=== PATIENT | female | born 1950 | race Caucasian/White ===

== ENCOUNTER 2020-09-19 22:57 | Inpatient (IN) | payer MEDICARE, SELFPAY ==
[2020-09-19 22:59] VITALS: BP 156/74; PULSE 82; RESP 30; TEMP 36.6; O2SAT 78; O2SAT 92; BMI 38.4
--- NOTE | 2020-09-19 23:11 | RAD_ITS ---
STUDY: X-RAY CHEST REASON FOR EXAM: Female, 69 years old. sob TECHNIQUE: Single AP portable view of the chest. COMPARISON: None. FINDINGS: Lungs are mildly hypoinflated. Diffuse patchy airspace disease compatible with interstitial edema. Bibasilar consolidation with small effusions. Moderate cardiomegaly. Normal mediastinum and vishal. Normal visualized pulmonary arteries. Normal visualized aortic arch and descending thoracic aorta. Normal visualized thoracic spine. Normal visualized ribs, clavicles, and shoulders. There is no demonstrated abnormality of the visualized soft tissue structures of the upper abdomen. RAD/Chest 1 View (Portable) IMPRESSION: CHF with bibasilar consolidation and effusion Electronically Signed: Ced Hancock DO at 0:16 EDT Tel , Service support ,
--- NOTE | 2020-09-19 23:13 | RAD_ITS ---
STUDY: X-RAY - PELVIS REASON FOR EXAM: Female, 69 years old. fall TECHNIQUE: One view of the pelvis was obtained. COMPARISON: None. FINDINGS: There is a non-specific bowel gas pattern. Normal visualized soft tissue structures. Normal bilateral iliac wings, sacroiliac joints and visualized sacrum. Normal visualized bilateral superior and inferior pubic rami. Normal pubic symphysis. Normal ischial tuberosities. Normal visualized right femoral head. Normal right acetabulum. Normal right hip joint. Normal visualized left femoral head. Normal left acetabulum. Normal left hip joint. RAD/Pelvis 1 or 2 Views IMPRESSION: Normal x-ray examination of the pelvis. Electronically Signed: Ced Hancock DO at 0:16 EDT Tel , Service support ,
--- NOTE | 2020-09-19 23:22 | ED.DCSUM_ITS ---
History of Present Illness Chief Complaint: Edema Informant: Patient Narrative: Patient is a 69-year-old female with complex medical history presenting after weakness, shortness of breath mechanical falls. Patient states she was getting on the shower tonight when she slipped and fell. She landed next the toilet. She hit her left back. EMS was called out to help her up. When they left patient was try to walk with her walker and fell again. She did not hit her head. No loss of conscious. Her is at the bedside who confirms this. Patient is on any anticoagulation, does take 81 mg aspirin. Patient notes she was recently switched to torsemide on September 08 because she had weight gain. Patient has chronic diastolic heart failure as well as CKD. She is on dialysis. She notes her urine has been darker lately. She is currently under evaluation for renal transplant. She feels that her swelling is slightly improved however she has had increased dyspnea on exertion. Patient sleeps in a recliner because she cannot get up into her bed. Patient denies any fever. She does have a chronic nonproductive cough which is unchanged. Patient denies any chest pain. No other complaints at this time. 78% on arrival. She states she does not wear oxygen normally. Past Medical History - Allergies and Home Meds Allergies/Adverse Reactions: Allergies lisinopril Allergy (Verified 09/19/20 22:59) Anaphylaxis olmesartan [From Benicar] Allergy (Verified 09/19/20 23:25) Anaphylaxis Sulfa (Sulfonamide Antibiotics) Allergy (Verified 09/19/20 22:59) Rash adhesive tape Adverse Reaction (Verified 09/19/20 22:59) Rash furosemide [From Lasix] Adverse Reaction (Verified 09/19/20 22:59) Nausea latex Adverse Reaction (Verified 09/19/20 23:25) Rash metoprolol [From Toprol XL] Adverse Reaction (Verified 09/19/20 23:25) Rash Primary Care Physician: Weston Zhu MD [Primary Care Provider] - Past Medical History: - - Hypertension, CKD 4, chronic anemia, diabetes mellitus, hypothyroid, secondary renal hyperparathyroidism, diastolic heart failure with preserved EF Surgical History: hysterectomy, - - D&C, EGD Smoking Status: Never smoker Review of Systems General: Reports: Malaise. Denies: Chills, Fever, Sweats Eyes: Denies: Visual changes - bilaterally, Diplopia ENT: Denies: Rhinorrhea, Sore throat Cardiovascular: Denies: Chest pain, Palpitations Respiratory: Reports: Dyspnea, Cough, Dyspnea on exertion. Denies: Sputum Gastrointestinal: Denies: Abdominal pain, Nausea, Vomiting, Diarrhea, Melena, Hematochezia Genitourinary: Denies: Dysuria, Hematuria, Frequency Musculoskeletal: Reports: Back pain - after fall, Swelling. Denies: Extremity Pain Skin: Denies: Rash, Wounds Neurological: Denies: Headache, Weakness, Numbness Physical Exam Vital Signs/Narrative: Vital Signs Temp Pulse Resp BP Pulse Ox 09/19/20 22:59 97.9 F 82 30 H 156/74 H 92 Inital Vital Signs reviewed: Yes General: Well nourished, Well developed, No Acute Distress Head: Normocephalic, Atraumatic Eyes: Perrl, EOMI, Pale conjunctiva ENT: Moist mucous membranes, No rhinorrhea, TM's clear Neck: Supple, Nontender. Negative for: No JVD Cardiovascular: Regular rate, Regular rhythm, No murmurs Respiratory: No distress, Chest nontender, Diminished, Decreased Air Movement, - - Bibasilar crackles Abdomen: Soft, Nontender, Normal bowel sounds, - - Pitting edema up to the umbilicus Back: - - Tenderness to palpation of the left flank with some associated ecchymosis Extremities: Nontender, Edema Skin: Normal color, No rash Neurological: Alert, Oriented x3, Cranial nerves II-XII grossly intact, Normal Strength, Normal Sensation Psychological: Normal affect, Normal Mood Diagnostic/Tx/Re-eval Chest X-Ray - ED: 1 View, Read by ED Physician, Read by Radiologist, CHF, Right Effusion, Left Effusion Laboratory Results - last 24 hr 09/19/20 09/19/20 09/19/20 23:00 23:00 23:00 WBC 12.2 H RBC 3.61 L Hgb 8.7 L Hct 31.0 L MCV 85.9 MCH 24.1 L MCHC 28.1 L RDW Std Deviation 51.1 H RDW Coeff of Samy 16.6 H Plt Count 423 MPV 9.5 Immature Gran % (Auto) 1.600 H Neut % (Auto) 84.1 H Lymph % (Auto) 5.5 L Carson % (Auto) 6.4 Eos % (Auto) 1.7 Baso % (Auto) 0.7 Absolute Neuts (auto) 10.2 H Absolute Lymphs (auto) 0.67 L Nucleated RBC % 0 PT 14.4 INR 1.2 Sodium 137 Potassium 4.9 Chloride 103 Carbon Dioxide 28.0 Anion Gap 6 BUN 50 H Creatinine 3.62 H Estim Creat Clear Calc 13.20 Est GFR (MDRD) Af Amer 16 L Est GFR (MDRD) Non-Af 13 L BUN/Creatinine Ratio 13.8 Glucose 161 H Calcium 8.1 L Total Bilirubin 0.40 AST 9 L ALT 14 Alkaline Phosphatase 129 H Troponin I < 0.015 B-Natriuretic Peptide Total Protein 7.3 Albumin 3.0 L Globulin 4.3 H Albumin/Globulin Ratio 0.7 L Urine Color Urine Clarity Urine pH Ur Specific [place] Urine Protein Urine Glucose (UA) Urine Ketones Urine Occult Blood Urine Nitrite Urine Bilirubin Urine Urobilinogen Ur Leukocyte Esterase Urine RBC Urine WBC Ur Squamous Epith Cells Urine Bacteria Urine Mucus 09/19/20 09/19/20 23:00 23:58 WBC RBC Hgb Hct MCV MCH MCHC RDW Std Deviation RDW Coeff of Samy Plt Count MPV Immature Gran % (Auto) Neut % (Auto) Lymph % (Auto) Carson % (Auto) Eos % (Auto) Baso % (Auto) Absolute Neuts (auto) Absolute Lymphs (auto) Nucleated RBC % PT INR Sodium Potassium Chloride Carbon Dioxide Anion Gap BUN Creatinine Estim Creat Clear Calc Est GFR (MDRD) Af Amer Est GFR (MDRD) Non-Af BUN/Creatinine Ratio Glucose Calcium Total Bilirubin AST ALT Alkaline Phosphatase Troponin I B-Natriuretic Peptide 846.3 H Total Protein Albumin Globulin Albumin/Globulin Ratio Urine Color Yellow Urine Clarity Clear Urine pH 6.0 Ur Specific [place] 1.015 Urine Protein 500 H Urine Glucose (UA) Normal Urine Ketones Negative Urine Occult Blood 10 H Urine Nitrite Negative Urine Bilirubin Negative Urine Urobilinogen Normal Ur Leukocyte Esterase 100 H Urine RBC 0-5 SEEN Urine WBC 10-25 SEEN Ur Squamous Epith Cells 0-5 SEEN Urine Bacteria RARE Urine Mucus 0 SEEN Diagnostic Data Chest X-Ray 09/19/20 23:11 IMPRESSION: CHF with bibasilar consolidation and effusion Electronically Signed: Ced Hancock DO at 0:16 EDT Tel , Service support , Pelvis X-Ray 09/19/20 23:13 IMPRESSION: Normal x-ray examination of the pelvis. Electronically Signed: Ced Hancock DO at 0:16 EDT Tel , Service support , - Rhythm Strip Rhythm Strip: Sinus Rhythm Rate: 85 Ectopy: None - EKG Initial EKG Interpretation: Sinus Rhythm, - - Sinus rhythm at a rate of 85 Normal axis Normal intervals Normal ST segments Prior: No Prior - Medical Decision Making Patient is evaluated for weakness and increased falls. She is also had worsening lower extremity edema for the past few weeks and increased dyspnea on exertion. On exam patient appears fluid overloaded. She is hypoxic requiring supplementary oxygen. Patient was recently started on torsemide but states her urine has still been dark. Patient does have left lower back/flank pain from the fall. She has slight erythema/ecchymosis. No bony tenderness. I suspect this is all muscle skeletal. I did obtain a pelvic x-ray which does not show any acute fracture. Chest x-ray shows bilateral pleural effusions consistent with CHF. There is questionable consolidation. Patient does have a slight left shift and leukocytosis. Urinalysis is questionable for UTI as well. Patient be covered with antibiotics, Rocephin and azithromycin. She is given 40 of IV Lasix in the ER as a suspect her primary issue is fluid overload. Patient has Lasix listed as an allergy but it is of intolerance. When she took it orally it caused headache and nausea. Patient will require admission given her acute hypoxia and decompensated CHF. Patient does have an elevation of her creatinine as well. I suspect this is likely cardiorenal. Hopefully creatinine will improve with diuresing. She is agreeable with this plan of care. She is hemodynamically stable in the ER. ED Disposition - Plan for ED Patient: Disposition: Acute [facility] Diagnosis: Acute respiratory failure with hypoxia, Acute exacerbation of CHF (congestive heart failure), [id number] kidney injury, Fall, Contusion, back Referrals: Weston Zhu MD [Primary Care Provider] -
[2020-09-19 23:41] LABS: International Normalized Ratio 1.2; Prothrombin Time (Protime)PT. 14.4 SECONDS (11.7-14.9)
[2020-09-19 23:43] LABS: ALB/GLOB Ratio 0.7 RATIO (0.9-2.4); AST(SGOT) 9 U/L (15-37); Alanine Aminotransfer ALT/SGPT 14 U/L (13-56); Alkaline Phosphatase 129 U/L (45-117); Anion Gap 6 (5-15); BUN 50 mg/dL (7-18); BUN/Creat Ratio 13.8 RATIO (10-20); Calcium,Total 8.1 mg/dL (8.5-10.1); Chloride 103 mmol/L (98-107); Creatinine, Serum 3.62 mg/dL (0.55-1.02); EST Glomerular Filtration Rate 13 mL/min (>60); Est Glom Filt Rate - Afr Amer 16 mL/min (>60); Globulin 4.3 g/dL (2.2-4.2); Glucose 161 mg/dL (74-106); Potassium 4.9 mmol/L (3.5-5.1); Protein, Total 7.3 g/dL (6.4-8.2); Sodium Level 137 mmol/L (136-145)
[2020-09-19 23:47] LABS: Absolute Lymphocyte Count 0.67 X10^3/uL (0.83-4.51); Absolute Neutrophil Count 10.2 X10^3/uL (2.0-7.7); Basophil# 0.08 X10^3/uL; Basophil% 0.7 % (0-1); Eosinophil# 0.21 X10^3/uL; Eosinophils% 1.7 % (0-5); Hemoglobin 8.7 g/dL (12.0-15.0); Lymphocyte # 0.67 X10^3/ul (0.83-4.51); Lymphocyte % 5.5 % (19-41); Mean Corp Hgb Conc 28.1 g/dL (32-36); Mean Corpuscular Hgb 24.1 pg (27.0-32.0); Mean Corpuscular Volume 85.9 fL (81-99); Mean Platelet Vol. 9.5 fl (6.2-12.0); Monocyte# 0.78 X10^3/uL; Monocyte% 6.4 % (0-10); NRBC Flagged by Analyzer 0 % (0-5); Neutrophil # 10.22 X10^3/uL (2.7-7.7); Neutrophil % 84.1 % (47-70); Platelet Count 423 K/mm3 (150-450); RBC Distribution Width CV 16.6 % (11.6-14.6); RBC Distribution Width SD 51.1 fl (35.1-43.9); Red Blood Count 3.61 M/mm3 (4.2-5.4); White Blood Count 12.2 K/mm3 (4.4-11.0)
[2020-09-19 23:57] VITALS: BP 162/60; PULSE 92; RESP 25; O2SAT 93
--- NOTE | 2020-09-19 23:59 | EKG12_ITS ---
Test Reason : WEAKNESS Blood Pressure : / mmHG Vent. Rate : 085 BPM Atrial Rate : 085 BPM P-R Int : 156 ms QRS Dur : 086 ms QT Int : 380 ms P-R-T Axes : 034 050 051 degrees QTc Int : 452 ms Normal sinus rhythm Normal ECG Confirmed by CINDY OCONNELL, CHIOMA ([id number]), supervising editor news reel SHELLY FULLER ([id number]) on 09/21/2020 1:06:13 PM Referred By: RITIKA Confirmed By:CHIOMA WHITE MD
[2020-09-20] VITALS (14 sets, daily range): BP systolic 115–162; BP diastolic 53–74; PULSE 63–90; RESP 16–26; TEMP 36–36.8; O2SAT 92–95; BMI 37.1; BMI 37.2
--- NOTE | 2020-09-20 00:01 | ED.RN ---
NO OLD EKGS IN MUES
[2020-09-20 00:03] LABS: Glucose, Dipstick Normal (Normal); Ketone-Dipstick Negative (Negative); Leukocyte Esterase-Dipstick 100 /ul (Negative); Mucous, Urine 0 SEEN /hpf (<or=2+); Nitrite-Dipstick Negative (Negative); Occult Blood-Urine 10 /ul (Negative); Protein-Dipstick 500 mg/dl (Negative); Specific Gravity, Urine 1.015 (1.002-1.030); Urine Bilirubin Dipstick Negative (Negative); Urine Urobilinogen Normal (Normal)
[2020-09-20 00:04] LABS: Color, Urine Yellow (Yellow); Urine Clarity Clear (Clear)
[2020-09-20 00:10] LABS: Bacteria RARE /hpf (None Seen); Red Blood Cells-Urine 0-5 SEEN /hpf (0-5); Squamous Epithelial Cells - UA 0-5 SEEN /hpf (5-10); White Blood Cells 10-25 SEEN /hpf (0-5)
[2020-09-20] MEDS: Morphine 4 MG/ML Syringe IV (00:59)
[2020-09-20] MEDS: Furosemide 40 MG/4 ML Vial IV (00:59)
[2020-09-20] MEDS: Ceftriaxone 1 GM/50 ML BAG IV ×2 (01:18→16:58)
[2020-09-20 01:22] LABS: BNP,B-Type NATRIURETIC PEPTIDE 846.3 pg/mL (0-100)
--- NOTE | 2020-09-20 01:26 | HP.PCM_ITS ---
<Vilma Oden - Last Filed: 09/20/20 01:26> Problem List (1) Urinary tract infection Status: Acute Qualifiers: Encounter type: initial encounter (2) Acute on chronic congestive heart failure Status: Acute (3) Hypertension Status: Chronic (4) Insomnia Status: Chronic (5) Diabetes mellitus type 2 in obese Status: Chronic (6) Hypothyroidism Status: Chronic (7) Hyperlipidemia Status: Chronic History of Present Illness Date of Admission: 09/20/20 Chief Complaint: multiple falls, SOB The patient is a 69 year old F today following multiple falls at home. Patient states that she has been increasingly short of breath today and off balance. Patient fell getting on the shower tonight and landed next to the toilet hitting her back as she fell. Patient is not on any anticoagulation however she does take an 81 mg aspirin daily. Patient has a medical history of CHF, chronic kidney disease, diabetes mellitus type 2, hyperlipidemia, hypertension. Patient states that she has had increased swelling along with increased shortness of breath upon exertion. Vital signs stable, patient currently on nasal cannula 4 L due to hypoxia upon presentation to ER. Patient does not wear any home oxygen. Patient has a chronic nonproductive cough but denies other symptoms. Chest x-ray shows CHF with consolidation my pelvic x-ray negative for acute f indings. Past Medical History Past Medical History (Chronic Problems): Chronic Problems Hypertension (Chronic) Insomnia (Chronic) Diabetes mellitus type 2 in obese (Chronic) Hypothyroidism (Chronic) Hyperlipidemia (Chronic) Acute exacerbation of CHF (congestive heart failure) (Chronic) [id number]-[id number] kidney injury (Chronic) Allergies lisinopril Allergy (Verified 09/19/20 22:59) Anaphylaxis olmesartan [From Benicar] Allergy (Verified 09/19/20 23:25) Anaphylaxis Sulfa (Sulfonamide Antibiotics) Allergy (Verified 09/19/20 22:59) Rash adhesive tape Adverse Reaction (Verified 09/19/20 22:59) Rash furosemide [From Lasix] Adverse Reaction (Verified 09/19/20 22:59) Nausea latex Adverse Reaction (Verified 09/19/20 23:25) Rash metoprolol [From Toprol XL] Adverse Reaction (Verified 09/19/20 23:25) Rash Home Medications: Ambulatory Orders Medication Instructions Recorded Alpha Lipoic Acid 100 mg PO DAILY 09/19/20 Amlodipine [Norvasc] 5 mg PO DAILY 09/19/20 Ascorbic Acid 500 mg PO DAILY 09/19/20 Aspirin [Aspirin, Baby] 81 mg PO DAILY@0800 09/19/20 Calcitriol 0.25 mcg PO QODAY 09/19/20 Calcitriol 0.5 mcg PO QODAY 09/19/20 Cyanocobalamin (Vitamin B-12) 1,000 mcg PO DAILY 09/19/20 [Vitamin B-12] Diltiazem [Cardizem] 120 mg PO BID 09/19/20 Ferrous Sulfate 324 mg PO BID 09/19/20 Levothyroxine [Synthroid] 300 mcg PO DAILY 09/19/20 Multivit with Iron,Minerals 1 each PO DAILY 09/19/20 [Complete Senior] [place]-3 Fatty Acids/Fish Oil 1 each PO DAILY 09/19/20 [[place] 3 Fish Oil Softgel] Sitagliptin Phosphate [Januvia] 25 mg PO DAILY 09/19/20 Torsemide 10 mg PO DAILY 09/19/20 Zolpidem Tartrate [Ambien] 10 mg PO QHS PRN PRN 09/19/20 Surgical History: hysterectomy, - - D&C, EGD Psychiatric History: No pertinent psych hx [employer]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 Denies: Chills, Fever, Weight Change HEENT: Denies: Head Aches, Sinus Congestion, Sinus Drainage Cardiovascular: Denies: Chest Pain, Palpitations Respiratory: Reports: Shortness of breath upon exertion. Denies: Cough, Sputum production Gastrointestinal: Denies: Abdominal Pain, Nausea, Vomiting Genitourinary: Reports: Frequency. Denies: Dysuria Musculoskeletal: Denies: Joint Pain, Joint Tenderness Skin: Denies: Rash, Wounds Neurological: Denies: Numbness, Tingling, Focal weakness Psychiatric: Denies: Anxiety, Depression, Homicidal Ideations, Suicidal Ideations Hematologic/ Lymphatic: Denies: Easy Bruising, Easy Bleeding VTE Information - Inpt Only VTE Present on Admission: No VTE Mechan Device Prophylaxis: None VTE Pharm Prophylaxis ordered?: Yes Patient Problems: Active and Suspected Problems Urinary tract infection (Acute) Acute on chronic congestive heart failure (Acute) Acute respiratory failure with hypoxia (Acute) Fall (Acute) Contusion, back (Acute) - Physical Exam Vitals/I&O's: Vital Signs Temp Pulse Resp BP Pulse Ox 97.9 F 90 26 H 162/60 H 92 09/19/20 22:59 09/20/20 00:00 09/20/20 00:00 09/20/20 00:00 09/20/20 00:00 Oxygen Flow Rate (L/min) 4 Oxygen Delivery Method Nasal Cannula Weight: 231 lb 0.711 oz Body Mass Index (BMI) 38.4 General: Alert, Oriented x3, Cooperative HEENT: Atraumatic, PERRLA, EOMI, Normocephalic Neck: Supple, No JVD, Negative Carotid Bruits Lungs: Diminished, Rhonchi, Short of Breath Cardiovascular: Regular rate, Regular Rhythm, Normal S1, Normal S2, No murmurs Abdomen: Bowel Sounds Present, Soft, Non Tender Extremities: Capillary Refill Less than 3 Seconds, Edema, Peripheral Pulses Normal Skin: No rashes, No breakdown Musculoskeletal: No Tenderness to Palpation of Joints or Extremities Neurological: Cranial nerves II-XII grossly intact Psych/Mental Status: Normal Affect, Appropriate Microbiology Past 72 Hours 09/19/20 Unknown Nasal Secretion SARS-CoV-2 Antigen (Rapid) - Final Laboratory Results 09/19/20 23:00: WBC 12.2 H, RBC 3.61 L, Hgb 8.7 L, Hct 31.0 L, MCV 85.9, MCH 24.1 L, MCHC 28.1 L, RDW Std Deviation 51.1 H, RDW Coeff of Samy 16.6 H, Plt Count 423, MPV 9.5, Immature Gran % (Auto) 1.600 H, Neut % (Auto) 84.1 H, Lymph % (Auto) 5.5 L, [place] % (Auto) 6.4, Eos % (Auto) 1.7, Baso % (Auto) 0.7, Absolute Neuts (auto) 10.2 H, Absolute Lymphs (auto) 0.67 L, Nucleated RBC % 0 09/19/20 23:00: PT 14.4, INR 1.2 09/19/20 23:00: Sodium 137, Potassium 4.9, Chloride 103, Carbon Dioxide 28.0, Anion Gap 6, BUN 50 H, Creatinine 3.62 H, Estim Creat Clear Calc 13.20, Est GFR (MDRD) Af Amer 16 L, Est GFR (MDRD) Non-Af 13 L, BUN/Creatinine Ratio 13.8, Glucose 161 H, Calcium 8.1 L, Total Bilirubin 0.40, AST 9 L, ALT 14, Alkaline Phosphatase 129 H, Troponin I < 0.015, Total Protein 7.3, Albumin 3.0 L, Globulin 4.3 H, Albumin/Globulin Ratio 0.7 L 09/19/20 23:00: B-Natriuretic Peptide 846.3 H 09/19/20 23:58: Urine Color Yellow, Urine Clarity Clear, Urine pH 6.0, Ur Specific [place] 1.015, Urine Protein 500 H, Urine Glucose (UA) Normal, Urine Ketones Negative, Urine Occult Blood 10 H, Urine Nitrite Negative, Urine Bilirubin Negative, Urine Urobilinogen Normal, Ur Leukocyte Esterase 100 H, Urine RBC 0-5 SEEN, Urine WBC 10-25 SEEN, Ur Squamous Epith Cells 0-5 SEEN, Urine Bacteria RARE, Urine Mucus 0 SEEN Current Medications Azithromycin 500 mg/ Dextrose 255 mls @ 250 mls/hr IV X1 ONE Stop: 09/20/20 02:04 Ceftriaxone Sodium (Rocephin) 1 gm in 50 mls @ 100 mls/hr IV X1 ONE Stop: 09/20/20 01:32 Last Admin: 09/20/20 01:18 Dose: 100 mls/hr Documented by: Assessment/Plan All Active Problems Urinary tract infection (Acute) Acute on chronic congestive heart failure (Acute) Acute respiratory failure with hypoxia (Acute) Fall (Acute) Contusion, back (Acute) 1. Urinary tract infection -Admit to PCU for cardiac monitoring -I&O per protocol -Keflex twice daily p.o. -CBC and BMP daily -PT OT to eval and treat -Urine culture 2. Acute on chronic congestive heart failure -Cardiac low-sodium diet with fluid restriction ordered -Daily weights -Vital signs per protocol -O2 per protocol -IV Lasix -Daily EKG 3. Hypertension -Continue home medication regimen 4. Insomnia -Continue home medication regimen 5. Diabetes mellitus type 2 in obese -Continue home medication regimen -AC at bedtime blood sugars ordered with sliding scale insulin 6. Hypothyroidism -Continue home medication regimen 7. Hyperlipidemia -Continue home medication regimen DVT prophylaxis-subcu Lovenox This patient was seen by CALLI Helton under the supervision of Dr. Gallegos. <Christian Gallegos - Last Filed: 09/20/20 06:13> History of Present Illness The patient is a 69 year old F [] Past Medical History Allergies lisinopril Allergy (Verified 09/19/20 22:59) Anaphylaxis olmesartan [From Benicar] Allergy (Verified 09/19/20 23:25) Anaphylaxis Sulfa (Sulfonamide Antibiotics) Allergy (Verified 09/19/20 22:59) Rash adhesive tape Adverse Reaction (Verified 09/19/20 22:59) Rash furosemide [From Lasix] Adverse Reaction (Verified 09/19/20 22:59) Nausea latex Adverse Reaction (Verified 09/19/20 23:25) Rash metoprolol [From Toprol XL] Adverse Reaction (Verified 09/19/20 23:25) Rash - Physical Exam Vitals/I&O's: Vital Signs Temp Pulse Resp BP Pulse Ox 97.7 F L 78 16 135/74 H 92 09/20/20 02:09 09/20/20 02:35 09/20/20 02:09 09/20/20 02:09 09/20/20 02:09 Oxygen Flow Rate (L/min) 6 Oxygen Delivery Method Nasal Cannula Weight: 223 lb 5.252 oz Body Mass Index (BMI) 37.1 Intake and Output for Last 24 Hours 09/18/20 09/19/20 09/20/20 23:59 23:59 23:59 Intake Total 305 / 305 Balance 305 / 305 Microbiology Past 72 Hours 09/19/20 Unknown Nasal Secretion SARS-CoV-2 Antigen (Rapid) - Final Laboratory Results 09/19/20 23:00: WBC 12.2 H, RBC 3.61 L, Hgb 8.7 L, Hct 31.0 L, MCV 85.9, MCH 24.1 L, MCHC 28.1 L, RDW Std Deviation 51.1 H, RDW Coeff of Samy 16.6 H, Plt Count 423, MPV 9.5, Immature Gran % (Auto) 1.600 H, Neut % (Auto) 84.1 H, Lymph % (Auto) 5.5 L, [place] % (Auto) 6.4, Eos % (Auto) 1.7, Baso % (Auto) 0.7, Absolute Neuts (auto) 10.2 H, Absolute Lymphs (auto) 0.67 L, Nucleated RBC % 0 09/19/20 23:00: PT 14.4, INR 1.2 09/19/20 23:00: Sodium 137, Potassium 4.9, Chloride 103, Carbon Dioxide 28.0, Anion Gap 6, BUN 50 H, Creatinine 3.62 H, Estim Creat Clear Calc 13.20, Est GFR (MDRD) Af Amer 16 L, Est GFR (MDRD) Non-Af 13 L, BUN/Creatinine Ratio 13.8, Glucose 161 H, Calcium 8.1 L, Total Bilirubin 0.40, AST 9 L, ALT 14, Alkaline Phosphatase 129 H, Troponin I < 0.015, Total Protein 7.3, Albumin 3.0 L, Globulin 4.3 H, Albumin/Globulin Ratio 0.7 L 09/19/20 23:00: B-Natriuretic Peptide 846.3 H 09/19/20 23:58: Urine Color Yellow, Urine Clarity Clear, Urine pH 6.0, Ur Specific [place] 1.015, Urine Protein 500 H, Urine Glucose (UA) Normal, Urine Ketones Negative, Urine Occult Blood 10 H, Urine Nitrite Negative, Urine Bilirubin Negative, Urine Urobilinogen Normal, Ur Leukocyte Esterase 100 H, Urine RBC 0-5 SEEN, Urine WBC 10-25 SEEN, Ur Squamous Epith Cells 0-5 SEEN, Urine Bacteria RARE, Urine Mucus 0 SEEN 09/20/20 02:50: Troponin I < 0.015 Current Medications Acetaminophen (Acetaminophen 325 Mg Tablet) 650 mg PO Q6H PRN PRN PRN Reason: Pain Score 1-10/Temp > 100.7 F Amlodipine Besylate (Amlodipine 5 Mg Tablet) 5 mg PO DAILY [facility] Ascorbic Acid (Ascorbic Acid 500 Mg Tablet) 500 mg PO DAILY [facility] Aspirin (Aspirin 81 Mg Tab.Chew) 81 mg PO DAILY@0800 [facility] Calcitriol (Calcitriol 0.25 Mcg Capsule) 0.25 mcg PO SuTuThSa@1000 [facility] Calcitriol (Calcitriol 0.25 Mcg Capsule) 0.5 mcg PO MoWeFr@1000 [facility] Cephalexin (Cephalexin 500 Mg Capsule) 500 mg PO BID [facility] Stop: 09/25/20 10:01 Cyanocobalamin (Cyanocobalamin 500 Mcg Tablet) 1,000 mcg PO DAILY [facility] Diltiazem HCl (Diltiazem Cd 120 Mg Capsule) 120 mg PO BID [facility] Enoxaparin Sodium (Enoxaparin 30 Mg/0.3 Ml Syringe) 30 mg SC DAILY [facility] Ferrous Sulfate (Ferrous Sulfate 325 Mg Tablet) 324 mg PO BID@1200,1700 [facility] Furosemide (Furosemide 20 Mg/2 Ml Vial) 20 mg IV Q8 JESICA Sodium Chloride () 250 mls @ 15 mls/hr IV .[id number] PRN PRN Reason: Saline Flush Sodium Chloride () 250 mls @ 15 mls/hr IV .[id number] PRN PRN Reason: Additional IVPB Infusion Insulin Human Lispro (Insulin Lispro 100 Unit/Ml Insuln.Pen) 0 unit SC ACHS JESICA; Protocol Levothyroxine Sodium (Levothyroxine 150 Mcg Tablet) 300 mcg PO DAILY@0600 [facility] Linagliptin (Linagliptin 5 Mg Tablet) 5 mg PO DAILY [facility] Melatonin (Melatonin 3 Mg Tablet) 3 mg PO QHS PRN PRN PRN Reason: INSOMNIA Morphine Sulfate (Morphine 2 Mg/Ml Syringe) 2 mg IV Q3H PRN PRN PRN Reason: Pain Score 6-10 Last Admin: 09/20/20 03:04 Dose: 2 mg Documented by: Multivitamins/Minerals (Multivitamins,Ther W-Minerals Tablet) [facility] Nitroglycerin (Nitroglycerin (Inpatient Use) 0.4 Mg Tab.Subl) 0.4 mg SL Q5M PRN PRN Reason: CARDIAC/CHEST PAIN [id number] Ethyl Esters ([place]-3 Acid Ethyl Esters 1 Gm Capsule) 1 gm PO DAILY [facility] Ondansetron HCl (Ondansetron 4 Mg/2 Ml Vial) 4 mg IV Q8H PRN PRN PRN Reason: NAUSEA/VOMITING Oxycodone HCl (Oxycodone 5 Mg Tablet) 5 mg PO Q6H PRN PRN PRN Reason: Pain Score 4-5 Sodium Chloride (0.9% Saline Lock 10 Ml Syringe) 10 - 40 ml IV UD PRN PRN Reason: SALINE FLUSH Last Admin: 09/20/20 03:04 Dose: 10 ml Documented by: Zolpidem Tartrate (Zolpidem Tartrate 5 Mg Tablet) 5 mg PO QHS PRN PRN PRN Reason: SLEEP Assessment/Plan Patient seen and examined independently by myself and agree with above assessment and plan.
[2020-09-20] MEDS: 0.9% Saline Lock 10 ML Syringe IV ×5 (03:04→21:16)
[2020-09-20] MEDS: Morphine 2 MG/ML Syringe IV (03:04)
--- NOTE | 2020-09-20 05:55 | EKG12_ITS ---
Test Reason : AM EKG Blood Pressure : / mmHG Vent. Rate : 072 BPM Atrial Rate : 072 BPM P-R Int : 160 ms QRS Dur : 082 ms QT Int : 410 ms P-R-T Axes : 037 053 070 degrees QTc Int : 448 ms Normal sinus rhythm Normal ECG Confirmed by CINDY OCONNELL, CHIOMA ([id number]), editorial manager SHELLY FULLER ([id number]) on 09/21/2020 1:11:10 PM Referred By: NICKI Confirmed By:CHIOMA WHITE MD
[2020-09-20] MEDS: Levothyroxine 150 MCG Tablet 300 MCG PO (06:40)
[2020-09-20] MEDS: Furosemide 20 MG/2 ML VIAL IV ×3 (06:40→21:16)
[2020-09-20 06:55] LABS: Bedside Glucose 147 mg/dL (70-110)
[2020-09-20 07:02] LABS: Absolute Neutrophil Count 8.9 X10^3/uL (2.0-7.7); Basophil# 0.06 X10^3/uL; Basophil% 0.6 % (0-1); Eosinophil# 0.11 X10^3/uL; Eosinophils% 1.1 % (0-5); Hematocrit 28.2 % (37-47); Hemoglobin 7.6 g/dL (12.0-15.0); Lymphocyte % 4.8 % (19-41); Mean Corpuscular Hgb 23.7 pg (27.0-32.0); Mean Corpuscular Volume 87.9 fL (81-99); Mean Platelet Vol. 9.1 fl (6.2-12.0); Monocyte# 0.66 X10^3/uL; Monocyte% 6.4 % (0-10); NRBC Flagged by Analyzer 0 % (0-5); Neutrophil # 8.91 X10^3/uL (2.7-7.7); Neutrophil % 86.3 % (47-70); POSITIVE DIFFERENTIAL YES; Platelet Count 356 K/mm3 (150-450); RBC Distribution Width CV 16.4 % (11.6-14.6); Red Blood Count 3.21 M/mm3 (4.2-5.4); White Blood Count 10.3 K/mm3 (4.4-11.0)
[2020-09-20 07:03] LABS: Differential Indicated SCAN CRITERIA MET
[2020-09-20 07:50] LABS: Anion Gap 5 (5-15); BUN 48 mg/dL (7-18); Calcium,Total 7.8 mg/dL (8.5-10.1); Chloride 104 mmol/L (98-107); Creatinine, Serum 3.44 mg/dL (0.55-1.02); EST Glomerular Filtration Rate 14 mL/min (>60); Est Glom Filt Rate - Afr Amer 17 mL/min (>60); Estimated Creatinine Clearance 13.89 ml/min; Glucose 168 mg/dL (74-106); Potassium 5.2 mmol/L (3.5-5.1); Sodium Level 137 mmol/L (136-145)
--- NOTE | 2020-09-20 10:17 | PN_ITS ---
Progress Note Patient is a 69-year-old lady admitted with progressive generalized with recurrent falls and apparently detected pound weight gain over the past months. Imaging studies obtained was consistent with acute congestive heart failure admitted to monitored bed for further management GENERAL: Appears ill looking HEENT: Atraumatic; EYES; Anicteric, Normal Conjunctiva NECK; supple, normal thyroid, RESPIRATORY: Diminished to auscultation CARDIOVASCULAR: Regular S1 S2, GI: soft, normoactive bowel sounds, : No Renal angle tenderness; EXTREMITIES: edema, no clubbing, MUSCULOSKELETAL: no muscle waisting NEURO: Awake; no lateralizing signs. SKIN: No Rash PSYCH; Flat affect 1. Acute on chronic congestive heart failure with preserved ejection fraction ?Patient admitted to monitored bed managed with fluid restriction, diuretics and 2D echo ordered for EF assessment. Patient was also placed on supplemental oxygen titrated to keep oxygen saturation greater than 90 2. Acute cystitis ?Culture sent on admission patient started on Rocephin with plans to either continue with antibiotics or adjust antibiotics based on culture results 3. Chronic kidney disease stage IV ?Patient baseline creatinine not available as part of her evaluation ordered renal ultrasound and consultation placed to nephrology 4. Hypertension - Blood pressure controlled, home medications continued with dose adjustment as needed 5. Anemia - Secondary to chronic disorder, as part of evaluation ordered stool guaiac as well as stool studies monitoring H&H and transfuse if patient becomes symptomatic or hemoglobin falls below 7 6. Diabetes mellitus type II -patient's oral hypoglycemics held. Placed on long acting insulin, Accu-Cheks a.c. and at bedtime and covered with sliding scale insulin 7. Hypothyroidism - Patient is on levothyroxine home dose continued 8. Dyslipidemia ?Patient on fish oil 9. Physical deconditioning with recurrent falls - Requested for PT OT eval and social services designee to assist with discharge planning 10. DVT prophylaxis - On enoxaparin Advance planning; did discuss with the patient regarding advanced directives as well as CODE STATUS. Did explain the various scenarios involved ( FULL CODE, DNR CCA, DNR CCA with no intubation, and DNR CC and what each meant) patient elected to be full code with CPR and intubation if warranted. Order was placed. Time spent on discussion 18 minutes. STROKE Vital Signs/Narrative: Vital Signs Temp Pulse Resp BP Pulse Ox 09/20/20 09:43 94 09/20/20 09:41 97.6 F L 78 18 127/64 H 92 09/20/20 07:00 70 09/20/20 06:58 96.8 F L 70 20 H 134/58 H 95 Procedures: 44278 Advncd Care Plan 30 Min
[2020-09-20] MEDS: Multivitamins,Ther W-Minerals Tablet 1 TABLET PO (10:50)
[2020-09-20] MEDS: Omega-3 Acid Ethyl Esters 1 GM Capsule PO (10:50)
[2020-09-20] MEDS: Cephalexin 500 MG Capsule PO (10:50)
[2020-09-20] MEDS: LINAGLIPTIN 5 MG TABLET PO (10:50)
[2020-09-20] MEDS: Cyanocobalamin 500 MCG Tablet 1000 MCG PO (10:50)
[2020-09-20] MEDS: dilTIAZem CD 120 MG Capsule PO ×2 (10:50→21:16)
[2020-09-20] MEDS: Calcitriol 0.25 MCG Capsule PO (10:51)
[2020-09-20] MEDS: Aspirin 81 MG TAB.CHEW PO (10:51)
[2020-09-20] MEDS: Enoxaparin 30 MG/0.3 ML Syringe SC (10:51)
[2020-09-20] MEDS: amLODIPine 5 MG Tablet PO (10:51)
[2020-09-20] MEDS: Ascorbic Acid 500 MG Tablet PO (10:51)
--- NOTE | 2020-09-20 11:26 | CASEMGMT ---
LESLEY PINK assessment: Face to Face with patient for initial transition planning/care coordination assessment. LESLEY PINK introduced self and role at [facility], pt voices understanding and consents to assessment. Pt is sitting up in chair on 6L nc with SOB. Pt is A/Ox4 and answers all questions appropriately. Care providers, pharmacy, and demographics verified. Presentation: EMS has been called twice for falls, pt having increased weakness and pt c/o increased weight gain 30lbs over the past month Admitting dx: UTI, CHF exac PCP: Audra Specialists: tami Jones at [facility] main [facility]erred [facility]: [facility] Insurance: [employer] Prescription Benefit: [employer] Living Will/HPOA: Pt states has LW/HPOA and is aware that they are not on file at [facility]. Pt states her , Jace Gillis, is HPOA. LNOK: Jace Gillis, Living Arrangements: Pt states lives with in ranch-style home with 1 step in and states no concerns at home. Pt states is normally independent with ADL's. Transportation: Pt states drives self and states no transportation concerns. DME/HHC: Pt states has the following DME: walker, shower bench, and grab bars. Pt states no need for any further DME but is currently on 6L nc. Pt states no hx of HHC or SNF in the past. Pt states no concerns with going home at time of discharge. Pt states is retired. Pt states does not smoke cigarettes or drink ETOH. Pt states no further concerns/needs. CM to follow for PT/OT evals. home oxygen testing, and any further discharge planning/needs. Advised pt to ask for CM if any further questions/concerns/needs arise, voices understanding. Pt Goal: Home Plan: Home, pending PT/OT evals, home oxygen testing. [place]en LESLEY PINK
[2020-09-20 12:15] LABS: Bedside Glucose 138 mg/dL (70-110)
[2020-09-20] MEDS: oxyCODONE 5 MG Tablet PO (13:48)
[2020-09-20] MEDS: Ferrous Sulfate 325 MG Tablet PO ×2 (13:49→16:58)
--- NOTE | 2020-09-20 16:03 | ECHOCS_ITS ---
Reason For Study: CHF Procedure This was a 2D Doppler, Color Flow transthoracic echocardiogram. The study was technically difficult. Contrast injection was performed. Patient scanned supine and upright due to discomfort from swelling and was unable to move her legs. Exam performed portable in patient room. Left Ventricle Normal LV size. Moderate concentric left ventricular hypertrophy. Left ventricular systolic function is normal. The estimated ejection fraction is 60 %. There is evidence of diastolic dysfunction. No regional wall motion abnormalities noted. Right Ventricle Normal RV size. Normal systolic function. Atria The left atrium is mildly enlarged. The right atrium is mildly enlarged. No doppler evidence for ASD. Mitral Valve There is moderate mitral annular calcification. Extension of the mitral annular calcification on the base of the posterior mitral valve leaflet. Mild (1+) mitral valve insufficiency. Tricuspid Valve Normal tricuspid valve. Moderate (2+) eccentric tricuspid valve insufficiency. Right ventricular systolic pressure estimated to be 40 mmHg. Aortic Valve Trisinus/trileaflet aortic valve. Mild focal aortic valve calcification. Pulmonic Valve The pulmonic valve is not well visualized. Trivial pulmonic valve insufficiency. Great Vessels Normal sized aortic root. Calcified aortic root. Pericardium/Pleural Trivial pericardial effusion. There are no echocardiographic indications of cardiac tamponade. Medication Diluted definity 3ml given slow IV push to enhance endocardial definition. MMode/2D Measurements & Calculations LVIDd: 5.2 cm IVSd: 1.5 cm LA dimension: 4.1 cm LVIDs: 3.4 cm LVPWd: 1.3 cm RVDd: 4.2 cm FS: 34.0 % LAV(MOD-bp): 74.5 ml LA A4 area: 25.5 cm2 RA A4 area: 22.2 cm2 LAV(MOD-bp) Indexed: 36.0 ml/m2 LAV(MOD-sp2): 60.5 ml LAV(MOD-sp4): 79.7 ml Time Measurements MV dec time: 0.25 sec Doppler Measurements & Calculations MV E max jonathan: 145.0 cm/sec Lat Peak E' Jonathan: 7.8 cm/sec Med Peak E' Jonathan: 5.5 cm/sec MV A max jonathan: 117.9 cm/sec E/E' lat: 18.6 E/E' med: 26.4 MV E/A: 1.2 MV V2 max: 157.9 cm/sec MV P1/2t max jonathan: 160.8 cm/sec Ao V2 max: 174.3 cm/sec MV max P.0 mmHg MV P1/2t: 66.1 msec Ao max P.2 mmHg MV V2 mean: 84.1 cm/sec MV dec slope: 712.6 cm/sec2 MV mean P.4 mmHg MV V2 VTI: 50.5 cm MVA(P1/2t): 3.3 cm2 LV V1 max: 134.1 cm/sec PA V2 max: 135.8 cm/sec TR max jonathan: 303.9 cm/sec LV V1 max P.2 mmHg TR max P.9 mmHg ECHO/Echo Complete W/ Contrast Interpretation Summary The study was technically difficult. Contrast injection was performed. Left ventricular systolic function is normal. The estimated ejection fraction is 60 %. Moderate concentric left ventricular hypertrophy. The left atrium is mildly enlarged. The right atrium is mildly enlarged. There is moderate mitral annular calcification. Extension of the mitral annular calcification on the base of the posterior mitr al valve leaflet. Mild (1+) mitral valve insufficiency. Moderate (2+) eccentric tricuspid valve insufficiency. Mild focal aortic valve calcification. Trivial pulmonic valve insufficiency. Calcified aortic root. Trivial pericardial effusion. There are no echocardiographic indications of cardiac tamponade. Right ventricular systolic pressure estimated to be 40 mmHg. There is evidence of diastolic dysfunction. Ordering Physician: Leander Washington Referring Physician: Weston Zhu Performed By: Alfonso Lanier RCS
[2020-09-20 16:51] LABS: Bedside Glucose 129 mg/dL (70-110)
[2020-09-20] MEDS: Acetaminophen 325 MG Tablet 650 MG PO (16:59)
--- NOTE | 2020-09-20 17:49 | US_ITS ---
STUDY: RENAL ULTRASOUND - COMPLETE REASON FOR EXAM: Female, 69 years old. CKD TECHNIQUE: Ultrasound evaluation of the kidneys was performed with real-time and static morin-scale imaging. COMPARISON: None. FINDINGS: RIGHT KIDNEY: Normal location of the right kidney, which is normal in size. The right kidney measures 9.4 cm. There is a normal cortex of the right kidney. The renal cortex measures 1.3 cm. There is no right renal mass or cyst. There are no right renal calculi. There is no right hydronephrosis. DISTAL RIGHT URETER: There is non-visualization of the distal right ureter. There is no demonstrated right ureterovesical junction calculus. There is no demonstrated right ureteral jet. LEFT KIDNEY: Normal location of the left kidney, which is normal in size. The left kidney measures 9.6 cm. There is a normal cortex of the left kidney. The renal cortex measures 1.2 cm. Small mid pole cyst measuring 1.7 x 1.8 x 1.2 cm. There are no left renal calculi. There is no left hydronephrosis. DISTAL LEFT URETER: There is non-visualization of the distal left ureter. There is no demonstrated left ureterovesical junction calculus. There is no demonstrated left ureteral jet. BLADDER: The distended urinary bladder has a volume of 263 ml. There is a normal wall thickness of the distended urinary bladder. There is no demonstrated mass within the urinary bladder. There are no demonstrated bladder calculi. US/Kidney and Bladder IMPRESSION: Small left renal cyst. Otherwise, unremarkable kidneys and bladder Electronically Signed: Ced Hancock DO at 0:21 EDT Tel , Service support ,
[2020-09-20 18:29] LABS: Ferritin 34 ng/mL (8-252); Iron 18 ug/dL (50-170); Iron Binding Capacity,Total 312 ug/dL (250-450); PERCENT IRON SATURATION 5.8 % (15.0-55.0)
[2020-09-20 22:15] LABS: Bedside Glucose 140 mg/dL (70-110)
[2020-09-21] VITALS (15 sets, daily range): BP systolic 113–154; BP diastolic 59–68; PULSE 67–82; RESP 16–20; TEMP 36.3–37.2; O2SAT 86–94
[2020-09-21] MEDS: Levothyroxine 150 MCG Tablet 300 MCG PO (05:09)
[2020-09-21] MEDS: Furosemide 20 MG/2 ML VIAL IV ×3 (05:09→21:47)
[2020-09-21] MEDS: 0.9% Saline Lock 10 ML Syringe IV ×4 (05:09→21:47)
[2020-09-21 07:44] LABS: Hematocrit 28.9 % (37-47); Hemoglobin 7.7 g/dL (12.0-15.0); Mean Corp Hgb Conc 26.6 g/dL (32-36); Mean Platelet Vol. 9.5 fl (6.2-12.0); Platelet Count 350 K/mm3 (150-450); RBC Distribution Width CV 16.3 % (11.6-14.6); RBC Distribution Width SD 53.8 fl (35.1-43.9); Red Blood Count 3.21 M/mm3 (4.2-5.4); White Blood Count 7.3 K/mm3 (4.4-11.0)
[2020-09-21 07:56] LABS: Bedside Glucose 113 mg/dL (70-110)
[2020-09-21 08:16] LABS: Anion Gap 5 (5-15); BUN 52 mg/dL (7-18); BUN/Creat Ratio 14.8 RATIO (10-20); Calcium,Total 8.1 mg/dL (8.5-10.1); Chloride 103 mmol/L (98-107); Creatinine, Serum 3.52 mg/dL (0.55-1.02); EST Glomerular Filtration Rate 14 mL/min (>60); Est Glom Filt Rate - Afr Amer 17 mL/min (>60); Estimated Creatinine Clearance 13.57 ml/min; Glucose 112 mg/dL (74-106); Magnesium 3.2 mg/dL (1.6-2.6); Potassium 5.2 mmol/L (3.5-5.1); Sodium Level 137 mmol/L (136-145)
[2020-09-21] MEDS: amLODIPine 5 MG Tablet PO (08:27)
[2020-09-21] MEDS: Calcitriol 0.25 MCG Capsule 0.5 MCG PO (08:27)
[2020-09-21] MEDS: Cyanocobalamin 500 MCG Tablet 1000 MCG PO (08:27)
[2020-09-21] MEDS: Multivitamins,Ther W-Minerals Tablet 1 TABLET PO (08:27)
[2020-09-21] MEDS: Ascorbic Acid 500 MG Tablet PO (08:27)
[2020-09-21] MEDS: Aspirin 81 MG TAB.CHEW PO (08:28)
[2020-09-21] MEDS: Omega-3 Acid Ethyl Esters 1 GM Capsule PO (08:28)
[2020-09-21] MEDS: Enoxaparin 30 MG/0.3 ML Syringe SC (08:28)
[2020-09-21] MEDS: dilTIAZem CD 120 MG Capsule PO ×2 (08:28→21:47)
[2020-09-21] MEDS: Ceftriaxone 1 GM/50 ML BAG IV (10:23)
[2020-09-21] MEDS: Sodium Chloride 0.65% 1 SPRAY SPRAY.BTL 2 SPRAY NASAL (11:01)
--- NOTE | 2020-09-21 11:03 | PN_ITS ---
Patient Problems: Active and Suspected Problems Urinary tract infection (Acute) Acute on chronic congestive heart failure (Acute) Acute respiratory failure with hypoxia (Acute) Fall (Acute) Contusion, back (Acute) Reason for Visit: Acute on chronic congestive heart failure with preserved ejection fraction Acute cystitis Subjective: Patient is a 69-year-old lady admitted with progressive generalized with recurrent falls and apparently detected pound weight gain over the past months. Imaging studies obtained was consistent with acute congestive heart failure admitted to monitored bed for further management ; Urine Cx still pending; had 2D echo performed this morning awaiting results Objective: GENERAL: Appears ill looking HEENT: Atraumatic; EYES; Anicteric, Normal Conjunctiva NECK; supple, normal thyroid, RESPIRATORY: Diminished to auscultation CARDIOVASCULAR: Regular S1 S2, GI: soft, normoactive bowel sounds, : No Renal angle tenderness; EXTREMITIES: edema, no clubbing, MUSCULOSKELETAL: no muscle waisting NEURO: Awake; no lateralizing signs. SKIN: No Rash PSYCH; Flat affect Vitals/I&O's: Vital Signs Temp Pulse Resp BP Pulse Ox 98.1 F 73 16 137/64 H 93 09/21/20 10:25 09/21/20 10:25 09/21/20 10:25 09/21/20 10:25 09/21/20 10:25 Oxygen Flow Rate (L/min) 5 Oxygen Delivery Method Nasal Cannula Weight: 100.9 kg Body Mass Index (BMI) 37.1 Intake and Output for Last 24 Hours 09/19/20 09/20/20 09/21/20 23:59 23:59 23:59 Intake Total 855 / 900 90 / 90 Output Total 400 / 400 Balance 855 / 900 -310 / -310 Microbiology Past 72 Hours 09/19/20 Unknown Nasal Secretion SARS-CoV-2 Antigen (Rapid) - Final Laboratory Results 09/20/20 05:45: Iron 18 L, TIBC 312, Iron Saturation 5.8 L, Ferritin 34 09/20/20 12:13: POC Glucose 138 H 09/20/20 16:11: POC Glucose 129 H 09/20/20 21:15: POC Glucose 140 H 09/21/20 06:00: WBC 7.3, RBC 3.21 L, Hgb 7.7 L, Hct 28.9 L, MCV 90.0, MCH 24.0 L , MCHC 26.6 L, RDW Std Deviation 53.8 H, RDW Coeff of Samy 16.3 H, Plt Count 350, MPV 9.5 09/21/20 06:00: Sodium 137, Potassium 5.2 H, Chloride 103, Carbon Dioxide 29.0, Anion Gap 5, BUN 52 H, Creatinine 3.52 H, Estim Creat Clear Calc 13.57, Est GFR (MDRD) Af Amer 17 L, Est GFR (MDRD) Non-Af 14 L, BUN/Creatinine Ratio 14.8, Glucose 112 H, Calcium 8.1 L, Magnesium 3.2 H 09/21/20 07:00: POC Glucose 113 H Current Medications Acetaminophen (Acetaminophen 325 Mg Tablet) 650 mg PO Q6H PRN PRN PRN Reason: Pain Score 1-10/Temp > 100.7 F Last Admin: 09/20/20 16:59 Dose: 650 mg Documented by: Amlodipine Besylate (Amlodipine 5 Mg Tablet) 5 mg PO DAILY [facility] Last Admin: 09/21/20 08:27 Dose: 5 mg Documented by: Ascorbic Acid (Ascorbic Acid 500 Mg Tablet) 500 mg PO DAILY [facility] Last Admin: 09/21/20 08:27 Dose: 500 mg Documented by: Aspirin (Aspirin 81 Mg Tab.Chew) 81 mg PO DAILY@0800 [facility] Last Admin: 09/21/20 08:28 Dose: 81 mg Documented by: Calcitriol (Calcitriol 0.25 Mcg Capsule) 0.25 mcg PO SuTuThSa@1000 [facility] Last Admin: 09/20/20 10:51 Dose: 0.25 mcg Documented by: Calcitriol (Calcitriol 0.25 Mcg Capsule) 0.5 mcg PO MoWeFr@1000 [facility] Last Admin: 09/21/20 08:27 Dose: 0.5 mcg Documented by: Cyanocobalamin (Cyanocobalamin 500 Mcg Tablet) 1,000 mcg PO DAILY [facility] Last Admin: 09/21/20 08:27 Dose: 1,000 mcg Documented by: Diltiazem HCl (Diltiazem Cd 120 Mg Capsule) 120 mg PO BID [facility] Last Admin: 09/21/20 08:28 Dose: 120 mg Documented by: Enoxaparin Sodium (Enoxaparin 30 Mg/0.3 Ml Syringe) 30 mg SC DAILY [facility] Last Admin: 09/21/20 08:28 Dose: 30 mg Documented by: Ferrous Sulfate (Ferrous Sulfate 325 Mg Tablet) 325 mg PO BID@1200,1700 [facility] Last Admin: 09/20/20 16:58 Dose: 325 mg Documented by: Furosemide (Furosemide 20 Mg/2 Ml Vial) 20 mg IV Q8 [facility] Last Admin: 09/21/20 05:09 Dose: 20 mg Documented by: Sodium Chloride () 250 mls @ 15 mls/hr IV .[id number] PRN PRN Reason: Saline Flush Sodium Chloride () 250 mls @ 15 mls/hr IV .[id number] PRN PRN Reason: Additional IVPB Infusion Ceftriaxone Sodium (Rocephin) 1 gm in 50 mls @ 100 mls/hr IV Q24 [facility] Last Admin: 09/21/20 10:23 Dose: 100 mls/hr Documented by: Insulin Human Lispro (Insulin Lispro 100 Unit/Ml Insuln.Pen) 0 unit SC ACHS [facility]; Protocol Last Admin: 09/21/20 07:40 Dose: Not Given Documented by: Levothyroxine Sodium (Levothyroxine 150 Mcg Tablet) 300 mcg PO DAILY@0600 [facility] Last Admin: 09/21/20 05:09 Dose: 300 mcg Documented by: Melatonin (Melatonin 3 Mg Tablet) 3 mg PO QHS PRN PRN PRN Reason: INSOMNIA Morphine Sulfate (Morphine 2 Mg/Ml Syringe) 2 mg IV Q3H PRN PRN PRN Reason: Pain Score 6-10 Last Admin: 09/20/20 03:04 Dose: 2 mg Documented by: Multivitamins/Minerals (Multivitamins,Ther W-Minerals Tablet) 1 tablet [facility] Last Admin: 09/21/20 08:27 Dose: 1 tablet Documented by: Nitroglycerin (Nitroglycerin (Inpatient Use) 0.4 Mg Tab.Subl) 0.4 mg SL Q5M PRN PRN Reason: CARDIAC/CHEST PAIN [id number] Ethyl Esters (Viola-3 Acid Ethyl Esters 1 Gm Capsule) 1 gm PO DAILY [facility] Last Admin: 09/21/20 08:28 Dose: 1 gm Documented by: Ondansetron HCl (Ondansetron 4 Mg/2 Ml Vial) 4 mg IV Q8H PRN PRN PRN Reason: NAUSEA/VOMITING Oxycodone HCl (Oxycodone 5 Mg Tablet) 5 mg PO Q6H PRN PRN PRN Reason: Pain Score 4-5 Last Admin: 09/20/20 13:48 Dose: 5 mg Documented by: Sodium Chloride (0.9% Saline Lock 10 Ml Syringe) 10 - 40 ml IV UD PRN PRN Reason: SALINE FLUSH Last Admin: 09/21/20 10:23 Dose: 10 ml Documented by: Sodium Chloride (Sodium Chloride 0.65% 1 Norvell Norvell.Btl) 2 spray NASAL TID PRN PRN PRN Reason: NASAL DRYNESS Last Admin: 09/21/20 11:01 Dose: 2 spray Documented by: STROKE Vital Signs/Narrative: Vital Signs Temp Pulse Resp BP Pulse Ox 09/21/20 10:25 98.1 F 73 16 137/64 H 93 09/21/20 08:25 97.5 F L 73 18 140/61 H 90 09/21/20 07:37 90 09/21/20 07:30 68 Medical Necessity - Tobacco Use Smoking Status: Never smoker Assessment/Plan All Active Problems Urinary tract infection (Acute) Acute on chronic congestive heart failure (Acute) Acute respiratory failure with hypoxia (Acute) Fall (Acute) Contusion, back (Acute) Patient is a 69-year-old lady admitted with progressive generalized with recurrent falls and apparently detected pound weight gain over the past months. Imaging studies obtained was consistent with acute congestive heart failure admitted to monitored bed for further management 1. Acute on chronic congestive heart failure with preserved ejection fraction ?Patient admitted to monitored bed managed with fluid restriction, diuretics and 2D echo ordered for EF assessment. Patient was also placed on supplemental oxygen titrated to keep oxygen saturation greater than 90 -09/21/2020. Patient remains on diuretics has lost 4 pounds since admission. 2D echo performed today results pending 2. Acute cystitis ?Culture sent on admission patient started on Rocephin with plans to either continue with antibiotics or adjust antibiotics based on culture results -09/21/2020; urine cultures pending 3. Chronic kidney disease stage IV ?Patient baseline creatinine not available as part of her evaluation ordered renal ultrasound and consultation placed to nephrology 4. Hypertension - Blood pressure controlled, home medications continued with dose adjustment as needed 5. Anemia - Secondary to chronic disorder, as part of evaluation ordered stool guaiac as well as stool studies monitoring H&H and transfuse if patient becomes symptomatic or hemoglobin falls below 7 6. Diabetes mellitus type II -patient's oral hypoglycemics held. Placed on long acting insulin, Accu-Cheks a.c. and at bedtime and covered with sliding scale insulin 7. Hypothyroidism - Patient is on levothyroxine home dose continued 8. Dyslipidemia ?Patient on fish oil 9. Physical deconditioning with recurrent falls - Requested for PT OT eval and social security assessor to assist with discharge planning -09/21/2020; patient agreeable to being discharged to the [facility] facility; message relayed to case management 10. DVT prophylaxis - On enoxaparin Inpatient E&M: 49840 Subs Hosp L2
[2020-09-21] MEDS: Ferrous Sulfate 325 MG Tablet PO ×2 (11:44→16:10)
[2020-09-21] MEDS: Acetaminophen 325 MG Tablet 650 MG PO (11:48)
[2020-09-21 11:51] LABS: Bedside Glucose 131 mg/dL (70-110)
--- NOTE | 2020-09-21 11:56 | CASEMGMT ---
Physician indicated patient is agreeing to go somewhere for rehab. SW provided a list of SNF providers including quality and resource use data and consistent with the patient?s preferred geographic region, medical needs, and insurance network. SW highlighted the facilities that are in network with her insurance. SW explained she just needs to pick a few places she would be willing to go to and SW will check on bed availability. SW told her SW will check back after bit. Genia Ward [employer] ASSOCIATE JING
--- NOTE | 2020-09-21 15:56 | CON.PCM_ITS ---
Consultation - Renal 09/21/20 PCP/ Referring MD: Requesting physician: [] Primary care physician: Dr. Weston Zhu MD Reason for Consultation:: you - History of Present Illness History of Present Illness: The patient is a 69 year old with a past medical history of CKD stage IV dyslipidemia hypertension diabetes mellitus CHF who presented with a chief complaint of unsteadiness and shortness of breath. She fell in the shower prior to admission and hit her lower back. She states that she has lower extremity edema for a few months and got gradually worse. She had a chronic nonproductive cough but no other symptoms. She was found to be in CHF. The patient denies chest pain dysuria hematuria. She has been seeing Dr. Fernandez at the [facility] for CKD for more than 3 years. She states that she is on renal transplant list. She has no other complaints. - Allergies Allergies: Allergies lisinopril Allergy (Verified 09/19/20 22:59) Anaphylaxis olmesartan [From Benicar] Allergy (Verified 09/19/20 23:25) Anaphylaxis Sulfa (Sulfonamide Antibiotics) Allergy (Verified 09/19/20 22:59) Rash adhesive tape Adverse Reaction (Verified 09/19/20 22:59) Rash furosemide [From Lasix] Adverse Reaction (Verified 09/19/20 22:59) Nausea latex Adverse Reaction (Verified 09/19/20 23:25) Rash metoprolol [From Toprol XL] Adverse Reaction (Verified 09/19/20 23:25) Rash - Current Medications Current Medications: Current Medications Acetaminophen (Acetaminophen 325 Mg Tablet) 650 mg PO Q6H PRN PRN PRN Reason: Pain Score 1-10/Temp > 100.7 F Last Admin: 09/21/20 11:48 Dose: 650 mg Documented by: Amlodipine Besylate (Amlodipine 5 Mg Tablet) 5 mg PO DAILY [facility] Last Admin: 09/21/20 08:27 Dose: 5 mg Documented by: Ascorbic Acid (Ascorbic Acid 500 Mg Tablet) 500 mg PO DAILY [facility] Last Admin: 09/21/20 08:27 Dose: 500 mg Documented by: Aspirin (Aspirin 81 Mg Tab.Chew) 81 mg PO DAILY@0800 [facility] Last Admin: 09/21/20 08:28 Dose: 81 mg Documented by: Calcitriol (Calcitriol 0.25 Mcg Capsule) 0.25 mcg PO SuTuThSa@1000 [facility] Last Admin: 09/20/20 10:51 Dose: 0.25 mcg Documented by: Calcitriol (Calcitriol 0.25 Mcg Capsule) 0.5 mcg PO MoWeFr@1000 [facility] Last Admin: 09/21/20 08:27 Dose: 0.5 mcg Documented by: Cyanocobalamin (Cyanocobalamin 500 Mcg Tablet) 1,000 mcg PO DAILY [facility] Last Admin: 09/21/20 08:27 Dose: 1,000 mcg Documented by: Diltiazem HCl (Diltiazem Cd 120 Mg Capsule) 120 mg PO BID [facility] Last Admin: 09/21/20 08:28 Dose: 120 mg Documented by: Enoxaparin Sodium (Enoxaparin 30 Mg/0.3 Ml Syringe) 30 mg SC DAILY [facility] Last Admin: 09/21/20 08:28 Dose: 30 mg Documented by: Ferrous Sulfate (Ferrous Sulfate 325 Mg Tablet) 325 mg PO BID@1200,1700 [facility] Last Admin: 09/21/20 11:44 Dose: 325 mg Documented by: Furosemide (Furosemide 20 Mg/2 Ml Vial) 20 mg IV Q8 [facility] Last Admin: 09/21/20 14:13 Dose: 20 mg Documented by: Sodium Chloride () 250 mls @ 15 mls/hr IV .[id number] PRN PRN Reason: Saline Flush Sodium Chloride () 250 mls @ 15 mls/hr IV .[id number] PRN PRN Reason: Additional IVPB Infusion Ceftriaxone Sodium (Rocephin) 1 gm in 50 mls @ 100 mls/hr IV Q24 [facility] Last Infusion: 09/21/20 10:53 Dose: Infused Documented by: Insulin Human Lispro (Insulin Lispro 100 Unit/Ml Insuln.Pen) 0 unit SC [facility]; Protocol Last Admin: 09/21/20 11:43 Dose: Not Given Documented by: Levothyroxine Sodium (Levothyroxine 150 Mcg Tablet) 300 mcg PO DAILY@0600 [facility] Last Admin: 09/21/20 05:09 Dose: 300 mcg Documented by: Melatonin (Melatonin 3 Mg Tablet) 3 mg PO QHS PRN PRN PRN Reason: INSOMNIA Morphine Sulfate (Morphine 2 Mg/Ml Syringe) 2 mg IV Q3H PRN PRN PRN Reason: Pain Score 6-10 Last Admin: 09/20/20 03:04 Dose: 2 mg Documented by: Multivitamins/Minerals (Multivitamins,Ther W[facility]t) [facility] Last Admin: 09/21/20 08:27 Dose: 1 tablet Documented by: Nitroglycerin (Nitroglycerin (Inpatient Use) 0.4 Mg Tab.Subl) 0.4 mg SL Q5M PRN PRN Reason: CARDIAC/CHEST PAIN Takkb-8-Lgom Ethyl Esters (V[place]hall-3 Acid Ethyl Esters 1 Gm Capsule) 1 gm PO DAILY [facility] Last Admin: 09/21/20 08:28 Dose: 1 gm Documented by: Ondansetron HCl (Ondansetron 4 Mg/2 Ml Vial) 4 mg IV Q8H PRN PRN PRN Reason: NAUSEA/VOMITING Oxycodone HCl (Oxycodone 5 Mg Tablet) 5 mg PO Q6H PRN PRN PRN Reason: Pain Score 4-5 Last Admin: 09/20/20 13:48 Dose: 5 mg Documented by: Sodium Chloride (0.9% Saline Lock 10 Ml Syringe) 10 - 40 ml IV UD PRN PRN Reason: SALINE FLUSH Last Admin: 09/21/20 14:13 Dose: 10 ml Documented by: Sodium Chloride (Sodium Chloride 0.65% 1 Bayside Bayside.Btl) 2 spray NASAL TID PRN PRN PRN Reason: NASAL DRYNESS Last Admin: 09/21/20 11:01 Dose: 2 spray Documented by: - Past Medical History Past Medical History (Chronic Problems): Chronic Problems Hypertension (Chronic) Insomnia (Chronic) Diabetes mellitus type 2 in obese (Chronic) Hypothyroidism (Chronic) Hyperlipidemia (Chronic) Acute exacerbation of CHF (congestive heart failure) (Chronic) Bsjel-ar-fashyqu kidney injury (Chronic) - Past Surgical History Surgical History: hysterectomy, - - D&C, EGD - Social History Smoking Status: Never smoker Alcohol: None Drugs: None - Family History Maternal History Items: Hypertension Paternal History Items: Diabetes Patient Problems: Active and Suspected Problems Urinary tract infection (Acute) Acute on chronic congestive heart failure (Acute) Acute respiratory failure with hypoxia (Acute) Fall (Acute) Contusion, back (Acute) - Physical Exam Vitals/I&O's: Vital Signs Temp Pulse Resp BP Pulse Ox 98.1 F 80 16 137/64 H 86 09/21/20 10:25 09/21/20 12:00 09/21/20 10:25 09/21/20 10:25 09/21/20 15:22 Oxygen Flow Rate (L/min) 5 Oxygen Delivery Method Nasal Cannula Weight: 100.9 kg Body Mass Index (BMI) 37.1 Intake and Output for Last 24 Hours 09/19/20 09/20/20 09/21/20 23:59 23:59 23:59 Intake Total 855 / 900 540 / 540 Output Total 650 / 650 Balance 855 / 900 -110 / -110 General: Alert, Cooperative HEENT: Atraumatic, Normocephalic Neck: Supple, Trachea Midline Lungs: Clear to auscultation, Normal air movement Cardiovascular: Regular rate, Regular Rhythm Abdomen: Bowel Sounds Present, Soft, Obese Extremities: Edema Microbiology Past 72 Hours 09/19/20 23:58 Urine, Clean Catch Urine Culture - Final Mixed Gram Pos & Gram Neg Org 09/19/20 Unknown Nasal Secretion SARS-CoV-2 Antigen (Rapid) - Final Laboratory Results 09/20/20 05:45: Iron 18 L, TIBC 312, Iron Saturation 5.8 L, Ferritin 34 09/20/20 16:11: POC Glucose 129 H 09/20/20 21:15: POC Glucose 140 H 09/21/20 06:00: WBC 7.3, RBC 3.21 L, Hgb 7.7 L, Hct 28.9 L, MCV 90.0, MCH 24.0 L , MCHC 26.6 L, RDW Std Deviation 53.8 H, RDW Coeff of Samy 16.3 H, Plt Count 350, MPV 9.5 09/21/20 06:00: Sodium 137, Potassium 5.2 H, Chloride 103, Carbon Dioxide 29.0, Anion Gap 5, BUN 52 H, Creatinine 3.52 H, Estim Creat Clear Calc 13.57, Est GFR (MDRD) Af Amer 17 L, Est GFR (MDRD) Non-Af 14 L, BUN/Creatinine Ratio 14.8, Glucose 112 H, Calcium 8.1 L, Magnesium 3.2 H 09/21/20 07:00: POC Glucose 113 H 09/21/20 11:39: POC Glucose 131 H Current Medications Acetaminophen (Acetaminophen 325 Mg Tablet) 650 mg PO Q6H PRN PRN PRN Reason: Pain Score 1-10/Temp > 100.7 F Last Admin: 09/21/20 11:48 Dose: 650 mg Documented by: Amlodipine Besylate (Amlodipine 5 Mg Tablet) 5 mg PO DAILY [facility] Last Admin: 09/21/20 08:27 Dose: 5 mg Documented by: Ascorbic Acid (Ascorbic Acid 500 Mg Tablet) 500 mg PO DAILY [facility] Last Admin: 09/21/20 08:27 Dose: 500 mg Documented by: Aspirin (Aspirin 81 Mg Tab.Chew) 81 mg PO DAILY@0800 [facility] Last Admin: 09/21/20 08:28 Dose: 81 mg Documented by: Calcitriol (Calcitriol 0.25 Mcg Capsule) 0.25 mcg PO SuTuThSa@1000 [facility] Last Admin: 09/20/20 10:51 Dose: 0.25 mcg Documented by: Calcitriol (Calcitriol 0.25 Mcg Capsule) 0.5 mcg PO MoWeFr@1000 [facility] Last Admin: 09/21/20 08:27 Dose: 0.5 mcg Documented by: Cyanocobalamin (Cyanocobalamin 500 Mcg Tablet) 1,000 mcg PO DAILY [facility] Last Admin: 09/21/20 08:27 Dose: 1,000 mcg Documented by: Diltiazem HCl (Diltiazem Cd 120 Mg Capsule) 120 mg PO BID [facility] Last Admin: 09/21/20 08:28 Dose: 120 mg Documented by: Enoxaparin Sodium (Enoxaparin 30 Mg/0.3 Ml Syringe) 30 mg SC DAILY [facility] Last Admin: 09/21/20 08:28 Dose: 30 mg Documented by: Ferrous Sulfate (Ferrous Sulfate 325 Mg Tablet) 325 mg PO BID@1200,1700 [facility] Last Admin: 09/21/20 11:44 Dose: 325 mg Documented by: Furosemide (Furosemide 20 Mg/2 Ml Vial) 20 mg IV Q8 [facility] Last Admin: 09/21/20 14:13 Dose: 20 mg Documented by: Sodium Chloride () 250 mls @ 15 mls/hr IV .[id number] PRN PRN Reason: Saline Flush Sodium Chloride () 250 mls @ 15 mls/hr IV .[id number] PRN PRN Reason: Additional IVPB Infusion Ceftriaxone Sodium (Rocephin) 1 gm in 50 mls @ 100 mls/hr IV Q24 [facility] Last Infusion: 09/21/20 10:53 Dose: Infused Documented by: Insulin Human Lispro (Insulin Lispro 100 Unit/Ml Insuln.Pen) [address] [facility]; Protocol Last Admin: 09/21/20 11:43 Dose: Not Given Documented by: Levothyroxine Sodium (Levothyroxine 150 Mcg Tablet) 300 mcg PO DAILY@0600 [facility] Last Admin: 09/21/20 05:09 Dose: 300 mcg Documented by: Melatonin (Melatonin 3 Mg Tablet) 3 mg PO QHS PRN PRN PRN Reason: INSOMNIA Morphine Sulfate (Morphine 2 Mg/Ml Syringe) 2 mg IV Q3H PRN PRN PRN Reason: Pain Score 6-10 Last Admin: 09/20/20 03:04 Dose: 2 mg Documented by: Multivitamins/Minerals (Multivitamins,Ther W-Minerals Tablet) [facility] Last Admin: 09/21/20 08:27 Dose: 1 tablet Documented by: Nitroglycerin (Nitroglycerin (Inpatient Use) 0.4 Mg Tab.Subl) 0.4 mg SL Q5M PRN PRN Reason: CARDIAC/CHEST PAIN Nwiyk-1-Epas Ethyl Esters ([place]hall-3 Acid Ethyl Esters 1 Gm Capsule) 1 gm PO DAILY [facility] Last Admin: 09/21/20 08:28 Dose: 1 gm Documented by: Ondansetron HCl (Ondansetron 4 Mg/2 Ml Vial) 4 mg IV Q8H PRN PRN PRN Reason: NAUSEA/VOMITING Oxycodone HCl (Oxycodone 5 Mg Tablet) 5 mg PO Q6H PRN PRN PRN Reason: Pain Score 4-5 Last Admin: 09/20/20 13:48 Dose: 5 mg Documented by: Sodium Chloride (0.9% Saline Lock 10 Ml Syringe) 10 - 40 ml IV UD PRN PRN Reason: SALINE FLUSH Last Admin: 09/21/20 14:13 Dose: 10 ml Documented by: Sodium Chloride (Sodium Chloride 0.65% 1 Bayside Bayside.Btl) 2 spray NASAL TID PRN PRN PRN Reason: NASAL DRYNESS Last Admin: 09/21/20 11:01 Dose: 2 spray Documented by: Assessment/Plan All Active Problems Urinary tract infection (Acute) Acute on chronic congestive heart failure (Acute) Acute respiratory failure with hypoxia (Acute) Fall (Acute) Contusion, back (Acute) CKD 4 EDema LE Hyperkalemia renal cyst s/p fall HFpEF The patient serum creatinine is at baseline as per patient and family. Continue diuretics avoid overdiuresis. Avoid nephrotoxins Ultrasound reviewed Antibiotics for possible cystitis per hospitalist. d/w with patient and family Avoid nephrotoxins thanks for consult will follow up
[2020-09-21 16:25] LABS: Bedside Glucose 111 mg/dL (70-110)
[2020-09-21 21:56] LABS: Bedside Glucose 128 mg/dL (70-110)
[2020-09-22] VITALS (15 sets, daily range): BP systolic 141–156; BP diastolic 52–61; PULSE 76–89; RESP 12–27; TEMP 36.5–36.9; O2SAT 92–98
--- NOTE | 2020-09-22 02:06 | PCM.HOSP.N ---
Hospitalist Note Patient with worsening hypoxia, poor urine output with current low dose TID diuresis. Given significant renal disease will transition to lasix drip and start BIPAP to assist with CHF exacerbation. Will transition to step down status.
[2020-09-22] MEDS: Furosemide 500 MG in Empty Viaflex 50 mL 1 EACH CONT INF (02:29)
[2020-09-22] MEDS: 0.9% Saline Lock 10 ML Syringe IV ×2 (02:38→12:39)
[2020-09-22] MEDS: Levothyroxine 150 MCG Tablet 300 MCG PO (05:00)
[2020-09-22 05:42] LABS: Hematocrit 26.2 % (37-47); Hemoglobin 7.1 g/dL (12.0-15.0); Mean Corp Hgb Conc 27.1 g/dL (32-36); Mean Corpuscular Hgb 23.8 pg (27.0-32.0); Mean Corpuscular Volume 87.9 fL (81-99); Mean Platelet Vol. 9.1 fl (6.2-12.0); Platelet Count 340 K/mm3 (150-450); RBC Distribution Width CV 16.8 % (11.6-14.6); Red Blood Count 2.98 M/mm3 (4.2-5.4); White Blood Count 9.2 K/mm3 (4.4-11.0)
--- NOTE | 2020-09-22 05:55 | RAD_ITS ---
STUDY: X-RAY CHEST REASON FOR EXAM: Female, 69 years old. Dyspnea, CHF TECHNIQUE: Single AP portable view of the chest. COMPARISON: Comparison is made with prior study dated 09/19/2020. FINDINGS: EKG electrodes are seen. No now is evidence of increasing bilateral pleural effusions right greater than left with bibasilar atelectasis. Mild degree of vascular congestion and CHF. There is mild cardiac enlargement. Normal mediastinum and vishal. Normal visualized pulmonary arteries. There is atherosclerotic calcification of the aortic arch with tortuosity. There are diffuse degenerative changes of the visualized thoracic spine. Normal visualized ribs, clavicles, and shoulders. There is no demonstrated abnormality of the visualized soft tissue structures of the upper abdomen. RAD/Chest 1 View (Portable) IMPRESSION: Increasing bilateral pleural effusions right greater than left with bibasilar atelectasis superimposed on mild degree of CHF. Electronically Signed: Rico Aguirre MD at 8:17 EDT , Service support ,
[2020-09-22 06:04] LABS: Anion Gap 5 (5-15); BUN 52 mg/dL (7-18); BUN/Creat Ratio 14.2 RATIO (10-20); Calcium,Total 7.7 mg/dL (8.5-10.1); Chloride 104 mmol/L (98-107); Creatinine, Serum 3.65 mg/dL (0.55-1.02); EST Glomerular Filtration Rate 13 mL/min (>60); Est Glom Filt Rate - Afr Amer 16 mL/min (>60); Estimated Creatinine Clearance 13.09 ml/min; Glucose 80 mg/dL (74-106); Potassium 5.1 mmol/L (3.5-5.1); Sodium Level 135 mmol/L (136-145)
[2020-09-22 06:45] LABS: Bedside Glucose 83 mg/dL (70-110)
--- NOTE | 2020-09-22 08:51 | CASEMGMT ---
SIRENA spoke with patient this am about discharge plan. She said her likes the idea of her going to [facility]. SIRENA told her that [facility] would have a bed for her when she is ready. She said her might have some questions. SIRENA told her she can ask for SW and SW can come to the room. SIRENA spoke with Jolie from [facility] and let her know patient will not be ready today. [facility] being [facility] and insurance approval. Genia Ward BUSINESS PARTNERFlora CH
[2020-09-22] MEDS: Ceftriaxone 1 GM/50 ML BAG IV (09:01)
[2020-09-22] MEDS: Enoxaparin 30 MG/0.3 ML Syringe SC (09:01)
[2020-09-22] MEDS: Multivitamins,Ther W-Minerals Tablet 1 TABLET PO (09:02)
[2020-09-22] MEDS: Aspirin 81 MG TAB.CHEW PO (09:02)
[2020-09-22] MEDS: amLODIPine 5 MG Tablet PO (09:02)
[2020-09-22] MEDS: dilTIAZem CD 120 MG Capsule PO ×2 (09:02→21:39)
[2020-09-22] MEDS: Omega-3 Acid Ethyl Esters 1 GM Capsule PO (09:02)
[2020-09-22] MEDS: Cyanocobalamin 500 MCG Tablet 1000 MCG PO (09:02)
[2020-09-22] MEDS: Ascorbic Acid 500 MG Tablet PO (09:02)
[2020-09-22] MEDS: Calcitriol 0.25 MCG Capsule PO (09:02)
--- NOTE | 2020-09-22 12:33 | CT_ITS ---
STUDY: CT CHEST WITHOUT CONTRAST REASON FOR EXAM: Female, 69 years old. Hypoxia -- pleural effusions RADIATION DOSAGE (If Supplied By Facility): CTDIvol = ( 16.88 ) mGy, DLP = ( 460.53 ) mGycm TECHNIQUE: Transaxial imaging was performed without the administration of intravenous contrast material. Multiplanar coronal and sagittal images were reformatted. Individualized dose optimization techniques were used for this CT. COMPARISON: Comparison is made with prior chest radiograph done earlier today. FINDINGS: There are small bilateral pleural effusions right greater than left with underlying atelectasis and/or infiltrates. There is no demonstrated pleural abnormality. There are calcifications of the coronary arteries. Small pericardial effusion. Thyromegaly. There are multiple small lymph nodes within the mediastinum, which are normal in size and morphology most compatible with reactive lymph hyperplasia. Normal hilar regions. Normal unenhanced pulmonary arteries. There is atherosclerotic calcification of the aortic arch with tortuosity and elongation of the aortic arch and descending thoracic aorta. Normal osseous structures. There is no demonstrated abnormality of the visualized upper abdomen. CT/Chest without Contrast IMPRESSION: Bilateral pleural effusions right greater than left with bibasilar atelectasis and/or infiltrates. Small pleural effusion. Electronically Signed: Rico Aguirre MD at 13:30 EDT , Service support ,
--- NOTE | 2020-09-22 12:34 | PN_ITS ---
<Deandra Emery [employer]ATH[employer] - Last Filed: 09/22/20 12:43> Patient Problems: Active and Suspected Problems Urinary tract infection (Acute) Acute on chronic congestive heart failure (Acute) Acute respiratory failure with hypoxia (Acute) Fall (Acute) Contusion, back (Acute) Subjective: Patient seen and examined. Placed on BiPAP overnight. Patient states breathing is slightly improved this morning. Continues to have significant lower extremity edema extending up to abdomen. - Physical Exam Vitals/I&O's: Vital Signs Temp Pulse Resp BP Pulse Ox 97.7 F L 85 18 156/60 H 97 09/22/20 11:00 09/22/20 11:00 09/22/20 11:00 09/22/20 11:00 09/22/20 11:00 Oxygen Flow Rate (L/min) 13 Oxygen Delivery Method Nasal Cannula Weight: 227 lb 1.218 oz Body Mass Index (BMI) 37.1 Intake and Output for Last 24 Hours 09/20/20 09/21/20 09/22/20 23:59 23:59 23:59 Intake Total 855 / 900 1020 / 1080 410 / 410 Output Total 900 / 1050 1150 / 1150 Balance 855 / 900 120 / 30 -740 / -740 General: Alert, Oriented x3, Cooperative HEENT: Atraumatic, PERRLA, EOMI, Normocephalic Neck: Supple, No JVD, Negative Carotid Bruits Lungs: Clear to auscultation, Normal air movement Cardiovascular: Regular rate, No murmurs Abdomen: Bowel Sounds Present, Soft, Non Tender, Non-Distended Extremities: No clubbing, No cyanosis, Edema - Bilateral lower extremity and extending to mid abdomen Skin: No rashes, No breakdown Musculoskeletal: No Tenderness to Palpation of Joints or Extremities Neurological: Cranial nerves II-XII grossly intact, Neuro grossly intact Psych/Mental Status: Normal Affect, Appropriate Microbiology Past 72 Hours 09/19/20 23:58 Urine, Clean Catch Urine Culture - Final Mixed Gram Pos & Gram Neg Org 09/19/20 Unknown Nasal Secretion SARS-CoV-2 Antigen (Rapid) - Final Laboratory Results 09/21/20 16:07: POC Glucose 111 H 09/21/20 21:45: POC Glucose 128 H 09/22/20 05:20: WBC 9.2, RBC 2.98 L, Hgb 7.1 L, Hct 26.2 L, MCV 87.9, MCH 23.8 L , MCHC 27.1 L, RDW Std Deviation 53.0 H, RDW Coeff of Samy 16.8 H, Plt Count 340, MPV 9.1 09/22/20 05:20: Sodium 135 L, Potassium 5.1, Chloride 104, Carbon Dioxide 26.0, Anion Gap 5, BUN 52 H, Creatinine 3.65 H, Estim Creat Clear Calc 13.09, Est GFR (MDRD) Af Amer 16 L, Est GFR (MDRD) Non-Af 13 L, BUN/Creatinine Ratio 14.2, Glucose 80, Calcium 7.7 L 09/22/20 06:35: POC Glucose 83 Current Medications Acetaminophen (Acetaminophen 325 Mg Tablet) 650 mg PO Q6H PRN PRN PRN Reason: Pain Score 1-10/Temp > 100.7 F Last Admin: 09/21/20 11:48 Dose: 650 mg Documented by: Amlodipine Besylate (Amlodipine 5 Mg Tablet) 5 mg PO DAILY [facility] Last Admin: 09/22/20 09:02 Dose: 5 mg Documented by: Ascorbic Acid (Ascorbic Acid 500 Mg Tablet) 500 mg PO DAILY [facility] Last Admin: 09/22/20 09:02 Dose: 500 mg Documented by: Aspirin (Aspirin 81 Mg Tab.Chew) 81 mg PO DAILY@0800 [facility] Last Admin: 09/22/20 09:02 Dose: 81 mg Documented by: Calcitriol (Calcitriol 0.25 Mcg Capsule) 0.25 mcg PO SuTuThSa@1000 [facility] Last Admin: 09/22/20 09:02 Dose: 0.25 mcg Documented by: Calcitriol (Calcitriol 0.25 Mcg Capsule) 0.5 mcg PO MoWeFr@1000 [facility] Last Admin: 09/21/20 08:27 Dose: 0.5 mcg Documented by: Cyanocobalamin (Cyanocobalamin 500 Mcg Tablet) 1,000 mcg PO DAILY [facility] Last Admin: 09/22/20 09:02 Dose: 1,000 mcg Documented by: Diltiazem HCl (Diltiazem Cd 120 Mg Capsule) 120 mg PO BID [facility] Last Admin: 09/22/20 09:02 Dose: 120 mg Documented by: Enoxaparin Sodium (Enoxaparin 30 Mg/0.3 Ml Syringe) 30 mg SC DAILY [facility] Last Admin: 09/22/20 09:01 Dose: 30 mg Documented by: Ferrous Sulfate (Ferrous Sulfate 325 Mg Tablet) 325 mg PO BID@1200,1700 [facility] Last Admin: 09/21/20 16:10 Dose: 325 mg Documented by: Sodium Chloride () 250 mls @ 15 mls/hr IV .[id number] PRN PRN Reason: Saline Flush Sodium Chloride () 250 mls @ 15 mls/hr IV .[id number] PRN PRN Reason: Additional IVPB Infusion Ceftriaxone Sodium (Rocephin) 1 gm in 50 mls @ 100 mls/hr IV Q24 [facility] Last Infusion: 09/22/20 09:34 Dose: Infused Documented by: Furosemide 500 mg/ N/A 50 mls @ 1 mls/hr CONT INF .Q50H [facility] Last Admin: 09/22/20 02:29 Dose: 10 mg/hr, 1 mls/hr Documented by: Insulin Human Lispro (Insulin Lispro 100 Unit/Ml Insuln.Pen) 0 unit SC [facility]; Protocol Last Admin: 09/22/20 07:10 Dose: Not Given Documented by: Levothyroxine Sodium (Levothyroxine 150 Mcg Tablet) 300 mcg PO DAILY@0600 [facility] Last Admin: 09/22/20 05:00 Dose: 300 mcg Documented by: Melatonin (Melatonin 3 Mg Tablet) 3 mg PO QHS PRN PRN PRN Reason: INSOMNIA Morphine Sulfate (Morphine 2 Mg/Ml Syringe) 2 mg IV Q3H PRN PRN PRN Reason: Pain Score 6-10 Last Admin: 09/20/20 03:04 Dose: 2 mg Documented by: Multivitamins/Minerals (Multivitamins,Ther W-Minerals Tablet) [facility] Last Admin: 09/22/20 09:02 Dose: 1 tablet Documented by: Nitroglycerin (Nitroglycerin (Inpatient Use) 0.4 Mg Tab.Subl) 0.4 mg SL Q5M PRN PRN Reason: CARDIAC/CHEST PAIN Yulvo-9-Nhry Ethyl Esters ([place]-3 Acid Ethyl Esters 1 Gm Capsule) 1 gm PO DAILY [facility] Last Admin: 09/22/20 09:02 Dose: 1 gm Documented by: Ondansetron HCl (Ondansetron 4 Mg/2 Ml Vial) 4 mg IV Q8H PRN PRN PRN Reason: NAUSEA/VOMITING Oxycodone HCl (Oxycodone 5 Mg Tablet) 5 mg PO Q6H PRN PRN PRN Reason: Pain Score 4-5 Last Admin: 09/20/20 13:48 Dose: 5 mg Documented by: Sodium Chloride (0.9% Saline Lock 10 Ml Syringe) 10 - 40 ml IV UD PRN PRN Reason: SALINE FLUSH Last Admin: 09/22/20 02:38 Dose: 10 ml Documented by: Sodium Chloride (Sodium Chloride 0.65% 1 [place].Btl) 2 spray NASAL TID PRN PRN PRN Reason: NASAL DRYNESS Last Admin: 09/21/20 11:01 Dose: 2 spray Documented by: Medical Necessity - Tobacco Use Smoking Status: Never smoker Assessment/Plan All Active Problems Urinary tract infection (Acute) Acute on chronic congestive heart failure (Acute) Acute respiratory failure with hypoxia (Acute) Fall (Acute) Contusion, back (Acute) 1. Acute hypoxic respiratory failure secondary to acute on chronic heart failure with preserved ejection fraction-BNP 846. Chest x-ray with bilateral pleural effusions and CHF. Echocardiogram demonstrates an EF of 60%, mild mitral valve insufficiency, moderate tricuspid valve insufficiency. IV Lasix. Strict I&O. Daily weight. Placed on BiPAP overnight. Continue supplement oxygen to maintain O2 at above 90%. CT of chest without contrast pending for further evaluation of pleural effusions, consider thoracentesis pending further evaluation. 2. Chronic kidney disease stage IV-nephrology consulted. Attempting diuresis as noted above. Trend BMP. 3. Acute UTI, ruled out-received 3 doses of IV Rocephin. Urine culture growing mixed gram-positive and mixed gram-negative organisms, low colony count. Discontinue further antibiotics. 4. Type 2 diabetes mellitus-oral regimen on hold. Accu-Cheks with sliding scale insulin. 5. Hypertension-continue amlodipine, Cardizem. 6. Hyperlipidemia-continue statin. 7. Hypothyroidism-continue Synthroid. 8. Chronic normocytic anemia/anemia of chronic disease-appears at baseline. Trend CBC. Transfuse for hemoglobin less than 7. DVT prophylaxis-Lovenox This patient was seen by CALLI Cui under the supervision of Dr. Washington. <Leander Washington - Last Filed: 09/22/20 13:07> - Physical Exam Vitals/I&O's: Vital Signs Temp Pulse Resp BP Pulse Ox 97.7 F L 85 18 156/60 H 94 09/22/20 11:00 09/22/20 11:00 09/22/20 11:00 09/22/20 11:00 09/22/20 12:16 Oxygen Flow Rate (L/min) 15 Oxygen Delivery Method Nasal Cannula Weight: 103 kg Body Mass Index (BMI) 37.1 Intake and Output for Last 24 Hours 09/20/20 09/21/20 09/22/20 23:59 23:59 23:59 Intake Total 855 / 900 1020 / 1080 410 / 410 Output Total 900 / 1050 1150 / 1150 Balance 855 / 900 120 / 30 -740 / -740 Microbiology Past 72 Hours 09/19/20 23:58 Urine, Clean Catch Urine Culture - Final Mixed Gram Pos & Gram Neg Org 09/19/20 Unknown Nasal Secretion SARS-CoV-2 Antigen (Rapid) - Final Laboratory Results 09/21/20 16:07: POC Glucose 111 H 09/21/20 21:45: POC Glucose 128 H 09/22/20 05:20: WBC 9.2, RBC 2.98 L, Hgb 7.1 L, Hct 26.2 L, MCV 87.9, MCH 23.8 L , MCHC 27.1 L, RDW Std Deviation 53.0 H, RDW Coeff of Samy 16.8 H, Plt Count 340, MPV 9.1 09/22/20 05:20: Sodium 135 L, Potassium 5.1, Chloride 104, Carbon Dioxide 26.0, Anion Gap 5, BUN 52 H, Creatinine 3.65 H, Estim Creat Clear Calc 13.09, Est GFR (MDRD) Af Amer 16 L, Est GFR (MDRD) Non-Af 13 L, BUN/Creatinine Ratio 14.2, Glucose 80, Calcium 7.7 L 09/22/20 06:35: POC Glucose 83 09/22/20 11:59: POC Glucose 113 H Current Medications Acetaminophen (Acetaminophen 325 Mg Tablet) 650 mg PO Q6H PRN PRN PRN Reason: Pain Score 1-10/Temp > 100.7 F Last Admin: 09/21/20 11:48 Dose: 650 mg Documented by: Amlodipine Besylate (Amlodipine 5 Mg Tablet) 5 mg PO DAILY [facility] Last Admin: 09/22/20 09:02 Dose: 5 mg Documented by: Ascorbic Acid (Ascorbic Acid 500 Mg Tablet) 500 mg PO DAILY [facility] Last Admin: 09/22/20 09:02 Dose: 500 mg Documented by: Aspirin (Aspirin 81 Mg Tab.Chew) 81 mg PO DAILY@0800 [facility] Last Admin: 09/22/20 09:02 Dose: 81 mg Documented by: Calcitriol (Calcitriol 0.25 Mcg Capsule) 0.25 mcg PO SuTuThSa@1000 [facility] Last Admin: 09/22/20 09:02 Dose: 0.25 mcg Documented by: Calcitriol (Calcitriol 0.25 Mcg Capsule) 0.5 mcg PO MoWeFr@1000 [facility] Last Admin: 09/21/20 08:27 Dose: 0.5 mcg Documented by: Cyanocobalamin (Cyanocobalamin 500 Mcg Tablet) 1,000 mcg PO DAILY [facility] Last Admin: 09/22/20 09:02 Dose: 1,000 mcg Documented by: Diltiazem HCl (Diltiazem Cd 120 Mg Capsule) 120 mg PO BID [facility] Last Admin: 09/22/20 09:02 Dose: 120 mg Documented by: Enoxaparin Sodium (Enoxaparin 30 Mg/0.3 Ml Syringe) 30 mg SC DAILY [facility] Last Admin: 09/22/20 09:01 Dose: 30 mg Documented by: Ferrous Sulfate (Ferrous Sulfate 325 Mg Tablet) 325 mg PO BID@1200,1700 [facility] Last Admin: 09/22/20 12:39 Dose: 325 mg Documented by: Sodium Chloride () 250 mls @ 15 mls/hr IV .[id number] PRN PRN Reason: Saline Flush Sodium Chloride () 250 mls @ 15 mls/hr IV .[id number] PRN PRN Reason: Additional IVPB Infusion Furosemide 500 mg/ N/A 50 mls @ 1 mls/hr CONT INF .Q50H [facility] Last Admin: 09/22/20 02:29 Dose: 10 mg/hr, 1 mls/hr Documented by: Insulin Human Lispro (Insulin Lispro 100 Unit/Ml Insuln.Pen) 0 unit SC ACHS [facility]; Protocol Last Admin: 09/22/20 12:39 Dose: Not Given Documented by: Levothyroxine Sodium (Levothyroxine 150 Mcg Tablet) 300 mcg PO DAILY@0600 [facility] Last Admin: 09/22/20 05:00 Dose: 300 mcg Documented by: Melatonin (Melatonin 3 Mg Tablet) 3 mg PO QHS PRN PRN PRN Reason: INSOMNIA Morphine Sulfate (Morphine 2 Mg/Ml Syringe) 2 mg IV Q3H PRN PRN PRN Reason: Pain Score 6-10 Last Admin: 09/20/20 03:04 Dose: 2 mg Documented by: Multivitamins/Minerals (Multivitamins,Ther W-Minerals Tablet) [facility] Last Admin: 09/22/20 09:02 Dose: 1 tablet Documented by: Nitroglycerin (Nitroglycerin (Inpatient Use) 0.4 Mg Tab.Subl) 0.4 mg SL Q5M PRN PRN Reason: CARDIAC/CHEST PAIN Viike-7-Nxnz Ethyl Esters ([place]-3 Acid Ethyl Esters 1 Gm Capsule) 1 gm PO DAILY [facility] Last Admin: 09/22/20 09:02 Dose: 1 gm Documented by: Ondansetron HCl (Ondansetron 4 Mg/2 Ml Vial) 4 mg IV Q8H PRN PRN PRN Reason: NAUSEA/VOMITING Oxycodone HCl (Oxycodone 5 Mg Tablet) 5 mg PO Q6H PRN PRN PRN Reason: Pain Score 4-5 Last Admin: 09/20/20 13:48 Dose: 5 mg Documented by: Sodium Chloride (0.9% Saline Lock 10 Ml Syringe) 10 - 40 ml IV UD PRN PRN Reason: SALINE FLUSH Last Admin: 09/22/20 12:39 Dose: 10 ml Documented by: Sodium Chloride (Sodium Chloride 0.65% 1 [place].Btl) 2 spray NASAL TID PRN PRN PRN Reason: NASAL DRYNESS Last Admin: 09/21/20 11:01 Dose: 2 spray Documented by: Assessment/Plan This patient was seen in conjunction with CALLI Cui . I have independently interviewed and examined the patient and reviewed pertinent historical, laboratory, and other data. Please refer to CALLI Cui note for details of this patient's presentation, findings, and recommendations. I have reviewed CALLI Cui note and concur with documented findings. In brief,Patient is a 69-year-old lady admitted with progressive generalized with recurrent falls and apparently detected pound weight gain over the past months. Imaging studies obtained was consistent with acute congestive heart failure admitted to monitored bed for further management 09/22/2020 patient respiratory status deteriorated resulting in patient being placed on BiPAP and started on Lasix drip. Physical Examination: GENERAL: Appears ill looking HEENT: Atraumatic; EYES; Anicteric, Normal Conjunctiva NECK; supple, normal thyroid, RESPIRATORY: Diminished to auscultation CARDIOVASCULAR: Regular S1 S2, GI: soft, normoactive bowel sounds, : No Renal angle tenderness; EXTREMITIES: edema, no clubbing, MUSCULOSKELETAL: no muscle waisting NEURO: Awake; no lateralizing signs. SKIN: No Rash PSYCH; Flat affect Assessment: 1. Acute on chronic congestive heart failure his ejection fraction 60% 2. Culture-negative acute cystitis 3. Chronic kidney disease stage IV 4. Essential hypertension 5. Anemia of chronic disorder 6. Diabetes mellitus type 2 7. Hypothyroidism 8. Dyslipidemia 9. Physical deconditioning with recurrent falls 10. DVT prophylaxis Recommendations: 1. I have discussed the results of my overview and impressions with the patient 2. Options for management were reviewed In[facility] E&M: [id number]
[2020-09-22 12:35] LABS: Bedside Glucose 113 mg/dL (70-110)
[2020-09-22] MEDS: Ferrous Sulfate 325 MG Tablet PO ×2 (12:39→16:52)
--- NOTE | 2020-09-22 15:03 | PCM.PN.REN ---
Patient Problems: Active and Suspected Problems Urinary tract infection (Acute) Acute on chronic congestive heart failure (Acute) Acute respiratory failure with hypoxia (Acute) Fall (Acute) Contusion, back (Acute) Subjective: Worsening UO, on BiPAP - Physical Exam Vitals/I&O's: Vital Signs Temp Pulse Resp BP Pulse Ox 97.7 F L 85 18 156/60 H 94 09/22/20 11:00 09/22/20 11:00 09/22/20 11:00 09/22/20 11:00 09/22/20 12:16 Oxygen Flow Rate (L/min) 8 Oxygen Delivery Method Nasal Cannula Weight: 103 kg Body Mass Index (BMI) 37.1 Intake and Output for Last 24 Hours 09/20/20 09/21/20 09/22/20 23:59 23:59 23:59 Intake Total 855 / 900 1020 / 1080 410 / 410 Output Total 900 / 1050 1150 / 1150 Balance 855 / 900 120 / 30 -740 / -740 Microbiology Past 72 Hours 09/19/20 23:58 Urine, Clean Catch Urine Culture - Final Mixed Gram Pos & Gram Neg Org 09/19/20 Unknown Nasal Secretion SARS-CoV-2 Antigen (Rapid) - Final Laboratory Results 09/21/20 16:07: POC Glucose 111 H 09/21/20 21:45: POC Glucose 128 H 09/22/20 05:20: WBC 9.2, RBC 2.98 L, Hgb 7.1 L, Hct 26.2 L, MCV 87.9, MCH 23.8 L, MCHC 27.1 L, RDW Std Deviation 53.0 H, RDW Coeff of Samy 16.8 H, Plt Count 340, MPV 9.1 09/22/20 05:20: Sodium 135 L, Potassium 5.1, Chloride 104, Carbon Dioxide 26.0, Anion Gap 5, BUN 52 H, Creatinine 3.65 H, Estim Creat Clear Calc 13.09, Est GFR (MDRD) Af Amer 16 L, Est GFR (MDRD) Non-Af 13 L, BUN/Creatinine Ratio 14.2, Glucose 80, Calcium 7.7 L 09/22/20 06:35: POC Glucose 83 09/22/20 11:59: POC Glucose 113 H Current Medications Acetaminophen (Acetaminophen 325 Mg Tablet) 650 mg PO Q6H PRN PRN PRN Reason: Pain Score 1-10/Temp > 100.7 F Last Admin: 09/21/20 11:48 Dose: 650 mg Documented by: Amlodipine Besylate (Amlodipine 5 Mg Tablet) 5 mg PO DAILY [facility] Last Admin: 09/22/20 09:02 Dose: 5 mg Documented by: Ascorbic Acid (Ascorbic Acid 500 Mg Tablet) 500 mg PO DAILY [facility] Last Admin: 09/22/20 09:02 Dose: 500 mg Documented by: Aspirin (Aspirin 81 Mg Tab.Chew) 81 mg PO DAILY@0800 [facility] Last Admin: 09/22/20 09:02 Dose: 81 mg Documented by: Calcitriol (Calcitriol 0.25 Mcg Capsule) 0.25 mcg PO SuTuThSa@1000 [facility] Last Admin: 09/22/20 09:02 Dose: 0.25 mcg Documented by: Calcitriol (Calcitriol 0.25 Mcg Capsule) 0.5 mcg PO MoWeFr@1000 [facility] Last Admin: 09/21/20 08:27 Dose: 0.5 mcg Documented by: Cyanocobalamin (Cyanocobalamin 500 Mcg Tablet) 1,000 mcg PO DAILY [facility] Last Admin: 09/22/20 09:02 Dose: 1,000 mcg Documented by: Diltiazem HCl (Diltiazem Cd 120 Mg Capsule) 120 mg PO BID [facility] Last Admin: 09/22/20 09:02 Dose: 120 mg Documented by: Enoxaparin Sodium (Enoxaparin 30 Mg/0.3 Ml Syringe) 30 mg SC DAILY [facility] Last Admin: 09/22/20 09:01 Dose: 30 mg Documented by: Ferrous Sulfate (Ferrous Sulfate 325 Mg Tablet) 325 mg PO BID@1200,1700 [facility] Last Admin: 09/22/20 12:39 Dose: 325 mg Documented by: Sodium Chloride () 250 mls @ 15 mls/hr IV .[id number] PRN PRN Reason: Saline Flush Sodium Chloride () 250 mls @ 15 mls/hr IV .[id number] PRN PRN Reason: Additional IVPB Infusion Furosemide 500 mg/ N/A 50 mls @ 1 mls/hr CONT INF .Q50H [facility] Last Admin: 09/22/20 02:29 Dose: 10 mg/hr, 1 mls/hr Documented by: Insulin Human Lispro (Insulin Lispro 100 Unit/Ml Insuln.Pen) 0 unit SC ACHS [facility]; Protocol Last Admin: 09/22/20 12:39 Dose: Not Given Documented by: Levothyroxine Sodium (Levothyroxine 150 Mcg Tablet) 300 mcg PO DAILY@0600 [facility] Last Admin: 09/22/20 05:00 Dose: 300 mcg Documented by: Melatonin (Melatonin 3 Mg Tablet) 3 mg PO QHS PRN PRN PRN Reason: INSOMNIA Morphine Sulfate (Morphine 2 Mg/Ml Syringe) 2 mg IV Q3H PRN PRN PRN Reason: Pain Score 6-10 Last Admin: 09/20/20 03:04 Dose: 2 mg Documented by: Multivitamins/Minerals (Multivitamins,Ther W-Minerals Tablet) [facility] Last Admin: 09/22/20 09:02 Dose: 1 tablet Documented by: Nitroglycerin (Nitroglycerin (Inpatient Use) 0.4 Mg Tab.Subl) 0.4 mg SL Q5M PRN PRN Reason: CARDIAC/CHEST PAIN [id number] Ethyl Esters ([place]-3 Acid Ethyl Esters 1 Gm Capsule) 1 gm PO DAILY [facility] Last Admin: 09/22/20 09:02 Dose: 1 gm Documented by: Ondansetron HCl (Ondansetron 4 Mg/2 Ml Vial) 4 mg IV Q8H PRN PRN PRN Reason: NAUSEA/VOMITING Oxycodone HCl (Oxycodone 5 Mg Tablet) 5 mg PO Q6H PRN PRN PRN Reason: Pain Score 4-5 Last Admin: 09/20/20 13:48 Dose: 5 mg Documented by: Sodium Chloride (0.9% Saline Lock 10 Ml Syringe) 10 - 40 ml IV UD PRN PRN Reason: SALINE FLUSH Last Admin: 09/22/20 12:39 Dose: 10 ml Documented by: Sodium Chloride (Sodium Chloride 0.65% 1 [place].Btl) 2 spray NASAL TID PRN PRN PRN Reason: NASAL DRYNESS Last Admin: 09/21/20 11:01 Dose: 2 spray Documented by: Medical Necessity - Tobacco Use Smoking Status: Never smoker Assessment/Plan All Active Problems Urinary tract infection (Acute) Acute on chronic congestive heart failure (Acute) Acute respiratory failure with hypoxia (Acute) Fall (Acute) Contusion, back (Acute) CKD 4 EDema LE Hyperkalemia renal cyst s/p fall HFpEF The patient serum creatinine is 3.65 oligoanuric agree with lasix drip Avoid nephrotoxins Ultrasound reviewed Antibiotics for possible cystitis per hospitalist. Avoid nephrotoxins thanks for consult will follow
[2020-09-22 17:01] LABS: Bedside Glucose 129 mg/dL (70-110)
[2020-09-22 22:36] LABS: Bedside Glucose 143 mg/dL (70-110)
[2020-09-23] VITALS (16 sets, daily range): BP systolic 142–158; BP diastolic 49–63; PULSE 71–81; RESP 18–29; TEMP 36.4–37; O2SAT 90–96
[2020-09-23] MEDS: Levothyroxine 150 MCG Tablet 300 MCG PO (05:33)
[2020-09-23 05:36] LABS: Hematocrit 25.7 % (37-47); Mean Corp Hgb Conc 27.2 g/dL (32-36); Mean Corpuscular Hgb 24.1 pg (27.0-32.0); Mean Corpuscular Volume 88.6 fL (81-99); Mean Platelet Vol. 9.2 fl (6.2-12.0); Platelet Count 324 K/mm3 (150-450); RBC Distribution Width CV 16.8 % (11.6-14.6); RBC Distribution Width SD 53.8 fl (35.1-43.9); White Blood Count 9.7 K/mm3 (4.4-11.0)
[2020-09-23 05:52] LABS: Anion Gap 6 (5-15); BUN 60 mg/dL (7-18); BUN/Creat Ratio 15.6 RATIO (10-20); Calcium,Total 8.1 mg/dL (8.5-10.1); Chloride 105 mmol/L (98-107); Creatinine, Serum 3.85 mg/dL (0.55-1.02); EST Glomerular Filtration Rate 12 mL/min (>60); Est Glom Filt Rate - Afr Amer 15 mL/min (>60); Estimated Creatinine Clearance 12.41 ml/min; Glucose 128 mg/dL (74-106); Potassium 4.5 mmol/L (3.5-5.1); Sodium Level 138 mmol/L (136-145)
[2020-09-23 06:46] LABS: Bedside Glucose 124 mg/dL (70-110)
[2020-09-23] MEDS: 0.9% Saline Lock 10 ML Syringe IV ×2 (09:06→15:11)
[2020-09-23] MEDS: Cyanocobalamin 500 MCG Tablet 1000 MCG PO (09:07)
[2020-09-23] MEDS: Omega-3 Acid Ethyl Esters 1 GM Capsule PO (09:07)
[2020-09-23] MEDS: Multivitamins,Ther W-Minerals Tablet 1 TABLET PO (09:07)
[2020-09-23] MEDS: Ascorbic Acid 500 MG Tablet PO (09:07)
[2020-09-23] MEDS: Aspirin 81 MG TAB.CHEW PO (09:08)
[2020-09-23] MEDS: dilTIAZem CD 120 MG Capsule PO ×2 (09:08→20:59)
[2020-09-23] MEDS: amLODIPine 5 MG Tablet PO (09:08)
[2020-09-23] MEDS: Calcitriol 0.25 MCG Capsule 0.5 MCG PO (09:08)
[2020-09-23] MEDS: Enoxaparin 30 MG/0.3 ML Syringe SC (09:10)
--- NOTE | 2020-09-23 09:24 | CASEMGMT ---
Patient may be ready for discharge today versus over the weekend. SW faxed all necessary information to [employer] to obtain pre-cert. Await response. Genia Ward RN [employer] INFORMATION CL[employer]
--- NOTE | 2020-09-23 11:38 | PN.RENAL_ITS ---
Patient Problems: Active and Suspected Problems Urinary tract infection (Acute) Acute on chronic congestive heart failure (Acute) Acute respiratory failure with hypoxia (Acute) Fall (Acute) Contusion, back (Acute) Subjective: stable resp better - Physical Exam Vitals/I&O's: Vital Signs Temp Pulse Resp BP Pulse Ox 97.7 F L 79 18 151/52 H 92 09/23/20 09:05 09/23/20 09:05 09/23/20 09:05 09/23/20 09:05 09/23/20 09:05 Oxygen Flow Rate (L/min) 7 Oxygen Delivery Method Nasal Cannula Weight: 99.9 kg Body Mass Index (BMI) 37.1 Intake and Output for Last 24 Hours 09/21/20 09/22/20 09/23/20 23:59 23:59 23:59 Intake Total 1020 / 1080 950 / 950 230.52 / 230.52 Output Total 900 / 1050 2250 / 2250 600 / 600 Balance 120 / 30 -1300 / -1300 -369.48 / -369.48 General: Alert, Oriented x3, Cooperative HEENT: Atraumatic, PERRLA, EOMI, Normocephalic Neck: Supple, No JVD, Negative Carotid Bruits Lungs: Clear to auscultation, Normal air movement Cardiovascular: Regular rate, No murmurs Abdomen: Bowel Sounds Present, Soft, Non Tender Extremities: No edema, Capillary Refill Less than 3 Seconds Skin: No rashes, No breakdown Musculoskeletal: No Tenderness to Palpation of Joints or Extremities Neurological: Cranial nerves II-XII grossly intact Psych/Mental Status: Normal Affect, Appropriate Microbiology Past 72 Hours 09/19/20 23:58 Urine, Clean Catch Urine Culture - Final Mixed Gram Pos & Gram Neg Org Laboratory Results 09/22/20 11:59: POC Glucose 113 H 09/22/20 16:49: POC Glucose 129 H 09/22/20 21:43: POC Glucose 143 H 09/23/20 04:45: WBC 9.7, RBC 2.90 L, Hgb 7.0 L, Hct 25.7 L, MCV 88.6, MCH 24.1 L , MCHC 27.2 L, RDW Std Deviation 53.8 H, RDW Coeff of Samy 16.8 H, Plt Count 324, MPV 9.2 09/23/20 04:45: Sodium 138, Potassium 4.5, Chloride 105, Carbon Dioxide 27.0, Anion Gap 6, BUN 60 H, Creatinine 3.85 H, Estim Creat Clear Calc 12.41, Est GFR (MDRD) Af Amer 15 L, Est GFR (MDRD) Non-Af 12 L, BUN/Creatinine Ratio 15.6, Glucose 128 H, Calcium 8.1 L 09/23/20 06:38: POC Glucose 124 H Current Medications Acetaminophen (Acetaminophen 325 Mg Tablet) 650 mg PO Q6H PRN PRN PRN Reason: Pain Score 1-10/Temp > 100.7 F Last Admin: 09/21/20 11:48 Dose: 650 mg Documented by: Amlodipine Besylate (Amlodipine 5 Mg Tablet) 5 mg PO DAILY [facility] Last Admin: 09/23/20 09:08 Dose: 5 mg Documented by: Ascorbic Acid (Ascorbic Acid 500 Mg Tablet) 500 mg PO DAILY [facility] Last Admin: 09/23/20 09:07 Dose: 500 mg Documented by: Aspirin (Aspirin 81 Mg Tab.Chew) 81 mg PO DAILY@0800 [facility] Last Admin: 09/23/20 09:08 Dose: 81 mg Documented by: Calcitriol (Calcitriol 0.25 Mcg Capsule) 0.25 mcg PO SuTuThSa@1000 [facility] Last Admin: 09/22/20 09:02 Dose: 0.25 mcg Documented by: Calcitriol (Calcitriol 0.25 Mcg Capsule) 0.5 mcg PO MoWeFr@1000 [facility] Last Admin: 09/23/20 09:08 Dose: 0.5 mcg Documented by: Cyanocobalamin (Cyanocobalamin 500 Mcg Tablet) 1,000 mcg PO DAILY [facility] Last Admin: 09/23/20 09:07 Dose: 1,000 mcg Documented by: Diltiazem HCl (Diltiazem Cd 120 Mg Capsule) 120 mg PO BID [facility] Last Admin: 09/23/20 09:08 Dose: 120 mg Documented by: Enoxaparin Sodium (Enoxaparin 30 Mg/0.3 Ml Syringe) 30 mg SC DAILY [facility] Last Admin: 09/23/20 09:10 Dose: 30 mg Documented by: Ferrous Sulfate (Ferrous Sulfate 325 Mg Tablet) 325 mg PO BID@1200,1700 [facility] Last Admin: 09/22/20 16:52 Dose: 325 mg Documented by: Furosemide (Furosemide 20 Mg Tablet) 60 mg PO TID [facility] Sodium Chloride () 250 mls @ 15 mls/hr IV .[id number] PRN PRN Reason: Saline Flush Sodium Chloride () 250 mls @ 15 mls/hr IV .[id number] PRN PRN Reason: Additional IVPB Infusion Insulin Human Lispro (Insulin Lispro 100 Unit/Ml Insuln.Pen) 0 unit SC ACHS [facility]; Protocol Last Admin: 09/23/20 09:11 Dose: Not Given Documented by: Levothyroxine Sodium (Levothyroxine 150 Mcg Tablet) 300 mcg PO DAILY@0600 [facility] Last Admin: 09/23/20 05:33 Dose: 300 mcg Documented by: Melatonin (Melatonin 3 Mg Tablet) 3 mg PO QHS PRN PRN PRN Reason: INSOMNIA Morphine Sulfate (Morphine 2 Mg/Ml Syringe) 2 mg IV Q3H PRN PRN PRN Reason: Pain Score 6-10 Last Admin: 09/20/20 03:04 Dose: 2 mg Documented by: Multivitamins/Minerals (Multivitamins,Ther W-[facility]inerals Tablet) [facility] Last Admin: 09/23/20 09:07 Dose: 1 tablet Documented by: Nitroglycerin (Nitroglycerin (Inpatient Use) 0.4 Mg Tab.Subl) 0.4 mg SL Q5M PRN PRN Reason: CARDIAC/CHEST PAIN [id number] Ethyl Esters ([place]-3 Acid Ethyl Esters 1 Gm Capsule) 1 gm PO DAILY [facility] Last Admin: 09/23/20 09:07 Dose: 1 gm Documented by: Ondansetron HCl (Ondansetron 4 Mg/2 Ml Vial) 4 mg IV Q8H PRN PRN PRN Reason: NAUSEA/VOMITING Oxycodone HCl (Oxycodone 5 Mg Tablet) 5 mg PO Q6H PRN PRN PRN Reason: Pain Score 4-5 Last Admin: 09/20/20 13:48 Dose: 5 mg Documented by: Sodium Chloride (0.9% Saline Lock 10 Ml Syringe) 10 - 40 ml IV UD PRN PRN Reason: SALINE FLUSH Last Admin: 09/23/20 09:06 Dose: 10 ml Documented by: Sodium Chloride (Sodium Chloride 0.65% 1 Stetson Stetson.Btl) 2 spray NASAL TID PRN PRN PRN Reason: NASAL DRYNESS Last Admin: 09/21/20 11:01 Dose: 2 spray Documented by: Medical Necessity - Tobacco Use Smoking Status: Never smoker Assessment/Plan All Active Problems Urinary tract infection (Acute) Acute on chronic congestive heart failure (Acute) Acute respiratory failure with hypoxia (Acute) Fall (Acute) Contusion, back (Acute) CKD 4 EDema LE Hyperkalemia renal cyst s/p fall HFpEF The patient serum creatinine is 3.65 to 3.85 oligoanuric agree with lasix drip Good UO Avoid nephrotoxins Ultrasound reviewed Antibiotics for possible cystitis per hospitalist. Avoid nephrotoxins thanks for consult will follow
[2020-09-23] MEDS: Ferrous Sulfate 325 MG Tablet PO ×2 (11:40→16:58)
[2020-09-23 11:55] LABS: Bedside Glucose 119 mg/dL (70-110)
--- NOTE | 2020-09-23 13:37 | PCM.PROGNOTE ---
<RupertDeandra [employer] - Last Filed: 09/23/20 13:40> Patient Problems: Active and Suspected Problems Urinary tract infection (Acute) Acute on chronic congestive heart failure (Acute) Acute respiratory failure with hypoxia (Acute) Fall (Acute) Contusion, back (Acute) Subjective: Patient seen and examined. States breathing is improved however remains on 7 L nasal cannula. States swelling is slowly improving as well. - Physical Exam Vitals/I&O's: Vital Signs Temp Pulse Resp BP Pulse Ox 97.7 F L 75 18 151/52 H 93 09/23/20 09:05 09/23/20 11:00 09/23/20 09:05 09/23/20 09:05 09/23/20 12:21 Oxygen Flow Rate (L/min) 7 Oxygen Delivery Method Nasal Cannula Weight: 220 lb 3.869 oz Body Mass Index (BMI) 37.1 Intake and Output for Last 24 Hours 09/21/20 09/22/20 09/23/20 23:59 23:59 23:59 Intake Total 1020 / 1080 950 / 950 350.52 / 350.52 Output Total 900 / 1050 2250 / 2250 600 / 600 Balance 120 / 30 -1300 / -1300 -249.48 / -249.48 General: Alert, Oriented x3, Cooperative HEENT: Atraumatic, PERRLA, EOMI, Normocephalic Neck: Supple, No JVD, Negative Carotid Bruits Lungs: Clear to auscultation, Normal air movement Cardiovascular: Regular rate, No murmurs Abdomen: Bowel Sounds Present, Soft, Non Tender, Non-Distended Extremities: No clubbing, No cyanosis, Capillary Refill Less than 3 Seconds, Edema - Bilateral lower extremity edema extending to mid abdomen Skin: No rashes, No breakdown Musculoskeletal: No Tenderness to Palpation of Joints or Extremities Neurological: Cranial nerves II-XII grossly intact, Neuro grossly intact Psych/Mental Status: Normal Affect, Appropriate Microbiology Past 72 Hours 09/19/20 23:58 Urine, Clean Catch Urine Culture - Final Mixed Gram Pos & Gram Neg Org Laboratory Results 09/22/20 16:49: POC Glucose 129 H 09/22/20 21:43: POC Glucose 143 H 09/23/20 04:45: WBC 9.7, RBC 2.90 L, Hgb 7.0 L, Hct 25.7 L, MCV 88.6, MCH 24.1 L, MCHC 27.2 L, RDW Std Deviation 53.8 H, RDW Coeff of Samy 16.8 H, Plt Count 324, MPV 9.2 09/23/20 04:45: Sodium 138, Potassium 4.5, Chloride 105, Carbon Dioxide 27.0, Anion Gap 6, BUN 60 H, Creatinine 3.85 H, Estim Creat Clear Calc 12.41, Est GFR (MDRD) Af Amer 15 L, Est GFR (MDRD) Non-Af 12 L, BUN/Creatinine Ratio 15.6, Glucose 128 H, Calcium 8.1 L 09/23/20 06:38: POC Glucose 124 H 09/23/20 11:39: POC Glucose 119 H Current Medications Acetaminophen (Acetaminophen 325 Mg Tablet) 650 mg PO Q6H PRN PRN PRN Reason: Pain Score 1-10/Temp > 100.7 F Last Admin: 09/21/20 11:48 Dose: 650 mg Documented by: Amlodipine Besylate (Amlodipine 5 Mg Tablet) 5 mg PO DAILY [facility] Last Admin: 09/23/20 09:08 Dose: 5 mg Documented by: Ascorbic Acid (Ascorbic Acid 500 Mg Tablet) 500 mg PO DAILY [facility] Last Admin: 09/23/20 09:07 Dose: 500 mg Documented by: Aspirin (Aspirin 81 Mg Tab.Chew) 81 mg PO DAILY@0800 [facility] Last Admin: 09/23/20 09:08 Dose: 81 mg Documented by: Calcitriol (Calcitriol 0.25 Mcg Capsule) 0.25 mcg PO SuTuThSa@1000 [facility] Last Admin: 09/22/20 09:02 Dose: 0.25 mcg Documented by: Calcitriol (Calcitriol 0.25 Mcg Capsule) 0.5 mcg PO MoWeFr@1000 [facility] Last Admin: 09/23/20 09:08 Dose: 0.5 mcg Documented by: Cyanocobalamin (Cyanocobalamin 500 Mcg Tablet) 1,000 mcg PO DAILY [facility] Last Admin: 09/23/20 09:07 Dose: 1,000 mcg Documented by: Diltiazem HCl (Diltiazem Cd 120 Mg Capsule) 120 mg PO BID [facility] Last Admin: 09/23/20 09:08 Dose: 120 mg Documented by: Enoxaparin Sodium (Enoxaparin 30 Mg/0.3 Ml Syringe) 30 mg SC DAILY [facility] Last Admin: 09/23/20 09:10 Dose: 30 mg Documented by: Ferrous Sulfate (Ferrous Sulfate 325 Mg Tablet) 325 mg PO BID@1200,1700 [facility] Last Admin: 09/23/20 11:40 Dose: 325 mg Documented by: Furosemide (Furosemide 20 Mg Tablet) 60 mg PO TID [facility] Sodium Chloride () 250 mls @ 15 mls/hr IV .[id number] PRN PRN Reason: Saline Flush Sodium Chloride () 250 mls @ 15 mls/hr IV .[id number] PRN PRN Reason: Additional IVPB Infusion Insulin Human Lispro (Insulin Lispro 100 Unit/Ml [facility]uln.Pen) [facility] Last Admin: 09/23/20 11:41 Dose: Not Given Documented by: Levothyroxine Sodium (Levothyroxine 150 Mcg Tablet) 300 mcg PO DAILY@0600 [facility] Last Admin: 09/23/20 05:33 Dose: 300 mcg Documented by: Melatonin (Melatonin 3 Mg Tablet) 3 mg PO QHS PRN PRN PRN Reason: INSOMNIA Morphine Sulfate (Morphine 2 Mg/Ml Syringe) 2 mg IV Q3H PRN PRN PRN Reason: Pain Score 6-10 Last Admin: 09/20/20 03:04 Dose: 2 mg Documented by: Multivitamins/Minerals (Multivitamins,Ther W-Minerals Tablet) [facility] Last Admin: 09/23/20 09:07 Dose: 1 tablet Documented by: Nitroglycerin (Nitroglycerin (Inpatient Use) 0.4 Mg Tab.Subl) 0.4 mg SL Q5M PRN PRN Reason: CARDIAC/CHEST PAIN [id number] Ethyl Esters ([place]-3 Acid Ethyl Esters 1 Gm Capsule) 1 gm PO DAILY [facility] Last Admin: 09/23/20 09:07 Dose: 1 gm Documented by: Ondansetron HCl (Ondansetron 4 Mg/2 Ml Vial) 4 mg IV Q8H PRN PRN PRN Reason: NAUSEA/VOMITING Oxycodone HCl (Oxycodone 5 Mg Tablet) 5 mg PO Q6H PRN PRN PRN Reason: Pain Score 4-5 Last Admin: 09/20/20 13:48 Dose: 5 mg Documented by: Sodium Chloride (0.9% Saline Lock 10 Ml Syringe) 10 - 40 ml IV UD PRN PRN Reason: SALINE FLUSH Last Admin: 09/23/20 09:06 Dose: 10 ml Documented by: Sodium Chloride (Sodium Chloride 0.65% 1 Akeley Akeley.Btl) 2 spray NASAL TID PRN PRN PRN Reason: NASAL DRYNESS Last Admin: 09/21/20 11:01 Dose: 2 spray Documented by: Medical Necessity - Tobacco Use Smoking Status: Never smoker Assessment/Plan All Active Problems Urinary tract infection (Acute) Acute on chronic congestive heart failure (Acute) Acute respiratory failure with hypoxia (Acute) Fall (Acute) Contusion, back (Acute) 1. Acute hypoxic respiratory failure secondary to acute on chronic heart failure with preserved ejection fraction-BNP 846. Chest x-ray with bilateral pleural effusions and CHF. Echocardiogram demonstrates an EF of 60%, mild mitral valve insufficiency, moderate tricuspid valve insufficiency. Strict I&O. Daily weight. Continue supplement oxygen to maintain O2 at above 90%. BIPAP QHS. Discontinue IV Lasix due to increasing creatinine. Initiate oral Lasix 60 mg 3 times daily. 2. Chronic kidney disease stage IV-nephrology following. Continue diuresis, trend BMP. 3. Acute UTI, ruled out-received 3 doses of IV Rocephin. Urine culture growing mixed gram-positive and mixed gram-negative organisms, low colony count. Discontinue further antibiotics. 4. Type 2 diabetes mellitus-oral regimen on hold. Accu-Cheks with sliding scale insulin. 5. Hypertension-continue amlodipine, Cardizem. 6. Hyperlipidemia-continue statin. 7. Hypothyroidism-continue Synthroid. 8. Chronic normocytic anemia/anemia of chronic disease-appears at baseline. Trend CBC. Transfuse for hemoglobin less than 7. DVT prophylaxis-Lovenox Discharge planning: Plan for discharge to transitional care unit tomorrow pending further diuresis and reduction in supplemental oxygen. This patient was seen by CALLI Cui under the supervision of Dr. Washington. <Leander Washington - Last Filed: 09/23/20 14:08> - Physical Exam Vitals/I&O's: Vital Signs Temp Pulse Resp BP Pulse Ox 97.8 F 75 20 H 143/49 H 94 09/23/20 13:53 09/23/20 13:53 09/23/20 13:53 09/23/20 13:53 09/23/20 13:53 Oxygen Flow Rate (L/min) 6 Oxygen Delivery Method Nasal Cannula Weight: 99.9 kg Body Mass Index (BMI) 37.1 Intake and Output for Last 24 Hours 09/21/20 09/22/20 09/23/20 23:59 23:59 23:59 Intake Total 1020 / 1080 950 / 950 350.52 / 350.52 Output Total 900 / 1050 2250 / 2250 600 / 600 Balance 120 / 30 -1300 / -1300 -249.48 / -249.48 Microbiology Past 72 Hours 09/19/20 23:58 Urine, Clean Catch Urine Culture - Final Mixed Gram Pos & Gram Neg Org Laboratory Results 09/22/20 16:49: POC Glucose 129 H 09/22/20 21:43: POC Glucose 143 H 09/23/20 04:45: WBC 9.7, RBC 2.90 L, Hgb 7.0 L, Hct 25.7 L, MCV 88.6, MCH 24.1 L, MCHC 27.2 L, RDW Std Deviation 53.8 H, RDW Coeff of Samy 16.8 H, Plt Count 324, MPV 9.2 09/23/20 04:45: Sodium 138, Potassium 4.5, Chloride 105, Carbon Dioxide 27.0, Anion Gap 6, BUN 60 H, Creatinine 3.85 H, Estim Creat Clear Calc 12.41, Est GFR (MDRD) Af Amer 15 L, Est GFR (MDRD) Non-Af 12 L, BUN/Creatinine Ratio 15.6, Glucose 128 H, Calcium 8.1 L 09/23/20 06:38: POC Glucose 124 H 09/23/20 11:39: POC Glucose 119 H Current Medications Acetaminophen (Acetaminophen 325 Mg Tablet) 650 mg PO Q6H PRN PRN PRN Reason: Pain Score 1-10/Temp > 100.7 F Last Admin: 09/21/20 11:48 Dose: 650 mg Documented by: Amlodipine Besylate (Amlodipine 5 Mg Tablet) 5 mg PO DAILY [facility] Last Admin: 09/23/20 09:08 Dose: 5 mg Documented by: Ascorbic Acid (Ascorbic Acid 500 Mg Tablet) 500 mg PO DAILY [facility] Last Admin: 09/23/20 09:07 Dose: 500 mg Documented by: Aspirin (Aspirin 81 Mg Tab.Chew) 81 mg PO DAILY@0800 [facility] Last Admin: 09/23/20 09:08 Dose: 81 mg Documented by: Calcitriol (Calcitriol 0.25 Mcg Capsule) 0.25 mcg PO SuTuThSa@1000 [facility] Last Admin: 09/22/20 09:02 Dose: 0.25 mcg Documented by: Calcitriol (Calcitriol 0.25 Mcg Capsule) 0.5 mcg PO MoWeFr@1000 [facility] Last Admin: 09/23/20 09:08 Dose: 0.5 mcg Documented by: Cyanocobalamin (Cyanocobalamin 500 Mcg Tablet) 1,000 mcg PO DAILY [facility] Last Admin: 09/23/20 09:07 Dose: 1,000 mcg Documented by: Diltiazem HCl (Diltiazem Cd 120 Mg Capsule) 120 mg PO BID [facility] Last Admin: 09/23/20 09:08 Dose: 120 mg Documented by: Enoxaparin Sodium (Enoxaparin 30 Mg/0.3 Ml Syringe) 30 mg SC DAILY [facility] Last Admin: 09/23/20 09:10 Dose: 30 mg Documented by: Ferrous Sulfate (Ferrous Sulfate 325 Mg Tablet) 325 mg PO BID@1200,1700 [facility] Last Admin: 09/23/20 11:40 Dose: 325 mg Documented by: Furosemide (Furosemide 20 Mg Tablet) 60 mg PO TID [facility] Last Admin: 09/23/20 13:50 Dose: 60 mg Documented by: Sodium Chloride () 250 mls @ 15 mls/hr IV .[id number] PRN PRN Reason: Saline Flush Sodium Chloride () 250 mls @ 15 mls/hr IV .[id number] PRN PRN Reason: Additional IVPB Infusion Ferric Sodium Gluconate Complex 250 mg/ Sodium Chloride 270 mls @ 135 mls/hr IV X1 ONE Stop: 09/23/20 16:59 Insulin Human Lispro (Insulin Lispro 100 Unit/Ml Insuln.Pen) 0 unit SC ACHS [facility]; Protocol Last Admin: 09/23/20 11:41 Dose: Not Given Documented by: Levothyroxine Sodium (Levothyroxine 150 Mcg Tablet) 300 mcg PO DAILY@0600 [facility] Last Admin: 09/23/20 05:33 Dose: 300 mcg Documented by: Melatonin (Melatonin 3 Mg Tablet) 3 mg PO QHS PRN PRN PRN Reason: INSOMNIA Morphine Sulfate (Morphine 2 Mg/Ml Syringe) 2 mg IV Q3H PRN PRN PRN Reason: Pain Score 6-10 Last Admin: 09/20/20 03:04 Dose: 2 mg Documented by: Multivitamins/Minerals (Multivitamins,Ther W-Minerals Tablet) [facility] Last Admin: 09/23/20 09:07 Dose: 1 tablet Documented by: Nitroglycerin (Nitroglycerin (Inpatient Use) 0.4 Mg Tab.Subl) 0.4 mg SL Q5M PRN PRN Reason: CARDIAC/CHEST PAIN Lqzyl-7-Revd Ethyl Esters ([place]-3 Acid Ethyl Esters 1 Gm Capsule) 1 gm PO DAILY [facility] Last Admin: 09/23/20 09:07 Dose: 1 gm Documented by: Ondansetron HCl (Ondansetron 4 Mg/2 Ml Vial) 4 mg IV Q8H PRN PRN PRN Reason: NAUSEA/VOMITING Oxycodone HCl (Oxycodone 5 Mg Tablet) 5 mg PO Q6H PRN PRN PRN Reason: Pain Score 4-5 Last Admin: 09/20/20 13:48 Dose: 5 mg Documented by: Sodium Chloride (0.9% Saline Lock 10 Ml Syringe) 10 - 40 ml IV UD PRN PRN Reason: SALINE FLUSH Last Admin: 09/23/20 09:06 Dose: 10 ml Documented by: Sodium Chloride (Sodium Chloride 0.65% 1 Akeley Akeley.Btl) 2 spray NASAL TID PRN PRN PRN Reason: NASAL DRYNESS Last Admin: 09/21/20 11:01 Dose: 2 spray Documented by: Assessment/Plan This patient was seen in conjunction with CALLI Cui . I have independently interviewed and examined the patient and reviewed pertinent historical, laboratory, and other data. Please refer to CALLI Cui note for details of this patient's presentation, findings, and recommendations. I have reviewed CALLI Cui note and concur with documented findings. In brief,Patient is a 69-year-old lady admitted with progressive generalized with recurrent falls and apparently detected pound weight gain over the past months. Imaging studies obtained was consistent with acute congestive heart failure admitted to monitored bed for further management 09/22/2020 patient respiratory status deteriorated resulting in patient being placed on BiPAP and started on Lasix drip. 09/23/2020 consent was right; patient seen still appears ill looking. Lasix drip weaned off started on scheduled p.o. Lasix. Significant drop in patient hemoglobin level. Iron studies consistent with iron deficiency anemia. Patient was started on parenteral iron. Patient will need to undergo endoscopic evaluation with EGD and colonoscopy when medically stable as outpatient Physical Examination: GENERAL: Appears ill looking HEENT: Atraumatic; EYES; Anicteric, Normal Conjunctiva NECK; supple, normal thyroid, RESPIRATORY: Diminished to auscultation CARDIOVASCULAR: Regular S1 S2, GI: soft, normoactive bowel sounds, : No Renal angle tenderness; EXTREMITIES: edema, no clubbing, MUSCULOSKELETAL: no muscle waisting NEURO: Awake; no lateralizing signs. SKIN: No Rash PSYCH; Flat affect Assessment: 1. Acute on chronic congestive heart failure his ejection fraction 60% 2. Culture-negative acute cystitis 3. Chronic kidney disease stage IV 4. Essential hypertension 5. Anemia of chronic disorder 6. Diabetes mellitus type 2 7. Hypothyroidism 8. Dyslipidemia 9. Physical deconditioning with recurrent falls 10. DVT prophylaxis Recommendations: 1. I have discussed the results of my overview and impressions with the patient 2. Options for management were reviewed Inpatient E&M: [id number] [facility] Hosp L3
--- NOTE | 2020-09-23 13:48 | CASEMGMT ---
SW received a call from [facility] and patient is approved for TCU. SW met with patient and let her know that because she does not have her COVID vaccines she will have to quarantine for 14 days which means no visitors. She verbalized understanding. SW also called patient's . Introduced self and let him know about the quarantine as well. He too verbalized understanding. Plan: d/c to [facility] TCU when medically ready. Patient was approved by insurance. Genia [facility]
[2020-09-23] MEDS: Furosemide 20 MG Tablet 60 MG PO ×2 (13:50→20:57)
[2020-09-23 17:05] LABS: Bedside Glucose 159 mg/dL (70-110)
[2020-09-23 21:05] LABS: Bedside Glucose 170 mg/dL (70-110)
--- NOTE | 2020-09-23 23:43 | CPS ---
patient refused bipap.
[2020-09-24] VITALS (17 sets, daily range): BP systolic 135–156; BP diastolic 50–65; PULSE 68–84; RESP 12–21; TEMP 36.1–36.7; O2SAT 90–96
--- NOTE | 2020-09-24 01:38 | NURSING ---
PT'S PULSE OX WAS 88% ON THE 7L HIGH FLOW NASAL CANNULA. INCREASED TO 8L, PULSE OX IMPROVED TO 92% HOWEVER PT HAS PERIODS OF SLEEP APNEA DISCUSSED ENCOURAGING BIPAP WITH RESPIRATORY THERAPY. RT PLACED PT ON BIPAP AT THIS TIME
--- NOTE | 2020-09-24 03:33 | CPS ---
PATIENT REFUSING BIPAP.
--- NOTE | 2020-09-24 03:34 | CPS ---
PATIENT PLACED ON 9 LPM NC HIGH FLOW POST BIPAP REFUSAL.
--- NOTE | 2020-09-24 04:19 | NURSING ---
DR VELA WAS NOTIFIED OF PT'S PULSE OX DIFFICULTIES OVERNIGHT, CURRENTLY ON 9L HIGH FLOW NASAL CANNULA. PULSE OX 90%. DISCUSSED BIPAP AND PT C/O CLAUSTROPHOBIA, ORDER FOR ATIVAN IV RECEIVED IN CASE NEEDED. WILL ATTEMPT TO HAVE PT WEAR BIPAP WITHOUT IT. ALSO DISCUSSED NEED FOR INCENTIVE SPIROMETER. ORDER RECEIVED.
[2020-09-24] MEDS: Levothyroxine 150 MCG Tablet 300 MCG PO (06:38)
[2020-09-24] MEDS: Furosemide 20 MG Tablet 60 MG PO ×3 (06:38→21:41)
[2020-09-24 06:45] LABS: Bedside Glucose 95 mg/dL (70-110)
[2020-09-24 06:54] LABS: Hematocrit 26.9 % (37-47); Hemoglobin 7.3 g/dL (12.0-15.0); Mean Corp Hgb Conc 27.1 g/dL (32-36); Mean Corpuscular Hgb 24.2 pg (27.0-32.0); Mean Corpuscular Volume 89.1 fL (81-99); Mean Platelet Vol. 9.3 fl (6.2-12.0); Platelet Count 322 K/mm3 (150-450); RBC Distribution Width CV 16.9 % (11.6-14.6); RBC Distribution Width SD 54.2 fl (35.1-43.9); Red Blood Count 3.02 M/mm3 (4.2-5.4); White Blood Count 9.1 K/mm3 (4.4-11.0)
[2020-09-24 07:25] LABS: Anion Gap 4 (5-15); BUN 63 mg/dL (7-18); Calcium,Total 8.3 mg/dL (8.5-10.1); Chloride 105 mmol/L (98-107); Creatinine, Serum 3.71 mg/dL (0.55-1.02); EST Glomerular Filtration Rate 13 mL/min (>60); Est Glom Filt Rate - Afr Amer 16 mL/min (>60); Estimated Creatinine Clearance 12.88 ml/min; Glucose 104 mg/dL (74-106); Potassium 4.3 mmol/L (3.5-5.1); Sodium Level 139 mmol/L (136-145)
[2020-09-24] MEDS: Cyanocobalamin 500 MCG Tablet 1000 MCG PO (08:39)
[2020-09-24] MEDS: Ascorbic Acid 500 MG Tablet PO (08:39)
[2020-09-24] MEDS: Enoxaparin 30 MG/0.3 ML Syringe SC (08:39)
[2020-09-24] MEDS: Omega-3 Acid Ethyl Esters 1 GM Capsule PO (08:39)
[2020-09-24] MEDS: dilTIAZem CD 120 MG Capsule PO ×2 (08:39→21:41)
[2020-09-24] MEDS: Multivitamins,Ther W-Minerals Tablet 1 TABLET PO (08:39)
[2020-09-24] MEDS: Aspirin 81 MG TAB.CHEW PO (08:39)
[2020-09-24] MEDS: 0.9% Saline Lock 10 ML Syringe IV (08:39)
[2020-09-24] MEDS: Calcitriol 0.25 MCG Capsule PO (08:39)
[2020-09-24] MEDS: amLODIPine 5 MG Tablet PO (08:39)
--- NOTE | 2020-09-24 09:53 | PCM.PROGNOTE ---
<Colin Emeryssica INSULATION APPLICATOR - Last Filed: 09/24/20 10:02> Patient Problems: Active and Suspected Problems Urinary tract infection (Acute) Acute on chronic congestive heart failure (Acute) Acute respiratory failure with hypoxia (Acute) Fall (Acute) Contusion, back (Acute) Subjective: Patient seen and examined. Denies increased shortness of breath. Feels swelling continues to slowly improve. On 10 L supplemental oxygen. - Physical Exam Vitals/I&O's: Vital Signs Temp Pulse Resp BP Pulse Ox 97.0 F L 72 18 145/59 H 93 09/24/20 08:38 09/24/20 08:38 09/24/20 08:38 09/24/20 08:38 09/24/20 08:48 Oxygen Flow Rate (L/min) 10 Oxygen Delivery Method Nasal Cannula Weight: 218 lb 7.649 oz Body Mass Index (BMI) 37.1 Intake and Output for Last 24 Hours 09/22/20 09/23/20 09/24/20 23:59 23:59 23:59 Intake Total 950 / 950 1100.52 / 1300.52 300 / 300 Output Total 2250 / 2250 600 / 1250 1050 / 1050 Balance -1300 / -1300 500.52 / 50.52 -750 / -750 General: Alert, Oriented x3, Cooperative HEENT: Atraumatic, PERRLA, EOMI, Normocephalic Neck: Supple, No JVD, Negative Carotid Bruits Lungs: Clear to auscultation, Normal air movement Cardiovascular: Regular rate, No murmurs Abdomen: Bowel Sounds Present, Soft, Non Tender, Non-Distended Extremities: No clubbing, No cyanosis, Capillary Refill Less than 3 Seconds, Edema - Bilateral lower extremity edema extending to mid abdomen Skin: No rashes, No breakdown Musculoskeletal: No Tenderness to Palpation of Joints or Extremities Neurological: Cranial nerves II-XII grossly intact, Neuro grossly intact Psych/Mental Status: Normal Affect, Appropriate Microbiology Past 72 Hours 09/19/20 23:58 Urine, Clean Catch Urine Culture - Final Mixed Gram Pos & Gram Neg Org Laboratory Results 09/23/20 11:39: POC Glucose 119 H 09/23/20 16:53: POC Glucose 159 H 09/23/20 20:56: POC Glucose 170 H 09/24/20 06:36: WBC 9.1, RBC 3.02 L, Hgb 7.3 L, Hct 26.9 L, MCV 89.1, MCH 24.2 L, MCHC 27.1 L, RDW Std Deviation 54.2 H, RDW Coeff of Samy 16.9 H, Plt Count 322, MPV 9.3 09/24/20 06:36: Sodium 139, Potassium 4.3, Chloride 105, Carbon Dioxide 30.0, Anion Gap 4 L, BUN 63 H, Creatinine 3.71 H, Estim Creat Clear Calc 12.88, Est GFR (MDRD) Af Amer 16 L, Est GFR (MDRD) Non-Af 13 L, BUN/Creatinine Ratio 17.0, Glucose 104, Calcium 8.3 L 09/24/20 06:36: POC Glucose 95 Current Medications Acetaminophen (Acetaminophen 325 Mg Tablet) 650 mg PO Q6H PRN PRN PRN Reason: Pain Score 1-10/Temp > 100.7 F Last Admin: 09/21/20 11:48 Dose: 650 mg Documented by: Amlodipine Besylate (Amlodipine 5 Mg Tablet) 5 mg PO DAILY [facility] Last Admin: 09/24/20 08:39 Dose: 5 mg Documented by: Ascorbic Acid (Ascorbic Acid 500 Mg Tablet) 500 mg PO DAILY [facility] Last Admin: 09/24/20 08:39 Dose: 500 mg Documented by: Aspirin (Aspirin 81 Mg Tab.Chew) 81 mg PO DAILY@0800 [facility] Last Admin: 09/24/20 08:39 Dose: 81 mg Documented by: Calcitriol (Calcitriol 0.25 Mcg Capsule) 0.25 mcg PO SuTuThSa@1000 [facility] Last Admin: 09/24/20 08:39 Dose: 0.25 mcg Documented by: Calcitriol (Calcitriol 0.25 Mcg Capsule) 0.5 mcg PO MoWeFr@1000 [facility] Last Admin: 09/23/20 09:08 Dose: 0.5 mcg Documented by: Cyanocobalamin (Cyanocobalamin 500 Mcg Tablet) 1,000 mcg PO DAILY [facility] Last Admin: 09/24/20 08:39 Dose: 1,000 mcg Documented by: Diltiazem HCl (Diltiazem Cd 120 Mg Capsule) 120 mg PO BID [facility] Last Admin: 09/24/20 08:39 Dose: 120 mg Documented by: Enoxaparin Sodium (Enoxaparin 30 Mg/0.3 Ml Syringe) 30 mg SC DAILY [facility] Last Admin: 09/24/20 08:39 Dose: 30 mg Documented by: Ferrous Sulfate (Ferrous Sulfate 325 Mg Tablet) 325 mg PO BID@1200,1700 [facility] Last Admin: 09/23/20 16:58 Dose: 325 mg Documented by: Furosemide (Furosemide 20 Mg Tablet) 60 mg PO TID [facility] Last Admin: 09/24/20 06:38 Dose: 60 mg Documented by: Sodium Chloride () 250 mls @ 15 mls/hr IV .[id number] PRN PRN Reason: Saline Flush Sodium Chloride () 250 mls @ 15 mls/hr IV .[id number] PRN PRN Reason: Additional IVPB Infusion Ferric Sodium Gluconate Complex 250 mg/ Sodium Chloride 270 mls @ 135 mls/hr IV X1 ONE Stop: 09/24/20 11:59 Last Admin: 09/24/20 09:23 Dose: 135 mls/hr Documented by: Insulin Human Lispro (Insulin Lispro 100 Unit/Ml Insuln.Pen) 0 unit SC [facility]; Protocol Last Admin: 09/24/20 06:37 Dose: Not Given Documented by: Levothyroxine Sodium (Levothyroxine 150 Mcg Tablet) 300 mcg PO DAILY@0600 [facility] Last Admin: 09/24/20 06:38 Dose: 300 mcg Documented by: Lorazepam (Lorazepam 2 Mg/Ml Syringe) 0.5 mg IV X1 PRN PRN Reason: Anxiety with BIPAP Melatonin (Melatonin 3 Mg Tablet) 3 mg PO QHS PRN PRN PRN Reason: INSOMNIA Morphine Sulfate (Morphine 2 Mg/Ml Syringe) 2 mg IV Q3H PRN PRN PRN Reason: Pain Score 6-10 Last Admin: 09/20/20 03:04 Dose: 2 mg Documented by: Multivitamins/Minerals (Multivitamins,Ther W-[facility]als [facility]t) [facility] Last Admin: 09/24/20 08:39 Dose: 1 tablet Documented by: Nitroglycerin (Nitroglycerin (Inpatient Use) 0.4 Mg Tab.Subl) 0.4 mg SL Q5M PRN PRN Reason: CARDIAC/CHEST PAIN Ecgao-6-Gdvv Ethyl Esters (Ignacio-3 Acid Ethyl Esters 1 Gm Capsule) 1 gm PO DAILY [facility] Last Admin: 09/24/20 08:39 Dose: 1 gm Documented by: Ondansetron HCl (Ondansetron 4 Mg/2 Ml Vial) 4 mg IV Q8H PRN PRN PRN Reason: NAUSEA/VOMITING Oxycodone HCl (Oxycodone 5 Mg Tablet) 5 mg PO Q6H PRN PRN PRN Reason: Pain Score 4-5 Last Admin: 09/20/20 13:48 Dose: 5 mg Documented by: Sodium Chloride (0.9% Saline Lock 10 Ml Syringe) 10 - 40 ml IV UD PRN PRN Reason: SALINE FLUSH Last Admin: 09/24/20 08:39 Dose: 10 ml Documented by: Sodium Chloride (Sodium Chloride 0.65% 1 [place].Btl) 2 spray NASAL TID PRN PRN PRN Reason: NASAL DRYNESS Last Admin: 09/21/20 11:01 Dose: 2 spray Documented by: Medical Necessity - Tobacco Use Smoking Status: Never smoker Assessment/Plan All Active Problems Urinary tract infection (Acute) Acute on chronic congestive heart failure (Acute) Acute respiratory failure with hypoxia (Acute) Fall (Acute) Contusion, back (Acute) 1. Acute hypoxic respiratory failure secondary to acute on chronic heart failure with preserved ejection fraction-BNP 846. Chest x-ray with bilateral pleural effusions and CHF. Echocardiogram demonstrates an EF of 60%, mild mitral valve insufficiency, moderate tricuspid valve insufficiency. Strict I&O. Daily weight. Continue supplement oxygen to maintain O2 at above 90%. BIPAP QHS. Discontinued IV Lasix due to increasing creatinine. Initiate oral Lasix 60 mg 3 times daily. Ween oxygen as tolerated. 2. Chronic kidney disease stage IV-nephrology following. Continue diuresis, trend BMP. 3. Acute UTI, ruled out-received 3 doses of IV Rocephin. Urine culture growing mixed gram-positive and mixed gram-negative organisms, low colony count. Discontinue further antibiotics. 4. Type 2 diabetes mellitus-oral regimen on hold. Accu-Cheks with sliding scale insulin. 5. Hypertension-continue amlodipine, Cardizem. 6. Hyperlipidemia-continue statin. 7. Hypothyroidism-continue Synthroid. 8. Chronic normocytic anemia/anemia of chronic disease-iron levels significantly low. IV Venofer x3 doses. Hemoglobin trending upward. Trend CBC. Transfuse for hemoglobin less than 7. DVT prophylaxis-Lovenox Discharge planning: Plan for discharge to transitional care unit pending further diuresis and reduction in supplemental oxygen. This patient was seen by CALLI Cui under the supervision of Dr. Washington. <Leander Washington - Last Filed: 09/24/20 10:20> - Physical Exam Vitals/I&O's: Vital Signs Temp Pulse Resp BP Pulse Ox 97.0 F L 72 18 145/59 H 93 09/24/20 08:38 09/24/20 08:38 09/24/20 08:38 09/24/20 08:38 09/24/20 08:48 Oxygen Flow Rate (L/min) 10 Oxygen Delivery Method Nasal Cannula Weight: 99.1 kg Body Mass Index (BMI) 37.1 Intake and Output for Last 24 Hours 09/22/20 09/23/20 09/24/20 23:59 23:59 23:59 Intake Total 950 / 950 1100.52 / 1300.52 300 / 300 Output Total 2250 / 2250 600 / 1250 1050 / 1050 Balance -1300 / -1300 500.52 / 50.52 -750 / -750 Microbiology Past 72 Hours 09/19/20 23:58 Urine, Clean Catch Urine Culture - Final Mixed Gram Pos & Gram Neg Org Laboratory Results 09/23/20 11:39: POC Glucose 119 H 09/23/20 16:53: POC Glucose 159 H 09/23/20 20:56: POC Glucose 170 H 09/24/20 06:36: WBC 9.1, RBC 3.02 L, Hgb 7.3 L, Hct 26.9 L, MCV 89.1, MCH 24.2 L, MCHC 27.1 L, RDW Std Deviation 54.2 H, RDW Coeff of Samy 16.9 H, Plt Count 322, MPV 9.3 09/24/20 06:36: Sodium 139, Potassium 4.3, Chloride 105, Carbon Dioxide 30.0, Anion Gap 4 L, BUN 63 H, Creatinine 3.71 H, Estim Creat Clear Calc 12.88, Est GFR (MDRD) Af Amer 16 L, Est GFR (MDRD) Non-Af 13 L, BUN/Creatinine Ratio 17.0, Glucose 104, Calcium 8.3 L 09/24/20 06:36: POC Glucose 95 Current Medications Acetaminophen (Acetaminophen 325 Mg Tablet) 650 mg PO Q6H PRN PRN PRN Reason: Pain Score 1-10/Temp > 100.7 F Last Admin: 09/21/20 11:48 Dose: 650 mg Documented by: Amlodipine Besylate (Amlodipine 5 Mg Tablet) 5 mg PO DAILY [facility] Last Admin: 09/24/20 08:39 Dose: 5 mg Documented by: Ascorbic Acid (Ascorbic Acid 500 Mg Tablet) 500 mg PO DAILY [facility] Last Admin: 09/24/20 08:39 Dose: 500 mg Documented by: Aspirin (Aspirin 81 Mg Tab.Chew) 81 mg PO DAILY@0800 [facility] Last Admin: 09/24/20 08:39 Dose: 81 mg Documented by: Calcitriol (Calcitriol 0.25 Mcg Capsule) 0.25 mcg PO SuTuThSa@1000 [facility] Last Admin: 09/24/20 08:39 Dose: 0.25 mcg Documented by: Calcitriol (Calcitriol 0.25 Mcg Capsule) 0.5 mcg PO MoWeFr@1000 [facility] Last Admin: 09/23/20 09:08 Dose: 0.5 mcg Documented by: Cyanocobalamin (Cyanocobalamin 500 Mcg Tablet) 1,000 mcg PO DAILY [facility] Last Admin: 09/24/20 08:39 Dose: 1,000 mcg Documented by: Diltiazem HCl (Diltiazem Cd 120 Mg Capsule) 120 mg PO BID [facility] Last Admin: 09/24/20 08:39 Dose: 120 mg Documented by: Enoxaparin Sodium (Enoxaparin 30 Mg/0.3 Ml Syringe) 30 mg SC DAILY [facility] Last Admin: 09/24/20 08:39 Dose: 30 mg Documented by: Ferrous Sulfate (Ferrous Sulfate 325 Mg Tablet) 325 mg PO BID@1200,1700 [facility] Last Admin: 09/23/20 16:58 Dose: 325 mg Documented by: Furosemide (Furosemide 20 Mg Tablet) 60 mg PO TID [facility] Last Admin: 09/24/20 06:38 Dose: 60 mg Documented by: Sodium Chloride () 250 mls @ 15 mls/hr IV .[id number] PRN PRN Reason: Saline Flush Sodium Chloride () 250 mls @ 15 mls/hr IV .[id number] PRN PRN Reason: Additional IVPB Infusion Ferric Sodium Gluconate Complex 250 mg/ Sodium Chloride 270 mls @ 135 mls/hr IV X1 ONE Stop: 09/24/20 11:59 Last Admin: 09/24/20 09:23 Dose: 135 mls/hr Documented by: Insulin Human Lispro (Insulin Lispro 100 Unit/Ml Insuln.Pen) 0 unit SC [facility]; Protocol Last Admin: 09/24/20 06:37 Dose: Not Given Documented by: Levothyroxine Sodium (Levothyroxine 150 Mcg Tablet) 300 mcg PO DAILY@0600 [facility] Last Admin: 09/24/20 06:38 Dose: 300 mcg Documented by: Lorazepam (Lorazepam 2 Mg/Ml Syringe) 0.5 mg IV X1 PRN PRN Reason: Anxiety with BIPAP Melatonin (Melatonin 3 Mg Tablet) 3 mg PO QHS PRN PRN PRN Reason: INSOMNIA Morphine Sulfate (Morphine 2 Mg/Ml Syringe) 2 mg IV Q3H PRN PRN PRN Reason: Pain Score 6-10 Last Admin: 09/20/20 03:04 Dose: 2 mg Documented by: Multivitamins/Minerals (Multivitamins,Ther W-Minerals Tablet) [facility] Last Admin: 09/24/20 08:39 Dose: 1 tablet Documented by: Nitroglycerin (Nitroglycerin (Inpatient Use) 0.4 Mg Tab.Subl) 0.4 mg SL Q5M PRN PRN Reason: CARDIAC/CHEST PAIN Cvouy-1-Aiux Ethyl Esters (Ignacio-3 Acid Ethyl Esters 1 Gm Capsule) 1 gm PO DAILY [facility] Last Admin: 09/24/20 08:39 Dose: 1 gm Documented by: Ondansetron HCl (Ondansetron 4 Mg/2 Ml Vial) 4 mg IV Q8H PRN PRN PRN Reason: NAUSEA/VOMITING Oxycodone HCl (Oxycodone 5 Mg Tablet) 5 mg PO Q6H PRN PRN PRN Reason: Pain Score 4-5 Last Admin: 09/20/20 13:48 Dose: 5 mg Documented by: Sodium Chloride (0.9% Saline Lock 10 Ml Syringe) 10 - 40 ml IV UD PRN PRN Reason: SALINE FLUSH Last Admin: 09/24/20 08:39 Dose: 10 ml Documented by: Sodium Chloride (Sodium Chloride 0.65% 1 [place].Btl) 2 spray NASAL TID PRN PRN PRN Reason: NASAL DRYNESS Last Admin: 09/21/20 11:01 Dose: 2 spray Documented by: Assessment/Plan This patient was seen in conjunction with CALLI Cui . I have independently interviewed and examined the patient and reviewed pertinent historical, laboratory, and other data. Please refer to CALLI Cui note for details of this patient's presentation, findings, and recommendations. I have reviewed CALLI Cui note and concur with documented findings. In brief,Patient is a 69-year-old lady admitted with progressive generalized with recurrent falls and apparently detected pound weight gain over the past months. Imaging studies obtained was consistent with acute congestive heart failure admitted to monitored bed for further management 09/22/2020 patient respiratory status deteriorated resulting in patient being placed on BiPAP and started on Lasix drip. 09/23/2020 consent was right; patient seen still appears ill looking. Lasix drip weaned off started on scheduled p.o. Lasix. Significant drop in patient hemoglobin level. Iron studies consistent with iron deficiency anemia. Patient was started on parenteral iron. Patient will need to undergo endoscopic evaluation with EGD and colonoscopy when medically stable as outpatient 421; patient seen remains significantly weak. Hemoglobin up to 7.3. Patient still on high flow oxygen. Awaiting insurance precertification prior to transfer to intermediate facility Physical Examination: GENERAL: Appears ill looking HEENT: Atraumatic; EYES; Anicteric, Normal Conjunctiva NECK; supple, normal thyroid, RESPIRATORY: Diminished to auscultation CARDIOVASCULAR: Regular S1 S2, GI: soft, normoactive bowel sounds, : No Renal angle tenderness; EXTREMITIES: edema, no clubbing, MUSCULOSKELETAL: no muscle waisting NEURO: Awake; no lateralizing signs. SKIN: No Rash PSYCH; Flat affect Assessment: 1. Acute on chronic congestive heart failure his ejection fraction 60% 2. Culture-negative acute cystitis 3. Chronic kidney disease stage IV 4. Essential hypertension 5. Anemia of chronic disorder 6. Diabetes mellitus type 2 7. Hypothyroidism 8. Dyslipidemia 9. Physical deconditioning with recurrent falls 10. DVT prophylaxis Recommendations: 1. I have discussed the results of my overview and impressions with the patient 2. Options for management were reviewed Inpatient E&M: [id number] Subs Hosp L2
[2020-09-24 11:41] LABS: Bedside Glucose 123 mg/dL (70-110)
--- NOTE | 2020-09-24 12:54 | RAD_ITS ---
STUDY: X-RAY CHEST REASON FOR EXAM: Female, 69 years old. Hypoxia TECHNIQUE: Frontal and lateral views of the chest. COMPARISON: CT chest 09/22/2020 FINDINGS: Right lower lobe airspace disease and bilateral pleural effusions. Mild edema. Cardiomegaly. Normal mediastinum and vishal. Normal visualized pulmonary arteries. Normal visualized aortic arch and descending thoracic aorta. Normal visualized thoracic spine. Normal visualized ribs, clavicles, and shoulders. There is no demonstrated abnormality of the visualized soft tissue structures of the upper abdomen. RAD/Chest PA and Lateral IMPRESSION: Right greater than left pleural effusions and possible right lower lobe airspace disease. Probable mild CHF. Electronically Signed: Jean Pierre Talavera MD at 17:59 EDT , Service support ,
[2020-09-24] MEDS: Ferrous Sulfate 325 MG Tablet PO ×2 (13:36→16:55)
[2020-09-24 16:36] LABS: Bedside Glucose 164 mg/dL (70-110)
[2020-09-24] MEDS: oxyCODONE 5 MG Tablet PO (16:55)
[2020-09-24] MEDS: Acetaminophen 325 MG Tablet 650 MG PO (16:56)
--- NOTE | 2020-09-24 18:46 | PCM.PN.REN ---
Patient Problems: Active and Suspected Problems Urinary tract infection (Acute) Acute on chronic congestive heart failure (Acute) Acute respiratory failure with hypoxia (Acute) Fall (Acute) Contusion, back (Acute) Subjective: Patient remains on 9 L.MIN No acute events No worsening breathing. No N/V/D - Physical Exam Vitals/I&O's: Vital Signs Temp Pulse Resp BP Pulse Ox 97.4 F L 75 21 H 143/53 H 96 09/24/20 17:22 09/24/20 17:22 09/24/20 17:22 09/24/20 17:22 09/24/20 17:22 Oxygen Flow Rate (L/min) 10 Oxygen Delivery Method Nasal Cannula Weight: 99.1 kg Body Mass Index (BMI) 37.1 Intake and Output for Last 24 Hours 09/22/20 09/23/20 09/24/20 23:59 23:59 23:59 Intake Total 950 / 950 1100.52 / 1300.52 1010 / 1010 Output Total 2250 / 2250 600 / 1250 1400 / 1400 Balance -1300 / -1300 500.52 / 50.52 -390 / -390 General: Alert, Oriented x3 HEENT: Atraumatic Oral: Moist Mucosa Neck: Supple, No JVD Lungs: Clear to auscultation, Normal air movement, No rhonchi Cardiovascular: Regular rate, Regular Rhythm, Normal S1, Normal S2 Abdomen: Bowel Sounds Present, Soft, Non Tender Extremities: No clubbing, No cyanosis, Edema - +2 edema of LE Musculoskeletal: No Tenderness to Palpation of Joints or Extremities Lymphatic: No Cervical, Supraclavicular, or Inguinal Adenopathy Neurological: Cranial nerves II-XII grossly intact, Neuro grossly intact Psych/Mental Status: Appropriate Laboratory Results 09/23/20 20:56: POC Glucose 170 H 09/24/20 06:36: WBC 9.1, RBC 3.02 L, Hgb 7.3 L, Hct 26.9 L, MCV 89.1, MCH 24.2 L, MCHC 27.1 L, RDW Std Deviation 54.2 H, RDW Coeff of Samy 16.9 H, Plt Count 322, MPV 9.3 09/24/20 06:36: Sodium 139, Potassium 4.3, Chloride 105, Carbon Dioxide 30.0, Anion Gap 4 L, BUN 63 H, Creatinine 3.71 H, Estim Creat Clear Calc 12.88, Est GFR (MDRD) Af Amer 16 L, Est GFR (MDRD) Non-Af 13 L, BUN/Creatinine Ratio 17.0, Glucose 104, Calcium 8.3 L 09/24/20 06:36: POC Glucose 95 09/24/20 11:32: POC Glucose 123 H 09/24/20 16:28: POC Glucose 164 H Current Medications Acetaminophen (Acetaminophen 325 Mg Tablet) 650 mg PO Q6H PRN PRN PRN Reason: Pain Score 1-10/Temp > 100.7 F Last Admin: 09/24/20 16:56 Dose: 650 mg Documented by: Amlodipine Besylate (Amlodipine 5 Mg Tablet) 5 mg PO DAILY [facility] Last Admin: 09/24/20 08:39 Dose: 5 mg Documented by: Ascorbic Acid (Ascorbic Acid 500 Mg Tablet) 500 mg PO DAILY [facility] Last Admin: 09/24/20 08:39 Dose: 500 mg Documented by: Aspirin (Aspirin 81 Mg Tab.Chew) 81 mg PO DAILY@0800 [facility] Last Admin: 09/24/20 08:39 Dose: 81 mg Documented by: Calcitriol (Calcitriol 0.25 Mcg Capsule) 0.25 mcg PO SuTuThSa@1000 [facility] Last Admin: 09/24/20 08:39 Dose: 0.25 mcg Documented by: Calcitriol (Calcitriol 0.25 Mcg Capsule) 0.5 mcg PO MoWeFr@1000 [facility] Last Admin: 09/23/20 09:08 Dose: 0.5 mcg Documented by: Cyanocobalamin (Cyanocobalamin 500 Mcg Tablet) 1,000 mcg PO DAILY [facility] Last Admin: 09/24/20 08:39 Dose: 1,000 mcg Documented by: Diltiazem HCl (Diltiazem Cd 120 Mg Capsule) 120 mg PO BID [facility] Last Admin: 09/24/20 08:39 Dose: 120 mg Documented by: Enoxaparin Sodium (Enoxaparin 30 Mg/0.3 Ml Syringe) 30 mg SC DAILY [facility] Last Admin: 09/24/20 08:39 Dose: 30 mg Documented by: Ferrous Sulfate (Ferrous Sulfate 325 Mg Tablet) 325 mg PO BID@1200,1700 [facility] Last Admin: 09/24/20 16:55 Dose: 325 mg Documented by: Furosemide (Furosemide 20 Mg Tablet) 60 mg PO TID [facility] Last Admin: 09/24/20 13:37 Dose: 60 mg Documented by: Sodium Chloride () 250 mls @ 15 mls/hr IV .[id number] PRN PRN Reason: Saline Flush Sodium Chloride () 250 mls @ 15 mls/hr IV .[id number] PRN PRN Reason: Additional IVPB Infusion Insulin Human Lispro (Insulin Lispro 100 Unit/Ml Insuln.Pen) 0 unit SC ACHS [facility]; Protocol Last Admin: 09/24/20 16:36 Dose: Not Given Documented by: Levothyroxine Sodium (Levothyroxine 150 Mcg Tablet) 300 mcg PO DAILY@0600 [facility] Last Admin: 09/24/20 06:38 Dose: 300 mcg Documented by: Lorazepam (Lorazepam 2 Mg/Ml Syringe) 0.5 mg IV X1 PRN PRN Reason: Anxiety with BIPAP Melatonin (Melatonin 3 Mg Tablet) 3 mg PO QHS PRN PRN PRN Reason: INSOMNIA Morphine Sulfate (Morphine 2 Mg/Ml Syringe) 2 mg IV Q3H PRN PRN PRN Reason: Pain Score 6-10 Last Admin: 09/20/20 03:04 Dose: 2 mg Documented by: Multivitamins/Minerals (Multivitamins,Ther W-Minerals Tablet) [facility] Last Admin: 09/24/20 08:39 Dose: 1 tablet Documented by: Nitroglycerin (Nitroglycerin (Inpatient Use) 0.4 Mg Tab.Subl) 0.4 mg SL Q5M PRN PRN Reason: CARDIAC/CHEST PAIN Ttmmd-7-Unfm Ethyl Esters ([place]-3 Acid Ethyl Esters 1 Gm Capsule) 1 gm PO DAILY [facility] Last Admin: 09/24/20 08:39 Dose: 1 gm Documented by: Ondansetron HCl (Ondansetron 4 Mg/2 Ml Vial) 4 mg IV Q8H PRN PRN PRN Reason: NAUSEA/VOMITING Oxycodone HCl (Oxycodone 5 Mg Tablet) 5 mg PO Q6H PRN PRN PRN Reason: Pain Score 4-5 Last Admin: 09/24/20 16:55 Dose: 5 mg Documented by: Sodium Chloride (0.9% Saline Lock 10 Ml Syringe) 10 - 40 ml IV UD PRN PRN Reason: SALINE FLUSH Last Admin: 09/24/20 08:39 Dose: 10 ml Documented by: Sodium Chloride (Sodium Chloride 0.65% 1 [place] Stanley.Btl) 2 spray NASAL TID PRN PRN PRN Reason: NASAL DRYNESS Last Admin: 09/21/20 11:01 Dose: 2 spray Documented by: Medical Necessity - Tobacco Use Smoking Status: Never smoker Assessment/Plan All Active Problems Urinary tract infection (Acute) Acute on chronic congestive heart failure (Acute) Acute respiratory failure with hypoxia (Acute) Fall (Acute) Contusion, back (Acute) CKD 4 LE edema Hyperkalemia renal cyst s/p fall HFpEF Anemia SCr has been stable ~ 3.6-3.8 mgdl Patient responded well to IV lasix drip. Now witched to intermittent lasix dose IV K is within normal limit Avoid nephrotoxins No need for [employer] Check renal function in am needs EGD/Colonoscopy Renal team will continue to follow Please call if any question Colby Davis MD
[2020-09-24 21:45] LABS: Bedside Glucose 140 mg/dL (70-110)
[2020-09-25] VITALS (17 sets, daily range): BP systolic 103–149; BP diastolic 47–72; PULSE 66–72; RESP 12–17; TEMP 35.8–36.6; O2SAT 90–97; BMI 36.6
[2020-09-25 05:00] LABS: Hematocrit 27.5 % (37-47); Hemoglobin 7.3 g/dL (12.0-15.0); Mean Corp Hgb Conc 26.5 g/dL (32-36); Mean Corpuscular Volume 90.5 fL (81-99); Mean Platelet Vol. 8.9 fl (6.2-12.0); Platelet Count 291 K/mm3 (150-450); RBC Distribution Width CV 16.9 % (11.6-14.6); RBC Distribution Width SD 55.1 fl (35.1-43.9); Red Blood Count 3.04 M/mm3 (4.2-5.4); White Blood Count 8.9 K/mm3 (4.4-11.0)
[2020-09-25 05:19] LABS: Anion Gap 6 (5-15); BUN 62 mg/dL (7-18); BUN/Creat Ratio 16.2 RATIO (10-20); Calcium,Total 8.5 mg/dL (8.5-10.1); Chloride 101 mmol/L (98-107); Creatinine, Serum 3.83 mg/dL (0.55-1.02); EST Glomerular Filtration Rate 12 mL/min (>60); Est Glom Filt Rate - Afr Amer 15 mL/min (>60); Estimated Creatinine Clearance 12.47 ml/min; Glucose 116 mg/dL (74-106); Potassium 4.7 mmol/L (3.5-5.1); Sodium Level 137 mmol/L (136-145)
[2020-09-25] MEDS: Levothyroxine 150 MCG Tablet 300 MCG PO (05:59)
[2020-09-25] MEDS: Furosemide 20 MG Tablet 60 MG PO (05:59)
[2020-09-25 06:51] LABS: Bedside Glucose 114 mg/dL (70-110)
[2020-09-25] MEDS: Cyanocobalamin 500 MCG Tablet 1000 MCG PO (09:37)
[2020-09-25] MEDS: dilTIAZem CD 120 MG Capsule PO ×2 (09:37→21:51)
[2020-09-25] MEDS: Calcitriol 0.25 MCG Capsule PO (09:38)
[2020-09-25] MEDS: Aspirin 81 MG TAB.CHEW PO (09:38)
[2020-09-25] MEDS: Enoxaparin 30 MG/0.3 ML Syringe SC (09:38)
[2020-09-25] MEDS: Omega-3 Acid Ethyl Esters 1 GM Capsule PO (09:38)
[2020-09-25] MEDS: Multivitamins,Ther W-Minerals Tablet 1 TABLET PO (09:38)
[2020-09-25] MEDS: amLODIPine 5 MG Tablet PO (09:38)
[2020-09-25] MEDS: Ascorbic Acid 500 MG Tablet PO (09:40)
[2020-09-25] MEDS: 0.9% Saline Lock 10 ML Syringe IV ×2 (09:40→19:41)
[2020-09-25] MEDS: oxyCODONE 5 MG Tablet PO (09:47)
--- NOTE | 2020-09-25 11:38 | PN_ITS ---
<Colin Emeryssica MANAGER AUDIO - Last Filed: 09/25/20 11:54> Patient Problems: Active and Suspected Problems Urinary tract infection (Acute) Acute on chronic congestive heart failure (Acute) Acute respiratory failure with hypoxia (Acute) Fall (Acute) Contusion, back (Acute) Subjective: Patient seen and examined. Denies increased shortness of breath. Reports back pain which is chronic. Denies new symptoms or complaints. On 8 L nasal cannula supplemental oxygen. - Physical Exam Vitals/I&O's: Vital Signs Temp Pulse Resp BP Pulse Ox 97.9 F 69 15 149/64 H 96 09/25/20 05:55 09/25/20 07:28 09/25/20 05:55 09/25/20 05:55 09/25/20 08:36 Oxygen Flow Rate (L/min) 8 Oxygen Delivery Method Nasal Cannula Weight: 220 lb 3.869 oz Body Mass Index (BMI) 37.1 Intake and Output for Last 24 Hours 09/23/20 09/24/20 09/25/20 23:59 23:59 23:59 Intake Total 1100.52 / 1300.52 1060 / 1060 Output Total 600 / 1250 1400 / 1400 Balance 500.52 / 50.52 -340 / -340 General: Alert, Oriented x3, Cooperative HEENT: Atraumatic, PERRLA, EOMI, Normocephalic Neck: Supple, No JVD, Negative Carotid Bruits Lungs: Clear to auscultation, Diminished Cardiovascular: Regular rate, No murmurs Abdomen: Bowel Sounds Present, Soft, Non Tender, Non-Distended, Obese Extremities: No clubbing, No cyanosis, Edema - Bilateral lower extremity edema extending to mid abdomen Skin: No rashes, No breakdown Musculoskeletal: No Tenderness to Palpation of Joints or Extremities Neurological: Cranial nerves II-XII grossly intact, Neuro grossly intact Psych/Mental Status: Normal Affect, Appropriate Laboratory Results 09/24/20 11:32: POC Glucose 123 H 09/24/20 16:28: POC Glucose 164 H 09/24/20 21:34: POC Glucose 140 H 09/25/20 04:50: WBC 8.9, RBC 3.04 L, Hgb 7.3 L, Hct 27.5 L, MCV 90.5, MCH 24.0 L , MCHC 26.5 L, RDW Std Deviation 55.1 H, RDW Coeff of Samy 16.9 H, Plt Count 291, MPV 8.9 09/25/20 04:50: Sodium 137, Potassium 4.7, Chloride 101, Carbon Dioxide 30.0, Anion Gap 6, BUN 62 H, Creatinine 3.83 H, Estim Creat Clear Calc 12.47, Est GFR (MDRD) Af Amer 15 L, Est GFR (MDRD) Non-Af 12 L, BUN/Creatinine Ratio 16.2, Glucose 116 H, Calcium 8.5 09/25/20 06:48: POC Glucose 114 H Current Medications Acetaminophen (Acetaminophen 325 Mg Tablet) 650 mg PO Q6H PRN PRN PRN Reason: Pain Score 1-10/Temp > 100.7 F Last Admin: 09/24/20 16:56 Dose: 650 mg Documented by: Amlodipine Besylate (Amlodipine 5 Mg Tablet) 5 mg PO DAILY [facility] Last Admin: 09/25/20 09:38 Dose: 5 mg Documented by: Ascorbic Acid (Ascorbic Acid 500 Mg Tablet) 500 mg PO DAILY [facility] Last Admin: 09/25/20 09:40 Dose: 500 mg Documented by: Aspirin (Aspirin 81 Mg Tab.Chew) 81 mg PO DAILY@0800 [facility] Last Admin: 09/25/20 09:38 Dose: 81 mg Documented by: Calcitriol (Calcitriol 0.25 Mcg Capsule) 0.25 mcg PO SuTuThSa@1000 [facility] Last Admin: 09/25/20 09:38 Dose: 0.25 mcg Documented by: Calcitriol (Calcitriol 0.25 Mcg Capsule) 0.5 mcg PO MoWeFr@1000 [facility] Last Admin: 09/23/20 09:08 Dose: 0.5 mcg Documented by: Cyanocobalamin (Cyanocobalamin 500 Mcg Tablet) 1,000 mcg PO DAILY [facility] Last Admin: 09/25/20 09:37 Dose: 1,000 mcg Documented by: Diltiazem HCl (Diltiazem Cd 120 Mg Capsule) 120 mg PO BID [facility] Last Admin: 09/25/20 09:37 Dose: 120 mg Documented by: Enoxaparin Sodium (Enoxaparin 30 Mg/0.3 Ml Syringe) 30 mg SC DAILY [facility] Last Admin: 09/25/20 09:38 Dose: 30 mg Documented by: Ferrous Sulfate (Ferrous Sulfate 325 Mg Tablet) 325 mg PO BID@1200,1700 [facility] Last Admin: 09/24/20 16:55 Dose: 325 mg Documented by: Furosemide (Furosemide 20 Mg Tablet) 60 mg PO TID [facility] Last Admin: 09/25/20 05:59 Dose: 60 mg Documented by: Sodium Chloride () 250 mls @ 15 mls/hr IV .[id number] PRN PRN Reason: Saline Flush Sodium Chloride () 250 mls @ 15 mls/hr IV .[id number] PRN PRN Reason: Additional IVPB Infusion Ferric Sodium Gluconate Complex 250 mg/ Sodium Chloride 270 mls @ 135 mls/hr IV X1 ONE Stop: 09/25/20 11:59 Last Admin: 09/25/20 10:39 Dose: 135 mls/hr Documented by: Insulin Human Lispro (Insulin Lispro 100 Unit/Ml Insuln.Pen) 0 unit SC ACHS [facility]; Protocol Last Admin: 09/25/20 06:50 Dose: Not Given Documented by: Levothyroxine Sodium (Levothyroxine 150 Mcg Tablet) 300 mcg PO DAILY@0600 [facility] Last Admin: 09/25/20 05:59 Dose: 300 mcg Documented by: Lorazepam (Lorazepam 2 Mg/Ml Syringe) 0.5 mg IV X1 PRN PRN Reason: Anxiety with BIPAP Melatonin (Melatonin 3 Mg Tablet) 3 mg PO QHS PRN PRN PRN Reason: INSOMNIA Morphine Sulfate (Morphine 2 Mg/Ml Syringe) 2 mg IV Q3H PRN PRN PRN Reason: Pain Score 6-10 Last Admin: 09/20/20 03:04 Dose: 2 mg Documented by: Multivitamins/Minerals (Multivitamins,Ther [facility]als [facility]t) [facility] Last Admin: 09/25/20 09:38 Dose: 1 tablet Documented by: Nitroglycerin (Nitroglycerin (Inpatient Use) 0.4 Mg Tab.Subl) 0.4 mg SL Q5M PRN PRN Reason: CARDIAC/CHEST PAIN [place]ow[place]-3-Hbdy Ethyl Esters ([place]-3 Acid Ethyl Esters 1 Gm Capsule) 1 gm PO DAILY [facility] Last Admin: 09/25/20 09:38 Dose: 1 gm Documented by: Ondansetron HCl (Ondansetron 4 Mg/2 Ml Vial) 4 mg IV Q8H PRN PRN PRN Reason: NAUSEA/VOMITING Oxycodone HCl (Oxycodone 5 Mg Tablet) 5 mg PO Q6H PRN PRN PRN Reason: Pain Score 4-5 Last Admin: 09/25/20 09:47 Dose: 5 mg Documented by: Sodium Chloride (0.9% Saline Lock 10 Ml Syringe) 10 - 40 ml IV UD PRN PRN Reason: SALINE FLUSH Last Admin: 09/25/20 09:40 Dose: 10 ml Documented by: Sodium Chloride (Sodium Chloride 0.65% 1 Childwold Childwold.Btl) 2 spray NASAL TID PRN PRN PRN Reason: NASAL DRYNESS Last Admin: 09/21/20 11:01 Dose: 2 spray Documented by: Medical Necessity - Tobacco Use Smoking Status: Never smoker Assessment/Plan All Active Problems Urinary tract infection (Acute) Acute on chronic congestive heart failure (Acute) Acute respiratory failure with hypoxia (Acute) Fall (Acute) Contusion, back (Acute) 1. Acute hypoxic respiratory failure secondary to acute on chronic heart failure with preserved ejection fraction-BNP 846. Chest x-ray with bilateral pleural effusions and CHF. Echocardiogram demonstrates an EF of 60%, mild mitral valve insufficiency, moderate tricuspid valve insufficiency. Strict I&O. Daily weight. Continue supplement oxygen to maintain O2 at above 90%. BIPAP QHS. Wean oxygen as tolerated. Will resume Lasix drip. 2. Chronic kidney disease stage IV-nephrology following. Continue diuresis, trend BMP. 3. Acute UTI, ruled out-received 3 doses of IV Rocephin. Urine culture growing mixed gram-positive and mixed gram-negative organisms, low colony count. Discontinue further antibiotics. 4. Type 2 diabetes mellitus-oral regimen on hold. Accu-Cheks with sliding scale insulin. 5. Hypertension-continue amlodipine, Cardizem. 6. Hyperlipidemia-continue statin. 7. Hypothyroidism-continue Synthroid. 8. Chronic normocytic anemia/anemia of chronic disease-iron levels significantly low. IV Venofer x3 doses. Stool for occult blood ordered. Will order 1 unit PRBC. Trend CBC. Will need outpatient EGD/colonoscopy. DVT prophylaxis-Lovenox Discharge planning: Plan for discharge to transitional care unit pending further diuresis and reduction in supplemental oxygen. This patient was seen by CALLI Cui under the supervision of Dr. Washington. <Leander Washington - Last Filed: 09/25/20 12:44> - Physical Exam Vitals/I&O's: Vital Signs Temp Pulse Resp BP Pulse Ox 97.8 F 66 16 143/52 H 93 09/25/20 11:50 09/25/20 11:50 09/25/20 11:50 09/25/20 11:50 09/25/20 11:50 Oxygen Flow Rate (L/min) 5 Oxygen Delivery Method Nasal Cannula Weight: 99.9 kg Body Mass Index (BMI) 37.1 Intake and Output for Last 24 Hours 09/23/20 09/24/20 09/25/20 23:59 23:59 23:59 Intake Total 1100.52 / 1300.52 1060 / 1060 Output Total 600 / 1250 1400 / 1400 Balance 500.52 / 50.52 -340 / -340 Laboratory Results 09/24/20 16:28: POC Glucose 164 H 09/24/20 21:34: POC Glucose 140 H 09/25/20 04:50: WBC 8.9, RBC 3.04 L, Hgb 7.3 L, Hct 27.5 L, MCV 90.5, MCH 24.0 L , MCHC 26.5 L, RDW Std Deviation 55.1 H, RDW Coeff of Samy 16.9 H, Plt Count 291, MPV 8.9 09/25/20 04:50: Sodium 137, Potassium 4.7, Chloride 101, Carbon Dioxide 30.0, Anion Gap 6, BUN 62 H, Creatinine 3.83 H, Estim Creat Clear Calc 12.47, Est GFR (MDRD) Af Amer 15 L, Est GFR (MDRD) Non-Af 12 L, BUN/Creatinine Ratio 16.2, Glucose 116 H, Calcium 8.5 09/25/20 06:48: POC Glucose 114 H 09/25/20 11:44: POC Glucose 132 H 09/25/20 12:02: Blood Type Pending, Antibody Screen Pending, Crossmatch See Detail Current Medications Acetaminophen (Acetaminophen 325 Mg Tablet) 650 mg PO Q6H PRN PRN PRN Reason: Pain Score 1-10/Temp > 100.7 F Last Admin: 09/24/20 16:56 Dose: 650 mg Documented by: Amlodipine Besylate (Amlodipine 5 Mg Tablet) 5 mg PO DAILY [facility] Last Admin: 09/25/20 09:38 Dose: 5 mg Documented by: Ascorbic Acid (Ascorbic Acid 500 Mg Tablet) 500 mg PO DAILY [facility] Last Admin: 09/25/20 09:40 Dose: 500 mg Documented by: Aspirin (Aspirin 81 Mg Tab.Chew) 81 mg PO DAILY@0800 [facility] Last Admin: 09/25/20 09:38 Dose: 81 mg Documented by: Calcitriol (Calcitriol 0.25 Mcg Capsule) 0.25 mcg PO SuTuThSa@1000 [facility] Last Admin: 09/25/20 09:38 Dose: 0.25 mcg Documented by: Calcitriol (Calcitriol 0.25 Mcg Capsule) 0.5 mcg PO MoWeFr@1000 [facility] Last Admin: 09/23/20 09:08 Dose: 0.5 mcg Documented by: Cyanocobalamin (Cyanocobalamin 500 Mcg Tablet) 1,000 mcg PO DAILY [facility] Last Admin: 09/25/20 09:37 Dose: 1,000 mcg Documented by: Diltiazem HCl (Diltiazem Cd 120 Mg Capsule) 120 mg PO BID [facility] Last Admin: 09/25/20 09:37 Dose: 120 mg Documented by: Enoxaparin Sodium (Enoxaparin 30 Mg/0.3 Ml Syringe) 30 mg SC DAILY [facility] Last Admin: 09/25/20 09:38 Dose: 30 mg Documented by: Ferrous Sulfate (Ferrous Sulfate 325 Mg Tablet) 325 mg PO BID@1200,1700 [facility] Last Admin: 09/25/20 12:32 Dose: 325 mg Documented by: Sodium Chloride () 250 mls @ 15 mls/hr IV .[id number] PRN PRN Reason: Saline Flush Sodium Chloride () 250 mls @ 15 mls/hr IV .[id number] PRN PRN Reason: Additional IVPB Infusion Furosemide 500 mg/ N/A 50 mls @ 1 mls/hr CONT INF .Q50H [facility] Insulin Human Lispro (Insulin Lispro 100 Unit/Ml Insuln.Pen) 0 unit SC [facility]; Protocol Last Admin: 09/25/20 12:31 Dose: Not Given Documented by: Levothyroxine Sodium (Levothyroxine 150 Mcg Tablet) 300 mcg PO DAILY@0600 [facility] Last Admin: 09/25/20 05:59 Dose: 300 mcg Documented by: Lorazepam (Lorazepam 2 Mg/Ml Syringe) 0.5 mg IV X1 PRN PRN Reason: Anxiety with BIPAP Melatonin (Melatonin 3 Mg Tablet) 3 mg PO QHS PRN PRN PRN Reason: INSOMNIA Morphine Sulfate (Morphine 2 Mg/Ml Syringe) 2 mg IV Q3H PRN PRN PRN Reason: Pain Score 6-10 Last Admin: 09/20/20 03:04 Dose: 2 mg Documented by: Multivitamins/Minerals (Multivitamins,Ther W-[facility]inerals Tablet) [facility] Last Admin: 09/25/20 09:38 Dose: 1 tablet Documented by: Nitroglycerin (Nitroglycerin (Inpatient Use) 0.4 Mg Tab.Subl) 0.4 mg SL Q5M PRN PRN Reason: CARDIAC/CHEST PAIN Tepkx-4-Yvkl Ethyl Esters ([place]-3 Acid Ethyl Esters 1 Gm Capsule) 1 gm PO D AILY [facility] Last Admin: 09/25/20 09:38 Dose: 1 gm Documented by: Ondansetron HCl (Ondansetron 4 Mg/2 Ml Vial) 4 mg IV Q8H PRN PRN PRN Reason: NAUSEA/VOMITING Oxycodone HCl (Oxycodone 5 Mg Tablet) 5 mg PO Q6H PRN PRN PRN Reason: Pain Score 4-5 Last Admin: 09/25/20 09:47 Dose: 5 mg Documented by: Sodium Chloride (0.9% Saline Lock 10 Ml Syringe) 10 - 40 ml IV UD PRN PRN Reason: SALINE FLUSH Last Admin: 09/25/20 09:40 Dose: 10 ml Documented by: Sodium Chloride (Sodium Chloride 0.65% 1 Childwold Childwold.Btl) 2 spray NASAL TID PRN PRN PRN Reason: NASAL DRYNESS Last Admin: 09/21/20 11:01 Dose: 2 spray Documented by: Assessment/Plan This patient was seen in conjunction with CALLI Cui . I have independently interviewed and examined the patient and reviewed pertinent historical, laboratory, and other data. Please refer to CALLI Cui note for details of this patient's presentation, findings, and recommendations. I have reviewed CALLI Cui note and concur with documented findings. In brief,Patient is a 69-year-old lady admitted with progressive generalized with recurrent falls and apparently detected pound weight gain over the past months. Imaging studies obtained was consistent with acute congestive heart failure admitted to monitored bed for further management 09/22/2020 patient respiratory status deteriorated resulting in patient being placed on BiPAP and started on Lasix drip. 09/23/2020 consent was right; patient seen still appears ill looking. Lasix drip weaned off started on scheduled p.o. Lasix. Significant drop in patient hemoglobin level. Iron studies consistent with iron deficiency anemia. Patient was started on parenteral iron. Patient will need to undergo endoscopic evalu ation with EGD and colonoscopy when medically stable as outpatient 09/24/2020; patient seen remains significantly weak. Hemoglobin up to 7.3. Patient still on high flow oxygen. Awaiting insurance precertification [facility] 09/25/2020 patient seen still requiring significant amount of oxygen 8 to 10 L. Remains frail. Hemoglobin down to 7.3. With the patient deemed to be symptomatic an order was given for patient to receive 1 unit PRBC. Case was also discussed with nephrology recommended initiation of Lasix drip Physical Examination: GENERAL: Appears ill looking HEENT: Atraumatic; EYES; Anicteric, Normal Conjunctiva NECK; supple, normal thyroid, RESPIRATORY: Diminished to auscultation CARDIOVASCULAR: Regular S1 S2, GI: soft, normoactive bowel sounds, : No Renal angle tenderness; EXTREMITIES: edema, no clubbing, MUSCULOSKELETAL: no muscle waisting NEURO: Awake; no lateralizing signs. SKIN: No Rash PSYCH; Flat affect Assessment: 1. Acute on chronic congestive heart failure his ejection fraction 60% 2. Culture-negative acute cystitis 3. Chronic kidney disease stage IV 4. Essential hypertension 5. Anemia of chronic disorder 6. Diabetes mellitus type 2 7. Hypothyroidism 8. Dyslipidemia 9. Physical deconditioning with recurrent falls 10. DVT prophylaxis Recommendations: 1. I have discussed the results of my overview and impressions with the patient 2. Options for management were reviewed Inpatient E&M: [address] [facility] H[facility] L3
[2020-09-25 11:50] LABS: Bedside Glucose 132 mg/dL (70-110)
[2020-09-25] MEDS: Ferrous Sulfate 325 MG Tablet PO ×2 (12:32→17:19)
[2020-09-25] MEDS: Furosemide 500 MG in Empty Viaflex 50 mL 1 EACH CONT INF (12:42)
--- NOTE | 2020-09-25 16:27 | US_ITS ---
PROCEDURE: ULTRASOUND GUIDED THORACENTESIS. DATE: 09/26/2020. INDICATION: Female, 69 years old. Right pleural effusion. PHYSICIAN: iRco Aguirre M.D. PROCEDURE: The risks, benefits, and alternatives to the procedure were explained to the patient. The specific risks of bleeding, infection, and pneumothorax requiring chest tube insertion were discussed and accepted. Written informed consent was obtained. Ultrasonographic evaluation of the right lower pleural space was carried out. An adequate pocket was identified. The patient was placed in the sitting, upright position. The overlying skin was prepped and draped in sterile fashion. 1% lidocaine was administered subcutaneously for local anesthesia. Under ultrasound guidance, a 5 [place] thoracentesis needle/catheter system was advanced into the right posterior lower pleural fluid collection. Approximately 850 mL of ras-colored fluid fluid was drained. The catheter was removed, and a sterile dressing was applied. A specimen was collected and sent to the laboratory for analysis, as requested by the referring clinician. The patient tolerated the procedure well. A chest x-ray was ordered. US/Thoracentesis W US IMPRESSION: Ultrasound-guided right thoracentesis. Electronically Signed: Rico Aguirre MD at 15:12 EDT , Service support ,
--- NOTE | 2020-09-25 16:28 | PN.RENAL_ITS ---
Patient Problems: Active and Suspected Problems Urinary tract infection (Acute) Acute on chronic congestive heart failure (Acute) Acute respiratory failure with hypoxia (Acute) Fall (Acute) Contusion, back (Acute) Subjective: Patient is back on lasix drip On NC at 5 l/min receiving RBC unit today No N/V - Physical Exam Vitals/I&O's: Vital Signs Temp Pulse Resp BP Pulse Ox 97.8 F 70 16 143/52 H 92 09/25/20 11:50 09/25/20 15:54 09/25/20 11:50 09/25/20 11:50 09/25/20 15:39 Oxygen Flow Rate (L/min) 4 Oxygen Delivery Method Nasal Cannula Weight: 99.9 kg Body Mass Index (BMI) 37.1 Intake and Output for Last 24 Hours 09/23/20 09/24/20 09/25/20 23:59 23:59 23:59 Intake Total 1100.52 / 1300.52 1060 / 1060 295 / 295 Output Total 600 / 1250 1400 / 1400 Balance 500.52 / 50.52 -340 / -340 295 / 295 General: Alert, Oriented x3 HEENT: Atraumatic Oral: Moist Mucosa Neck: Supple, No JVD Lungs: Clear to auscultation, Normal air movement, No rhonchi Cardiovascular: Regular rate, Regular Rhythm, Normal S1 Abdomen: Bowel Sounds Present, Soft, Non Tender Extremities: No clubbing, No cyanosis Musculoskeletal: No Tenderness to Palpation of Joints or Extremities Neurological: Cranial nerves II-XII grossly intact, Neuro grossly intact Psych/Mental Status: Appropriate Laboratory Results 09/24/20 16:28: POC Glucose 164 H 09/24/20 21:34: POC Glucose 140 H 09/25/20 04:50: WBC 8.9, RBC 3.04 L, Hgb 7.3 L, Hct 27.5 L, MCV 90.5, MCH 24.0 L , MCHC 26.5 L, RDW Std Deviation 55.1 H, RDW Coeff of Samy 16.9 H, Plt Count 291, MPV 8.9 09/25/20 04:50: Sodium 137, Potassium 4.7, Chloride 101, Carbon Dioxide 30.0, Anion Gap 6, BUN 62 H, Creatinine 3.83 H, Estim Creat Clear Calc 12.47, Est GFR (MDRD) Af Amer 15 L, Est GFR (MDRD) Non-Af 12 L, BUN/Creatinine Ratio 16.2, Glucose 116 H, Calcium 8.5 09/25/20 06:48: POC Glucose 114 H 09/25/20 11:44: POC Glucose 132 H 09/25/20 12:02: Blood Type O POSITIVE, Antibody Screen NEGATIVE, Crossmatch See Detail Current Medications Acetaminophen (Acetaminophen 325 Mg Tablet) 650 mg PO Q6H PRN PRN PRN Reason: Pain Score 1-10/Temp > 100.7 F Last Admin: 09/24/20 16:56 Dose: 650 mg Documented by: Amlodipine Besylate (Amlodipine 5 Mg Tablet) 5 mg PO DAILY [facility] B[facility]S AT [facility] Last Admin: 09/25/20 09:38 Dose: 5 mg Documented by: Ascorbic Acid (Ascorbic Acid 500 Mg Tablet) 500 mg PO DAILY [facility] 234 BEDS AT [facility] Last Admin: 09/25/20 09:40 Dose: 500 mg Documented by: Aspirin (Aspirin 81 Mg Tab.Chew) 81 mg PO DAILY@0800 [facility] 234 BEDS AT [facility] Last Admin: 09/25/20 09:38 Dose: 81 mg Documented by: Calcitriol (Calcitriol 0.25 Mcg Capsule) 0.25 mcg PO SuTuThSa@1000 [facility] 234 BEDS AT [facility] Last Admin: 09/25/20 09:38 Dose: 0.25 mcg Documented by: Calcitriol (Calcitriol 0.25 Mcg Capsule) 0.5 mcg PO MoWeFr@1000 [facility] 234 BEDS AT [facility] Last Admin: 09/23/20 09:08 Dose: 0.5 mcg Documented by: Cyanocobalamin (Cyanocobalamin 500 Mcg Tablet) 1,000 mcg PO DAILY [facility] 234 BEDS AT [facility] Last Admin: 09/25/20 09:37 Dose: 1,000 mcg Documented by: Diltiazem HCl (Diltiazem Cd 120 Mg Capsule) 120 mg PO BID [facility] 234 BEDS AT [facility] Last Admin: 09/25/20 09:37 Dose: 120 mg Documented by: Enoxaparin Sodium (Enoxaparin 30 Mg/0.3 Ml Syringe) 30 mg SC DAILY [facility] 234 BEDS AT [facility] Last Admin: 09/25/20 09:38 Dose: 30 mg Documented by: Ferrous Sulfate (Ferrous Sulfate 325 Mg Tablet) 325 mg PO BID@1200,1700 [facility]CLUDE 234 BEDS AT [facility] Last Admin: 09/25/20 12:32 Dose: 325 mg Documented by: Sodium Chloride () 250 mls @ 15 mls/hr IV .[id number] PRN PRN Reason: Saline Flush Sodium Chloride () 250 mls @ 15 mls/hr IV .[id number] PRN PRN Reason: Additional IVPB Infusion Furosemide 500 mg/ N/A 50 mls @ 1 mls/hr CONT INF .Q50H [facility]CLUDE 234 BEDS AT [facility] Last Admin: 09/25/20 12:42 Dose: 10 mg/hr, 1 mls/hr Documented by: Insulin Human Lispro (Insulin Lispro 100 Unit/Ml Insuln.Pen) 0 unit SC [facility] COUNTS INCLUDE 234 BEDS AT THE [facility]; Protocol Last Admin: 09/25/20 12:31 Dose: Not Given Documented by: Levothyroxine Sodium (Levothyroxine 150 Mcg Tablet) 300 mcg PO DAILY@0600 [facility]S [facility]CLUDE 234 BEDS AT [facility] Last Admin: 09/25/20 05:59 Dose: 300 mcg Documented by: Lorazepam (Lorazepam 2 Mg/Ml Syringe) 0.5 mg IV X1 PRN PRN Reason: Anxiety with BIPAP Melatonin (Melatonin 3 Mg Tablet) 3 mg PO QHS PRN PRN PRN Reason: INSOMNIA Morphine Sulfate (Morphine 2 Mg/Ml Syringe) 2 mg IV Q3H PRN PRN PRN Reason: Pain Score 6-10 Last Admin: 09/20/20 03:04 Dose: 2 mg Documented by: Multivitamins/Minerals (Multivitamins,Ther [facility]als [facility]) [facility] Last Admin: 09/25/20 09:38 Dose: 1 tablet Documented by: Nitroglycerin (Nitroglycerin (Inpatient Use) 0.4 Mg Tab.Subl) 0.4 mg SL Q5M PRN PRN Reason: CARDIAC/CHEST PAIN Dmzzz-6-Gema Ethyl Esters ([place]-3 Acid Ethyl Esters 1 Gm Capsule) 1 gm PO DAILY [facility]S INCLUDE 234 BEDS AT THE [facility] Last Admin: 09/25/20 09:38 Dose: 1 gm Documented by: Ondansetron HCl (Ondansetron 4 Mg/2 Ml Vial) 4 mg IV Q8H PRN PRN PRN Reason: NAUSEA/VOMITING Oxycodone HCl (Oxycodone 5 Mg Tablet) 5 mg PO Q6H PRN PRN PRN Reason: Pain Score 4-5 Last Admin: 09/25/20 09:47 Dose: 5 mg Documented by: Sodium Chloride (0.9% Saline Lock 10 Ml Syringe) 10 - 40 ml IV UD PRN PRN Reason: SALINE FLUSH Last Admin: 09/25/20 09:40 Dose: 10 ml Documented by: Sodium Chloride (Sodium Chloride 0.65% 1 [place].Btl) 2 spray NASAL TID PRN PRN PRN Reason: NASAL DRYNESS Last Admin: 09/21/20 11:01 Dose: 2 spray Documented by: Medical Necessity - Tobacco Use Smoking Status: Never smoker Assessment/Plan All Active Problems Urinary tract infection (Acute) Acute on chronic congestive heart failure (Acute) Acute respiratory failure with hypoxia (Acute) Fall (Acute) Contusion, back (Acute) CKD 4 LE edema Hyperkalemia renal cyst s/p fall HFpEF Anemia SCr has been stable ~ 3.6-3.8 mgdl Continue lasix drip K is within normal limit Avoid nephrotoxins No need for CHEMICAL WASTE MANAGEMENT TECHNICIAN Check renal function in am RBC transfusion today needs EGD/Colonoscopy Renal team will continue to follow Please call if any question Colby Davis MD
[2020-09-25 16:52] LABS: ALB/GLOB Ratio 0.6 RATIO (0.9-2.4); LDH 142 U/L (84-246); Protein, Total 6.6 g/dL (6.4-8.2)
[2020-09-25 17:31] LABS: Bedside Glucose 142 mg/dL (70-110)
[2020-09-25] MEDS: Ondansetron 4 MG/2 ML Vial IV (17:39)
[2020-09-25 21:56] LABS: Bedside Glucose 154 mg/dL (70-110)
--- NOTE | 2020-09-25 23:40 | NURSING ---
Pt had anxiety after being on bipap for less than 1 hour. RN asked pt if she wanted the prn ativan that was ordered to help her with the anxiety of wearing the bipap mask. Pt refused and stated to take this mask off now or pt would take it off herself. RN attempted to redirect patient and educate on the importance of wearing it. Pt still refused. Pt asked if bipap could be taken out of her room. RN explained that it needed to stay in the room for the time being. Pt placed on 13L HiFlo nasal canula with SPO2 of 93%.
[2020-09-26] VITALS (33 sets, daily range): BP systolic 123–150; BP diastolic 50–57; PULSE 65–85; RESP 13–19; TEMP 36.1–36.6; O2SAT 44–100
--- NOTE | 2020-09-26 | FLU_PTH ---
PATIENT: BRENT KRAUS LOC: [facility] U#:[id number] AGE/SX: 69/F ROOM: [facility] RE09/20/[address]: Dr. Santiago Scott DO : 1950 BED: 1 DIS: 10/01/2020 SPEC #: [id number] RECD: 09/27/20 08:10 STATUS: ESTRADA REZainab #: [id number] MARCO A: 09/26/20 00:[address]: Santiago Scott DEPT: CYTOLOGY RECD BY: Heather Barahona ENTERED: 09/27/20 08:11 SP TYPE: Fluid OTHR DR: MD Dr. Christian Boss MD Dr. Tamera Robotham, MD Dr. William Lago, MD Tissues: Pleural fluid, NOS Procedures: Special Stain Group II Surgery Specimen Level IV Cytospin Fluid HEADER OPERATION: Thoracentesis right PRE-OP DIAGNOSIS: Right pleural effusion TISSUE SUBMITTED: Thoracentesis fluid for cytology DIAGNOSIS CYTOLOGY Thoracentesis fluid for cytology (cytospin and cell block): Negative for malignant cells. See comment. JUAN MANUEL:harriett 09/28/2020 COMMENT Reactive mesothelial cells are noted. Clinical correlation and appropriate follow up are necessary. CYTOLOGY STUDY Slides are reviewed. CYTOLOGY GROSS Received is 70 ml of yellow cloudy fluid labeled with the patient's name and and designated per the requisition as thoracentesis. Submitted for cytology preparation including cell block. / harriett 09/27/2020 TC:5 CPT: 99912, 72657
[2020-09-26 05:42] LABS: Hematocrit 30.2 % (37-47); Hemoglobin 8.2 g/dL (12.0-15.0); Mean Corp Hgb Conc 27.2 g/dL (32-36); Mean Corpuscular Hgb 24.8 pg (27.0-32.0); Mean Corpuscular Volume 91.5 fL (81-99); Mean Platelet Vol. 9.4 fl (6.2-12.0); Platelet Count 274 K/mm3 (150-450); RBC Distribution Width CV 16.3 % (11.6-14.6); RBC Distribution Width SD 53.9 fl (35.1-43.9); White Blood Count 9.8 K/mm3 (4.4-11.0)
[2020-09-26 05:50] LABS: International Normalized Ratio 1.1
[2020-09-26 05:51] LABS: Partial Thromboplast Time 43.5 Seconds (24.1-36.2)
[2020-09-26] MEDS: Levothyroxine 150 MCG Tablet 300 MCG PO (05:55)
[2020-09-26 06:05] LABS: Anion Gap 7 (5-15); BUN 66 mg/dL (7-18); Calcium,Total 8.4 mg/dL (8.5-10.1); Chloride 99 mmol/L (98-107); Cholesterol 125 mg/dL (200); Creatinine, Serum 4.13 mg/dL (0.55-1.02); EST Glomerular Filtration Rate 11 mL/min (>60); Est Glom Filt Rate - Afr Amer 14 mL/min (>60); Estimated Creatinine Clearance 11.57 ml/min; Glucose 145 mg/dL (74-106); High Density Lipoprotein 54 mg/dL; Potassium 5.2 mmol/L (3.5-5.1); Sodium Level 135 mmol/L (136-145); Triglycerides 86 mg/dL; Very Low Density Lipoprotein 17 mg/dL (5-40)
[2020-09-26 06:50] LABS: Bedside Glucose 150 mg/dL (70-110)
[2020-09-26] MEDS: dilTIAZem CD 120 MG Capsule PO ×2 (08:13→21:59)
[2020-09-26] MEDS: Omega-3 Acid Ethyl Esters 1 GM Capsule PO (08:13)
[2020-09-26] MEDS: Multivitamins,Ther W-Minerals Tablet 1 TABLET PO (08:13)
[2020-09-26] MEDS: amLODIPine 5 MG Tablet PO (08:14)
[2020-09-26] MEDS: Calcitriol 0.25 MCG Capsule 0.5 MCG PO (08:14)
[2020-09-26] MEDS: Cyanocobalamin 500 MCG Tablet 1000 MCG PO (08:14)
[2020-09-26] MEDS: Ascorbic Acid 500 MG Tablet PO (08:14)
[2020-09-26] MEDS: Ferrous Sulfate 325 MG Tablet PO (11:00)
--- NOTE | 2020-09-26 11:10 | PCM.PN.REN ---
Patient Problems: Active and Suspected Problems Urinary tract infection (Acute) Acute on chronic congestive heart failure (Acute) Acute respiratory failure with hypoxia (Acute) Fall (Acute) Contusion, back (Acute) Subjective: no sob but has nausea and vomiting - Physical Exam Vitals/I&O's: Vital Signs Temp Pulse Resp BP Pulse Ox 97.6 F L 65 13 133/57 H 92 09/26/20 08:01 09/26/20 08:01 09/26/20 08:01 09/26/20 08:01 09/26/20 09:50 Oxygen Flow Rate (L/min) 9 Oxygen Delivery Method Nasal Cannula Weight: 102.5 kg Body Mass Index (BMI) 36.6 Intake and Output for Last 24 Hours 09/24/20 09/25/20 09/26/20 23:59 23:59 23:59 Intake Total 1060 / 1060 1415 / 1415 50 / 50 Output Total 1400 / 1400 475 / 475 50 / 50 Balance -340 / -340 940 / 940 0 / 0 General: Alert, Cooperative HEENT: Atraumatic, Normocephalic Neck: Supple Lungs: Clear to auscultation, Normal air movement Cardiovascular: Regular rate, Regular Rhythm Abdomen: Bowel Sounds Present, Soft, Obese Extremities: Edema Laboratory Results 09/25/20 04:50: Lactate Dehydrogenase 142, Total Protein 6.6, Globulin 4.0, Albumin/Globulin Ratio 0.6 L 09/25/20 11:44: POC Glucose 132 H 09/25/20 12:02: Blood Type O POSITIVE, Antibody Screen NEGATIVE, Crossmatch See Detail 09/25/20 17:15: POC Glucose 142 H 09/25/20 21:49: POC Glucose 154 H 09/26/20 05:20: WBC 9.8, RBC 3.30 L, Hgb 8.2 L, Hct 30.2 L, MCV 91.5, MCH 24.8 L, MCHC 27.2 L, RDW Std Deviation 53.9 H, RDW Coeff of Samy 16.3 H, Plt Count 274, MPV 9.4 09/26/20 05:20: Sodium 135 L, Potassium 5.2 H, Chloride 99, Carbon Dioxide 29.0, Anion Gap 7, BUN 66 H, Creatinine 4.13 H, Estim Creat Clear Calc 11.57, Est GFR (MDRD) Af Amer 14 L, Est GFR (MDRD) Non-Af 11 L, BUN/Creatinine Ratio 16.0, Glucose 145 H, Calcium 8.4 L, Triglycerides 86, Cholesterol 125, LDL Cholesterol 54, VLDL Cholesterol 17, HDL Cholesterol 54 09/26/20 05:20: PT 14.0, INR 1.1, APTT 43.5 H 09/26/20 06:32: POC Glucose 150 H Current Medications Acetaminophen (Acetaminophen 325 Mg Tablet) 650 mg PO Q6H PRN PRN PRN Reason: Pain Score 1-10/Temp > 100.7 F Last Admin: 09/24/20 16:56 Dose: 650 mg Documented by: Amlodipine Besylate (Amlodipine 5 Mg Tablet) 5 mg PO DAILY [facility] Last Admin: 09/26/20 08:14 Dose: 5 mg Documented by: Ascorbic Acid (Ascorbic Acid 500 Mg Tablet) 500 mg PO DAILY [facility] Last Admin: 09/26/20 08:14 Dose: 500 mg Documented by: Aspirin (Aspirin 81 Mg Tab.Chew) 81 mg PO DAILY@0800 [facility] Last Admin: 09/26/20 08:11 Dose: Not Given Documented by: Calcitriol (Calcitriol 0.25 Mcg Capsule) 0.25 mcg PO SuTuThSa@1000 [facility] Last Admin: 09/25/20 09:38 Dose: 0.25 mcg Documented by: Calcitriol (Calcitriol 0.25 Mcg Capsule) 0.5 mcg PO MoWeFr@1000 [facility] Last Admin: 09/26/20 08:14 Dose: 0.5 mcg Documented by: Cyanocobalamin (Cyanocobalamin 500 Mcg Tablet) 1,000 mcg PO DAILY [facility] Last Admin: 09/26/20 08:14 Dose: 1,000 mcg Documented by: Diltiazem HCl (Diltiazem Cd 120 Mg Capsule) 120 mg PO BID [facility] Last Admin: 09/26/20 08:13 Dose: 120 mg Documented by: Enoxaparin Sodium (Enoxaparin 30 Mg/0.3 Ml Syringe) 30 mg SC DAILY [facility] Last Admin: 09/26/20 08:11 Dose: Not Given Documented by: Ferrous Sulfate (Ferrous Sulfate 325 Mg Tablet) 325 mg PO BID@1200,1700 [facility] Last Admin: 09/26/20 11:00 Dose: 325 mg Documented by: Sodium Chloride () 250 mls @ 15 mls/hr IV .[id number] PRN PRN Reason: Saline Flush Sodium Chloride () 250 mls @ 15 mls/hr IV .[id number] PRN PRN Reason: Additional IVPB Infusion Furosemide 500 mg/ N/A 50 mls @ 1 mls/hr CONT INF .Q50H [facility] Last Admin: 09/25/20 12:42 Dose: 10 mg/hr, 1 mls/hr Documented by: Insulin Human Lispro (Insulin Lispro 100 Unit/Ml Insuln.Pen) 0 unit SC ACHS [facility]; Protocol Last Admin: 09/26/20 10:55 Dose: Not Given Documented by: Levothyroxine Sodium (Levothyroxine 150 Mcg Tablet) 300 mcg PO DAILY@0600 [facility] Last Admin: 09/26/20 05:55 Dose: 300 mcg Documented by: Melatonin (Melatonin 3 Mg Tablet) 3 mg PO QHS PRN PRN PRN Reason: INSOMNIA Metolazone (Metolazone 5 Mg Tablet) 5 mg PO BID [facility] Multivitamins/Minerals (Multivitamins,Ther [facility]) [facility] Last Admin: 09/26/20 08:13 Dose: 1 tablet Documented by: Nitroglycerin (Nitroglycerin (Inpatient Use) 0.4 Mg Tab.Subl) 0.4 mg SL Q5M PRN PRN Reason: CARDIAC/CHEST PAIN Cnpwg-7-Mfal Ethyl Esters ([place]-3 Acid Ethyl Esters 1 Gm Capsule) 1 gm PO DAILY [facility] Last Admin: 09/26/20 08:13 Dose: 1 gm Documented by: Ondansetron HCl (Ondansetron 4 Mg/2 Ml Vial) 4 mg IV Q8H PRN PRN PRN Reason: NAUSEA/VOMITING Last Admin: 09/25/20 17:39 Dose: 4 mg Documented by: Oxycodone HCl (Oxycodone 5 Mg Tablet) 5 mg PO Q6H PRN PRN PRN Reason: Pain Score 4-5 Last Admin: 09/25/20 09:47 Dose: 5 mg Documented by: Sodium Chloride (0.9% Saline Lock 10 Ml Syringe) 10 - 40 ml IV UD PRN PRN Reason: SALINE FLUSH Last Admin: 09/25/20 19:41 Dose: 10 ml Documented by: Sodium Chloride (Sodium Chloride 0.65% 1 [place].Btl) 2 spray NASAL TID PRN PRN PRN Reason: NASAL DRYNESS Last Admin: 09/21/20 11:01 Dose: 2 spray Documented by: Medical Necessity - Tobacco Use Smoking Status: Never smoker Assessment/Plan All Active Problems Urinary tract infection (Acute) Acute on chronic congestive heart failure (Acute) Acute respiratory failure with hypoxia (Acute) Fall (Acute) Contusion, back (Acute) CKD 4 EDema LE Hyperkalemia renal cyst s/p fall HFpEF Scr 4.1 slightly worse after Lasix drip restarted. Will add metolazone. d/w with patient Avoid nephrotoxins and overdiuresis
[2020-09-26] MEDS: 0.9% Saline Lock 10 ML Syringe IV ×2 (11:24→16:40)
[2020-09-26] MEDS: Ondansetron 4 MG/2 ML Vial IV (11:24)
--- NOTE | 2020-09-26 11:24 | NURSING ---
Emesis x1 per LIFT MANAGER report. RN in to see patient. Complains of nausea. Oxygen out of nose. Pulse ox 45% RA. Oxygen placed back in nares per this RN. Oxygen needed to be increased to 11L via high flow nasal cannula. Patient slow to recover. After about 15-20minutes, oxygen saturations increased to 88-91%. Patient denies shortness of breath. No respiratory distress noted. Patient alert and oriented x3. Charge nurse made aware and in to observe patient. Patient had stated to this RN that she doesn't want to go on dialysis. RN informed patient that she may if dialysis isn't started should nephrology feel that it is needed. Patient voiced understanding of same. RN also spoke with patient's regarding dialysis. Jace, patient's , voiced that patient doesn't want to go on dialysis. caser in aware of same. She would speak with Dr. Scott regarding code status as patient is currently a Full Code.
[2020-09-26 11:51] LABS: Bedside Glucose 138 mg/dL (70-110)
[2020-09-26] MEDS: proMETHazine 25 MG/ML Syringe 6.25 MG IM (13:39)
--- NOTE | 2020-09-26 13:49 | NURSING ---
RN called report to LESLEY Silver in imaging services. Per Nadeem, thoracentesis will be completed at bedside for patient comfort.
--- NOTE | 2020-09-26 13:57 | CASEMGMT ---
Palliative Referral requested at this time by Letty Emery EKG MONITOR TECH. Faxed referral at this time. TC to Palliative and left message to follow up that referral was received.
--- NOTE | 2020-09-26 14:01 | PN_ITS ---
<Deandra Emery FASHION DESIGN PROFESSOR - Last Filed: 09/26/20 14:17> Patient Problems: Active and Suspected Problems Urinary tract infection (Acute) Acute on chronic congestive heart failure (Acute) Acute respiratory failure with hypoxia (Acute) Fall (Acute) Contusion, back (Acute) Subjective: Patient seen and examined. Reports nausea with emesis this morning. Had extensive discussion with patient regarding CODE STATUS and dialysis. She would like to take time to think about both however she states that dialysis is her only option she will do it. - Physical Exam Vitals/I&O's: Vital Signs Temp Pulse Resp BP Pulse Ox 97.6 F L 77 19 H 133/57 H 91 09/26/20 08:01 09/26/20 12:20 09/26/20 12:06 09/26/20 08:01 09/26/20 12:06 Oxygen Flow Rate (L/min) 12 Oxygen Delivery Method Nasal Cannula Weight: 225 lb 15.581 oz Body Mass Index (BMI) 36.6 Intake and Output for Last 24 Hours 09/24/20 09/25/20 09/26/20 23:59 23:59 23:59 Intake Total 1060 / 1060 1415 / 1415 420 / 420 Output Total 1400 / 1400 475 / 475 225 / 225 Balance -340 / -340 940 / 940 195 / 195 General: No apparent distress, - - Drowsy, ill-appearing HEENT: Atraumatic, PERRLA, EOMI, Normocephalic Neck: Supple, No JVD, Negative Carotid Bruits Lungs: Clear to auscultation, Diminished Cardiovascular: Regular rate, No murmurs Abdomen: Bowel Sounds Present, Soft, Non Tender, Non-Distended, Obese Extremities: No clubbing, No cyanosis, Capillary Refill Less than 3 Seconds, Edema - Bilateral lower extremity edema extending to mid abdomen Skin: No rashes, No breakdown Musculoskeletal: No Tenderness to Palpation of Joints or Extremities Neurological: Cranial nerves II-XII grossly intact, Neuro grossly intact Psych/Mental Status: Flat Affect Laboratory Results 09/25/20 04:50: Lactate Dehydrogenase 142, Total Protein 6.6, Globulin 4.0, Albumin/Globulin Ratio 0.6 L 09/25/20 12:02: Blood Type O POSITIVE, Antibody Screen NEGATIVE, Crossmatch See Detail 09/25/20 17:15: POC Glucose 142 H 09/25/20 21:49: POC Glucose 154 H 09/26/20 05:20: WBC 9.8, RBC 3.30 L, Hgb 8.2 L, Hct 30.2 L, MCV 91.5, MCH 24.8 L , MCHC 27.2 L, RDW Std Deviation 53.9 H, RDW Coeff of Samy 16.3 H, Plt Count 274, MPV 9.4 09/26/20 05:20: Sodium 135 L, Potassium 5.2 H, Chloride 99, Carbon Dioxide 29.0, Anion Gap 7, BUN 66 H, Creatinine 4.13 H, Estim Creat Clear Calc 11.57, Est GFR (MDRD) Af Amer 14 L, Est GFR (MDRD) Non-Af 11 L, BUN/Creatinine Ratio 16.0, Glucose 145 H, Calcium 8.4 L, Triglycerides 86, Cholesterol 125, LDL Cholesterol 54, VLDL Cholesterol 17, HDL Cholesterol 54 09/26/20 05:20: PT 14.0, INR 1.1, APTT 43.5 H 09/26/20 06:32: POC Glucose 150 H 09/26/20 10:51: POC Glucose 138 H Current Medications Acetaminophen (Acetaminophen 325 Mg Tablet) 650 mg PO Q6H PRN PRN PRN Reason: Pain Score 1-10/Temp > 100.7 F Last Admin: 09/24/20 16:56 Dose: 650 mg Documented by: Amlodipine Besylate (Amlodipine 5 Mg Tablet) 5 mg PO DAILY [facility] Last Admin: 09/26/20 08:14 Dose: 5 mg Documented by: Ascorbic Acid (Ascorbic Acid 500 Mg Tablet) 500 mg PO DAILY [facility] Last Admin: 09/26/20 08:14 Dose: 500 mg Documented by: Aspirin (Aspirin 81 Mg Tab.Chew) 81 mg PO DAILY@0800 [facility] Last Admin: 09/26/20 08:11 Dose: Not Given Documented by: Calcitriol (Calcitriol 0.25 Mcg Capsule) 0.25 mcg PO SuTuThSa@1000 [facility] Last Admin: 09/25/20 09:38 Dose: 0.25 mcg Documented by: Calcitriol (Calcitriol 0.25 Mcg Capsule) 0.5 mcg PO MoWeFr@1000 [facility] Last Admin: 09/26/20 08:14 Dose: 0.5 mcg Documented by: Cyanocobalamin (Cyanocobalamin 500 Mcg Tablet) 1,000 mcg PO DAILY [facility] Last Admin: 09/26/20 08:14 Dose: 1,000 mcg Documented by: Diltiazem HCl (Diltiazem Cd 120 Mg Capsule) 120 mg PO BID [facility] Last Admin: 09/26/20 08:13 Dose: 120 mg Documented by: Enoxaparin Sodium (Enoxaparin 30 Mg/0.3 Ml Syringe) 30 mg SC DAILY [facility] Last Admin: 09/26/20 08:11 Dose: Not Given Documented by: Ferrous Sulfate (Ferrous Sulfate 325 Mg Tablet) 325 mg PO BID@1200,1700 [facility] Last Admin: 09/26/20 11:00 Dose: 325 mg Documented by: Sodium Chloride () 250 mls @ 15 mls/hr IV .[id number] PRN PRN Reason: Saline Flush Sodium Chloride () 250 mls @ 15 mls/hr IV .[id number] PRN PRN Reason: Additional IVPB Infusion Furosemide 500 mg/ N/A 50 mls @ 1 mls/hr CONT INF .Q50H [facility] Last Admin: 09/25/20 12:42 Dose: 10 mg/hr, 1 mls/hr Documented by: Insulin Human Lispro (Insulin Lispro 100 Unit/Ml Insuln.Pen) 0 unit SC ACHS [facility]; Protocol Last Admin: 09/26/20 10:55 Dose: Not Given Documented by: Levothyroxine Sodium (Levothyroxine 150 Mcg Tablet) 300 mcg PO DAILY@0600 [facility] Last Admin: 09/26/20 05:55 Dose: 300 mcg Documented by: Melatonin (Melatonin 3 Mg Tablet) 3 mg PO QHS PRN PRN PRN Reason: INSOMNIA Metolazone (Metolazone 5 Mg Tablet) 5 mg PO BID [facility] Last Admin: 09/26/20 12:09 Dose: Not Given Documented by: Multivitamins/Minerals (Multivitamins,Ther W-Minerals Tablet) 1 tablet [facility] Last Admin: 09/26/20 08:13 Dose: 1 tablet Documented by: Nitroglycerin (Nitroglycerin (Inpatient Use) 0.4 Mg Tab.Subl) 0.4 mg SL Q5M PRN PRN Reason: CARDIAC/CHEST PAIN Rlwum-6-Nufg Ethyl Esters ([place]-3 Acid Ethyl Esters 1 Gm Capsule) 1 gm PO DAILY [facility] Last Admin: 09/26/20 08:13 Dose: 1 gm Documented by: Ondansetron HCl (Ondansetron 4 Mg/2 Ml Vial) 4 mg IV Q8H PRN PRN PRN Reason: NAUSEA/VOMITING Last Admin: 09/26/20 11:24 Dose: 4 mg Documented by: Oxycodone HCl (Oxycodone 5 Mg Tablet) 5 mg PO Q6H PRN PRN PRN Reason: Pain Score 4-5 Last Admin: 09/25/20 09:47 Dose: 5 mg Documented by: Pantoprazole Sodium (Pantoprazole Sodium 40 Mg Tablet) 40 mg PO BID [facility] Sodium Chloride (0.9% Saline Lock 10 Ml Syringe) 10 - 40 ml IV UD PRN PRN Reason: SALINE FLUSH Last Admin: 09/26/20 11:24 Dose: 10 ml Documented by: Sodium Chloride (Sodium Chloride 0.65% 1 [place].Btl) 2 spray NASAL TID PRN PRN PRN Reason: NASAL DRYNESS Last Admin: 09/21/20 11:01 Dose: 2 spray Documented by: Medical Necessity - Tobacco Use Smoking Status: Never smoker Assessment/Plan All Active Problems Urinary tract infection (Acute) Acute on chronic congestive heart failure (Acute) Acute respiratory failure with hypoxia (Acute) Fall (Acute) Contusion, back (Acute) 1. Acute hypoxic respiratory failure secondary to acute on chronic heart failure with preserved ejection fraction complicated by worsening chronic kidney disease stage IV-BNP 846. Chest x-ray with bilateral pleural effusions and CHF. Echocardiogram demonstrates an EF of 60%, mild mitral valve insufficiency, moderate tricuspid valve insufficiency. Strict I&O. Daily weight. Continue supplement oxygen to maintain O2 at above 90%. BIPAP QHS. Wean oxygen as tolerated. On Lasix drip, metolazone added per nephrology recommendations. 2. Chronic kidney disease stage IV-suspect worsening renal function is mainly contributing to respiratory failure, edema as echocardiogram overall unremarkable. Nephrology following. Continue with diuresis however urine output worsening. Patient deciding on dialysis. 3. Acute UTI, ruled out-received 3 doses of IV Rocephin. Urine culture growing mixed gram-positive and mixed gram-negative organisms, low colony count. Discontinue further antibiotics. 4. Type 2 diabetes mellitus-oral regimen on hold. Accu-Cheks with sliding scale insulin. 5. Hypertension-continue amlodipine, Cardizem. 6. Hyperlipidemia-continue statin. 7. Hypothyroidism-continue Synthroid. 8. Chronic normocytic anemia/anemia of chronic disease-iron levels significantly low. IV Venofer x3 doses. Stool for occult blood ordered. Status post 1 unit PRBC. Hemoglobin now stable. Will need outpatient EGD/colonoscopy. Trend CBC. DVT prophylaxis-Lovenox Discharge planning: Discussed with patient the severity of her comorbidities and that prognosis is very poor if patient does not undergo dialysis. Patient will get a final decision on dialysis tomorrow. Did discuss alternative of palliative/hospice. At this time would like to remain full code. This patient was seen by CALLI Cui under the supervision of Dr. Scott. <Santiago Scott - Last Filed: 09/26/20 14:33> - Physical Exam Vitals/I&O's: Vital Signs Temp Pulse Resp BP Pulse Ox 36.4 C L 77 19 H 133/57 H 85 09/26/20 08:01 09/26/20 12:20 09/26/20 14:12 09/26/20 08:01 09/26/20 14:12 Oxygen Flow Rate (L/min) 15 Oxygen Delivery Method Nasal Cannula Weight: 102.5 kg Body Mass Index (BMI) 36.6 Intake and Output for Last 24 Hours 09/24/20 09/25/20 09/26/20 23:59 23:59 23:59 Intake Total 1060 / 1060 1415 / 1415 420 / 420 Output Total 1400 / 1400 475 / 475 225 / 225 Balance -340 / -340 940 / 940 195 / 195 General: No apparent distress, - HEENT: Atraumatic, Normocephalic Lungs: Clear to auscultation, Diminished Cardiovascular: Regular rate, No murmurs Abdomen: Bowel Sounds Present, Soft, Non Tender, Non-Distended, Obese Extremities: No cyanosis, Capillary Refill Less than 3 Seconds, Edema Skin: No rashes, No breakdown Musculoskeletal: No Tenderness to Palpation of Joints or Extremities Neurological: Cranial nerves II-XII grossly intact, Neuro grossly intact Laboratory Results 09/25/20 04:50: Lactate Dehydrogenase 142, Total Protein 6.6, Globulin 4.0, Albumin/Globulin Ratio 0.6 L 09/25/20 12:02: Blood Type O POSITIVE, Antibody Screen NEGATIVE, Crossmatch See Detail 09/25/20 17:15: POC Glucose 142 H 09/25/20 21:49: POC Glucose 154 H 09/26/20 05:20: WBC 9.8, RBC 3.30 L, Hgb 8.2 L, Hct 30.2 L, MCV 91.5, MCH 24.8 L , MCHC 27.2 L, RDW Std Deviation 53.9 H, RDW Coeff of Samy 16.3 H, Plt Count 274, MPV 9.4 09/26/20 05:20: Sodium 135 L, Potassium 5.2 H, Chloride 99, Carbon Dioxide 29.0, Anion Gap 7, BUN 66 H, Creatinine 4.13 H, Estim Creat Clear Calc 11.57, Est GFR (MDRD) Af Amer 14 L, Est GFR (MDRD) Non-Af 11 L, BUN/Creatinine Ratio 16.0, Glucose 145 H, Calcium 8.4 L, Triglycerides 86, Cholesterol 125, LDL Cholesterol 54, VLDL Cholesterol 17, HDL Cholesterol 54 09/26/20 05:20: PT 14.0, INR 1.1, APTT 43.5 H 09/26/20 06:32: POC Glucose 150 H 09/26/20 10:51: POC Glucose 138 H Current Medications Acetaminophen (Acetaminophen 325 Mg Tablet) 650 mg PO Q6H PRN PRN PRN Reason: Pain Score 1-10/Temp > 100.7 F Last Admin: 09/24/20 16:56 Dose: 650 mg Documented by: Amlodipine Besylate (Amlodipine 5 Mg Tablet) 5 mg PO DAILY [facility] Last Admin: 09/26/20 08:14 Dose: 5 mg Documented by: Ascorbic Acid (Ascorbic Acid 500 Mg Tablet) 500 mg PO DAILY [facility] Last Admin: 09/26/20 08:14 Dose: 500 mg Documented by: Aspirin (Aspirin 81 Mg Tab.Chew) 81 mg PO DAILY@0800 [facility] Last Admin: 09/26/20 08:11 Dose: Not Given Documented by: Calcitriol (Calcitriol 0.25 Mcg Capsule) 0.25 mcg PO SuTuThSa@1000 [facility] Last Admin: 09/25/20 09:38 Dose: 0.25 mcg Documented by: Calcitriol (Calcitriol 0.25 Mcg Capsule) 0.5 mcg PO MoWeFr@1000 [facility] Last Admin: 09/26/20 08:14 Dose: 0.5 mcg Documented by: Cyanocobalamin (Cyanocobalamin 500 Mcg Tablet) 1,000 mcg PO DAILY [facility] Last Admin: 09/26/20 08:14 Dose: 1,000 mcg Documented by: Diltiazem HCl (Diltiazem Cd 120 Mg Capsule) 120 mg PO BID [facility] Last Admin: 09/26/20 08:13 Dose: 120 mg Documented by: Enoxaparin Sodium (Enoxaparin 30 Mg/0.3 Ml Syringe) 30 mg SC DAILY [facility] Last Admin: 09/26/20 08:11 Dose: Not Given Documented by: Ferrous Sulfate (Ferrous Sulfate 325 Mg Tablet) 325 mg PO BID@1200,1700 [facility] Last Admin: 09/26/20 11:00 Dose: 325 mg Documented by: Sodium Chloride () 250 mls @ 15 mls/hr IV .[id number] PRN PRN Reason: Saline Flush Sodium Chloride () 250 mls @ 15 mls/hr IV .[id number] PRN PRN Reason: Additional IVPB Infusion Furosemide 500 mg/ N/A 50 mls @ 1 mls/hr CONT INF .Q50H [facility] Last Admin: 09/25/20 12:42 Dose: 10 mg/hr, 1 mls/hr Documented by: Insulin Human Lispro (Insulin Lispro 100 Unit/Ml Insuln.Pen) 0 unit SC [facility]; Protocol Last Admin: 09/26/20 10:55 Dose: Not Given Documented by: Levothyroxine Sodium (Levothyroxine 150 Mcg Tablet) 300 mcg PO DAILY@0600 [facility] Last Admin: 09/26/20 05:55 Dose: 300 mcg Documented by: Melatonin (Melatonin 3 Mg Tablet) 3 mg PO QHS PRN PRN PRN Reason: INSOMNIA Metolazone (Metolazone 5 Mg Tablet) 5 mg PO BID [facility] Last Admin: 09/26/20 12:09 Dose: Not Given Documented by: Multivitamins/Minerals (Multivitamins,Ther W-Minerals Tablet) 1 tablet [facility] Last Admin: 09/26/20 08:13 Dose: 1 tablet Documented by: Nitroglycerin (Nitroglycerin (Inpatient Use) 0.4 Mg Tab.Subl) 0.4 mg SL Q5M PRN PRN Reason: CARDIAC/CHEST PAIN Dfysl-4-Nrya Ethyl Esters ([place]-3 Acid Ethyl Esters 1 Gm Capsule) 1 gm PO DAILY [facility] Last Admin: 09/26/20 08:13 Dose: 1 gm Documented by: Ondansetron HCl (Ondansetron 4 Mg/2 Ml Vial) 4 mg IV Q8H PRN PRN PRN Reason: NAUSEA/VOMITING Last Admin: 09/26/20 11:24 Dose: 4 mg Documented by: Oxycodone HCl (Oxycodone 5 Mg Tablet) 5 mg PO Q6H PRN PRN PRN Reason: Pain Score 4-5 Last Admin: 09/25/20 09:47 Dose: 5 mg Documented by: Pantoprazole Sodium (Pantoprazole Sodium 40 Mg Tablet) 40 mg PO BID [facility] Sodium Chloride (0.9% Saline Lock 10 Ml Syringe) 10 - 40 ml IV UD PRN PRN Reason: SALINE FLUSH Last Admin: 09/26/20 11:24 Dose: 10 ml Documented by: Sodium Chloride (Sodium Chloride 0.65% 1 [place].Btl) 2 spray NASAL TID PRN PRN PRN Reason: NASAL DRYNESS Last Admin: 09/21/20 11:01 Dose: 2 spray Documented by: Assessment/Plan Patient seen and examined independently. Data reviewed. I agree with the above note by the nurse practitioner. 1. acute hypoxic respiratory failure ongoing 2/2 CHF wean oxygen as able. 2. acute HFpEF EF 60% on furosemide gtt metolazone added 3. CKD IV nephrology following DW nephrology, no need for NUTRITION SERVICES ASSISTANT at this time. 4. Abnormal UA UTI ruled out. Inpatient E&M: 30672 Subs Hosp L2
--- NOTE | 2020-09-26 14:33 | RAD_ITS ---
STUDY: X-RAY CHEST REASON FOR EXAM: Female, 69 years old. Pneumothorax -- immediately post thoracentesis TECHNIQUE: AP inspiration and expiration views. COMPARISON: Comparison is made with prior study dated 09/24/2020. FINDINGS: The patient is status post right thoracentesis. There is no evidence of pneumothorax. RAD/Chest Insp/Exp 2 View IMPRESSION: Status post right thoracentesis. No evidence of pneumothorax. Electronically Signed: Rico Aguirre MD at 14:56 EDT , Service support ,
[2020-09-26 15:06] LABS: Cytology, Body Fluid / CSF SEE PATHOLOGY REPORT
[2020-09-26 16:00] LABS: Body Fluid Mononuclear WBC # 0.299 10^3/uL; Body Fluid Mononuclear WBC % 91.7 %; Body Fluid Polynuclear WBC # 0.027 10^3/uL; Body Fluid Polynuclear WBC % 8.3 %; Body Fluid Total Cells Counted 0.363 10^3/ul; White Blood Count/Body Fluid 0.326 10^3/uL
[2020-09-26 16:07] LABS: Glucose, Body Fluid 135 mg/dL (40-70); LDH,Body Fluid 52 Units/l (Not Establ.); Protein, Body Fluid 1.5 g/dL (Not Establ.)
[2020-09-26 16:25] LABS: Auto B Fluid Analyzer BKGD Ct COUNTS W/IN LIMITS (W/IN LIMITS); Red Cell Count/Body Fluid 223 /mm3; Source- Body Fluid THORACENTESIS
[2020-09-26] MEDS: Furosemide 500 MG in Empty Viaflex 50 mL 1 EACH CONT INF (16:39)
[2020-09-26 16:55] LABS: Bedside Glucose 142 mg/dL (70-110)
[2020-09-26 17:42] LABS: Lymphocytes 60 %; Macrophages 23 %; Mesothelial Cells 2 %; Monocytes 5 %; Neutrophil (Segs) 10 %
[2020-09-26 17:43] LABS: Body Fluid QC Type(s) BF3Q,BF4Q
[2020-09-26 17:44] LABS: Color/Body Fluid YELLOW
[2020-09-26 17:45] LABS: Appearance/Body Fluid SL CLDY
[2020-09-26] MEDS: metOLazone 5 MG Tablet PO (21:59)
[2020-09-26] MEDS: Pantoprazole Sodium 40 MG Tablet PO (21:59)
[2020-09-26 22:05] LABS: Bedside Glucose 127 mg/dL (70-110)
[2020-09-27] VITALS (18 sets, daily range): BP systolic 135–157; BP diastolic 46–74; PULSE 83–92; RESP 16–20; TEMP 36.3–37.1; O2SAT 91–98; BMI 37.5
--- NOTE | 2020-09-27 05:55 | EKG12_ITS ---
Test Reason : AM EKG Blood Pressure : / mmHG Vent. Rate : 086 BPM Atrial Rate : 086 BPM P-R Int : 172 ms QRS Dur : 092 ms QT Int : 364 ms P-R-T Axes : 024 060 063 degrees QTc Int : 435 ms Normal sinus rhythm Poor R wave progression Confirmed by CINDY OCONNELL, CHIOMA ([id number]), food editor MADELAINE SHIELDS ([id number]) on 09/29/2020 9:32:06 AM Referred By: DR DAY Confirmed By:CHIOMA WHITE MD
[2020-09-27 06:45] LABS: Bedside Glucose 101 mg/dL (70-110)
[2020-09-27 07:34] LABS: Partial Thromboplast Time 38.7 Seconds (24.1-36.2)
[2020-09-27 07:37] LABS: Anion Gap 10 (5-15); BUN 80 mg/dL (7-18); BUN/Creat Ratio 16.8 RATIO (10-20); Chloride 98 mmol/L (98-107); Creatinine, Serum 4.75 mg/dL (0.55-1.02); EST Glomerular Filtration Rate 10 mL/min (>60); Est Glom Filt Rate - Afr Amer 12 mL/min (>60); Estimated Creatinine Clearance 10.06 ml/min; Glucose 95 mg/dL (74-106); Potassium 5.5 mmol/L (3.5-5.1); Sodium Level 135 mmol/L (136-145); Thyroid Stim Hormone (TSH) 3.27 uIU/mL (0.358-3.74)
[2020-09-27 07:58] LABS: Hematocrit 28.2 % (37-47); Hemoglobin 7.7 g/dL (12.0-15.0); International Normalized Ratio 1.2; Mean Corp Hgb Conc 27.3 g/dL (32-36); Mean Corpuscular Hgb 24.4 pg (27.0-32.0); Mean Corpuscular Volume 89.5 fL (81-99); Mean Platelet Vol. 9.6 fl (6.2-12.0); Platelet Count 293 K/mm3 (150-450); Prothrombin Time (Protime)PT. 14.8 SECONDS (11.7-14.9); RBC Distribution Width SD 53.6 fl (35.1-43.9); Red Blood Count 3.15 M/mm3 (4.2-5.4); White Blood Count 11.5 K/mm3 (4.4-11.0)
--- NOTE | 2020-09-27 08:05 | CON.PCM.SX_ITS ---
Assessment & Plan Assessment/Plan (1) Woits-[id number] kidney injury: Status: Chronic Code(s): N17.9 - Acute kidney failure, unspecified; N18.9 - Chronic kidney disease, unspecified Plan: Plan to place tunneled dialysis catheter. Discussed procedure including but not limited to risk of bleeding, infection, malfunction of the catheter, and etc. Patient and her had no further questions at this time. Agreed to proceed. (2) Acute on chronic congestive heart failure: Status: Acute Code(s): I50.9 - Heart failure, unspecified Plan: Plan for dialysis. (3) Hyperkalemia: Status: Acute Code(s): E87.5 - Hyperkalemia Plan: Plan for dialysis after dialysis catheter placed. HPI Consult Data Date of Consult: 09/27/20 HPI Narrative HPI Narrative: BRENT KRAUS, is a 69 F who admitted due to acute on chronic kidney disease, congestive heart failure. Patient was placed on a Lasix drip however this did not improve her creatinine. Patient does need hemodialysis and tunneled catheter was requested. [facility] Home Medications alpha lipoic acid 100 mg PO DAILY 09/19/20 [History Last Taken Unknown] amlodipine 5 mg PO DAILY 09/19/20 [History Last Taken Unknown] ascorbic acid (vitamin C) 500 mg PO DAILY 09/19/20 [History Last Taken Unknown] aspirin 81 mg PO DAILY@0800 09/19/20 [History Last Taken Unknown] calcitriol 0.25 mcg PO QODAY 09/19/20 [History Last Taken Unknown] calcitriol 0.5 mcg PO QODAY 09/19/20 [History Last Taken Unknown] cyanocobalamin (vitamin B-12) 1,000 mcg PO DAILY 09/19/20 [History Last Taken Unknown] diltiazem HCl 120 mg PO BID 09/19/20 [History Last Taken Unknown] ferrous sulfate 324 mg PO BID 09/19/20 [History Last Taken Unknown] geriatric mrbefyyo-clim-tsks 1 each PO DAILY 09/19/20 [History Last Taken Unknown] levothyroxine 300 mcg PO DAILY 09/19/20 [History Last Taken Unknown] omega-3 fatty acids-fish oil 1 each PO DAILY 09/19/20 [History Last Taken Unknow n] sitagliptin 25 mg PO DAILY 09/19/20 [History Last Taken Unknown] torsemide 10 mg PO DAILY 09/19/20 [History Last Taken Unknown] zolpidem 10 mg PO QHS PRN PRN 09/19/20 [History Last Taken Unknown] Allergy/AdvReac Type Severity Reaction Status Date / Time lisinopril Allergy Anaphylaxis Verified 09/19/20 22:59 olmesartan [From Benicar] Allergy Anaphylaxis Verified 09/19/20 23:25 Sulfa (Sulfonamide Allergy Rash Verified 09/19/20 22:59 Antibiotics) adhesive tape AdvReac Rash Verified 09/19/20 22:59 furosemide [From Lasix] AdvReac Nausea Verified 09/19/20 22:59 latex AdvReac Rash Verified 09/19/20 23:25 metoprolol [From Toprol XL] AdvReac Rash Verified 09/19/20 23:25 Family History (Updated 09/27/20 @ 09:[address] Milady Parker MD) Father Diabetes Hypertension Mother Hypertension Surgical History (Updated 09/27/20 @ 09:[address] Milady Parker MD) S/P D&C (status post dilation and curettage) S/P hysterectomy with oophorectomy Social History (Updated 09/27/20 @ 09:[address] Milady Parker MD) household members: spouse Smoking Status: Never smoker alcohol intake: never substance use type: does not use ROS Constitutional Constitutional: Reports fatigue Cardiovascular Cardiovascular: Denies chest pain Respiratory/Chest Respiratory/Chest: Denies cough Gastrointestinal Gastrointestinal: Denies abdominal pain, hematemesis, hematochezia or melena Hematologic/Lymphatic Hematologic/Lymphatic: Denies easy bleeding Physical Exam Narrative Alert and oriented x3 Neck supple Chest Chest Narrative: Inspection and palpation of upper chest normal Resp normal respiratory effort Cardio regular rate GI soft to palpation, non-tender and non-distended Psych Attitude: calm Mood & Affect: euthymic mood Lab / Micro Data Result Diagrams: 09/27/20 05:46 09/27/20 05:46 Labs: Laboratory Results - last 24 hr 09/26/20 09/26/20 09/26/20 10:51 16:36 22:01 WBC RBC Hgb Hct MCV MCH MCHC RDW Std Deviation RDW Coeff of Samy Plt Count MPV PT INR APTT Sodium Potassium Chloride Carbon Dioxide Anion Gap BUN Creatinine Estim Creat Clear Calc Est GFR (MDRD) Af Amer Est GFR (MDRD) Non-Af BUN/Creatinine Ratio Glucose Calcium TSH Fluid Source Fluid Color Fluid Appearance Fluid WBC Fluid RBC Fluid Tot Cell Count Fld Polynuclear WBCs # Fld Polynuclear WBCs % Fluid Mononuclear WBCs Fld Mononuclear WBCs % Fluid Neutrophils Fluid Lymphocytes Fluid Monocytes Fluid Macrophages Fld Mesothelial Cells Fl Pathologist Comment Fluid Glucose Fluid Total Protein Fluid LDH Fluid Comment 2 POC Glucose 138 H 142 H 127 H 09/26/20 09/26/20 09/27/20 Unknown Unknown 05:46 WBC 11.5 H RBC 3.15 L Hgb 7.7 L Hct 28.2 L MCV 89.5 MCH 24.4 L MCHC 27.3 L RDW Std Deviation 53.6 H RDW Coeff of Samy 17.0 H Plt Count 293 MPV 9.6 PT INR APTT Sodium Potassium Chloride Carbon Dioxide Anion Gap BUN Creatinine Estim Creat Clear Calc Est GFR (MDRD) Af Amer Est GFR (MDRD) Non-Af BUN/Creatinine Ratio Glucose Calcium TSH Fluid Source THORACENTESIS Fluid Color YELLOW Fluid Appearance SL CLDY Fluid WBC 0.326 Fluid RBC 223 Fluid Tot Cell Count 0.363 H Fld Polynuclear WBCs # 0.027 Fld Polynuclear WBCs % 8.3 Fluid Mononuclear WBCs 0.299 Fld Mononuclear WBCs % 91.7 Fluid Neutrophils 10 Fluid Lymphocytes 60 Fluid Monocytes 5 Fluid Macrophages 23 Fld Mesothelial Cells 2 Fl Pathologist Comment May follow Fluid Glucose 135 H Fluid Total Protein 1.5 Fluid LDH 52 Fluid Comment 2 SEE COMMENT POC Glucose 09/27/20 09/27/20 09/27/20 05:46 05:46 06:42 WBC RBC Hgb Hct MCV MCH MCHC RDW Std Deviation RDW Coeff of Samy Plt Count MPV PT 14.8 INR 1.2 APTT 38.7 H Sodium 135 L Potassium 5.5 H Chloride 98 Carbon Dioxide 27.0 Anion Gap 10 BUN 80 H Creatinine 4.75 H Estim Creat Clear Calc 10.06 Est GFR (MDRD) Af Amer 12 L Est GFR (MDRD) Non-Af 10 L BUN/Creatinine Ratio 16.8 Glucose 95 Calcium 8.0 L TSH 3.27 Fluid Source Fluid Color Fluid Appearance Fluid WBC Fluid RBC Fluid Tot Cell Count Fld Polynuclear WBCs # Fld Polynuclear WBCs % Fluid Mononuclear WBCs Fld Mononuclear WBCs % Fluid Neutrophils Fluid Lymphocytes Fluid Monocytes Fluid Macrophages Fld Mesothelial Cells Fl Pathologist Comment Fluid Glucose Fluid Total Protein Fluid LDH Fluid Comment 2 POC Glucose 101 Micro: Microbiology 09/26/20 Unknown Gram Stain - Preliminary Fluid - Thoracentesis Fluid Rhythm Strip Rhythm Strip: Sinus Rhythm Rate: 85 Ectopy: None Radiology Impression Thoracentesis Ultrasound 09/25/20 16:27 IMPRESSION: Ultrasound-guided right thoracentesis. Electronically Signed: Rico Aguirre MD at 15:12 EDT , Service support , Chest X-Ray 09/26/20 14:33 IMPRESSION: Status post right thoracentesis. No evidence of pneumothorax. Electronically Signed: Rico Aguirre MD at 14:56 EDT , Service support , Procedure Criteria Procedure Type: Elective COVID Risk Discussion: The surgeon/proceduralist and patient have discussed in detail the risk of exposure to and/or potential harm posed by the COVID-19 virus with having a surgery/procedure at this time versus the risk of delaying the surgery/procedure. It is not possible to know either the risk of delaying the s urgery or procedure or chance of getting an infection with perfect accuracy, but a joint decision was made between the patient and the surgeon/proceduralist to proceed at this time with the scheduled surgery/procedure as indicated on the consent form. Charges/Coding Inpatient E&M: 35908 Init Hosp L2
[2020-09-27 08:40] LABS: Scan Indicated on CBC? Y/N NO
[2020-09-27 09:48] LABS: Hemoglobin A1c 5.9 % (3.8-5.6)
[2020-09-27] MEDS: Cefazolin 2 GM in 0.9% Normal Saline 100 ML IV (09:49)
[2020-09-27 09:50] LABS: Hepatitis B Surface Antigen Non-Reactive (Nonreactive)
[2020-09-27] MEDS: Bupivacaine 0.25% 30 ML Vial (10:00)
[2020-09-27] MEDS: Lidocaine 1% (30 ml sdv) 30 ML Vial (10:00)
[2020-09-27] MEDS: Heparin 10,000 UNITS/10 ML Vial 10000 UNITS (10:15)
--- NOTE | 2020-09-27 10:17 | PCM.OPRPT ---
Problems Associated Problem List Diagnoses (1) [id number] kidney injury: (2) Hyperkalemia: (3) Acute on chronic congestive heart failure: Report of Operation Date of Procedure: 09/27/20 Pre-Operative Diagnosis: Acute on chronic kidney disease Post-Operative Diagnosis: Same Surgery/Procedure Performed:: Insertion of right internal jugular tunneled dialysis catheter Use of ultrasound, Use of fluoroscopy Type of Anesthesia: Local MAC Anesthesiologist: Martin Carbajal Special Medications: Ancef 2 g IV x1 Estimated Blood Loss (mL): 20 cc Fluids Replaced: 75 cc Description of Procedure: After informed consent was given, the patient was brought to the operating room and placed in the supine position. Appropriate time out protocol was followed. She was then given IV conscious sedation for anesthesia. The patient's right upper chest and neck were then prepped with a surgical skin preparation and sterile surgical drapes were placed. After proper landmarks were ascertained, the skin at the upper right chest area was then infiltrated with 1:1 mixture of 1% lidocaine with epinephrine and 0.5% maricaine. A needle trocar was then inserted into the right internal jugular vein with ultrasound guidance-multiple vessels were viewed with u/s and the right IJ was chosen-- and there was good aspiration of venous blood. A wire was then threaded into the needle trocar and this was visualized under fluoroscopy to ensure that the wire was in the superior vena cava. Once this was done, then the needle trocar was removed. A small incision was made with an 11 blade knife at the wire entrance site. The dilator x2 with the introducer sheath attached was then placed over the wire into the right internal jugular vein via the Seldinger technique and this was visualized under fluoroscopy. Next the introducer and sheath were in proper position as visualized by fluoroscopy. The location of the cuffed was estimated on the skin, an incision was made with a 15 blade scalpel. The 14.5 Fr x 19 cm Palindrome dual lumen (Lot lot [id number] reference [id number]) was tunneled from the chest incision to the right neck incision. The sheath was removed. The catheter was placed through the introducer and was positioned with its tip at the junction of the superior vena cava and the right atrium as visualized under fluoroscopy. The cuff of the catheter was in the subcutaneous tissue. The catheter flushed and bob well with saline. Catheter was also flushed with 1.6 cc of 1-10,000 of heparin. Hemostasis was assured. Silver dressing was placed at the catheter exit site. Catheter was sutured with 3-0 nylon sutures. The neck incision was sutured with interrupted 3-0 Vicryl interrupted sutures x2 and Steri-Strips were placed. A large OpSite was placed over the catheter site and a small OpSite over the neck incision. The patient tolerated the procedure well. Implants Used: Grafts/Implants Used: 14.5 Fr x 19 cm Palindrome dual lumen (Lot lot [id number] reference [id number] Complications none
--- NOTE | 2020-09-27 10:21 | RAD_ITS ---
STUDY: X-RAY CHEST REASON FOR EXAM: Female, 69 years old. Dialysis cath, -- pacu TECHNIQUE: Single AP portable view of the chest. COMPARISON: Comparison is made with prior study dated 09/26/2020. FINDINGS: A right-sided dialysis catheter has been placed. The tip is at the junction of the superior vena cava and right atrium. There is evidence of vascular congestion mild degree of CHF. Blunting of both currently angles in keeping with small bilateral pleural effusions slightly more prominent on the left side with bibasilar atelectasis. RAD/CXR for Line Placement IMPRESSION: The tip of the right dialysis catheter is at the junction of the superior vena cava and right atrium. Electronically Signed: Rico Aguirre MD at 11:01 EDT , Service support ,
--- NOTE | 2020-09-27 11:40 | PCM.CONS.GEN ---
Assessment & Plan Assessment/Plan (1) Weakness: Status: Acute Code(s): R53.1 - Weakness Plan: continue with therapy, she will likely require SNF for ongoing therapy, spouse unable to manage at home. We will continue to follow as outpatient. (2) Fall: Status: Acute Code(s): W19.XXXA - Unspecified fall, initial encounter Qualifiers: Encounter type: subsequent encounter Qualified Code(s): W19.XXXD - Unspecified fall, subsequent encounter Plan: fall precautions. therapy. (3) Edema: Status: Acute Code(s): R60.9 - Edema, unspecified Qualifiers: Edema type: localized Qualified Code(s): R60.0 - Localized edema Plan: multifactorial. CKD and CHf. elevate legs. manage per hospitalist/nephrology. We will f/u as outpatient and work with her specialists to optimize care and try to avoid recurrent hospitalizations. (4) [id number] kidney injury: Status: Chronic Code(s): N17.9 - Acute kidney failure, unspecified; N18.9 - Chronic kidney disease, unspecified Qualifiers: Chronic kidney disease stage: on chronic dialysis Acute renal failure type: unspecified Qualified Code(s): N17.9 - Acute kidney failure, unspecified; N18.9 - Chronic kidney disease, unspecified; Z99.2 - Dependence on renal dialysis Plan: She is now end stage, going back and forth if she wants to pursue dialysis but is going to give it a try. Goals are improve quality of life and reduce symptomatology. Thank you for allowing us to participate in patient's care. Please do not hesitate to contact Palliative with any questions or concerns. Patient's spouse is agreeable to RN visit after d/c, if patient goes to TCU we will continue to follow her there> Greater than 50% of visit dedicated to education and counseling on palliative care, comorbid conditions, medications, follow-up as an outpatient. Patient and her spouse Jace verbalized understanding. Start time: 1141 End time: 1217 HPI Consult Data Date of Consult: 09/27/20 HPI Narrative Reason for Consultation: falls, weakness, SOB HPI Narrative: BRENT KRAUS, is a 69 F who presented to [facility] ED with multiple falls at home, increased shortness of breath, lower extremity edema, and generalized weakness. She fell at home in the shower and landed next to the toilet hitting her back. She is not anticoagulated but takes a daily baby aspirin. She was hypoxic in the ED and required 4 L of oxygen supplementation. Chest x-ray showed CHF with consolidation PMH includes CHF, CKD, T2 DM, hyperlipidemia, and hypertension. Patient being seen today for initial palliative [facility] ED with multiple falls at home, care consultation for ESRD with new hemodialysis with symptom management of shortness of breath. Patient reports she is very tired, was up all night. She now has a temporary dialysis catheter. Initially, patient was declining dialysis but changed her mind. States she does not do much at home, has poor activity tolerance. Complains of abdominal discomfort, lower extremity edema, and knee pain. Spoke with patient's spouse, Jace. He reports he is overwhelmed with taking care of her home. He is having difficulty keeping up with everything. He is thinking she will need skilled therapy for a while to regain her strength. Brent reports feeling very fatigued today. She just had a temporary dialysis catheter placed and is still somewhat sedated. Reports leg pain, mostly knees. Also c/o abdominal pain and mild shortness of breath intermittently. No n/v. States she has been unable to tolerate any activity since her health started failing. She is oriented x3. [facility] Home Medications alpha lipoic acid 100 mg PO DAILY 09/19/20 [History Last Taken Unknown] amlodipine 5 mg PO DAILY 09/19/20 [History Last Taken Unknown] ascorbic acid (vitamin C) 500 mg PO DAILY 09/19/20 [History Last Taken Unknown] aspirin 81 mg PO DAILY@0800 09/19/20 [History Last Taken Unknown] calcitriol 0.25 mcg PO QODAY 09/19/20 [History Last Taken Unknown] calcitriol 0.5 mcg PO QODAY 09/19/20 [History Last Taken Unknown] cyanocobalamin (vitamin B-12) 1,000 mcg PO DAILY 09/19/20 [History Last Taken Unknown] diltiazem HCl 120 mg PO BID 09/19/20 [History Last Taken Unknown] ferrous sulfate 324 mg PO BID 09/19/20 [History Last Taken Unknown] geriatric zxlfhajy-bktn-bqie 1 each PO DAILY 09/19/20 [History Last Taken Unknown] levothyroxine 300 mcg PO DAILY 09/19/20 [History Last Taken Unknown] omega-3 fatty acids-fish oil 1 each PO DAILY 09/19/20 [History Last Taken Unknown] sitagliptin 25 mg PO DAILY 09/19/20 [History Last Taken Unknown] torsemide 10 mg PO DAILY 09/19/20 [History Last Taken Unknown] zolpidem 10 mg PO QHS PRN PRN 09/19/20 [History Last Taken Unknown] Allergy/AdvReac Type Severity Reaction Status Date / Time lisinopril Allergy Anaphylaxis Verified 09/19/20 22:59 olmesartan [From Benicar] Allergy Anaphylaxis Verified 09/19/20 23:25 Sulfa (Sulfonamide Allergy Rash Verified 09/19/20 22:59 Antibiotics) adhesive tape AdvReac Rash Verified 09/19/20 22:59 furosemide [From Lasix] AdvReac Nausea Verified 09/19/20 22:59 latex AdvReac Rash Verified 09/19/20 23:25 metoprolol [From Toprol XL] AdvReac Rash Verified 09/19/20 23:25 Family History Father Diabetes Hypertension Mother Hypertension Surgical History S/P D&C (status post dilation and curettage) S/P hysterectomy with oophorectomy Social History household members: spouse Smoking Status: Never smoker alcohol intake: never substance use type: does not use ROS Constitutional Constitutional: Reports fatigue, weakness and weight gain Eyes Eyes: Denies change in vision ENT HEENT: Denies nasal congestion or sore throat Cardiovascular Cardiovascular: Reports edema and orthopnea; Denies chest pain Respiratory/Chest Respiratory/Chest: Reports shortness of breath with exertion; Denies cough, shortness of breath at rest or wheezing Gastrointestinal Gastrointestinal: Reports abdominal pain and diarrhea; Denies constipation, nausea or vomiting Genitourinary Genitourinary: Reports urinary incontinence; Denies dysuria Musculoskeletal Musculoskeletal: Reports extremity pain, joint pain and muscle weakness Integumentary Integumentary: Denies lesions Neurologic Neurologic: Reports abnormal gait; Denies focal weakness, tingling or tremor(s) Psychiatric Psychiatric: Reports depression Hematologic/Lymphatic Hematologic/Lymphatic: Reports anemia, easy bleeding and easy bruising Physical Exam Const oriented x3 and no apparent distress General Appearance: cooperative Orientation / Consciousness: lethargic HEENT normocephalic Neck supple General: trachea midline Resp normal respiratory effort Auscultation: diminished lung sounds bilateral Cardio regular rate, regular rhythm, S1 normal heart sound and S2 normal heart sound GI soft to palpation and non-tender GI Narrative: obese Extremity General Extremity: edema bilateral lower extremity; Negative for cyanosis Skin Skin Narrative: taut, shiny LEs, skin flaky General Skin Exam: dry skin Psych affect normal Lab / Micro Data Result Diagrams: 09/27/20 05:46 09/27/20 05:46 Labs: Laboratory Results - last 24 hr 09/26/20 09/26/20 09/27/20 22:01 Unknown 05:46 WBC 11.5 H RBC 3.15 L Hgb 7.7 L Hct 28.2 L MCV 89.5 MCH 24.4 L MCHC 27.3 L RDW Std Deviation 53.6 H RDW Coeff of Samy 17.0 H Plt Count 293 MPV 9.6 PT INR APTT Sodium Potassium Chloride Carbon Dioxide Anion Gap BUN Creatinine Estim Creat Clear Calc Est GFR (MDRD) Af Amer Est GFR (MDRD) Non-Af BUN/Creatinine Ratio Glucose Hemoglobin A1c Calcium TSH Fl Pathologist Comment Reviewed Hep Bs Antigen POC Glucose 127 H 09/27/20 09/27/20 09/27/20 05:46 05:46 05:46 WBC RBC Hgb Hct MCV MCH MCHC RDW Std Deviation RDW Coeff of Samy Plt Count MPV PT 14.8 INR 1.2 APTT 38.7 H Sodium 135 L Potassium 5.5 H Chloride 98 Carbon Dioxide 27.0 Anion Gap 10 BUN 80 H Creatinine 4.75 H Estim Creat Clear Calc 10.06 Est GFR (MDRD) Af Amer 12 L Est GFR (MDRD) Non-Af 10 L BUN/Creatinine Ratio 16.8 Glucose 95 Hemoglobin A1c Calcium 8.0 L TSH 3.27 Fl Pathologist Comment Hep Bs Antigen Non-Reactive POC Glucose 09/27/20 09/27/20 09/27/20 05:46 06:42 12:10 WBC RBC Hgb Hct MCV MCH MCHC RDW Std Deviation RDW Coeff of Samy Plt Count MPV PT INR APTT Sodium Potassium Chloride Carbon Dioxide Anion Gap BUN Creatinine Estim Creat Clear Calc Est GFR (MDRD) Af Amer Est GFR (MDRD) Non-Af BUN/Creatinine Ratio Glucose Hemoglobin A1c 5.9 H Calcium TSH Fl Pathologist Comment Hep Bs Antigen POC Glucose 101 104 09/27/20 16:48 WBC RBC Hgb Hct MCV MCH MCHC RDW Std Deviation RDW Coeff of Samy Plt Count MPV PT INR APTT Sodium Potassium Chloride Carbon Dioxide Anion Gap BUN Creatinine Estim Creat Clear Calc Est GFR (MDRD) Af Amer Est GFR (MDRD) Non-Af BUN/Creatinine Ratio Glucose Hemoglobin A1c Calcium TSH Fl Pathologist Comment Hep Bs Antigen POC Glucose 114 H Micro: Microbiology 09/26/20 Unknown Gram Stain - Final Fluid - Thoracentesis Fluid Body Fluid Culture - Preliminary No growth-Final to follow Rhythm Strip Rhythm Strip: Sinus Rhythm Rate: 85 Ectopy: None Radiology Impression Chest X-Ray 09/27/20 10:21 IMPRESSION: The tip of the right dialysis catheter is at the junction of the superior vena cava and right atrium. Electronically Signed: Rico Aguirre MD at 11:01 EDT , Service support ,
[2020-09-27] MEDS: dilTIAZem CD 120 MG Capsule PO ×2 (11:52→21:35)
[2020-09-27] MEDS: metOLazone 5 MG Tablet PO ×2 (11:52→21:35)
[2020-09-27] MEDS: Ascorbic Acid 500 MG Tablet PO (11:52)
[2020-09-27] MEDS: Calcitriol 0.25 MCG Capsule PO (11:53)
[2020-09-27] MEDS: amLODIPine 5 MG Tablet PO (11:53)
[2020-09-27] MEDS: Ferrous Sulfate 325 MG Tablet PO ×2 (11:53→17:46)
[2020-09-27] MEDS: Aspirin 81 MG TAB.CHEW PO (11:53)
[2020-09-27] MEDS: Cyanocobalamin 500 MCG Tablet 1000 MCG PO (11:53)
[2020-09-27] MEDS: Omega-3 Acid Ethyl Esters 1 GM Capsule PO (11:54)
[2020-09-27] MEDS: Multivitamins,Ther W-Minerals Tablet 1 TABLET PO (11:54)
[2020-09-27] MEDS: Pantoprazole Sodium 40 MG Tablet PO ×2 (11:54→21:35)
[2020-09-27 12:26] LABS: Bedside Glucose 104 mg/dL (70-110)
[2020-09-27 13:14] LABS: Pathologist Comment/Body Fluid Reviewed
--- NOTE | 2020-09-27 13:21 | CASEMGMT ---
Addendum entered by Genia Ward 09/27/20 13:26: Patient's just arrived at [facility]. SW met with him. Introduced self. SW told him that the original plan of patient going to the hospital's Transitional Care Unit is not going to work now as they do not take patients on dialysis. SW gave Patient's a list of SNF providers including quality and resource use data and consistent with the patient?s preferred geographic region, medical needs, and insurance network. SW explained that the facilities that are highlighted in pink are the facilities they have to choose from as they are in network with their insurance. SIRENA told him SW will check back with them. Genia CH Original Note: SIRENA called patient's to discuss discharge plan. There was no answer so SIRENA left a voice mail requesting a return call. Genia CH
--- NOTE | 2020-09-27 13:40 | PCM.PN.REN ---
Subjective Subjective: Patient denies nausea or vomiting has some mild shortness of breath Objective Data Objective Data Vital Signs: Vital Signs Temp Pulse Resp BP Pulse Ox 97.6 F L 88 20 H 149/74 H 93 09/27/20 11:37 09/27/20 11:37 09/27/20 11:37 09/27/20 11:37 09/27/20 11:37 Oxygen Flow Rate (L/min) [2] 15 Oxygen Flow Rate (L/min) [1 ( 15 Initial Baseline)] Oxygen Flow Rate (L/min) 12 Oxygen Delivery Method [2] Nasal Cannula Oxygen Delivery Method [1 ( Nasal Cannula Initial Baseline)] Oxygen Delivery Method Simple Mask Weight: 102.5 kg Body Mass Index (BMI) 37.5 Intake & Output: Intake and Output for Last 24 Hours 09/25/20 09/26/20 09/27/20 23:59 23:59 23:59 Intake Total 1415 / 1415 783.47 / 783.47 350 / 350 Output Total 475 / 475 1425 / 1425 130 / 130 Balance 940 / 940 -641.53 / -641.53 220 / 220 Lab / Micro Data Result Diagrams: 09/27/20 05:46 09/27/20 05:46 Labs: Laboratory Results - last 24 hr 09/26/20 09/26/20 09/26/20 16:36 22:01 Unknown WBC RBC Hgb Hct MCV MCH MCHC RDW Std Deviation RDW Coeff of Samy Plt Count MPV PT INR APTT Sodium Potassium Chloride Carbon Dioxide Anion Gap BUN Creatinine Estim Creat Clear Calc Est GFR (MDRD) Af Amer Est GFR (MDRD) Non-Af BUN/Creatinine Ratio Glucose Hemoglobin A1c Calcium TSH Fluid Source Fluid Color Fluid Appearance Fluid WBC Fluid RBC Fluid Tot Cell Count Fld Polynuclear WBCs # Fld Polynuclear WBCs % Fluid Mononuclear WBCs Fld Mononuclear WBCs % Fluid Neutrophils Fluid Lymphocytes Fluid Monocytes Fluid Macrophages Fld Mesothelial Cells Fl Pathologist Comment Fluid Glucose 135 H Fluid Total Protein 1.5 Fluid LDH 52 Fluid Comment 2 Hep Bs Antigen POC Glucose 142 H 127 H 09/26/20 09/27/20 09/27/20 Unknown 05:46 05:46 WBC 11.5 H RBC 3.15 L Hgb 7.7 L Hct 28.2 L MCV 89.5 MCH 24.4 L MCHC 27.3 L RDW Std Deviation 53.6 H RDW Coeff of Samy 17.0 H Plt Count 293 MPV 9.6 PT INR APTT Sodium 135 L Potassium 5.5 H Chloride 98 Carbon Dioxide 27.0 Anion Gap 10 BUN 80 H Creatinine 4.75 H Estim Creat Clear Calc 10.06 Est GFR (MDRD) Af Amer 12 L Est GFR (MDRD) Non-Af 10 L BUN/Creatinine Ratio 16.8 Glucose 95 Hemoglobin A1c Calcium 8.0 L TSH 3.27 Fluid Source THORACENTESIS Fluid Color YELLOW Fluid Appearance SL CLDY Fluid WBC 0.326 Fluid RBC 223 Fluid Tot Cell Count 0.363 H Fld Polynuclear WBCs # 0.027 Fld Polynuclear WBCs % 8.3 Fluid Mononuclear WBCs 0.299 Fld Mononuclear WBCs % 91.7 Fluid Neutrophils 10 Fluid Lymphocytes 60 Fluid Monocytes 5 Fluid Macrophages 23 Fld Mesothelial Cells 2 Fl Pathologist Comment Reviewed Fluid Glucose Fluid Total Protein Fluid LDH Fluid Comment 2 SEE COMMENT Hep Bs Antigen POC Glucose 09/27/20 09/27/20 09/27/20 05:46 05:46 05:46 WBC RBC Hgb Hct MCV MCH MCHC RDW Std Deviation RDW Coeff of Samy Plt Count MPV PT 14.8 INR 1.2 APTT 38.7 H Sodium Potassium Chloride Carbon Dioxide Anion Gap BUN Creatinine Estim Creat Clear Calc Est GFR (MDRD) Af Amer Est GFR (MDRD) Non-Af BUN/Creatinine Ratio Glucose Hemoglobin A1c 5.9 H Calcium TSH Fluid Source Fluid Color Fluid Appearance Fluid WBC Fluid RBC Fluid Tot Cell Count Fld Polynuclear WBCs # Fld Polynuclear WBCs % Fluid Mononuclear WBCs Fld Mononuclear WBCs % Fluid Neutrophils Fluid Lymphocytes Fluid Monocytes Fluid Macrophages Fld Mesothelial Cells Fl Pathologist Comment Fluid Glucose Fluid Total Protein Fluid LDH Fluid Comment 2 Hep Bs Antigen Non-Reactive POC Glucose 09/27/20 09/27/20 06:42 12:10 WBC RBC Hgb Hct MCV MCH MCHC RDW Std Deviation RDW Coeff of Samy Plt Count MPV PT INR APTT Sodium Potassium Chloride Carbon Dioxide Anion Gap BUN Creatinine Estim Creat Clear Calc Est GFR (MDRD) Af Amer Est GFR (MDRD) Non-Af BUN/Creatinine Ratio Glucose Hemoglobin A1c Calcium TSH Fluid Source Fluid Color Fluid Appearance Fluid WBC Fluid RBC Fluid Tot Cell Count Fld Polynuclear WBCs # Fld Polynuclear WBCs % Fluid Mononuclear WBCs Fld Mononuclear WBCs % Fluid Neutrophils Fluid Lymphocytes Fluid Monocytes Fluid Macrophages Fld Mesothelial Cells Fl Pathologist Comment Fluid Glucose Fluid Total Protein Fluid LDH Fluid Comment 2 Hep Bs Antigen POC Glucose 101 104 Micro: Microbiology 09/26/20 Unknown Fluid - Thoracentesis Fluid Gram Stain - Final 09/26/20 Unknown Fluid - Thoracentesis Fluid Body Fluid Culture - Preliminary No growth-Final to follow 09/19/20 23:58 Urine, Clean Catch Urine Culture - Final Mixed Gram Pos & Gram Neg Org 09/19/20 Unknown Nasal Secretion SARS-CoV-2 Antigen (Rapid) - Final Radiography Diagnostic Testing: Radiology Impression Thoracentesis Ultrasound 09/25/20 16:27 IMPRESSION: Ultrasound-guided right thoracentesis. Electronically Signed: Rico Aguirre MD at 15:12 EDT , Service support , Chest X-Ray 09/26/20 14:33 IMPRESSION: Status post right thoracentesis. No evidence of pneumothorax. Electronically Signed: Rico Aguirre MD at 14:56 EDT , Service support , Chest X-Ray 09/27/20 10:21 IMPRESSION: The tip of the right dialysis catheter is at the junction of the superior vena cava and right atrium. Electronically Signed: Rico Aguirre MD at 11:01 EDT , Service support , Rhythm Strip Rhythm Strip: Sinus Rhythm Rate: 85 Ectopy: None Physical Exam Narrative heent at/nc chest cta b/l decrease air entry at the bases CV rrr no rubs gallops Abd soft bs+ obese NT Extr edema b/l pretibial Neuro alert awake Const alert and no apparent distress General Appearance: cooperative and comfortable Orientation / Consciousness: awake and oriented to person HEENT normocephalic Assessment & Plan Assessment/Plan (1) LIZ (acute kidney injury): Status: Acute Code(s): N17.9 - Acute kidney failure, unspecified Plan: Serum creatinine is 4.7. The patient agreed finally with dialysis and she had tunneled dialysis catheter placed in the right IJ. Major risks and benefits of dialysis including but not limited to infection bleeding seizures stroke heart attack were explained to the patient and her present at the bedside who voiced understanding and agree to proceed with dialysis. 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 We will do UF as tolerated. First dialysis today and tomorrow and . Continue diuretics. (2) Edema: Status: Acute Code(s): R60.9 - Edema, unspecified Qualifiers: Edema type: localized Qualified Code(s): R60.0 - Localized edema Plan: UF as tolerated continue diuretics fluid restriction (3) Hyperkalemia: Status: Acute Code(s): E87.5 - Hyperkalemia Plan: HD diuretics renal diet (4) Hypertension: Status: Chronic Code(s): I10 - Essential (primary) hypertension Qualifiers: Hypertension type: unspecified Qualified Code(s): I10 - Essential (primary) hypertension Plan: reevaluate after UF (5) Acute exacerbation of CHF (congestive heart failure): Status: Chronic Code(s): I50.9 - Heart failure, unspecified Qualifiers: Heart failure type: unspecified Qualified Code(s): I50.9 - Heart failure, unspecified Plan: UF as tolerated fluid restriction diuretics o/w mgmt per primary
--- NOTE | 2020-09-27 16:49 | PCM.PN.HOSP ---
Subjective Subjective: Currently on HD. Breathing well with oxygen. So far tolerating HD. Objective Data Objective Data Vital Signs: Vital Signs Temp Pulse Resp BP Pulse Ox 36.4 C L 84 20 H 149/74 H 93 09/27/20 11:37 09/27/20 14:56 09/27/20 11:37 09/27/20 11:37 09/27/20 11:37 Oxygen Flow Rate (L/min) [2] 15 Oxygen Flow Rate (L/min) [1 ( 15 Initial Baseline)] Oxygen Flow Rate (L/min) 12 Oxygen Delivery Method [2] Nasal Cannula Oxygen Delivery Method [1 ( Nasal Cannula Initial Baseline)] Oxygen Delivery Method Simple Mask Weight: 102.5 kg Body Mass Index (BMI) 37.5 Intake & Output: Intake and Output for Last 24 Hours 09/25/20 09/26/20 09/27/20 23:59 23:59 23:59 Intake Total 1415 / 1415 783.47 / 783.47 350 / 350 Output Total 475 / 475 1425 / 1425 130 / 130 Balance 940 / 940 -641.53 / -641.53 220 / 220 Lab / Micro Data Result Diagrams: 09/27/20 05:46 09/27/20 05:46 Labs: Laboratory Results - last 24 hr 09/26/20 09/26/20 09/26/20 16:36 22:01 Unknown WBC RBC Hgb Hct MCV MCH MCHC RDW Std Deviation RDW Coeff of Samy Plt Count MPV PT INR APTT Sodium Potassium Chloride Carbon Dioxide Anion Gap BUN Creatinine Estim Creat Clear Calc Est GFR (MDRD) Af Amer Est GFR (MDRD) Non-Af BUN/Creatinine Ratio Glucose Hemoglobin A1c Calcium TSH Fluid Source THORACENTESIS Fluid Color YELLOW Fluid Appearance SL CLDY Fluid RBC 223 Fluid Neutrophils 10 Fluid Lymphocytes 60 Fluid Monocytes 5 Fluid Macrophages 23 Fld Mesothelial Cells 2 Fl Pathologist Comment Reviewed Fluid Comment 2 SEE COMMENT Hep Bs Antigen POC Glucose 142 H 127 H 09/27/20 09/27/20 09/27/20 05:46 05:46 05:46 WBC 11.5 H RBC 3.15 L Hgb 7.7 L Hct 28.2 L MCV 89.5 MCH 24.4 L MCHC 27.3 L RDW Std Deviation 53.6 H RDW Coeff of Samy 17.0 H Plt Count 293 MPV 9.6 PT INR APTT Sodium 135 L Potassium 5.5 H Chloride 98 Carbon Dioxide 27.0 Anion Gap 10 BUN 80 H Creatinine 4.75 H Estim Creat Clear Calc 10.06 Est GFR (MDRD) Af Amer 12 L Est GFR (MDRD) Non-Af 10 L BUN/Creatinine Ratio 16.8 Glucose 95 Hemoglobin A1c Calcium 8.0 L TSH 3.27 Fluid Source Fluid Color Fluid Appearance Fluid RBC Fluid Neutrophils Fluid Lymphocytes Fluid Monocytes Fluid Macrophages Fld Mesothelial Cells Fl Pathologist Comment Fluid Comment 2 Hep Bs Antigen Non-Reactive POC Glucose 09/27/20 09/27/20 09/27/20 05:46 05:46 06:42 WBC RBC Hgb Hct MCV MCH MCHC RDW Std Deviation RDW Coeff of Samy Plt Count MPV PT 14.8 INR 1.2 APTT 38.7 H Sodium Potassium Chloride Carbon Dioxide Anion Gap BUN Creatinine Estim Creat Clear Calc Est GFR (MDRD) Af Amer Est GFR (MDRD) Non-Af BUN/Creatinine Ratio Glucose Hemoglobin A1c 5.9 H Calcium TSH Fluid Source Fluid Color Fluid Appearance Fluid RBC Fluid Neutrophils Fluid Lymphocytes Fluid Monocytes Fluid Macrophages Fld Mesothelial Cells Fl Pathologist Comment Fluid Comment 2 Hep Bs Antigen POC Glucose 101 09/27/20 12:10 WBC RBC Hgb Hct MCV MCH MCHC RDW Std Deviation RDW Coeff of Samy Plt Count MPV PT INR APTT Sodium Potassium Chloride Carbon Dioxide Anion Gap BUN Creatinine Estim Creat Clear Calc Est GFR (MDRD) Af Amer Est GFR (MDRD) Non-Af BUN/Creatinine Ratio Glucose Hemoglobin A1c Calcium TSH Fluid Source Fluid Color Fluid Appearance Fluid RBC Fluid Neutrophils Fluid Lymphocytes Fluid Monocytes Fluid Macrophages Fld Mesothelial Cells Fl Pathologist Comment Fluid Comment 2 Hep Bs Antigen POC Glucose 104 Micro: Microbiology 09/26/20 Unknown Fluid - Thoracentesis Fluid Gram Stain - Final 09/26/20 Unknown Fluid - Thoracentesis Fluid Body Fluid Culture - Preliminary No growth-Final to follow 09/19/20 23:58 Urine, Clean Catch Urine Culture - Final Mixed Gram Pos & Gram Neg Org 09/19/20 Unknown Nasal Secretion SARS-CoV-2 Antigen (Rapid) - Final Radiography Diagnostic Testing: Radiology Impression Chest X-Ray 09/27/20 10:21 IMPRESSION: The tip of the right dialysis catheter is at the junction of the superior vena cava and right atrium. Electronically Signed: Rico Aguirre MD at 11:01 EDT , Service support , Rhythm Strip Rhythm Strip: Sinus Rhythm Rate: 85 Ectopy: None Physical Exam Narrative On HD. No respiratory distress. No conversational dyspnea. Resp normal respiratory effort Resp Narrative: coarse BS bilaterally Cardio regular rate, regular rhythm, S1 normal heart sound and S2 normal heart sound Assessment & Plan Assessment/Plan (1) LIZ (acute kidney injury): Status: Acute Code(s): N17.9 - Acute kidney failure, unspecified Plan: 1. acute hypoxic respiratory failure ongoing 2/2 CHF wean oxygen as able. 2. acute HFpEF EF 60% on furosemide gtt metolazone added on HD currentely 3. CKD IV nephrology following DW nephrology, no need for [employer] at this time. 4. Abnormal UA UTI ruled out.
[2020-09-27 16:55] LABS: Bedside Glucose 114 mg/dL (70-110)
--- NOTE | 2020-09-27 17:24 | DIALYSIS ---
HD X 2 HOURS ON 2K BATH [id number] TOLERATED WELL NEW RIJ CATH WITH GOOD FLOWS-VSS THROUGHOUT TX REPORT TO KAYLA SUTTON
[2020-09-27 21:46] LABS: Bedside Glucose 114 mg/dL (70-110)
[2020-09-28] VITALS (14 sets, daily range): BP systolic 142–149; BP diastolic 47–64; PULSE 78–86; RESP 16–20; TEMP 36–37.1; O2SAT 80–100
[2020-09-28] MEDS: Levothyroxine 150 MCG Tablet 300 MCG PO (05:25)
[2020-09-28 05:37] LABS: Absolute Lymphocyte Count 0.86 X10^3/uL (0.83-4.51); Absolute Neutrophil Count 7.7 X10^3/uL (2.0-7.7); Basophil# 0.06 X10^3/uL; Basophil% 0.6 % (0-1); Eosinophil# 0.13 X10^3/uL; Eosinophils% 1.3 % (0-5); Hematocrit 27.2 % (37-47); Hemoglobin 7.3 g/dL (12.0-15.0); Lymphocyte # 0.86 X10^3/ul (0.83-4.51); Lymphocyte % 8.7 % (19-41); Mean Corp Hgb Conc 26.8 g/dL (32-36); Mean Corpuscular Hgb 24.2 pg (27.0-32.0); Mean Corpuscular Volume 90.1 fL (81-99); Mean Platelet Vol. 9.2 fl (6.2-12.0); Monocyte# 0.92 X10^3/uL; Monocyte% 9.3 % (0-10); NRBC Flagged by Analyzer 0 % (0-5); Neutrophil # 7.67 X10^3/uL (2.7-7.7); Neutrophil % 78.1 % (47-70); Platelet Count 256 K/mm3 (150-450); RBC Distribution Width CV 17.4 % (11.6-14.6); RBC Distribution Width SD 54.7 fl (35.1-43.9); Red Blood Count 3.02 M/mm3 (4.2-5.4); White Blood Count 9.8 K/mm3 (4.4-11.0)
[2020-09-28 05:52] LABS: Anion Gap 7 (5-15); BUN 67 mg/dL (7-18); BUN/Creat Ratio 15.6 RATIO (10-20); Calcium,Total 7.7 mg/dL (8.5-10.1); Chloride 99 mmol/L (98-107); EST Glomerular Filtration Rate 11 mL/min (>60); Est Glom Filt Rate - Afr Amer 13 mL/min (>60); Estimated Creatinine Clearance 11.11 ml/min; Glucose 79 mg/dL (74-106); Potassium 4.9 mmol/L (3.5-5.1); Sodium Level 136 mmol/L (136-145)
[2020-09-28 06:46] LABS: Bedside Glucose 80 mg/dL (70-110)
--- NOTE | 2020-09-28 11:42 | DIALYSIS ---
HD x 3 hours complete. Tolerated tx well. Ran on 2k bath. UF of 3500ml. Used right chest wall dialysis catheter. Lumens closed with heparin per fill volume. Caps placed. Dressing is intact. No bleeding from catheter exit site at this time. Report was given to Christi
--- NOTE | 2020-09-28 11:42 | PCM.PN.REN ---
Subjective Subjective: Denies shortness of breath tolerated dialysis well today Objective Data Objective Data Vital Signs: Vital Signs Temp Pulse Resp BP Pulse Ox 97.3 F L 79 18 142/54 H 100 09/28/20 08:25 09/28/20 08:25 09/28/20 08:25 09/28/20 08:25 09/28/20 08:25 Oxygen Flow Rate (L/min) [2] 15 Oxygen Flow Rate (L/min) [1 ( 15 Initial Baseline)] Oxygen Flow Rate (L/min) 10 Oxygen Delivery Method [2] Nasal Cannula Oxygen Delivery Method [1 ( Nasal Cannula Initial Baseline)] Oxygen Delivery Method Nasal Cannula Weight: 102.2 kg Body Mass Index (BMI) 37.5 Intake & Output: Intake and Output for Last 24 Hours 09/26/20 09/27/20 09/28/20 23:59 23:59 23:59 Intake Total 783.47 / 783.47 710 / 710 120 / 120 Output Total 1425 / 1425 2255 / 2255 75 / 75 Balance -641.53 / -641.53 -1545 / -1545 45 / 45 Lab / Micro Data Result Diagrams: 09/28/20 05:08 09/28/20 05:08 Labs: Laboratory Results - last 24 hr 09/26/20 09/27/20 09/27/20 Unknown 12:10 16:48 WBC RBC Hgb Hct MCV MCH MCHC RDW Std Deviation RDW Coeff of Samy Plt Count MPV Immature Gran % (Auto) Neut % (Auto) Lymph % (Auto) [place] % (Auto) Eos % (Auto) Baso % (Auto) Absolute Neuts (auto) Absolute Lymphs (auto) Nucleated RBC % Sodium Potassium Chloride Carbon Dioxide Anion Gap BUN Creatinine Estim Creat Clear Calc Est GFR (MDRD) Af Amer Est GFR (MDRD) Non-Af BUN/Creatinine Ratio Glucose Calcium Fl Pathologist Comment Reviewed POC Glucose 104 114 H 09/27/20 09/28/20 09/28/20 21:36 05:08 05:08 WBC 9.8 RBC 3.02 L Hgb 7.3 L Hct 27.2 L MCV 90.1 MCH 24.2 L MCHC 26.8 L RDW Std Deviation 54.7 H RDW Coeff of Samy 17.4 H Plt Count 256 MPV 9.2 Immature Gran % (Auto) 2.000 H Neut % (Auto) 78.1 H Lymph % (Auto) 8.7 L [place] % (Auto) 9.3 Eos % (Auto) 1.3 Baso % (Auto) 0.6 Absolute Neuts (auto) 7.7 Absolute Lymphs (auto) 0.86 Nucleated RBC % 0 Sodium 136 Potassium 4.9 Chloride 99 Carbon Dioxide 30.0 Anion Gap 7 BUN 67 H Creatinine 4.30 H Estim Creat Clear Calc 11.11 Est GFR (MDRD) Af Amer 13 L Est GFR (MDRD) Non-Af 11 L BUN/Creatinine Ratio 15.6 Glucose 79 Calcium 7.7 L Fl Pathologist Comment POC Glucose 114 H 09/28/20 06:39 WBC RBC Hgb Hct MCV MCH MCHC RDW Std Deviation RDW Coeff of Samy Plt Count MPV Immature Gran % (Auto) Neut % (Auto) Lymph % (Auto) [place] % (Auto) Eos % (Auto) Baso % (Auto) Absolute Neuts (auto) Absolute Lymphs (auto) Nucleated RBC % Sodium Potassium Chloride Carbon Dioxide Anion Gap BUN Creatinine Estim Creat Clear Calc Est GFR (MDRD) Af Amer Est GFR (MDRD) Non-Af BUN/Creatinine Ratio Glucose Calcium Fl Pathologist Comment POC Glucose 80 Micro: Microbiology 09/26/20 Unknown Fluid - Thoracentesis Fluid Gram Stain - Final 09/26/20 Unknown Fluid - Thoracentesis Fluid Body Fluid Culture - Preliminary No growth-Final to follow 09/26/20 Unknown Fluid - Thoracentesis Fluid Anaerobic Culture - Preliminary No growth in 48 hours. 09/19/20 23:58 Urine, Clean Catch Urine Culture - Final Mixed Gram Pos & Gram Neg Org 09/19/20 Unknown Nasal Secretion SARS-CoV-2 Antigen (Rapid) - Final Rhythm Strip Rhythm Strip: Sinus Rhythm Rate: 85 Ectopy: None Physical Exam Narrative heent at/nc chest cta b/l decrease air entry at the bases CV rrr no rubs gallops Abd soft bs+ obese NT Extr edema b/l pretibial Neuro alert awake Const alert and no apparent distress General Appearance: cooperative and comfortable Orientation / Consciousness: awake and oriented to person HEENT normocephalic Assessment & Plan Assessment/Plan (1) LIZ (acute kidney injury): Status: Acute Code(s): N17.9 - Acute kidney failure, unspecified Plan: . grocery manager will work for placement in the [facility] dialysis unit. We will do UF as tolerated. For dialysis tomorrow again she tolerated 3.5 L fluid removal today. (2) Edema: Status: Acute Code(s): R60.9 - Edema, unspecified Qualifiers: Edema type: localized Qualified Code(s): R60.0 - Localized edema Plan: UF as tolerated continue diuretics fluid restriction. Stop diuretic drip start on Lasix 80 mg p.o. twice daily (3) Hyperkalemia: Status: Acute Code(s): E87.5 - Hyperkalemia Plan: HD diuretics renal diet (4) Hypertension: Status: Chronic Code(s): I10 - Essential (primary) hypertension Qualifiers: Hypertension type: unspecified Qualified Code(s): I10 - Essential (primary) hypertension Plan: reevaluate after UF mo nitor (5) Acute exacerbation of CHF (congestive heart failure): Status: Chronic Code(s): I50.9 - Heart failure, unspecified Qualifiers: Heart failure type: unspecified Qualified Code(s): I50.9 - Heart failure, unspecified Plan: UF as tolerated fluid restriction diuretics o/w mgmt per primary
--- NOTE | 2020-09-28 12:13 | CASEMGMT ---
LESLEY CM in to pt room to provide list of local in network dialysis facilities. Pt chose [facility] but appeared to be slightly unsure if she should make the decision. TC to pt and provided verbally the list over the phone of facilities. Pt also chose [facility]. Referral initiated on the portal at this time.
--- NOTE | 2020-09-28 12:36 | PCM.PN.HOSP ---
Documented by User: Deandra Emery NP, PROPERTY TECHNICIAN-C 09/28/20 12:45 Subjective Subjective: Patient seen and examined. Undergoing dialysis. Tolerating well. Patient reports fatigue, tiredness. Denies other symptoms or complaints. Objective Data Objective Data Vital Signs: Vital Signs Temp Pulse Resp BP Pulse Ox 96.8 F L 86 16 145/64 H 100 09/28/20 11:41 09/28/20 11:41 09/28/20 11:41 09/28/20 11:41 09/28/20 08:25 Oxygen Flow Rate (L/min) [2] 15 Oxygen Flow Rate (L/min) [1 ( 15 Initial Baseline)] Oxygen Flow Rate (L/min) 10 Oxygen Delivery Method [2] Nasal Cannula Oxygen Delivery Method [1 ( Nasal Cannula Initial Baseline)] Oxygen Delivery Method Nasal Cannula Weight: 225 lb 4.999 oz Body Mass Index (BMI) 37.5 Intake & Output: Intake and Output for Last 24 Hours 09/26/20 09/27/20 09/28/20 23:59 23:59 23:59 Intake Total 783.47 / 783.47 710 / 710 159.88 / 159.88 Output Total 1425 / 1425 2255 / 2255 75 / 75 Balance -641.53 / -641.53 -1545 / -1545 84.88 / 84.88 Lab / Micro Data Result Diagrams: 09/28/20 05:08 09/28/20 05:08 Labs: Laboratory Results - last 24 hr 09/26/20 09/27/20 09/27/20 Unknown 16:48 21:36 WBC RBC Hgb Hct MCV MCH MCHC RDW Std Deviation RDW Coeff of Samy Plt Count MPV Immature Gran % (Auto) Neut % (Auto) Lymph % (Auto) [place] % (Auto) Eos % (Auto) Baso % (Auto) Absolute Neuts (auto) Absolute Lymphs (auto) Nucleated RBC % Sodium Potassium Chloride Carbon Dioxide Anion Gap BUN Creatinine Estim Creat Clear Calc Est GFR (MDRD) Af Amer Est GFR (MDRD) Non-Af BUN/Creatinine Ratio Glucose Calcium Fl Pathologist Comment Reviewed POC Glucose 114 H 114 H 09/28/20 09/28/20 09/28/20 05:08 05:08 06:39 WBC 9.8 RBC 3.02 L Hgb 7.3 L Hct 27.2 L MCV 90.1 MCH 24.2 L MCHC 26.8 L RDW Std Deviation 54.7 H RDW Coeff of Samy 17.4 H Plt Count 256 MPV 9.2 Immature Gran % (Auto) 2.000 H Neut % (Auto) 78.1 H Lymph % (Auto) 8.7 L [place] % (Auto) 9.3 Eos % (Auto) 1.3 Baso % (Auto) 0.6 Absolute Neuts (auto) 7.7 Absolute Lymphs (auto) 0.86 Nucleated RBC % 0 Sodium 136 Potassium 4.9 Chloride 99 Carbon Dioxide 30.0 Anion Gap 7 BUN 67 H Creatinine 4.30 H Estim Creat Clear Calc 11.11 Est GFR (MDRD) Af Amer 13 L Est GFR (MDRD) Non-Af 11 L BUN/Creatinine Ratio 15.6 Glucose 79 Calcium 7.7 L Fl Pathologist Comment POC Glucose 80 Micro: Microbiology 09/26/20 Unknown Fluid - Thoracentesis Fluid Gram Stain - Final 09/26/20 Unknown Fluid - Thoracentesis Fluid Body Fluid Culture - Preliminary No growth-Final to follow 09/26/20 Unknown Fluid - Thoracentesis Fluid Anaerobic Culture - Preliminary No growth in 48 hours. 09/19/20 23:58 Urine, Clean Catch Urine Culture - Final Mixed Gram Pos & Gram Neg Org 09/19/20 Unknown Nasal Secretion SARS-CoV-2 Antigen (Rapid) - Final Rhythm Strip Rhythm Strip: Sinus Rhythm Rate: 85 Ectopy: None Physical Exam Const alert, oriented x3 and no apparent distress Orientation / Consciousness: awake, oriented to person, oriented to place and oriented to time HEENT moist oral mucous membranes Head and Scalp: normocephalic Eyes PERRL, EOMs intact bilaterally and conjunctivae normal Neck no lymphadenopathy Resp clear to auscultation bilaterally Auscultation: diminished lung sounds Cardio regular rate, regular rhythm and no murmurs Peripheral Pulses: pulses 2+ throughout GI normal to inspection, nondistended, normoactive bowel sounds, non-tender and non-distended Extremity normal to inspection General Extremity: edema bilateral lower extremity Details: moderate Peripheral Pulses: Yes pulses 2+ throughout Skin no rashes or lesions noted Lesions: no lesions Rashes: no rashes Trauma: no lacerations or abrasions Neuro oriented x3 Sensorium / Orientation: awake and alert Psych affect normal Assessment & Plan Assessment/Plan (1) Acute exacerbation of CHF (congestive heart failure): Status: Chronic Code(s): I50.9 - Heart failure, unspecified Qualifiers: Heart failure type: unspecified Qualified Code(s): I50.9 - Heart failure, unspecified (2) [id number] kidney injury: Status: Chronic Code(s): N17.9 - Acute kidney failure, unspecified; N18.9 - Chronic kidney disease, unspecified Qualifiers: Acute renal failure type: unspecified Chronic kidney disease stage: on chronic dialysis Qualified Code(s): N17.9 - Acute kidney failure, unspecified; N18.9 - Chronic kidney disease, unspecified; Z99.2 - Dependence on renal dialysis (3) Acute respiratory failure with hypoxia: Status: Acute Code(s): J96.01 - Acute respiratory failure with hypoxia (4) Diabetes mellitus type 2 in obese: Status: Chronic Code(s): E11.69 - Type 2 diabetes mellitus with other specified complication; E66.9 - Obesity, unspecified (5) Hypertension: Status: Chronic Code(s): I10 - Essential (primary) hypertension Qualifiers: Hypertension type: unspecified Qualified Code(s): I10 - Essential (primary) hypertension (6) Hyperlipidemia: Status: Chronic Code(s): E78.5 - Hyperlipidemia, unspecified Plan: 1. Acute hypoxic respiratory failure secondary to acute on chronic heart failure with preserved ejection fraction complicated by worsening chronic kidney disease stage IV-BNP 846. Chest x-ray with bilateral pleural effusions and CHF. Echocardiogram demonstrates an EF of 60%, mild mitral valve insufficiency, moderate tricuspid valve insufficiency. Strict I&O. Daily weight. Continue supplement oxygen to maintain O2 at above 90%. BIPAP QHS. Wean oxygen as tolerated. On metolazone 5 mg twice daily. Initiated on dialysis. 2. Chronic kidney disease stage IV-suspect worsening renal function is mainly contributing to respiratory failure, edema as echocardiogram overall unremarkable. Nephrology following. Tunneled dialysis catheter placed 09/27/2020 with initiation of dialysis. Continue dialysis per nephrology recommendations. Trend BMP. 3. Acute UTI, ruled out-received 3 doses of IV Rocephin. Urine culture growing mixed gram-positive and mixed gram-negative organisms, low colony count. Discontinued further antibiotics. 4. Type 2 diabetes mellitus-oral regimen on hold. Accu-Cheks with sliding scale insulin. 5. Hypertension-continue amlodipine, Cardizem. 6. Hyperlipidemia-continue statin. 7. Hypothyroidism-continue Synthroid. 8. Chronic normocytic anemia/anemia of chronic disease-iron levels significantly low. IV Venofer x3 doses. Continue oral iron supplementation stool for occult blood ordered. Status post 1 unit PRBC. Hemoglobin now stable. Will need outpatient EGD/colonoscopy. Trend CBC. DVT prophylaxis-Lovenox subcu Discharge plan: SNF versus LTAC pending patient's response to dialysis. This patient was seen by Deandra Emery NP-[place] under the supervision of Dr. Scott. Documented by User: Dr. Santiago Scott, 09/28/20 13:47 Subjective Subjective: breathing well on 10liters. Objective Data Lab / Micro Data Result Diagrams: 09/28/20 05:08 09/28/20 05:08 Physical Exam Narrative seen on HD Const alert Resp normal respiratory effort Resp Narrative: coarse breath sounds bilateally. Cardio regular rate, regular rhythm, S1 normal heart sound and S2 normal heart sound Assessment & Plan Assessment/Plan (1) LIZ (acute kidney injury): Status: Acute Code(s): N17.9 - Acute kidney failure, unspecified Plan: Patient seen and examined independently. Data reviewed. I agree with the above note by the nurse practitioner. 1. acute hypoxic respiratory failure ongoing 2/2 CHF wean oxygen as able. 2. acute HFpEF EF 60% on furosemide gtt metolazone added on HD currentely 3. CKD IV nephrology following DW nephrology, no need for OCCUPATIONAL THERAPIST'S ASSISTANT at this time. 4. Abnormal UA UTI ruled out. Inpatient E&M: 25382 Subs Hosp L2
[2020-09-28] MEDS: Ferrous Sulfate 325 MG Tablet PO ×2 (13:06→17:21)
[2020-09-28] MEDS: Enoxaparin 30 MG/0.3 ML Syringe SC (13:06)
[2020-09-28] MEDS: Calcitriol 0.25 MCG Capsule 0.5 MCG PO (13:07)
[2020-09-28] MEDS: metOLazone 5 MG Tablet PO ×2 (13:07→21:45)
[2020-09-28] MEDS: Multivitamins,Ther W-Minerals Tablet 1 TABLET PO (13:07)
[2020-09-28] MEDS: Pantoprazole Sodium 40 MG Tablet PO ×2 (13:07→21:45)
[2020-09-28] MEDS: Aspirin 81 MG TAB.CHEW PO (13:07)
[2020-09-28] MEDS: Ascorbic Acid 500 MG Tablet PO (13:07)
[2020-09-28] MEDS: Omega-3 Acid Ethyl Esters 1 GM Capsule PO (13:07)
[2020-09-28] MEDS: amLODIPine 5 MG Tablet PO (13:07)
[2020-09-28] MEDS: Cyanocobalamin 500 MCG Tablet 1000 MCG PO (13:07)
[2020-09-28] MEDS: Heparin 10,000 UNITS/10 ML Vial IV (13:08)
[2020-09-28] MEDS: dilTIAZem CD 120 MG Capsule PO ×2 (13:09→21:45)
[2020-09-28] MEDS: Furosemide 80 MG Tablet PO (17:21)
[2020-09-29] VITALS (13 sets, daily range): BP systolic 141–158; BP diastolic 49–73; PULSE 71–82; RESP 18–20; TEMP 36.4–36.9; O2SAT 95–100
[2020-09-29] MEDS: Levothyroxine 150 MCG Tablet 300 MCG PO (06:31)
[2020-09-29 06:42] LABS: Absolute Lymphocyte Count 0.79 X10^3/uL (0.83-4.51); Absolute Neutrophil Count 7.6 X10^3/uL (2.0-7.7); Basophil# 0.05 X10^3/uL; Basophil% 0.5 % (0-1); Eosinophil# 0.27 X10^3/uL; Eosinophils% 2.8 % (0-5); Hematocrit 26.4 % (37-47); Hemoglobin 7.3 g/dL (12.0-15.0); Lymphocyte # 0.79 X10^3/ul (0.83-4.51); Lymphocyte % 8.2 % (19-41); Mean Corp Hgb Conc 27.7 g/dL (32-36); Mean Corpuscular Hgb 25.1 pg (27.0-32.0); Mean Corpuscular Volume 90.7 fL (81-99); Mean Platelet Vol. 9.1 fl (6.2-12.0); Monocyte# 0.85 X10^3/uL; Monocyte% 8.8 % (0-10); NRBC Flagged by Analyzer 0 % (0-5); Neutrophil # 7.58 X10^3/uL (2.7-7.7); Neutrophil % 78.3 % (47-70); Platelet Count 233 K/mm3 (150-450); RBC Distribution Width CV 17.4 % (11.6-14.6); RBC Distribution Width SD 56.6 fl (35.1-43.9); Red Blood Count 2.91 M/mm3 (4.2-5.4); White Blood Count 9.7 K/mm3 (4.4-11.0)
[2020-09-29 07:09] LABS: Anion Gap 6 (5-15); BUN 45 mg/dL (7-18); BUN/Creat Ratio 12.9 RATIO (10-20); Calcium,Total 7.8 mg/dL (8.5-10.1); Chloride 98 mmol/L (98-107); Creatinine, Serum 3.49 mg/dL (0.55-1.02); EST Glomerular Filtration Rate 14 mL/min (>60); Est Glom Filt Rate - Afr Amer 17 mL/min (>60); Estimated Creatinine Clearance 13.69 ml/min; Glucose 92 mg/dL (74-106); Sodium Level 134 mmol/L (136-145)
--- NOTE | 2020-09-29 09:57 | PN.RENAL_ITS ---
Subjective Subjective: Following for end-stage renal disease. The patient is seen during hemodialysis. She is tolerating the procedure well so far. She complains of fatigue, but there is no chest pain, shortness of breath, or nausea. Edema of the lower extremities are subjectively improved. Objective Data Objective Data Vital Signs: Vital Signs Temp Pulse Resp BP Pulse Ox 97.8 F 78 18 147/50 H 95 09/29/20 07:55 09/29/20 07:55 09/29/20 07:55 09/29/20 07:55 09/29/20 07:55 Oxygen Flow Rate (L/min) [2] 15 Oxygen Flow Rate (L/min) [1 ( 15 Initial Baseline)] Oxygen Flow Rate (L/min) 10 Oxygen Delivery Method [2] Nasal Cannula Oxygen Delivery Method [1 ( Nasal Cannula Initial Baseline)] Oxygen Delivery Method Nasal Cannula Weight: 96.162 kg Body Mass Index (BMI) 37.5 Intake & Output: Intake and Output for Last 24 Hours 09/27/20 09/28/20 09/29/20 23:59 23:59 23:59 Intake Total 710 / 710 649.88 / 649.88 240 / 240 Output Total 2255 / 2255 3725 / 3725 125 / 125 Balance -1545 / -1545 -3075.12 / -3075.12 115 / 115 Lab / Micro Data Result Diagrams: 09/29/20 06:20 09/29/20 06:20 Labs: Laboratory Results - last 24 hr 09/26/20 09/29/20 09/29/20 Unknown 06:20 06:20 WBC 9.7 RBC 2.91 L Hgb 7.3 L Hct 26.4 L MCV 90.7 MCH 25.1 L MCHC 27.7 L RDW Std Deviation 56.6 H RDW Coeff of Samy 17.4 H Plt Count 233 MPV 9.1 Immature Gran % (Auto) 1.400 H Neut % (Auto) 78.3 H Lymph % (Auto) 8.2 L [place] % (Auto) 8.8 Eos % (Auto) 2.8 Baso % (Auto) 0.5 Absolute Neuts (auto) 7.6 Absolute Lymphs (auto) 0.79 L Nucleated RBC % 0 Sodium 134 L Potassium 4.0 Chloride 98 Carbon Dioxide 30.0 Anion Gap 6 BUN 45 H Creatinine 3.49 H Estim Creat Clear Calc 13.69 Est GFR (MDRD) Af Amer 17 L Est GFR (MDRD) Non-Af 14 L BUN/Creatinine Ratio 12.9 Glucose 92 Calcium 7.8 L Miscellaneous Cytology SEE PATHOLOGY REPORT Micro: Microbiology 09/26/20 Unknown Fluid - Thoracentesis Fluid Gram Stain - Final 09/26/20 Unknown Fluid - Thoracentesis Fluid Body Fluid Culture - Final No growth aerobically. 09/26/20 Unknown Fluid - Thoracentesis Fluid Anaerobic Culture - Preliminary No growth in 48 hours. 09/19/20 23:58 Urine, Clean Catch Urine Culture - Final Mixed Gram Pos & Gram Neg Org 09/19/20 Unknown Nasal Secretion SARS-CoV-2 Antigen (Rapid) - Final Rhythm Strip Rhythm Strip: Sinus Rhythm Rate: 85 Ectopy: None Physical Exam Const Constitutional Narrative: No apparent distress. Patient seen during dialysis. Neck Neck Narrative: Supple. Chest Chest Narrative: Clear to auscultation anteriorly. Cardio Cardio Narrative: Normal S1, S2. No rubs or murmurs. GI GI Narrative: Normal bowel sound. Abdomen soft, nontender to palpation. No guarding or rebound. Extremity Extremity Narrative: There is a 2+ edema of the lower extremities bilaterally. Assessment & Plan Assessment/Plan (1) ESRD (end stage renal disease) on dialysis: Status: Acute Code(s): N18.6 - End stage renal disease; Z99.2 - Dependence on renal dialysis Plan: The patient was started on dialysis 3 days ago. This is her third dialysis treatment. I supervised the procedure, and she is tolerating the dialysis well. We are using blood flow of 400 mL/min. We are using 3K dialysate. Plan is to continue dialysis on an ongoing basis. Patient is in the process of being admitted to [facility] [email or web address] (2) Anemia: Status: Acute Code(s): D64.9 - Anemia, unspecified Qualifiers: Anemia type: due to chronic kidney disease Chronic kidney disease stage: on chronic dialysis Qualified Code(s): N18.6 - End stage renal disease; D63.1 - Anemia in chronic kidney disease; Z99.2 - Dependence on renal dialysis Plan: Anemia is likely due to chronic kidney disease. However, both ferritin and iron saturation were low on 09/20/2020. I will check and see if the patient has received IV iron or not. If not, we will start iron load with the next dialysis treatment. Once the patient is loaded with iron, we will start the patient on JARRETT. (3) Hypertension: Status: Chronic Code(s): I10 - Essential (primary) hypertension Qualifiers: Hypertension type: unspecified Qualified Code(s): I10 - Essential (primary) hypertension Plan: Blood pressure is reasonably controlled on the current medication. Now that she is on dialysis, ALEJO inhibitor or ARB can also be used. Will monitor blood pressure with ultrafiltration. (4) Secondary hyperparathyroidism: Status: Acute Code(s): N25.81 - Secondary hyperparathyroidism of renal origin Plan: The patient is on calcitriol. I will check calcium and phosphorus levels. We will check PTH level as outpatient. (5) Acute exacerbation of CHF (congestive heart failure): Status: Chronic Code(s): I50.9 - Heart failure, unspecified Qualifiers: Heart failure type: unspecified Qualified Code(s): I50.9 - Heart failure, unspecified Plan: The patient has heart failure with preserved ejection fraction. Exacerbation of heart failure is likely due to progression of chronic kidney disease as well. Continue ultrafiltration as much as blood pressure will allow.
--- NOTE | 2020-09-29 10:00 | NURSING ---
Dialysis in progress at this time.
--- NOTE | 2020-09-29 11:37 | CASEMGMT ---
Addendum entered by Ashlee Flores 09/29/20 14:00: TC back to pt . Attempted multiple times to explain to the difference between LTACH vs SNF. He kept asking for CM to say that pt would get better quality care at one vs the other or that pt would get better quicker at one facility vs the other. LESLEY PINK attempted to explain the level of care difference. Pt took down the address to [facility] and states he would be agreeable with this facility. Spoke to Happy at [place]. Referral faxed at this time. Original Note: RN APRYL tc to pt to discuss dc planning. Discussed with LTACH vs SNF. Explained the difference between the levels of care. Pt keeps asking why the pt would not get as good of care at a SNF. Tried to explain that it was the level of care that is different, not necessarily the quality of care. Pt states he wanted her to go to [facility] and they are rated well. silent on phone. CM to call back in an hour so he can think about this. LESLEY PINK to follow up.
[2020-09-29 12:14] LABS: pH, Body Fluid 11254 7.4 (Not Estab.)
--- NOTE | 2020-09-29 13:57 | DIALYSIS ---
Hemodialysis x4 hours completed at 1330 on a 2K bath, 3rd treatment, tolerated well, UF 4500mL, accessed via right chest tunneled dialysis catheter, worked well, dressing changed
--- NOTE | 2020-09-29 14:28 | PN.HOSP_ITS ---
Subjective Subjective: Denies any new complaints. Has juice on her tray plus Nepro strawberry--she doesn't like either. Objective Data Objective Data Vital Signs: Vital Signs Temp Pulse Resp BP Pulse Ox 36.6 C 80 20 H 158/72 H 100 09/29/20 13:35 09/29/20 13:35 09/29/20 13:35 09/29/20 13:35 09/29/20 13:35 Oxygen Flow Rate (L/min) [2] 15 Oxygen Flow Rate (L/min) [1 ( 15 Initial Baseline)] Oxygen Flow Rate (L/min) 10 Oxygen Delivery Method [2] Nasal Cannula Oxygen Delivery Method [1 ( Nasal Cannula Initial Baseline)] Oxygen Delivery Method Nasal Cannula Weight: 96.162 kg Body Mass Index (BMI) 37.5 Intake & Output: Intake and Output for Last 24 Hours 09/27/20 09/28/20 09/29/20 23:59 23:59 23:59 Intake Total 710 / 710 649.88 / 649.88 340 / 340 Output Total 2255 / 2255 3725 / 3725 4625 / 4625 Balance -1545 / -1545 -3075.12 / -3075.12 -4285 / -4285 Lab / Micro Data Result Diagrams: 09/29/20 06:20 09/29/20 06:20 Labs: Laboratory Results - last 24 hr 09/26/20 09/26/20 09/29/20 Unknown Unknown 06:20 WBC 9.7 RBC 2.91 L Hgb 7.3 L Hct 26.4 L MCV 90.7 MCH 25.1 L MCHC 27.7 L RDW Std Deviation 56.6 H RDW Coeff of Samy 17.4 H Plt Count 233 MPV 9.1 Immature Gran % (Auto) 1.400 H Neut % (Auto) 78.3 H Lymph % (Auto) 8.2 L [place] % (Auto) 8.8 Eos % (Auto) 2.8 Baso % (Auto) 0.5 Absolute Neuts (auto) 7.6 Absolute Lymphs (auto) 0.79 L Nucleated RBC % 0 Sodium Potassium Chloride Carbon Dioxide Anion Gap BUN Creatinine Estim Creat Clear Calc Est GFR (MDRD) Af Amer Est GFR (MDRD) Non-Af BUN/Creatinine Ratio Glucose Calcium Fluid pH 7.4 Miscellaneous Cytology SEE PATHOLOGY REPORT 09/29/20 06:20 WBC RBC Hgb Hct MCV MCH MCHC RDW Std Deviation RDW Coeff of Samy Plt Count MPV Immature Gran % (Auto) Neut % (Auto) Lymph % (Auto) [place] % (Auto) Eos % (Auto) Baso % (Auto) Absolute Neuts (auto) Absolute Lymphs (auto) Nucleated RBC % Sodium 134 L Potassium 4.0 Chloride 98 Carbon Dioxide 30.0 Anion Gap 6 BUN 45 H Creatinine 3.49 H Estim Creat Clear Calc 13.69 Est GFR (MDRD) Af Amer 17 L Est GFR (MDRD) Non-Af 14 L BUN/Creatinine Ratio 12.9 Glucose 92 Calcium 7.8 L Fluid pH Miscellaneous Cytology Micro: Microbiology 09/26/20 Unknown Fluid - Thoracentesis Fluid Gram Stain - Final 09/26/20 Unknown Fluid - Thoracentesis Fluid Body Fluid Culture - Final No growth aerobically. 09/26/20 Unknown Fluid - Thoracentesis Fluid Anaerobic Culture - Preliminary No growth in 48 hours. 09/19/20 23:58 Urine, Clean Catch Urine Culture - Final Mixed Gram Pos & Gram Neg Org 09/19/20 Unknown Nasal Secretion SARS-CoV-2 Antigen (Rapid) - Final Rhythm Strip Rhythm Strip: Sinus Rhythm Rate: 85 Ectopy: None Physical Exam Narrative up in bed eating lunch. afebrile. non-toxic. Const alert Resp normal respiratory effort Resp Narrative: bilateral crackles. Cardio regular rate, regular rhythm, S1 normal heart sound and S2 normal heart sound GI normal to inspection, nondistended, normoactive bowel sounds Extremity General Extremity: edema Neuro Sensorium / Orientation: awake and alert Assessment & Plan Assessment/Plan (1) LIZ (acute kidney injury): Status: Acute Code(s): N17.9 - Acute kidney failure, unspecified Plan: 1. acute hypoxic respiratory failure ongoing, still on 10 to 12 liters/min 2/2 CHF wean oxygen as able. 2. acute HFpEF EF 60% on furosemide IV metolazone added on HD 3. CKD IV nephrology following 4. Abnormal UA UTI ruled out. 5. VTE prophylaxis: LMWH Inpatient E&M: 70992 Subs Hosp L2
[2020-09-29] MEDS: Multivitamins,Ther W-Minerals Tablet 1 TABLET PO (14:51)
[2020-09-29] MEDS: dilTIAZem CD 120 MG Capsule PO ×2 (14:52→21:14)
[2020-09-29] MEDS: Omega-3 Acid Ethyl Esters 1 GM Capsule PO (14:52)
[2020-09-29] MEDS: Enoxaparin 30 MG/0.3 ML Syringe SC (14:52)
[2020-09-29] MEDS: Aspirin 81 MG TAB.CHEW PO (14:52)
[2020-09-29] MEDS: Pantoprazole Sodium 40 MG Tablet PO ×2 (14:52→21:14)
[2020-09-29] MEDS: Furosemide 80 MG Tablet PO ×2 (14:52→18:30)
[2020-09-29] MEDS: Ascorbic Acid 500 MG Tablet PO (14:53)
[2020-09-29] MEDS: amLODIPine 5 MG Tablet PO (14:53)
[2020-09-29] MEDS: metOLazone 5 MG Tablet PO ×2 (14:53→21:14)
[2020-09-29] MEDS: Calcitriol 0.25 MCG Capsule PO (14:53)
[2020-09-29] MEDS: Cyanocobalamin 500 MCG Tablet 1000 MCG PO (14:53)
[2020-09-29] MEDS: Ferrous Sulfate 325 MG Tablet PO ×2 (14:57→18:30)
[2020-09-29] MEDS: MELATONIN 3 MG TABLET PO (21:16)
[2020-09-29] MEDS: Acetaminophen 325 MG Tablet 650 MG PO (21:16)
[2020-09-30] VITALS (15 sets, daily range): BP systolic 149–162; BP diastolic 60–67; PULSE 66–81; RESP 18; TEMP 36.2–36.8; O2SAT 93–96
[2020-09-30] MEDS: Levothyroxine 150 MCG Tablet 300 MCG PO (05:20)
[2020-09-30 06:16] LABS: Absolute Lymphocyte Count 0.93 X10^3/uL (0.83-4.51); Absolute Neutrophil Count 6.7 X10^3/uL (2.0-7.7); Basophil# 0.07 X10^3/uL; Basophil% 0.8 % (0-1); Eosinophil# 0.43 X10^3/uL; Eosinophils% 4.7 % (0-5); Hematocrit 27.8 % (37-47); Hemoglobin 7.7 g/dL (12.0-15.0); Lymphocyte # 0.93 X10^3/ul (0.83-4.51); Lymphocyte % 10.2 % (19-41); Mean Corp Hgb Conc 27.7 g/dL (32-36); Mean Corpuscular Hgb 24.5 pg (27.0-32.0); Mean Corpuscular Volume 88.5 fL (81-99); Monocyte# 0.83 X10^3/uL; Monocyte% 9.1 % (0-10); NRBC Flagged by Analyzer 0 % (0-5); Neutrophil # 6.74 X10^3/uL (2.7-7.7); Neutrophil % 74.2 % (47-70); Platelet Count 251 K/mm3 (150-450); RBC Distribution Width CV 17.3 % (11.6-14.6); RBC Distribution Width SD 54.9 fl (35.1-43.9); Red Blood Count 3.14 M/mm3 (4.2-5.4); White Blood Count 9.1 K/mm3 (4.4-11.0)
[2020-09-30 06:39] LABS: Anion Gap 5 (5-15); BUN 23 mg/dL (7-18); BUN/Creat Ratio 9.8 RATIO (10-20); Calcium,Total 8.2 mg/dL (8.5-10.1); Chloride 98 mmol/L (98-107); Creatinine, Serum 2.34 mg/dL (0.55-1.02); EST Glomerular Filtration Rate 22 mL/min (>60); Est Glom Filt Rate - Afr Amer 26 mL/min (>60); Estimated Creatinine Clearance 20.42 ml/min; Glucose 87 mg/dL (74-106); Potassium 3.6 mmol/L (3.5-5.1); Sodium Level 135 mmol/L (136-145)
[2020-09-30] MEDS: Enoxaparin 30 MG/0.3 ML Syringe SC (09:22)
[2020-09-30] MEDS: metOLazone 5 MG Tablet PO ×2 (09:23→21:33)
[2020-09-30] MEDS: Aspirin 81 MG TAB.CHEW PO (09:23)
[2020-09-30] MEDS: dilTIAZem CD 120 MG Capsule PO ×2 (09:23→21:34)
[2020-09-30] MEDS: Ascorbic Acid 500 MG Tablet PO (09:23)
[2020-09-30] MEDS: Pantoprazole Sodium 40 MG Tablet PO ×2 (09:23→21:34)
[2020-09-30] MEDS: Omega-3 Acid Ethyl Esters 1 GM Capsule PO (09:23)
[2020-09-30] MEDS: Calcitriol 0.25 MCG Capsule 0.5 MCG PO (09:23)
[2020-09-30] MEDS: Cyanocobalamin 500 MCG Tablet 1000 MCG PO (09:23)
[2020-09-30] MEDS: Multivitamins,Ther W-Minerals Tablet 1 TABLET PO (09:23)
[2020-09-30] MEDS: Furosemide 80 MG Tablet PO ×2 (09:24→16:57)
[2020-09-30] MEDS: amLODIPine 5 MG Tablet PO (09:24)
--- NOTE | 2020-09-30 09:26 | CASEMGMT ---
Pt called in and spoke to RN APRYL. He states he discussed lastnight with pt about going to [facility] and pt became very upset. States she does not want to go there and prefers [facility]. He is aware that pt is able to be dialyzed at [facility] if she does dc there. denies further needs. Will notify Genia PACK. Referral to [facility] cancelled.
--- NOTE | 2020-09-30 11:34 | CASEMGMT ---
Per RN CM patient and her changed their mind and they would like patient to go to [facility] instead of an LTACH. SW faxed referral and also called Rosario at [facility] regarding referral. Genia Ward SUPERVISOR CASE LOADINGFlora CH
--- NOTE | 2020-09-30 12:52 | PN.RENAL_ITS ---
Subjective Subjective: Following for ESRD. The patient feels better today. She denies chest pain or shortness of breath at rest. Edema/anasarca has markedly improved subjectively. Objective Data Objective Data Vital Signs: Vital Signs Temp Pulse Resp BP Pulse Ox 98.2 F 78 18 154/63 H 93 09/30/20 12:13 09/30/20 12:13 09/30/20 12:13 09/30/20 12:13 09/30/20 12:13 Oxygen Flow Rate (L/min) [2] 15 Oxygen Flow Rate (L/min) [1 ( 15 Initial Baseline)] Oxygen Flow Rate (L/min) 6 Oxygen Delivery Method [2] Nasal Cannula Oxygen Delivery Method [1 ( Nasal Cannula Initial Baseline)] Oxygen Delivery Method Nasal Cannula Weight: 199 lb 4.766 oz Body Mass Index (BMI) 37.5 Intake & Output: Intake and Output for Last 24 Hours 09/28/20 09/29/20 09/30/20 23:59 23:59 23:59 Intake Total 649.88 / 649.88 680 / 680 170 / 170 Output Total 3725 / 3725 4950 / 4950 475 / 475 Balance -3075.12 / -3075.12 -4270 / -4270 -305 / -305 Lab / Micro Data Result Diagrams: 09/30/20 04:45 09/30/20 04:45 Labs: Laboratory Results - last 24 hr 09/30/20 09/30/20 04:45 04:45 WBC 9.1 RBC 3.14 L Hgb 7.7 L Hct 27.8 L MCV 88.5 MCH 24.5 L MCHC 27.7 L RDW Std Deviation 54.9 H RDW Coeff of Samy 17.3 H Plt Count 251 MPV 10.0 Immature Gran % (Auto) 1.000 H Neut % (Auto) 74.2 H Lymph % (Auto) 10.2 L [place] % (Auto) 9.1 Eos % (Auto) 4.7 Baso % (Auto) 0.8 Absolute Neuts (auto) 6.7 Absolute Lymphs (auto) 0.93 Nucleated RBC % 0 Sodium 135 L Potassium 3.6 Chloride 98 Carbon Dioxide 32.0 Anion Gap 5 BUN 23 H Creatinine 2.34 H Estim Creat Clear Calc 20.42 Est GFR (MDRD) Af Amer 26 L Est GFR (MDRD) Non-Af 22 L BUN/Creatinine Ratio 9.8 L Glucose 87 Calcium 8.2 L Micro: Microbiology 09/26/20 Unknown Fluid - Thoracentesis Fluid Gram Stain - Final 09/26/20 Unknown Fluid - Thoracentesis Fluid Body Fluid Culture - Final No growth aerobically. 09/26/20 Unknown Fluid - Thoracentesis Fluid Anaerobic Culture - Preliminary No growth in 48 hours. 09/19/20 23:58 Urine, Clean Catch Urine Culture - Final Mixed Gram Pos & Gram Neg Org 09/19/20 Unknown Nasal Secretion SARS-CoV-2 Antigen (Rapid) - Final Rhythm Strip Rhythm Strip: Sinus Rhythm Rate: 85 Ectopy: None Physical Exam Const alert and no apparent distress Constitutional Narrative: No apparent distress. Patient seen during dialysis. General Appearance: cooperative and comfortable Orientation / Consciousness: awake and oriented to person HEENT normocephalic Neck Neck Narrative: Supple. Chest Chest Narrative: Clear to auscultation anteriorly. Cardio Cardio Narrative: Normal S1, S2. No rubs or murmurs. GI GI Narrative: Normal bowel sound. Abdomen soft, nontender to palpation. No guarding or rebound. Extremity Extremity Narrative: There is a 2+ edema of the lower extremities bilaterally. Assessment & Plan Assessment/Plan (1) ESRD (end stage renal disease) on dialysis: Status: Acute Code(s): N18.6 - End stage renal disease; Z99.2 - Dependence on renal dialysis Plan: The patient was started on dialysis on 09/27/2020. She was status post her third dialysis treatment yesterday. Next dialysis is tomorrow. The patient is still volume overloaded, so I am planning on removing more fluid with dialysis tomorrow. Plan is to continue dialysis on an ongoing basis. The patient will be discharged to [facility]. She will be set up for dialysis at the SNF. Once she transition home, she will be dialyzed that [facility] dialysis center. I am planning on dialyzing the patient tomorrow. She would then be dialyzed again on Saturday, and she can be discharged after dialysis on Saturday. Nephrology plan discussed with Dr. Scott. (2) Anemia: Status: Acute Code(s): D64.9 - Anemia, unspecified Qualifiers: Anemia type: due to chronic kidney disease Chronic kidney disease stage: on chronic dialysis Qualified Code(s): N18.6 - End stage renal disease; D63.1 - Anemia in chronic kidney disease; Z99.2 - Dependence on renal dialysis Plan: Anemia is likely due to chronic kidney disease. However, both ferritin and iron saturation were low on 09/20/2020. We will start Venofer with dialysis tomorrow. Once she is iron loaded, she will be started on JARRETT at the dialysis unit. (3) Hypertension: Status: Chronic Code(s): I10 - Essential (primary) hypertension Qualifiers: Hypertension type: unspecified Qualified Code(s): I10 - Essential (primary) hypertension Plan: Blood pressure is higher today. We will hold off on changing BP medications for now since she is being actively ultrafiltered. Now that she is on dialysis, ALEJO inhibitor or ARB can also be used once she is euvolemic. Will monitor blood pressure with ultrafiltration. (4) Secondary hyperparathyroidism: Status: Acute Code(s): N25.81 - Secondary hyperparathyroidism of renal origin Plan: The patient is on calcitriol. Phosphorus level was not obtained today. I will order it separately tomorrow. We will check PTH level as outpatient. (5) Acute exacerbation of CHF (congestive heart failure): Status: Chronic Code(s): I50.9 - Heart failure, unspecified Qualifiers: Heart failure type: unspecified Qualified Code(s): I50.9 - Heart failure, unspecified Plan: The patient has heart failure with preserved ejection fraction. Exacerbation of heart failure is likely due to progression of chronic kidney disease as well. Continue ultrafiltration as much as blood pressure will allow.
[2020-09-30] MEDS: Sodium Chloride 0.65% 1 SPRAY SPRAY.BTL 2 SPRAY NASAL (12:57)
[2020-09-30] MEDS: Ferrous Sulfate 325 MG Tablet PO ×2 (12:57→16:56)
--- NOTE | 2020-09-30 14:19 | CASEMGMT ---
SIRENA received a voice mail from Rosario at [facility] and she said they will take patient. SIRENA faxed information to [employer] to obtain pre-cert. Genia CH
--- NOTE | 2020-09-30 15:44 | PCM.PN.HOSP ---
Subjective Subjective: breathing better. Oxygen down to 6liters. Objective Data Objective Data Vital Signs: Vital Signs Temp Pulse Resp BP Pulse Ox 36.8 C 78 18 154/63 H 94 09/30/20 12:13 09/30/20 12:13 09/30/20 12:13 09/30/20 12:13 09/30/20 12:51 Oxygen Flow Rate (L/min) [2] 15 Oxygen Flow Rate (L/min) [1 ( 15 Initial Baseline)] Oxygen Flow Rate (L/min) 6 Oxygen Delivery Method [2] Nasal Cannula Oxygen Delivery Method [1 ( Nasal Cannula Initial Baseline)] Oxygen Delivery Method Nasal Cannula Weight: 90.4 kg Body Mass Index (BMI) 37.5 Intake & Output: Intake and Output for Last 24 Hours 09/28/20 09/29/20 09/30/20 23:59 23:59 23:59 Intake Total 649.88 / 649.88 680 / 680 170 / 170 Output Total 3725 / 3725 4950 / 4950 475 / 475 Balance -3075.12 / -3075.12 -4270 / -4270 -305 / -305 Lab / Micro Data Result Diagrams: 09/30/20 04:45 09/30/20 04:45 Labs: Laboratory Results - last 24 hr 09/30/20 09/30/20 04:45 04:45 WBC 9.1 RBC 3.14 L Hgb 7.7 L Hct 27.8 L MCV 88.5 MCH 24.5 L MCHC 27.7 L RDW Std Deviation 54.9 H RDW Coeff of Samy 17.3 H Plt Count 251 MPV 10.0 Immature Gran % (Auto) 1.000 H Neut % (Auto) 74.2 H Lymph % (Auto) 10.2 L Tyler % (Auto) 9.1 Eos % (Auto) 4.7 Baso % (Auto) 0.8 Absolute Neuts (auto) 6.7 Absolute Lymphs (auto) 0.93 Nucleated RBC % 0 Sodium 135 L Potassium 3.6 Chloride 98 Carbon Dioxide 32.0 Anion Gap 5 BUN 23 H Creatinine 2.34 H Estim Creat Clear Calc 20.42 Est GFR (MDRD) Af Amer 26 L Est GFR (MDRD) Non-Af 22 L BUN/Creatinine Ratio 9.8 L Glucose 87 Calcium 8.2 L Micro: Microbiology 09/26/20 Unknown Fluid - Thoracentesis Fluid Gram Stain - Final 09/26/20 Unknown Fluid - Thoracentesis Fluid Body Fluid Culture - Final No growth aerobically. 09/26/20 Unknown Fluid - Thoracentesis Fluid Anaerobic Culture - Preliminary No growth in 48 hours. 09/19/20 23:58 Urine, Clean Catch Urine Culture - Final Mixed Gram Pos & Gram Neg Org 09/19/20 Unknown Nasal Secretion SARS-CoV-2 Antigen (Rapid) - Final Rhythm Strip Rhythm Strip: Sinus Rhythm Rate: 85 Ectopy: None Physical Exam Const alert Resp normal respiratory effort Resp Narrative: coarse BS Cardio regular rate, regular rhythm, S1 normal heart sound and S2 normal heart sound GI normal to inspection, nondistended, normoactive bowel sounds, non-tender and non-distended Extremity General Extremity: edema Assessment & Plan Assessment/Plan (1) LIZ (acute kidney injury): Status: Acute Code(s): N17.9 - Acute kidney failure, unspecified Plan: 1. acute hypoxic respiratory failure improved, down to 6l/m 2/2 CHF wean oxygen as able. 2. acute HFpEF EF 60% on furosemide IV metolazone added on HD 3. CKD IV nephrology following on HD 4. Abnormal UA UTI ruled out. 5. VTE prophylaxis: LMWH 6. Disposition: to [facility] on 10/01 iif stable. Visit Charges Inpatient E&M: 78838 Subs Hosp L2
--- NOTE | 2020-09-30 16:24 | CASEMGMT ---
Addendum entered by Genia Ward 09/30/20 16:59: SW notified patient and his that insurance approved her to go to [facility]. SW let them know she will likely go over the weekend. SW also told them about the visitation policy. SW let them know patient will be in quarantine for 14 days and that means no visitors. SW told her after that they can schedule visits. They thanked SW for the help. Plan: d/c to [facility] under skilled level of care on a convalescent stay. Genia CH Addendum entered by Genia Ward 09/30/20 16:38: Received call from Tiffany at [facility] and patient is approved for [facility]. SW will notify patient's and patient. Green sheet will be on patient's chart. Plan: d/c to [facility] under skilled level of care on a convalescent stay. Genia CH Original Note: SIRENA spoke with Tiffany from [facility] and she is requesting updated PT/OT for patient. SIRENA faxed today's PT OT to [facility]. Genia CH
--- NOTE | 2020-09-30 16:27 | CASEMGMT ---
per Dr. Vivas, pt is now ESRD and therefore, can now have dialysis on site at [facility]. This LESLEY CM spoke with Carlitos at [facility] and he states pt is medically/financially cleared for discharge and Jessenia PACK aware, voices understanding. Pt likely to be discharged over the w/e. SStaten LESLEY PINK
--- NOTE | 2020-09-30 23:46 | CPS ---
Pt. adamant in regards to not wearing BiPAP at this time. Pt. was mildly tachypneic (24 breaths/min), but her breath sounds were clear/diminished; titrated nasal cannula to 4L (95%)
[2020-10-01] VITALS (11 sets, daily range): BP systolic 137–158; BP diastolic 52–72; PULSE 65–81; RESP 12–18; TEMP 36.5–36.8; O2SAT 92–100
[2020-10-01] MEDS: Levothyroxine 150 MCG Tablet 300 MCG PO (05:19)
[2020-10-01 07:42] LABS: Anion Gap 6 (5-15); BUN 33 mg/dL (7-18); BUN/Creat Ratio 10.8 RATIO (10-20); Calcium,Total 8.4 mg/dL (8.5-10.1); Chloride 99 mmol/L (98-107); Creatinine, Serum 3.06 mg/dL (0.55-1.02); EST Glomerular Filtration Rate 16 mL/min (>60); Est Glom Filt Rate - Afr Amer 19 mL/min (>60); Estimated Creatinine Clearance 15.61 ml/min; Glucose 89 mg/dL (74-106); Phosphorus 4.3 mg/dL (2.5-4.9); Potassium 3.6 mmol/L (3.5-5.1); Sodium Level 136 mmol/L (136-145)
[2020-10-01] MEDS: Ascorbic Acid 500 MG Tablet PO (08:54)
[2020-10-01] MEDS: dilTIAZem CD 120 MG Capsule PO ×2 (08:54→21:16)
[2020-10-01] MEDS: Multivitamins,Ther W-Minerals Tablet 1 TABLET PO (08:54)
[2020-10-01] MEDS: Aspirin 81 MG TAB.CHEW PO (08:54)
[2020-10-01] MEDS: Cyanocobalamin 500 MCG Tablet 1000 MCG PO (08:54)
[2020-10-01] MEDS: amLODIPine 5 MG Tablet PO (08:55)
[2020-10-01] MEDS: Pantoprazole Sodium 40 MG Tablet PO ×2 (08:55→21:16)
[2020-10-01] MEDS: metOLazone 5 MG Tablet PO ×2 (08:55→21:16)
[2020-10-01] MEDS: Furosemide 80 MG Tablet PO (08:55)
[2020-10-01] MEDS: Calcitriol 0.25 MCG Capsule PO (08:55)
[2020-10-01] MEDS: Omega-3 Acid Ethyl Esters 1 GM Capsule PO (08:56)
[2020-10-01] MEDS: Enoxaparin 30 MG/0.3 ML Syringe SC (08:56)
--- NOTE | 2020-10-01 10:45 | TREXTCAR_ITS ---
Diet 09/27/20 11:50 Diet: Carbohydrate Controlled Dietary Modifications:: Sodium Restricted Potassium Restricted Type of Dietary Supplement:: Nepro Is pt able to select menu?: No Fluid restriction:: 1500 mL Diet Comments: 120ml nepro TID w/ meals; NO milk and no fish on meal trays Wound(s) BLE: Wound Type: blisters right mid back: Wound Type: Puncture right upper chest: Wound Type: Surgical Incision right neck: Wound Type: Surgical Incision Problem/Diagnosis (1) LIZ (acute kidney injury): Status: Acute Comment: Dialysis every MWF Allergies/Procedures Done in Hospital Allergies lisinopril Allergy (Verified 09/19/20 22:59) Anaphylaxis olmesartan [From Benicar] Allergy (Verified 09/19/20 23:25) Anaphylaxis Sulfa (Sulfonamide Antibiotics) Allergy (Verified 09/19/20 22:59) Rash adhesive tape Adverse Reaction (Verified 09/19/20 22:59) Rash furosemide [From Lasix] Adverse Reaction (Verified 09/19/20 22:59) Nausea latex Adverse Reaction (Verified 09/19/20 23:25) Rash metoprolol [From Toprol XL] Adverse Reaction (Verified 09/19/20 23:25) Rash Type of Care/Length of Stay Estimated LOS: Convalescent Care Less Than 30 days Type of Care Needed: Skilled Rehab Potential: Good Prognosis: Good Additional Orders/Day of Discharge Day of Discharge: 10/01/20 Dietary and Speech Recommendations Dietitian Recommendations/Changes: Will change diet to carbohydrate-controlled; sodium-restricted, potassium-restricted; 1500mL FR. Will add 120ml nepro TID w/ meals. Discharge Plan Admission Admit Date/Time: 09/20/20 01:15 Attending Provider: Santiago Scott Primary Care Provider: Weston Zhu Consulting Providers: Santo Hogan ; Milady Parker Instructions Patient Instructions: Thoracentesis Discharge Orders/Prescriptions Prescriptions: New acetaminophen [Tylenol] 325 mg Tablet 650 mg PO Q6H PRN PRN (Reason: Pain Score 1-10/Temp > 100.7 F) Qty: 0 RF: 0 metolazone 5 mg Tablet 5 mg PO BID Qty: 0 RF: 0 furosemide 80 mg Tablet 80 mg PO BID@1000,1800 Qty: 0 RF: 0 pantoprazole 40 mg Tablet,Delayed Release (Dr/Ec) 40 mg PO DAILY Qty: 0 RF: 0 sodium chloride [Deep Sea Nasal] 0.65 % Aerosol,[place] 2 spray NASAL TID PRN PRN (Reason: NASAL DRYNESS) Qty: 0 RF: 0 Continued amlodipine 5 MG tablet 5 mg PO DAILY RF: 0 aspirin 81 MG tablet,chewable 81 mg PO DAILY@0800 RF: 0 ascorbic acid (vitamin C) 500 MG tablet 500 mg PO DAILY RF: 0 ferrous sulfate 325 MG tablet 324 mg PO BID RF: 0 calcitriol 0.5 MCG capsule 0.5 mcg PO QODAY RF: 0 levothyroxine 150 MCG tablet 300 mcg PO DAILY RF: 0 diltiazem HCl 60 MG tablet 120 mg PO BID RF: 0 calcitriol 0.25 MCG capsule 0.25 mcg PO QODAY RF: 0 geriatric [id number]-hffn 1 EACH tablet 1 each PO DAILY RF: 0 sitagliptin 25 MG tablet 25 mg PO DAILY RF: 0 alpha lipoic acid 100 MG capsule 100 mg PO DAILY RF: 0 omega-3 fatty acids-fish oil 1 EACH capsule,delayed release(DR/EC) 1 each PO DAILY RF: 0 cyanocobalamin (vitamin B-12) 1,000 MCG capsule 1,000 mcg PO DAILY RF: 0 Discontinued zolpidem 10 MG tablet 10 mg PO QHS PRN PRN (Reason: Insomnia) RF: 0 torsemide 10 MG tablet 10 mg PO DAILY RF: 0 Referrals: Weston Zhu MD [Primary Care Provider] - Within 2 Weeks Disposition Patient Disposition: [facility]
--- NOTE | 2020-10-01 10:53 | DS.PCM_ITS ---
Providers Date of Admission: 09/20/20 Primary Care Physician: Dr. Weston Zhu MD Consultations 09/20/20 16:05 Physician Consult Routine Consulting Provider: Santo Hogan Consulted Physician Type:: Nephrology - [facility] Reason for Consult: renal failure Method of Consult:: In-Person MD Notified: Yes Date Notified:: 09/20/20 Time Notified: 17:00 Method of Notification:: Answering Service 09/26/20 15:55 Physician Consult Routine Consulting Provider: Milady Parker Reason for Consult: Tunneled dialysis catheter Notified: Yes Date Notified:: 09/26/20 Time Notified: 15:56 Method of Notification:: Verbal Reason For Visit: UTI, CHF EXACERBATION Diagnosis Discharge Diagnosis (1) LIZ (acute kidney injury): Status: Acute Code(s): N17.9 - Acute kidney failure, unspecified (2) (HFpEF) heart failure with preserved ejection fraction: Status: Acute Code(s): I50.30 - Unspecified diastolic (congestive) heart failure Medications at Discharge Home Medications alpha lipoic acid 100 mg PO DAILY 09/19/20 amlodipine 5 mg PO DAILY 09/19/20 ascorbic acid (vitamin C) 500 mg PO DAILY 09/19/20 aspirin 81 mg PO DAILY@0800 09/19/20 calcitriol 0.25 mcg PO QODAY 09/19/20 calcitriol 0.5 mcg PO QODAY 09/19/20 cyanocobalamin (vitamin B-12) 1,000 mcg PO DAILY 09/19/20 diltiazem HCl 120 mg PO BID 09/19/20 ferrous sulfate 324 mg PO BID 09/19/20 geriatric dtnkjvru-lviw-uifz 1 each PO DAILY 09/19/20 levothyroxine 300 mcg PO DAILY 09/19/20 omega-3 fatty acids-fish oil 1 each PO DAILY 09/19/20 sitagliptin 25 mg PO DAILY 09/19/20 acetaminophen [Tylenol] 650 mg PO Q6H PRN PRN #0 tab 10/01/20 furosemide 80 mg PO BID@1000,1800 #0 tab 10/01/20 metolazone 5 mg PO BID #0 tab 10/01/20 pantoprazole 40 mg PO DAILY #0 tab 10/01/20 sodium chloride [Deep Sea Nasal] 2 spray NASAL TID PRN PRN #0 ml 10/01/20 Hospital Course Operations - (Insertion of right internal jugular tunneled dialysis catheter) Procedures 2-D Echocardiogram (Left ventricular systolic function is normal. The estimated ejection fraction is 60 %. Moderate concentric left ventricular hypertrophy. The left atrium is mildly enlarged. The right atrium is mildly enlarged. There is moderate mitral annular calcification. Extension of the mitral annular calcificat) and Dialysis Summary of Care Provided Minutes Spent on Discharge: 32 Hospital Course: Presents with shortness of breath. Patient found to have acute heart failure with preserved ejection fraction with an EF of 60%. Patient was diuresed but was failing to progress. Patient was seen in consultation by nephrology and patient did had a tunneled dialysis catheter and was initiated on hemodialysis. Over several days of dialysis patient has improved and her oxygen which was room 10 to 12 L nasal cannula is now down to 2 L nasal cannula. Patient will continue with dialysis and will have dialysis today and then resume on the third. Patient is otherwise stable and will be discharged to care home facility in stable condition. There was concern for urinary tract infection when she came here, however that has been ruled out. Physical Exam Const alert and oriented x3 Resp normal respiratory effort Resp Narrative: crackles in bases Cardio regular rate, regular rhythm, S1 normal heart sound and S2 normal heart sound GI normal to inspection, nondistended, normoactive bowel sounds ABG / Lab / Microbiology Data Result Diagrams: 09/30/20 04:45 10/01/20 05:58 Laboratory: Laboratory Results - last 24 hr 10/01/20 05:58 Sodium 136 Potassium 3.6 Chloride 99 Carbon Dioxide 31.0 Anion Gap 6 BUN 33 H Creatinine 3.06 H Estim Creat Clear Calc 15.61 Est GFR (MDRD) Af Amer 19 L Est GFR (MDRD) Non-Af 16 L BUN/Creatinine Ratio 10.8 Glucose 89 Calcium 8.4 L Phosphorus 4.3 Microbiology: Microbiology 09/26/20 Unknown Gram Stain - Final Fluid - Thoracentesis Fluid Body Fluid Culture - Final No growth aerobically. Anaerobic Culture - Final No growth in 5 days. Microbiology 09/26/20 Unknown Fluid - Thoracentesis Fluid Gram Stain - Final 09/26/20 Unknown Fluid - Thoracentesis Fluid Body Fluid Culture - Final No growth aerobically. 09/26/20 Unknown Fluid - Thoracentesis Fluid Anaerobic Culture - Final No growth in 5 days. 09/19/20 23:58 Urine, Clean Catch Urine Culture - Final Mixed Gram Pos & Gram Neg Org 09/19/20 Unknown Nasal Secretion SARS-CoV-2 Antigen (Rapid) - Final Meaningful Use Info Meaningful Use Diagnoses (Choose all that apply): CHF CHF ALEJO/ARB ordered at discharge?: No Reason ALEJO/ARB not ordered?: Worsening renal disease Documented LVEF (%): 60 Discharge Plan Admission Admit Date/Time: 09/20/20 01:15 Attending Provider: Santiago Scott Primary Care Provider: Weston Zhu Consulting Providers: Santo Hogan ; Milady Parker Instructions Patient Instructions: Thoracentesis Discharge Orders/Prescriptions Prescriptions: New acetaminophen [Tylenol] 325 mg Tablet 650 mg PO Q6H PRN PRN (Reason: Pain Score 1-10/Temp > 100.7 F) Qty: 0 RF: 0 metolazone 5 mg Tablet 5 mg PO BID Qty: 0 RF: 0 furosemide 80 mg Tablet 80 mg PO BID@1000,1800 Qty: 0 RF: 0 pantoprazole 40 mg Tablet,Delayed Release (Dr/Ec) 40 mg PO DAILY Qty: 0 RF: 0 sodium chloride [Deep Sea Nasal] 0.65 % Aerosol,[place] 2 spray NASAL TID PRN PRN (Reason: NASAL DRYNESS) Qty: 0 RF: 0 Continued amlodipine 5 MG tablet 5 mg PO DAILY RF: 0 aspirin 81 MG tablet,chewable 81 mg PO DAILY@0800 RF: 0 ascorbic acid (vitamin C) 500 MG tablet 500 mg PO DAILY RF: 0 ferrous sulfate 325 MG tablet 324 mg PO BID RF: 0 calcitriol 0.5 MCG capsule 0.5 mcg PO QODAY RF: 0 levothyroxine 150 MCG tablet 300 mcg PO DAILY RF: 0 diltiazem HCl 60 MG tablet 120 mg PO BID RF: 0 calcitriol 0.25 MCG capsule 0.25 mcg PO QODAY RF: 0 geriatric njtnznzo-gmmz-olbe 1 EACH tablet 1 each PO DAILY RF: 0 sitagliptin 25 MG tablet 25 mg PO DAILY RF: 0 alpha lipoic acid 100 MG capsule 100 mg PO DAILY RF: 0 omega-3 fatty acids-fish oil 1 EACH capsule,delayed release(DR/EC) 1 each PO DAILY RF: 0 cyanocobalamin (vitamin B-12) 1,000 MCG capsule 1,000 mcg PO DAILY RF: 0 Discontinued zolpidem 10 MG tablet 10 mg PO QHS PRN PRN (Reason: Insomnia) RF: 0 torsemide 10 MG tablet 10 mg PO DAILY RF: 0 Referrals: Weston Zhu MD [Primary Care Provider] - Within 2 Weeks Disposition Patient Disposition: Custodial Facility Visit Charges Inpatient E&M: [id number] Disch Hosp
[2020-10-01] MEDS: Ferrous Sulfate 325 MG Tablet PO (11:45)
--- NOTE | 2020-10-01 14:42 | NURSING ---
This RN called and gave report to LESLEY Mcleod at [facility].
--- NOTE | 2020-10-01 20:07 | DIALYSIS ---
Hemodialysis x4 hours completed at 2009 on a 3K bath, tolerated well, UF 3500mL, CritLine profile A, accessed via right chest tunneled dialysis catheter, worked well
--- NOTE | 2020-10-01 20:08 | PCM.PN.REN ---
Subjective Subjective: Following for ESRD. The patient was seen during hemodialysis. She denies chest pain, shortness of breath, nausea or vomiting. There is no cramping. Objective Data Objective Data Vital Signs: Vital Signs Temp Pulse Resp BP Pulse Ox 97.7 F L 65 18 137/64 H 96 10/01/20 18:30 10/01/20 18:30 10/01/20 18:30 10/01/20 18:30 10/01/20 18:30 Oxygen Flow Rate (L/min) [2] 15 Oxygen Flow Rate (L/min) [1 ( 15 Initial Baseline)] Oxygen Flow Rate (L/min) 2 Oxygen Delivery Method [2] Nasal Cannula Oxygen Delivery Method [1 ( Nasal Cannula Initial Baseline)] Oxygen Delivery Method Nasal Cannula Weight: 199 lb 8.293 oz Body Mass Index (BMI) 37.5 Intake & Output: Intake and Output for Last 24 Hours 09/29/20 09/30/20 10/01/20 23:59 23:59 23:59 Intake Total 680 / 680 410 / 410 1060 / 1060 Output Total 4950 / 4950 675 / 675 1000 / 1000 Balance -4270 / -4270 -265 / -265 60 / 60 Lab / Micro Data Result Diagrams: 09/30/20 04:45 10/01/20 05:58 Labs: Laboratory Results - last 24 hr 10/01/20 05:58 Sodium 136 Potassium 3.6 Chloride 99 Carbon Dioxide 31.0 Anion Gap 6 BUN 33 H Creatinine 3.06 H Estim Creat Clear Calc 15.61 Est GFR (MDRD) Af Amer 19 L Est GFR (MDRD) Non-Af 16 L BUN/Creatinine Ratio 10.8 Glucose 89 Calcium 8.4 L Phosphorus 4.3 Micro: Microbiology 10/01/20 10:40 Stool Stool Occult Blood (FRANCHESKA) - Final Occult Blood Positive 09/26/20 Unknown Fluid - Thoracentesis Fluid Gram Stain - Final 09/26/20 Unknown Fluid - Thoracentesis Fluid Body Fluid Culture - Final No growth aerobically. 09/26/20 Unknown Fluid - Thoracentesis Fluid Anaerobic Culture - Final No growth in 5 days. 09/19/20 23:58 Urine, Clean Catch Urine Culture - Final Mixed Gram Pos & Gram Neg Org 09/19/20 Unknown Nasal Secretion SARS-CoV-2 Antigen (Rapid) - Final Rhythm Strip Rhythm Strip: Sinus Rhythm Rate: 85 Ectopy: None Physical Exam Const alert and no apparent distress Constitutional Narrative: No apparent distress. Patient seen during dialysis. General Appearance: cooperative and comfortable Orientation / Consciousness: awake and oriented to person HEENT normocephalic Neck Neck Narrative: Supple. Chest Chest Narrative: Clear to auscultation anteriorly. Cardio Cardio Narrative: Normal S1, S2. No rubs or murmurs. GI GI Narrative: Normal bowel sound. Abdomen soft, nontender to palpation. No guarding or rebound. Extremity Extremity Narrative: There is a 3+ edema of the lower extremities bilaterally. Assessment & Plan Assessment/Plan (1) ESRD (end stage renal disease) on dialysis: Status: Acute Code(s): N18.6 - End stage renal disease; Z99.2 - Dependence on renal dialysis Plan: The patient was started on dialysis on 09/27/2020. She was status post her third dialysis treatment on 09/29/2020. I supervised her hemodialysis today. The patient is still volume overloaded, so I am planning on removing more fluid with dialysis today. 4 hours dialysis treatment today using F1 60 dialyzer. Blood flow was 400 mL/min. UF goal is 3.5 L. The patient will be discharged to [facility]. She will be set up for dialysis at the SNF. Once she transition home, she will be dialyzed that [facility] dialysis center. I am planning on dialyzing the patient again on Saturday, and she can be discharged after dialysis on Saturday. Nephrology plan discussed with Dr. Scott. (2) Anemia: Status: Acute Code(s): D64.9 - Anemia, unspecified Qualifiers: Anemia type: due to chronic kidney disease Chronic kidney disease stage: on chronic dialysis Qualified Code(s): N18.6 - End stage renal disease; D63.1 - Anemia in chronic kidney disease; Z99.2 - Dependence on renal dialysis Plan: Anemia is likely due to chronic kidney disease. However, both ferritin and iron saturation were low on 09/20/2020. We will start Venofer with dialysis as outpatient. Once she is iron loaded, she will be started on JARRETT at the dialysis unit. (3) Hypertension: Status: Chronic Code(s): I10 - Essential (primary) hypertension Qualifiers: Hypertension type: unspecified Qualified Code(s): I10 - Essential (primary) hypertension Plan: Blood pressure is higher today. We will hold off on changing BP medications for now since she is being actively ultrafiltered. Now that she is on dialysis, ALEJO inhibitor or ARB can also be used once she is euvolemic. Will monitor blood pressure after ultrafiltration today. (4) Secondary hyperparathyroidism: Status: Acute Code(s): N25.81 - Secondary hyperparathyroidism of renal origin Plan: The patient is on calcitriol. Calcium and phosphorus levels are acceptable. There is no need for phosphorus binder at this time. (5) Acute exacerbation of CHF (congestive heart failure): Status: Chronic Code(s): I50.9 - Heart failure, unspecified Qualifiers: Heart failure type: unspecified Qualified Code(s): I50.9 - Heart failure, unspecified Plan: The patient has heart failure with preserved ejection fraction. Exacerbation of heart failure is likely due to progression of chronic kidney disease as well. Continue ultrafiltration today. We will aim for 3.5 L ultrafiltration.
== END 2020-10-01 21:45 | DRG 291 ==
LOC: ED 09-20 01:42 → PCU 09-20 01:43
PROVIDERS: Anesthesiology; Internal Medicine; Internal Medicine Nephrology; Nurse Practitioner Family; Surgery; Admitting Provider Family Medicine; Emergency Provider Emergency Medicine; PCP Family Medicine
PROC: 0JH63XZ Insertion of Tunneled Vascular Access Device into Chest Subcutaneous Tissue and Fascia, Percutaneous Approach (ICD-10-PCS; principal; 2020-09-27 09:15)
DX: I13.2 Hypertensive heart and chronic kidney disease with heart failure and with stage 5 chronic kidney disease, or end stage renal disease (principal); J96.01 Acute respiratory failure with hypoxia; N18.6 End stage renal disease; I50.33 Acute on chronic diastolic (congestive) heart failure; N17.9 Acute kidney failure, unspecified; N25.81 Secondary hyperparathyroidism of renal origin; E11.22 Type 2 diabetes mellitus with diabetic chronic kidney disease; D63.1 Anemia in chronic kidney disease; D50.9 Iron deficiency anemia, unspecified; E78.5 Hyperlipidemia, unspecified; G47.00 Insomnia, unspecified; E03.9 Hypothyroidism, unspecified; E87.5 Hyperkalemia; E66.9 Obesity, unspecified; R29.6 Repeated falls; Z68.38 Body mass index [BMI] 38.0-38.9, adult; Z76.82 Awaiting organ transplant status; Z79.82 Long term (current) use of aspirin; Z79.890 Hormone replacement therapy; Z79.84 Long term (current) use of oral hypoglycemic drugs; Z99.2 Dependence on renal dialysis; Z79.899 Other long term (current) drug therapy
CPT/HCPCS: 32555; 36415; 71045; 71046; 71250; 72170; 76000; 76770; 80048; 80053; 80061; 81001; 82274; 82728; 82945; 82962; 83036; 83540; 83550; 83615; 83735; 83880; 83986; 84100; 84156; 84157; 84443; 84484; 85025; 85027; 85610; 85730; 86850; 86900; 86901; 86920; 86922; 87070; 87075; 87086; 87088; 87205; 87340; 87426; 88108; 88305; 88313; 89050; 90937; 93005; 93306; 94002; 94003; 97110; 97162; 97166; 97530; 97535; 97802; 97803; 99251; 99285; J7030; J7040; J7050; P9016; Q9957; A4216; C1750; C8929; G0257; G0463; J1940; J2405; J2916

== ENCOUNTER → 2020-11-09 09:57 | Outpatient (CLI) | payer MEDICARE, SELFPAY ==
[2020-09-27 09:05] VITALS: BMI 37.5
--- NOTE | 2020-11-09 09:59 | VDUE_ITS ---
Reason For Study: Renal failure Right Arm Left Arm Right Cephalic Vein at the wrist measures Left Cephalic Vein at the wrist measures 0.30 x 0.33 cm. 0.16 x 0.15 cm. Right Cephalic Vein in the forearm measures Left Cephalic Vein in the forearm measures 0.21 x 0.24 cm. 0.21 x 0.22 cm. Right Cephalic Vein below antecub measures Left Cephalic Vein below antecub measures 0.17 x 0.18 cm. 0.17 x 0.17 cm. Right Cephalic Vein above antecub measures Left Cephalic Vein above antecub measures 0.10 x 0.13 cm. 0.18 x 0.18 cm. Right Cephalic Vein mid bicep measures 0.09 Left Cephalic Vein at mid bicep measures x 0.10 cm. 0.13 x 0.14 cm. Right Cephalic Vein at the shoulder measures Left Cephalic Vein at the shoulder measures 0.13 x 0.14 cm. 0.19 x 0.19 cm. Right Basilic Vein at the origin measures Basilic vein at origin measures 0.22 x 0.21 0.38 x 0.41 cm. cm. Right Basilic Vein mid bicep measures 0.29 x Basilic vein at bicep measures 0.20 x 0.20 0.31 cm. cm. Right Basilic Vein above antecub measures Basilic vein above antecub measures 0.17 x 0.28 x 0.31 cm. 0.17 cm. Right Brachial artery measures 0.36 x 0.40 Left Brachial artery measures 0.41 x 0.41 cm cm with a velocity of 90.5 cm/sec. with a velocity of 107.5 cm/sec. Right Radial artery measures 0.15 x 0.16 cm Left Radial artery measures 0.16 x 0.16 cm with a velocity 114.8 cm/sec. with a velocity of 105.1 cm/sec. VL/Saphenous Vein Mapping, Bilat Interpretation Summary Patent and compressible bilateral upper extremity cephalic and basilic veins wi th dimensions as noted. Bilateral upper extremity cephalic veins diffusely small. Small bilateral radial arteries Normal diameter and flow bilateral brachial arteries Ordering Physician: Jace Palacio Referring Physician: Weston Zhu Performed By: Rosario Garibay RVT and Student ?
== END ==
PROVIDERS: PCP Family Medicine; Referring Provider Surgery; Visit Provider Surgery
DX: Z01.818 Encounter for other preprocedural examination (principal); N18.6 End stage renal disease; N17.9 Acute kidney failure, unspecified; R60.0 Localized edema; Z99.2 Dependence on renal dialysis
CPT/HCPCS: 93970; 93985

== ENCOUNTER 2020-12-23 08:58 | Day surgery (SDC) | payer MEDICARE, SELFPAY ==
[2020-11-25 09:41] VITALS: BMI 27.1
--- NOTE | 2020-12-21 13:49 | EKG12_ITS ---
Test Reason : PREOP Blood Pressure : / mmHG Vent. Rate : 076 BPM Atrial Rate : 076 BPM P-R Int : 162 ms QRS Dur : 084 ms QT Int : 386 ms P-R-T Axes : 017 015 042 degrees QTc Int : 434 ms Normal sinus rhythm Normal ECG Confirmed by UNA OCONNELL, STANLEY ([id number]), editor producer MADELAINE SHIELDS ([id number]) on 12/23/2020 10:23:04 AM Referred By: Jace Palacio Confirmed By:STANLEY HEART MD
[2020-12-21 15:12] LABS: Hematocrit 37.3 % (37-47); Hemoglobin 11.7 g/dL (12.0-15.0); Mean Corp Hgb Conc 31.4 g/dL (32-36); Mean Corpuscular Volume 95.6 fL (81-99); Mean Platelet Vol. 11.3 fl (6.2-12.0); Platelet Count 226 K/mm3 (150-450); RBC Distribution Width CV 16.4 % (11.6-14.6); RBC Distribution Width SD 58.4 fl (35.1-43.9); White Blood Count 6.9 K/mm3 (4.4-11.0)
[2020-12-21 15:41] LABS: Anion Gap 5 (5-15); BUN 40 mg/dL (7-18); BUN/Creat Ratio 11.5 RATIO (10-20); Calcium,Total 8.9 mg/dL (8.5-10.1); Chloride 99 mmol/L (98-107); Creatinine, Serum 3.48 mg/dL (0.55-1.02); EST Glomerular Filtration Rate 14 mL/min (>60); Est Glom Filt Rate - Afr Amer 17 mL/min (>60); Glucose 185 mg/dL (74-106); Potassium 4.6 mmol/L (3.5-5.1); Sodium Level 138 mmol/L (136-145)
[2020-12-23] VITALS (7 sets, daily range): BP systolic 119–165; BP diastolic 50–70; PULSE 66–82; RESP 16–18; TEMP 36.3–36.9; O2SAT 92–99; BMI 28.2
[2020-12-23 09:46] LABS: Bedside Glucose 140 mg/dL (70-110)
--- NOTE | 2020-12-23 11:36 | PCM.HP.BLA ---
History and Physical Date of Admission: 12/23/20 Intake Visit Reasons: AVF CREATION 11/09 [facility] Chief Complaint: fistula creation Health Services Information Specialist Required: No Is patient in pain?: No Allergies lisinopril Allergy (Verified 11/25/20 09:42) Anaphylaxis olmesartan [From Benicar] Allergy (Verified 11/25/20 09:42) Anaphylaxis Sulfa (Sulfonamide Antibiotics) Allergy (Verified 11/25/20 09:42) Rash adhesive tape Adverse Reaction (Verified 11/25/20 09:42) Rash furosemide [From Lasix] Adverse Reaction (Verified 11/25/20 09:42) Nausea latex Adverse Reaction (Verified 11/25/20 09:42) Rash metoprolol [From Toprol XL] Adverse Reaction (Verified 11/25/20 09:42) Rash Medications alpha lipoic acid 100 mg PO DAILY 09/19/20 [History Confirmed 11/25/20] ascorbic acid (vitamin C) 500 mg PO DAILY 09/19/20 [History Confirmed 11/25/20] aspirin 81 mg PO DAILY@0800 09/19/20 [History Confirmed 11/25/20] calcitriol 0.25 mcg PO QODAY 09/19/20 [History Confirmed 11/25/20] calcitriol 0.5 mcg PO QODAY 09/19/20 [History Confirmed 11/25/20] cyanocobalamin (vitamin B-12) 1,000 mcg PO DAILY 09/19/20 [History Confirmed 11/25/20] diltiazem HCl 120 mg PO BID 09/19/20 [History Confirmed 11/25/20] geriatric wnlqcvxi-ksyo-ovos 1 each PO DAILY 09/19/20 [History Confirmed 11/25/20] levothyroxine 300 mcg PO DAILY 09/19/20 [History Confirmed 11/25/20] omega-3 fatty acids-fish oil 1 each PO DAILY 09/19/20 [History Confirmed 11/25/20] acetaminophen [Tylenol] 650 mg PO Q6H PRN PRN #0 tab 10/01/20 [Rx Confirmed 11/25/20] furosemide 80 mg PO BID@1000,1800 #0 tab 10/01/20 [Rx Confirmed 11/25/20] metolazone 5 mg PO BID #0 tab 10/01/20 [Rx Confirmed 11/25/20] sodium chloride [Deep Sea Nasal] 2 spray NASAL TID PRN PRN #0 ml 10/01/20 [Rx Confirmed 11/25/20] linagliptin 5 mg tablet 5 mg PO DAILY 11/25/20 [History Confirmed 11/25/20] vit A 7,160 unit-vit C 113 mg-vit E 100 sagj-rvqn-wikzes tablet tab PO 11/25/20 [History Confirmed 11/25/20] PFSH Medical History Anemia Diabetes mellitus type 2 in obese ESRD (end stage renal disease) on dialysis Hyperlipidemia Hypertension Hypothyroidism Insomnia Secondary hyperparathyroidism Surgical History S/P cataract extraction S/P D&C (status post dilation and curettage) S/P dialysis catheter insertion S/P hysterectomy with oophorectomy Family History Father Diabetes Hypertension Mother Hypertension Social History household members: spouse Smoking Status: Never smoker alcohol intake: never substance use type: does not use HPI HPI HPI: BRENT KRAUS, is a 69 F who presents to the office today for Surgical consultation regarding creation of arteriovenous hemodialysis fistula. The patient is Referred by Dr. Duncan a written copy my surgical consult recommendations will return to him. On September 27, 2020 Dr. Milady Parker placed a right internal jugular tunneled hemodialysis catheter. The patient is not completely clear as to the etiology of her renal failure. She states that remotely she had what sounds like thyroid storm. She has been on chronic diuretic. She did develop type 2 diabetes. Her most recent episode was an episode of acute congestive heart failure with acute kidney injury. She is right arm dominant. November 09, 2020 Reason For Study: Renal failure Right Arm Left Arm Right Cephalic Vein at the wrist measures Left Cephalic Vein at the wrist measures 0.30 x 0.33 cm. 0.16 x 0.15 cm. Right Cephalic Vein in the forearm measures Left Cephalic Vein in the forearm measures 0.21 x 0.24 cm. 0.21 x 0.22 cm. Right Cephalic Vein below antecub measures Left Cephalic Vein below antecub measures 0.17 x 0.18 cm. 0.17 x 0.17 cm. Right Cephalic Vein above antecub measures Left Cephalic Vein above antecub measures 0.10 x 0.13 cm. 0.18 x 0.18 cm. Right Cephalic Vein mid bicep measures 0.09 Left Cephalic Vein at mid bicep measures x 0.10 cm. 0.13 x 0.14 cm. Right Cephalic Vein at the shoulder measures Left Cephalic Vein at the shoulder measures 0.13 x 0.14 cm. 0.19 x 0.19 cm. Right Basilic Vein at the origin measures Basilic vein at origin measures 0.22 x 0.21 0.38 x 0.41 cm. cm. Right Basilic Vein mid bicep measures 0.29 x Basilic vein at bicep measures 0.20 x 0.20 0.31 cm. cm. Right Basilic Vein above antecub measures Basilic vein above antecub measures 0.17 x 0.28 x 0.31 cm. 0.17 cm. Right Brachial artery measures 0.36 x 0.40 Left Brachial artery measures 0.41 x 0.41 cm cm with a velocity of 90.5 cm/sec. with a velocity of 107.5 cm/sec. Right Radial artery measures 0.15 x 0.16 cm Left Radial artery measures 0.16 x 0.16 cm with a velocity 114.8 cm/sec. with a velocity of 105.1 cm/sec. VL/Saphenous Vein Mapping, Bilat Interpretation Summary Patent and compressible bilateral upper extremity cephalic and basilic veins with dimensions as noted. Bilateral upper extremity cephalic veins diffusely small. Small bilateral radial arteries Normal diameter and flow bilateral brachial arteries Ordering Physician: Jace Palacio Referring Physician: Weston Zhu Performed By: Rosario Garibay RVT and Student General General: Yes weight change; No appetite, fatigue, colon cancer, breast cancer or weakness HEENT HEENT: Yes eye injury and eye surgery; No difficulty swallowing, swollen glands or hoarseness Endo Endocrine: Yes thyroid disease and diabetes mellitus; No thyroid cancer, Hair loss, heat intolerance or cold intolerance Skin Skin: No rash or changing moles Breast Breast: No left breast lump, right breast lump, nipple discharge, breast pain, abnormal mammogram, abnormal US or breast enlargement Musc Musculoskeletal: No back problems, arthritis, rheumatoid arthritis, gout or joint pain Cardio Cardiovascular: Yes high blood pressure; No murmur, pacemaker, heart disease, atrial fibrillation, heart attack, heart stent, palpitations, shortness of breat with exertion or chest pain Psych Psychiatric: No depression, anxiety or hearing voices Resp Respiratory: No shortness of breath, No sleep apnea, No cough, No COPD, No asthma, No emphysema and No wheezing Gastro Gastrointestinal: No abdominal pain, No nausea or vomiting, No diarrhea, No constipation, No blood in stool, No acid reflux, No hemorrhoids, No ulcers, No gallbladder problem and No black,tarry stools Gaurang Hematologic: Yes blood thinners, No blood disorders, No bleeding, Yes anemia and No blood clots Neuro Neurologic: No system reviewed and no additional complaints, except as documented, No as per HPI, No abnormal gait, No abnormal hearing, No abnormal movements, No abnormal speech, No behavioral changes, No burning sensations, No confusion, No convulsions, No disequilibrium, No dizziness, No localized weakness, No frequent falls, No headache(s), No lack of coordination, No loss of vision, No memory loss, No numbness, No other visual disturbances, No radicular pain, No restless legs, No sensory deficit, No syncope, No tingling, No tremor(s), No weakness and No other Exam Const General: cooperative, healthy appearing, comfortable and no acute distress Nutritional Appearance: average body habitus Orientation: alert and awake [facility] Head: normal to inspection Eyes General: appearance normal, both eyes and all related structures Resp Effort & Inspection: normal respiratory effort Auscultation: clear to auscultation bilaterally Cardio Rate: regular rate Rhythm: regular rhythm GI Palpation: soft and no hepatosplenomegaly Skin General: no rashes or lesions noted Neuro Cognition: normal cognition Extrem Other: Actually bilateral forearm cephalic veins are quite visible. They are close to the surface. In particular the left forearm cephalic vein appears to be of adequate diameter with a branch point in the distal forearm. The left radial artery admittedly is somewhat small. Keven test suggests adequate ulnar flow. Psych Thought Process: normal COVID (Procedure Consent) Procedure Criteria Procedure Criteria: Yes Elective The surgeon/proceduralist and patient have discussed in detail the risk of exposure to and/or potential harm posed by the COVID-19 virus with having a surgery/procedure at this time versus the risk of delaying the surgery/procedure. It is not possible to know either the risk of delaying the surgery or procedure or chance of getting an infection with perfect accuracy, but a joint decision was made between the patient and the surgeon/proceduralist to proceed at this time with the scheduled surgery/procedure as indicated on the consent form. Assessment and Plan Assessment and Plan (1) Chronic renal failure, stage 5: Status: Chronic Plan - Dr. Jace Palacio MD: Very pleasant 69-year-old female. She has been on hemodialysis now since September and is felt to be stage V disease. Request is been made for attempt at hemodialysis access in the form of a AV fistula. The patient's right arm dominant. I propose for her a left forearm radiocephalic arteriovenous hemodialysis fistula creation. The vein appears to be clinically significantly better than the duplex imaging. The radial artery admittedly clinically a small. In detail I described to her the technique, benefit, risk and alternatives. She has had an opportunity to ask and have questions answered. We will schedule and expedite her care. Her only current anticoagulant is a low-dose aspirin which would be appropriate. The patient is aware that there are no guarantees of success. I appreciate the opportunity of assisting with her surgical care Copy: and Dr Audra Palacio, Surekha., F.A.C.S. I have re-examined the patient. There are no clinical changes since date of exam.
--- NOTE | 2020-12-23 12:06 | EX.PCM.DISCH ---
Discharge Instructions Procedure Fistula Diet Discharge Diet: Renal Diet Activity Discharge Activity: May Not Drive (for 2-3 days or while taking narcotic pain medications.), May Shower and May Take a Tub Bath (in 5 days.) Lifting Restrictions: 5 pounds Keep extremity elevated above heart level: - (Keep arm elevated above the heart level for 3 days.) Dressing / Incision Call your doctor if your incision/area has: Continuous Slow Oozing, Sudden Increased Bleeding (apply pressure and call your doctor.), Increased Pain/ Swelling, Increased Redness and Foul Smelling Discharge Call your doctor if you observe: Fever of 101 or Higher Suture Line Care: Avoid Pulling/Pushing and Avoid Pinching/Bending Cleanse incision/area with: Keep Dressing Clean & Dry Additional Dressing/Incision Instructions:: Change or remove dressing in one day. May protect with a gauze bandaid. Follow Up Care Please Follow Up With: Jace Palacio MD When: Call [phone] to make an appointment for suture removal and follow up in 1 week. Test Results: Test results from this visit will be discussed in further detail at your follow-up appointment, if applicable. Discharge Plan Admission Primary Reason for Your Visit: Stage V chronic renal insufficiency in need of arteriovenous hemodialysis a Attending Provider: Jace Palacio Primary Care Provider: Weston Zhu Discharge Orders/Prescriptions Prescriptions: New hydrocodone-acetaminophen 5-325 mg tablet 1 tab PO Q8H PRN (Reason: pain) 2 Days Qty: 5 RF: 0 Continued Tradjenta 5 mg tablet 5 mg PO DAILY RF: 0 EyeProtect 7,160-113-100 tsim-ll-psia tablet 1 tab PO DAILY RF: 0 aspirin 81 MG tablet,chewable 81 mg PO DAILY@0800 RF: 0 levothyroxine 150 MCG tablet 300 mcg PO DAILY RF: 0 diltiazem HCl [Cardizem] 60 MG tablet 120 mg PO BID RF: 0 geriatric gahtgrvg-ocmu-gmty 1 EACH tablet 1 each PO DAILY RF: 0 alpha lipoic acid 100 MG capsule 100 mg PO DAILY RF: 0 omega-3 fatty acids-fish oil 1 EACH capsule,delayed release(DR/EC) 1 each PO DAILY RF: 0 cyanocobalamin (vitamin B-12) 1,000 MCG capsule 1,000 mcg PO DAILY RF: 0 acetaminophen [Tylenol] 325 mg Tablet 650 mg PO Q6H PRN PRN (Reason: Pain Score 1-10/Temp > 100.7 F) Qty: 0 RF: 0 metolazone 5 mg Tablet 5 mg PO BID Qty: 0 RF: 0 multivitamin Tablet 1 tab PO DAILY RF: 0 diltiazem HCl 120 mg Tablet Extended Release 24 Hr 120 mg PO DAILY RF: 0 zolpidem [Ambien] 5 mg Tablet 5 mg PO QHS PRN (Reason: Sleep) RF: 0 furosemide 80 mg tablet 80 mg PO DAILY RF: 0 Referrals / Follow Up: Weston Zhu MD [Primary Care Provider] - Disposition Disposition (needs filled in before D/C Order can be placed): Home, Self Care
[2020-12-23] MEDS: Bupivacaine Mpf 0.5% 30 ML VIAL (12:16)
[2020-12-23] MEDS: Heparin Injection (Vial) 5,000 UNIT/ML VIAL 5000 UNIT (12:16)
[2020-12-23] MEDS: Lidocaine 1% (30 ml sdv) 30 ML Vial (12:16)
--- NOTE | 2020-12-23 13:21 | OP.PCM_ITS ---
Problems Associated Problem List Diagnoses (1) Chronic renal failure, stage 5: Report of Operation Date of Procedure: 12/23/20 Pre-Operative Diagnosis: Stage V chronic renal insufficiency in need of arteriovenous hemodialysis fistula access Post-Operative Diagnosis: Same Surgery/Procedure Performed:: Left forearm radiocephalic arteriovenous hemodialysis fistula creation Description of Surgical Findings:: Timeout and informed consent was obtained. 69-year-old female was taken to the operating room placed upon the table the left upper extremity was sterilely prepped and draped mapping of the cephalic vein is been performed 1% lidocaine mixed 50-50 with 0.5% Marcaine was used as a local anesthetic. A total of 9 cc was used. An oblique transverse incision was made in the radial aspect of the distal third of the left forearm sharp and blunt dissection was used to identify the cephalic vein it was dissected free at a branch point. Sharp and blunt dissection was used to identify the radial artery and it was mobilized. The patient received 7000 Hz of heparin. Peripheral vascular clamps were placed on the radial artery. The vein was ligated distally with hemoclips and then at that branch point it was spatulated. A end-to-side anastomosis was created with the artery by making a 11 blade arteriotomy and extended with Davidson scissors. The angioplasty was closed with a running 7-0 Prolene. Very widely patent anastomosis was achieved. Hemostasis was intact. There was a good pulse and thrill within the fistula at the completion it had a good curvilinear line. The deep tissues approximated up to 3-0 Vicryl. Skin edges approximate wound running septic or 4 Monocryl. Steri- Strips Telfa OpSite bulky dry dressings Eladio wrap applied. Sponge and instrument and needle counts were reported to certainly be correct. Specimens none. Drains none. Blood loss minimal. The patient was taken the recovery area in satisfactory addition without apparent complication Jace Palacio M.D., F.A.C.S. Surgeon: Jace Palacio Type of Anesthesia: Local MAC Anesthesiologist: Ashutosh Sarmiento
== END 2020-12-23 15:23 | disposition home or self-care (01) ==
LOC: SDC 08:58 → AC 08:59
PROVIDERS: PCP Family Medicine; Referring Provider Surgery; Visit Provider Surgery
PROC: (CPT 36821; principal; 2020-12-23 10:45)
DX: Z45.2 Encounter for adjustment and management of vascular access device (principal); I13.2 Hypertensive heart and chronic kidney disease with heart failure and with stage 5 chronic kidney disease, or end stage renal disease; I50.30 Unspecified diastolic (congestive) heart failure; N18.5 Chronic kidney disease, stage 5; E11.22 Type 2 diabetes mellitus with diabetic chronic kidney disease; N17.9 Acute kidney failure, unspecified; N25.81 Secondary hyperparathyroidism of renal origin; D63.1 Anemia in chronic kidney disease; I27.20 Pulmonary hypertension, unspecified; E78.5 Hyperlipidemia, unspecified; E03.9 Hypothyroidism, unspecified; E66.9 Obesity, unspecified; R09.02 Hypoxemia; Z68.28 Body mass index [BMI] 28.0-28.9, adult; Z99.2 Dependence on renal dialysis; Z79.899 Other long term (current) drug therapy; Z79.84 Long term (current) use of oral hypoglycemic drugs; Z79.82 Long term (current) use of aspirin
CPT/HCPCS: 01844; 36821; 36415; 80048; 82962; 85027; 93005; J7040; J2405

== ENCOUNTER → 2021-04-12 14:24 | Outpatient (CLI) | payer MEDICARE, SELFPAY ==
[2021-04-12 14:42] LABS: Hematocrit 33.3 % (37-47); Hemoglobin 11.1 g/dL (12.0-15.0); Mean Corp Hgb Conc 33.3 g/dL (32-36); Mean Corpuscular Hgb 32.3 pg (27.0-32.0); Mean Corpuscular Volume 96.8 fL (81-99); Mean Platelet Vol. 9.9 fl (6.2-12.0); Platelet Count 266 K/mm3 (150-450); RBC Distribution Width CV 12.5 % (11.6-14.6); RBC Distribution Width SD 43.1 fl (35.1-43.9); Red Blood Count 3.44 M/mm3 (4.2-5.4); White Blood Count 8.4 K/mm3 (4.4-11.0)
[2021-04-12 14:53] LABS: Anion Gap 7 (5-15); BUN 43 mg/dL (7-18); BUN/Creat Ratio 10.6 RATIO (10-20); Chloride 97 mmol/L (98-107); Creatinine, Serum 4.07 mg/dL (0.55-1.02); EST Glomerular Filtration Rate 12 mL/min (>60); Est Glom Filt Rate - Afr Amer 14 mL/min (>60); Glucose 179 mg/dL (74-106); Potassium 3.7 mmol/L (3.5-5.1); Sodium Level 136 mmol/L (136-145)
== END ==
PROVIDERS: PCP Family Medicine; Referring Provider Physician Assistant; Visit Provider Physician Assistant
DX: Z01.812 Encounter for preprocedural laboratory examination (principal); T82.898A Other specified complication of vascular prosthetic devices, implants and grafts, initial encounter
CPT/HCPCS: 36415; 80048; 85027

== ENCOUNTER 2021-04-21 09:27 | Day surgery (SDC) | payer MEDICARE, SELFPAY ==
[2021-04-21 10:08] VITALS: BMI 35.2
--- NOTE | 2021-04-21 10:54 | PCM.HP.BLA ---
History and Physical Date of Admission: 04/21/21 Intake Visit Reasons: Decreased Access Flows Chief Complaint: check fistula Sap Security Consultant Required: No Is patient in pain?: No Allergies lisinopril Allergy (Verified 04/12/21 14:09) Anaphylaxis olmesartan [From Benicar] Allergy (Verified 04/12/21 14:09) Anaphylaxis Sulfa (Sulfonamide Antibiotics) Allergy (Verified 04/12/21 14:09) Rash adhesive tape Adverse Reaction (Verified 04/12/21 14:09) Rash latex Adverse Reaction (Verified 04/12/21 14:09) Rash metoprolol [From Toprol XL] Adverse Reaction (Verified 04/12/21 14:09) Rash Medications alpha lipoic acid 100 mg PO DAILY 09/19/20 [History Confirmed 04/12/21] aspirin 81 mg PO DAILY@0800 09/19/20 [History Confirmed 04/12/21] cyanocobalamin (vitamin B-12) 1,000 mcg PO DAILY 09/19/20 [History Confirmed 04/12/21] diltiazem HCl [Cardizem] 120 mg PO BID 09/19/20 [History Confirmed 04/12/21] geriatric jcevxubr-yfsu-mphf 1 each PO DAILY 09/19/20 [History Confirmed 04/12/21] levothyroxine 300 mcg PO DAILY 09/19/20 [History Confirmed 04/12/21] omega-3 fatty acids-fish oil 1 each PO DAILY 09/19/20 [History Confirmed 04/12/21] acetaminophen [Tylenol] 650 mg PO Q6H PRN PRN #0 tab 10/01/20 [Rx Confirmed 04/12/21] metolazone 5 mg PO BID #0 tab 10/01/20 [Rx Confirmed 04/12/21] linagliptin 5 mg tablet 5 mg PO DAILY 11/25/20 [History Confirmed 04/12/21] vit A 7,160 unit-vit C 113 mg-vit E 100 etxw-uamj-kubgxt tablet 1 tab PO DAILY 11/25/20 [History Confirmed 04/12/21] diltiazem HCl 120 mg PO DAILY 12/19/20 [History Confirmed 04/12/21] multivitamin 1 tab PO DAILY 12/19/20 [History Confirmed 04/12/21] zolpidem [Ambien] 5 mg PO QHS PRN 12/19/20 [History Confirmed 04/12/21] furosemide 80 mg PO DAILY 12/23/20 [History Confirmed 04/12/21] hydrocodone-acetaminophen 1 tab PO Q8H PRN 2 Days #5 tab 12/23/20 [Rx Confirmed 04/12/21] PFSH Medical History Anemia Diabetes Diabetes mellitus type 2 in obese Dietary restriction ESRD (end stage renal disease) on dialysis History of edema History of renal disease Hyperlipidemia Hypertension Hypothyroidism Insomnia Non-smoker Secondary hyperparathyroidism Thyroid disease Surgical History History of arteriovenostomy for renal dialysis (~12/2020) S/P cataract extraction S/P D&C (status post dilation and curettage) S/P dialysis catheter insertion S/P hysterectomy with oophorectomy Family History Father Diabetes Hypertension Mother Hypertension Social History household members: spouse Smoking Status: Never smoker alcohol intake: never substance use type: does not use HPI HPI HPI: BRENT KRAUS, is a 70 F who presents to the office today for problem with dialysis access. Patient has a left forearm radiocephalic arteriovenous hemodialysis fistula which was created on 12/23/20. Patient was recently placed on dialysis mid March. She notes the first 2 treatments at dialysis she infiltrated. She would then go two treatments where she would be able to dialyze one needle in the fistula and one in the catheter. She noted there were a few techs that were able to place 2 needles in the fistula. Within the last week, she has been infiltrated twice again. She last two treatments they have been using the chest catheters. Per dialysis, she is still on a 16 gauge needle and dialysis is unable to achieve ordered blood flow through the fistula without the alarms going off. She notes some discomfort where she is still healing from the last infiltration. She has not had a previous fistulogram. She did have a branch ligation in the office with Dr. Palacio on 02/17/21. ROS General General: Yes weight change; No appetite, fatigue, colon cancer, breast cancer or weakness HEENT HEENT: Yes eye injury and eye surgery; No difficulty swallowing, swollen glands or hoarseness Endo Endocrine: Yes thyroid disease and diabetes mellitus; No thyroid cancer, Hair loss, heat intolerance or cold intolerance Skin Skin: No rash or changing moles Breast Breast: No left breast lump, right breast lump, nipple discharge, breast pain, abnormal mammogram, abnormal US or breast enlargement Musc Musculoskeletal: No back problems, arthritis, rheumatoid arthritis, gout or joint pain Cardio Cardiovascular: Yes high blood pressure; No murmur, pacemaker, heart disease, atrial fibrillation, heart attack, heart stent, palpitations, shortness of breat with exertion or chest pain Psych Psychiatric: No depression, anxiety or hearing voices Resp Respiratory: No shortness of breath, No sleep apnea, No cough, No COPD, No asthma, No emphysema and No wheezing Gastro Gastrointestinal: No abdominal pain, No nausea or vomiting, No diarrhea, No constipation, No blood in stool, No acid reflux, No hemorrhoids, No ulcers, No gallbladder problem and No black,tarry stools Gaurang Hematologic: Yes blood thinners, No blood disorders, No bleeding, Yes anemia and No blood clots Neuro Neurologic: No system reviewed and no additional complaints, except as documented, No as per HPI, No abnormal gait, No abnormal hearing, No abnormal movements, No abnormal speech, No behavioral changes, No burning sensations, No confusion, No convulsions, No disequilibrium, No dizziness, No localized weakness, No frequent falls, No headache(s), No lack of coordination, No loss of vision, No memory loss, No numbness, No other visual disturbances, No radicular pain, No restless legs, No sensory deficit, No syncope, No tingling, No tremor(s), No weakness and No other Exam Const General: cooperative, healthy appearing, comfortable and no acute distress [facility] Head: normal to inspection Eyes General: appearance normal, both eyes and all related structures Neck Neck: normal visual inspection Neck mass: No Resp Effort & Inspection: normal respiratory effort Auscultation: clear to auscultation bilaterally Cardio Rate: regular rate Rhythm: regular rhythm GI Inspection: normal to inspection Palpation: soft Auscultation: normal bowel sounds Skin General: no rashes or lesions noted Neuro General: no focal motor deficits and CN's II-XI intact bilaterally Extrem Other: left forearm AV fistula- good pulse, diminished bruit and thrill. Moderate amount of ecchymosis noted. Psych Appearance: grossly normal Affect: normal affect COVID (Procedure Consent) Procedure Criteria Procedure Criteria: Yes Elective The surgeon/proceduralist and patient have discussed in detail the risk of exposure to and/or potential harm posed by the COVID-19 virus with having a surgery/procedure at this time versus the risk of delaying the surgery/procedure. It is not possible to know either the risk of delaying the surgery or procedure or chance of getting an infection with perfect accuracy, but a joint decision was made between the patient and the surgeon/proceduralist to proceed at this time with the scheduled surgery/procedure as indicated on the consent form. Assessment and Plan Assessment and Plan (1) Problem with dialysis access: Status: Acute Qualifiers: Encounter type: initial encounter Qualified Code(s): T82.898A - Other specified complication of vascular prosthetic devices, implants and grafts, initial encounter Orders: Orders: Basic Metabolic Profile (BMP) Today CBC-Complete Blood Cnt No Diff Today Plan - Glory ALEXANDRA PA-C: Patient's fistula appears as though it should function well. Unfortunately the dialysis center has resorted to using her chest catheters multiple times for treatment as well as infiltrated the fistula multiple times. She has had this fistula since December and has completed a branch ligation. For some reason the fistula was not ready to be used until Mid March, 5 weeks ago. With the continuous difficulty in accessing the fistula, I would recommend a fistulogram to attempt to assist with further maturation of the fistula. Dr. Palacio will plan to perform a left forearm fistulogram. Procedure details, risks and benefits have been explained to the patient. Patient may continue on aspirin daily. She has had the opportunity to ask and have questions answered. Patient verbally understands and agrees with the plan. I have re-examined the patient. There are no clinical changes since date of exam. Jace Palacio M.D., F.A.C.S.
--- NOTE | 2021-04-21 11:59 | PCM.OPRPT ---
Problems Associated Problem List Diagnoses (1) Problem with dialysis access: Report of Operation Date of Procedure: 04/21/21 Pre-Operative Diagnosis: Problem with dialysis access left upper extremity radial cephalic arteriovenous hemodialysis fistula Post-Operative Diagnosis: High-grade anastomotic special proximal venous stenosis left forearm radiocephalic fistula Surgery/Procedure Performed:: Left upper extremity fistulogram with 4 x 2 Powerflex angioplasty and 5 x 80 EverCross angioplasty and 5 x 20 Cutting Balloon angioplasty proximal left forearm radiocephalic arteriovenous hemodialysis fistula Description of Surgical Findings:: Timeout informed consent was obtained. 70-year-old female was taken to the special procedures lab placed upon the table of the left upper semisterilely prepped draped 50 mcg of fentanyl 1 mg Versed were given intravenous sedation ultrasound was used to identify the cephalic vein closer to the antecubital space 2% lidocaine was instilled then using ultrasound a micropuncture needle was inserted retrograde with flow micropuncture wire 6 Bangladeshi short sheath dilator using a 035 angled Glidewire and a 4 Bangladeshi angled glide cath I gained access to the radial artery proximal to the anastomosis. Using Isovue contrast a fistulogram was obtained. This demonstrated moderate arterial anastomotic stenosis and high-grade proximal venous stenosis. I was able then to place a 4 x 2 Powerflex balloon. The patient did receive 5000 units of heparin. The balloon was inflated to 18 enrrique of pressure but I could not get complete release. I then placed a 5 x 80 mm ever cross balloon and I treated the majority of the length of the forearm fistula up to 18 enrrique of pressure. But that also did not relieve the high-grade venous stenosis that was in the proximal 1-1/2 cm from the anastomosis. So subsequently I exchanged out for an SV 5 wire. I then placed a 5 x 2 cutting balloon and made 3 different insufflations in the very proximal portion of the fistula and got good release. I removed the cutting balloon replaced a 4 Bangladeshi angled glide cath and final images now demonstrate that the area of arterial anastomotic stenosis and proximal venous stenosis was completely resolved. I removed the glide catheter over the wire. I finished the fistulogram of the left upper extremity through the sheath. There were no apparent complications sheath was removed and U suture of 4-0 nylon was placed blood loss minimal. Images demonstrate a left forearm radiocephalic arteriovenous hemodialysis fistula. There is moderate arterial anastomotic stenosis mild stenosis of the radial artery just proximal to the fistula and then high-grade 90% stenosis of a very proximal vein within a centimeter and half of the anastomosis. There was complete resolution status post Cutting Balloon treatment. There is good forearm outflow through the cephalic vein. There is evidence of a previous ligated sidebranch in the proximal portion of the fistula but still some additional sidebranches still patent. There is good upper arm cephalic and basilic vein outflow and excellent central venous outflow. There is evidence of a right internal jugular tunneled dialysis catheter into the innominate/SVC Successfully treated left forearm radiocephalic arteriovenous hemodialysis fistula with a resumption of good pulse and thrill and bruit. Jace Palacio M.D., F.A.C.S. Surgeon: Jace Palacio Type of Anesthesia: IV Sedation and Local
== END 2021-04-21 13:15 | disposition home or self-care (01) ==
LOC: CLSP 09:29
PROVIDERS: PCP Family Medicine; Referring Provider Surgery; Visit Provider Surgery
DX: T82.858A Stenosis of other vascular prosthetic devices, implants and grafts, initial encounter (principal); I12.0 Hypertensive chronic kidney disease with stage 5 chronic kidney disease or end stage renal disease; E11.22 Type 2 diabetes mellitus with diabetic chronic kidney disease; N18.6 End stage renal disease; N25.81 Secondary hyperparathyroidism of renal origin; D63.1 Anemia in chronic kidney disease; E78.5 Hyperlipidemia, unspecified; E03.9 Hypothyroidism, unspecified; Z99.2 Dependence on renal dialysis; Z79.82 Long term (current) use of aspirin; Z79.84 Long term (current) use of oral hypoglycemic drugs; Z79.899 Other long term (current) drug therapy
CPT/HCPCS: 36902; 76937; 99152; 99153; C1725; Q9967; C1769

== ENCOUNTER 2021-09-19 02:16 | Emergency (ER) | payer MEDICARE, SELFPAY ==
[2021-09-19 02:17] VITALS: BP 197/85; PULSE 96; RESP 25; TEMP 36.8; O2SAT 98; BMI 25.2
[2021-09-19 02:21] VITALS: BP 197/85
--- NOTE | 2021-09-19 02:32 | EKG12_ITS ---
Test Reason : CP Blood Pressure : / mmHG Vent. Rate : 097 BPM Atrial Rate : 097 BPM P-R Int : 178 ms QRS Dur : 088 ms QT Int : 350 ms P-R-T Axes : 036 029 052 degrees QTc Int : 444 ms Normal sinus rhythm Normal ECG Confirmed by CINDY OCONNELL, CHIOMA ([id number]), makeup editor MADELAINE SHIELDS ([id number]) on 09/19/2021 9:04:19 AM Referred By: AMIRA Confirmed By:CHIOMA WHITE MD
--- NOTE | 2021-09-19 02:32 | RAD_ITS ---
EXAM: XR CHEST, 1 VIEW CLINICAL INDICATION: chest pain TECHNIQUE: Frontal view of the chest. This report was created using [employer] report generation technology. COMPARISON: 09/26/2020. FINDINGS: LUNGS AND PLEURAL SPACES: Opacification left lung base may be due to atelectasis or pneumonia. No pneumothorax. No effusion. HEART: Unremarkable. Cardiac silhouette not enlarged. MEDIASTINUM: Central airways and mediastinal contour are unremarkable. BONES/JOINTS: Unremarkable. SOFT TISSUES: Unremarkable. RAD/Chest 1 View (Portable) IMPRESSION: Opacification left lung base may be due to atelectasis or pneumonia. Electronically Signed: Elvis Valero MD at 3:37 EDT ,
[2021-09-19 02:39] LABS: Absolute Lymphocyte Count 1.03 X10^3/uL (0.83-4.51); Absolute Neutrophil Count 14.4 X10^3/uL (2.0-7.7); Basophil# 0.04 X10^3/uL; Basophil% 0.2 % (0-1); Eosinophil# 0.04 X10^3/uL; Eosinophils% 0.2 % (0-5); Hematocrit 33.3 % (37-47); Hemoglobin 11.3 g/dL (12.0-15.0); Lymphocyte # 1.03 X10^3/ul (0.83-4.51); Lymphocyte % 6.2 % (19-41); Mean Corp Hgb Conc 33.9 g/dL (32-36); Mean Corpuscular Hgb 33.6 pg (27.0-32.0); Mean Corpuscular Volume 99.1 fL (81-99); Mean Platelet Vol. 10.9 fl (6.2-12.0); Monocyte# 0.85 X10^3/uL; Monocyte% 5.2 % (0-10); NRBC Flagged by Analyzer 0 % (0-5); Neutrophil # 14.44 X10^3/uL (2.7-7.7); Neutrophil % 87.7 % (47-70); Platelet Count 270 K/mm3 (150-450); RBC Distribution Width CV 12.4 % (11.6-14.6); RBC Distribution Width SD 45.2 fl (35.1-43.9); Red Blood Count 3.36 M/mm3 (4.2-5.4); White Blood Count 16.5 K/mm3 (4.4-11.0)
--- NOTE | 2021-09-19 02:44 | ED.VIS.CHEST ---
HPI History of Present Illness Chief Complaint: Chest Pain Informant: patient and family Onset/Context/Timing Onset: Today and Hours Timing: Continuous Quality: Positive for Aching Current Severity: Mild Maximum Severity: Mild Worsened By: Movement of Torso Relieved By: Remaining Still Associated Symptoms: Negative for Nausea, Vomiting, Diaphoresis, Dyspnea, Cough, Fever, Lightheadedness, Acid Reflux and Palpitations Narrative Narrative: 70-year-old female history of end-stage renal disease gets dialysis Saturday. History of anemia and diabetes and hypertension. No cardiac history. No history of DVT or PE. She did have a history of years ago she fell and had a sternal fracture. Said this pain feels like that. She started having chest pain about 10:30 AM on Saturday. States she has been cleaning out a large closet at home the last several days lifting and carrying things. She denies any fall or trauma. She denies any nausea, diaphoresis or shortness of breath. Worse with movement. Denies any shortness of breath or hemoptysis. No leg pain or swelling. Prior Similar Symptoms: Yes Recent Illness/Hospitalization: No CVD Risk Factors: Positive for Hypertension and Diabetes; Negative for Smoking PE Risk Factors: Negative for Recent Travel/Surgery, Recent Immobilization, Prior DVT or PE, Cancer and OCP + Smoking + >/=35 TAD Risk Factors: Negative for Marfan's Syndrome [facility] Medical History Anemia Diabetes Diabetes mellitus type 2 in obese Dietary restriction ESRD (end stage renal disease) on dialysis History of edema History of renal disease Hyperlipidemia Hypertension Hypothyroidism Insomnia Non-smoker Secondary hyperparathyroidism Thyroid disease Home Medications alpha lipoic acid 100 mg PO DAILY 09/19/20 [History Last Taken Unknown] aspirin 81 mg PO DAILY@0800 09/19/20 [History Last Taken Unknown] cyanocobalamin (vitamin B-12) 1,000 mcg PO DAILY 09/19/20 [History Last Taken Unknown] geriatric houajaqv-mhxk-hzsv 1 each PO DAILY 09/19/20 [History Last Taken Unknown] levothyroxine 300 mcg PO DAILY 09/19/20 [History Last Taken 12/23/20] omega-3 fatty acids-fish oil 1 each PO DAILY 09/19/20 [History Last Taken Unknown] acetaminophen [Tylenol] 650 mg PO Q6H PRN PRN #0 tab 10/01/20 [Rx Last Taken Unknown] metolazone 5 mg PO BID #0 tab 10/01/20 [Rx Last Taken Unknown] linagliptin 5 mg tablet 5 mg PO DAILY 11/25/20 [History Last Taken Unknown] vit A 7,160 unit-vit C 113 mg-vit E 100 ujrc-empj-[id number] tablet 1 tab PO DAILY 11/25/20 [History Last Taken Unknown] diltiazem HCl 120 mg PO DAILY 12/19/20 [History Last Taken 04/21/21] multivitamin 1 tab PO DAILY 12/19/20 [History Last Taken Unknown] zolpidem [Ambien] 5 mg PO QHS PRN 12/19/20 [History Last Taken Unknown] furosemide 80 mg PO DAILY 12/23/20 [History Last Taken Unknown] hydrocodone-acetaminophen 1 tab PO Q8H PRN 2 Days #5 tab 12/23/20 [Rx Last Taken Unknown] B complex-vitamin C-folic acid [Nephro-Drea] 1 tab PO DAILY 09/19/21 [History Last Taken Unknown] amlodipine 10 mg PO DAILY 09/19/21 [History Last Taken Unknown] ascorbic acid (vitamin C) 500 mg PO DAILY 09/19/21 [History Last Taken Unknown] hydrocodone-acetaminophen 1 tab PO Q4H PRN 3 Days #10 tab 09/19/21 [Rx Last Taken Unknown] potassium chloride 20 meq PO DAILY 09/19/21 [History Last Taken Unknown] Allergy/AdvReac Type Severity Reaction Status Date / Time lisinopril Allergy Anaphylaxis Verified 09/19/21 03:06 olmesartan [From Benicar] Allergy Anaphylaxis Verified 09/19/21 03:06 Sulfa (Sulfonamide Allergy Rash Verified 09/19/21 03:06 Antibiotics) adhesive tape AdvReac Rash Verified 09/19/21 03:06 latex AdvReac Rash Verified 09/19/21 03:06 metoprolol [From Toprol XL] AdvReac Rash Verified 09/19/21 03:06 Family History Father Diabetes Hypertension Mother Hypertension Surgical History History of arteriovenostomy for renal dialysis (~12/2020) S/P cataract extraction S/P D&C (status post dilation and curettage) S/P dialysis catheter insertion S/P hysterectomy with oophorectomy Social History household members: spouse Smoking Status: Never smoker alcohol intake: never substance use type: does not use ROS ROS ED ROS Narrative Sternal chest pain. No exertional chest pain or exertional shortness of breath. Review of Systems ROS Unobtainable: Denies due to encephalopathy Constitutional Constitutional ED: Denies fever(s) Eyes Eyes: Reports none ENT ENT ED: Denies ear pain Cardiovascular Cardiovascular: Reports as per HPI and chest pain; Denies palpitations or racing heartbeat Respiratory/Chest Respiratory/Chest: Denies cough or dyspnea Gastrointestinal Gastrointestinal: Denies abdominal pain, diarrhea, nausea or vomiting Genitourinary Genitourinary ED: Denies dysuria Musculoskeletal Musculoskeletal: Denies myalgias Integumentary Denies rash Neurologic Neurologic: Denies headache(s) Psychiatric Psychiatric: Denies depression Endocrine Endocrinology: Denies polyuria Hematologic/Lymphatic Hematologic/Lymphatic: Denies easy bruising Allergic/Immunologic Allergic/Immunologic ED: Denies urticaria EXAM Physical Exam Narrative Exam Narrative: 70-year-old female no acute distress. Sitting upright in bed. Vital signs stable afebrile. Pulse ox 90% on room air no hypoxia. H EENT exam unremarkable. Moist use membranes. Neck nontender no JVD. No lymphadenopathy. Lungs clear to auscultation bilaterally. Heart regular rate and rhythm no murmur. Chest wall has sternal tenderness. No ecchymosis or bruising no subcu air or crepitance. This is the same pain she is having when I palpate her sternum. Abdomen soft nontender. Moving all 4 extremities. She has a dialysis fistula in her left forearm but it has a good thrill. Calves are nontender without edema. She has equal symmetrical manager of finance strength and dorsi and plantar flexion. Neurologically she is awake and alert. Const Vital Signs: 09/19/21 02:17 09/19/21 02:21 09/19/21 02:22 Temperature 98.2 F Temperature Source Temporal Pulse Rate 96 Respiratory Rate 25 H Respiratory Effort Normal Blood Pressure 197/85 H 197/85 H Blood Pressure Mean 122 122 Pulse Ox 98 Oxygen Delivery Method Room Air 09/19/21 02:58 Temperature Temperature Source Pulse Rate Respiratory Rate Respiratory Effort Blood Pressure Blood Pressure Mean Pulse Ox Oxygen Delivery Method Room Air Positive well nourished and well developed; Negative for obese, cachectic, contractures or unkempt General Appearance ED: well developed and NAD; Negative for unkempt, cachectic, contractures or pallor Nutritional Appearance: Negative for cachectic or obese HEENT Reports moist mucous membranes normocephalic and atraumatic; Negative for trauma or tenderness Eyes PERRL and EOMs intact bilaterally General Eye ED: Negative for pale conjunctiva or scleral icterus Neck no lymphadenopathy, supple and no JVD General: Negative for tenderness Chest Wall inspection of chest normal; Negative for palpation of chest normal Chest Narrative: Tender sternum. Chest: tenderness Resp normal respiratory effort and clear to auscultation bilaterally Effort and Inspection: respiratory distress Auscultation: Negative for rales, rhonchi or wheezes Cardio regular rate, regular rhythm, S1 normal heart sound, S2 normal heart sound and no murmurs GI normal to inspection, nondistended, normoactive bowel sounds, soft to palpation, non-tender, non-distended and no masses; Negative for hepatosplenomegaly Auscultation: Negative for hyperactive bowel sounds Palpation: Negative for splenomegaly or mass Back/Spine no CVA tenderness General Back: Negative for CVA tenderness Cervical Spine: Negative for cervical spine tenderness Extremity normal to inspection General Extremety ED: Negative for edema, pulses abnormal or tenderness General Extremity: Negative for edema or pulses abnormal Neuro oriented x3 Sensorium / Orientation: awake, alert, oriented to person, oriented to place and oriented to time Motor Exam: strength 5/5 throughout Psych mental status grossly normal Appearance: Negative for unkempt Attitude: No agitated Mood & Affect: Negative for depressed or tearful Skin no rashes or lesions noted and no wounds General Skin Exam: Negative for jaundice or pallor Heart Score History: Slightly/Non-Suspicious ECG: Normal Age: >/= 65 years Risk Factors: 1 or 2 Risk Factors Troponin: </= Normal Limit Score: 3 MDM MDM MDM Narrative Medical decision making narrative: 70-year-old with reproducible chest wall pain with a history of a prior sternal fracture years ago. Clinically exam is consistent with chest wall pain. She will go through a cardiac work-up. She did take aspirin prior to arrival. She will be given morphine for pain. Repeat exam patient is doing well at 4:08 AM. She will be treated with IV morphine for her chest wall pain and discharged home. Limited [place] for pain to her local pharmacy. Lab Data Attestation: I reviewed the patient's lab results. Lab results narrative: CBC shows white count 16.5. H&H 11.3 and 33. Platelets 270. Electrolytes sodium 134. Gap of 10. BUN is 72 creatinine 4.95 consistent with her history of renal failure. Glucose 264. Troponin is normal at 7. Chest x-ray unremarkable. Labs: Laboratory Results - last 24 hr 09/19/21 09/19/21 09/19/21 02:30 02:30 02:30 WBC 16.5 H RBC 3.36 L Hgb 11.3 L Hct 33.3 L MCV 99.1 H MCH 33.6 H MCHC 33.9 RDW Std Deviation 45.2 H RDW Coeff of Samy 12.4 Plt Count 270 MPV 10.9 Immature Gran % (Auto) 0.500 Neut % (Auto) 87.7 H Lymph % (Auto) 6.2 L [place] % (Auto) 5.2 Eos % (Auto) 0.2 Baso % (Auto) 0.2 Absolute Neuts (auto) 14.4 H Absolute Lymphs (auto) 1.03 Nucleated RBC % 0 Sodium 134 L Potassium 4.0 Chloride 96 L Carbon Dioxide 28.0 Anion Gap 10 BUN 72 H Creatinine 4.95 H Estim Creat Clear Calc 11.82 Est GFR (MDRD) Af Amer 11 L Est GFR (MDRD) Non-Af 9 L BUN/Creatinine Ratio 14.5 Glucose 264 H Calcium 10.3 H Troponin I High Sens 7 Radiography Chest X-Ray - ED: 1 View, Read by ED Physician, Heart, Lungs, Mediastinum, Bony Structures, No Acute Disease and Chronic Changes Diagnostic Testing: Clinical Impression(s) from Imaging Studies Chest X-Ray 09/19/21 02:32 IMPRESSION: Opacification left lung base may be due to atelectasis or pneumonia. Electronically Signed: Elvis Valero MD at 3:37 EDT , Chest x-ray, portable, single view shows atelectasis in the left base. No acute abnormality. Interpreted by myself and radiologist. Rhythm Strip Rhythm Strip: Sinus Rhythm Rate: 97 Ectopy: None EKG Initial EKG: Attestation: I personally reviewed and interpreted this EKG as follows: Interpretation: Sinus Rhythm and No Acute Injury Pattern Comments: Normal sinus rhythm rate of 97 no acute signs of IL or ischemia. Discharge Plan Triage Chief Complaint: Chest Pain ED Provider: Teofilo Gongora Dx/Rx/DC Orders Clinical Impression: Acute chest wall pain, Chronic renal failure, stage 5, History of diabetes mellitus Instructions: ED Chest Pain, Uncertain Cause Prescriptions: New hydrocodone-acetaminophen 5-325 mg tablet 1 tab PO Q4H PRN (Reason: pain) 3 Days Qty: 10 RF: 0 No Action Tradjenta 5 mg tablet 5 mg PO DAILY RF: 0 EyeProtect [id number] [id number]-xi-[id number] tablet 1 tab PO DAILY RF: 0 aspirin 81 MG tablet,chewable 81 mg PO DAILY@0800 RF: 0 levothyroxine 150 MCG tablet 300 mcg PO DAILY RF: 0 geriatric [id number]-mleo-wkol 1 EACH tablet 1 each PO DAILY RF: 0 alpha lipoic acid 100 MG capsule 100 mg PO DAILY RF: 0 omega-3 fatty acids-fish oil 1 EACH capsule,delayed release(DR/EC) 1 each PO DAILY RF: 0 cyanocobalamin (vitamin B-12) 1,000 MCG capsule 1,000 mcg PO DAILY RF: 0 acetaminophen [Tylenol] 325 mg Tablet 650 mg PO Q6H PRN PRN (Reason: Pain Score 1-10/Temp > 100.7 F) Qty: 0 RF: 0 metolazone 5 mg Tablet 5 mg PO BID Qty: 0 RF: 0 multivitamin Tablet 1 tab PO DAILY RF: 0 diltiazem HCl 120 mg Tablet Extended Release 24 Hr 120 mg PO DAILY RF: 0 zolpidem [Ambien] 5 mg Tablet 5 mg PO QHS PRN (Reason: Sleep) RF: 0 furosemide 80 mg tablet 80 mg PO DAILY RF: 0 hydrocodone-acetaminophen 5-325 mg tablet 1 tab PO Q8H PRN (Reason: pain) 2 Days Qty: 5 RF: 0 potassium chloride 10 mEq Capsule, Extended Release 20 meq PO DAILY RF: 0 amlodipine 5 mg tablet 10 mg PO DAILY RF: 0 Nephro-Drea 0.8 mg Tablet 1 tab PO DAILY RF: 0 ascorbic acid (vitamin C) 500 mg capsule 500 mg PO DAILY RF: 0 Primary Care Provider: Weston Zhu Referrals: Weston Zhu MD [Primary Care Provider] - 3-5 Days if not improving Activity Restrictions/Additional Instructions: Ice to chest wall. Use a pillow to support her sternum. [place] for pain. Follow-up with your doctor if not improving. Your labs, EKG and chest x-ray were unremarkable Disposition Disposition: Home, Self Care
[2021-09-19 02:54] LABS: Anion Gap 10 (5-15); BUN 72 mg/dL (7-18); BUN/Creat Ratio 14.5 RATIO (10-20); Calcium,Total 10.3 mg/dL (8.5-10.1); Chloride 96 mmol/L (98-107); Creatinine, Serum 4.95 mg/dL (0.55-1.02); EST Glomerular Filtration Rate 9 mL/min (>60); Est Glom Filt Rate - Afr Amer 11 mL/min (>60); Estimated Creatinine Clearance 11.82 ml/min; Glucose 264 mg/dL (74-106); Sodium Level 134 mmol/L (136-145)
[2021-09-19 03:29] LABS: Troponin-I HS (w/2H Reflex) 7 pg/mL (3.0-54.0)
[2021-09-19 04:20] VITALS: BP 173/79; PULSE 80; RESP 21; O2SAT 96
[2021-09-19] MEDS: morphine 8 MG/ML Syringe 6 MG IV (04:25)
[2021-09-19] MEDS: Ondansetron 4 MG/2 ML Vial IV (04:25)
[2021-09-19 05:11] LABS: Reflex Troponin-HS? (from REC) Y
== END 2021-09-19 04:41 | disposition home or self-care (01) ==
PROVIDERS: Emergency Provider Emergency Medicine; PCP Family Medicine; Visit Provider Emergency Medicine
DX: R07.89 Other chest pain (principal); E11.22 Type 2 diabetes mellitus with diabetic chronic kidney disease; I12.0 Hypertensive chronic kidney disease with stage 5 chronic kidney disease or end stage renal disease; N18.5 Chronic kidney disease, stage 5; E78.5 Hyperlipidemia, unspecified; E03.9 Hypothyroidism, unspecified; E66.9 Obesity, unspecified; Z68.25 Body mass index [BMI] 25.0-25.9, adult; Z79.82 Long term (current) use of aspirin; Z79.84 Long term (current) use of oral hypoglycemic drugs; Z79.899 Other long term (current) drug therapy
CPT/HCPCS: 71045; 80048; 84484; 85025; 93005; 96374; 96375; 99285; A4216; J2405

== ENCOUNTER 2021-11-17 09:58 | Day surgery (SDC) | payer MEDICARE, SELFPAY ==
[2021-11-08 15:10] LABS: Hematocrit 34.8 % (37-47); Hemoglobin 11.4 g/dL (12.0-15.0); Mean Corp Hgb Conc 32.8 g/dL (32-36); Mean Corpuscular Hgb 33.6 pg (27.0-32.0); Mean Corpuscular Volume 102.7 fL (81-99); Mean Platelet Vol. 9.8 fl (6.2-12.0); Platelet Count 283 K/mm3 (150-450); RBC Distribution Width CV 13.8 % (11.6-14.6); RBC Distribution Width SD 51.8 fl (35.1-43.9); Red Blood Count 3.39 M/mm3 (4.2-5.4); White Blood Count 10.4 K/mm3 (4.4-11.0)
[2021-11-08 16:07] LABS: AST(SGOT) 18 U/L (15-37); Alanine Aminotransfer ALT/SGPT 21 U/L (13-56); Alkaline Phosphatase 146 U/L (45-117); Anion Gap 8 (5-15); BUN 51 mg/dL (7-18); BUN/Creat Ratio 11.4 RATIO (10-20); Calcium,Total 9.2 mg/dL (8.5-10.1); Chloride 97 mmol/L (98-107); Creatinine, Serum 4.49 mg/dL (0.55-1.02); EST Glomerular Filtration Rate 10 mL/min (>60); Est Glom Filt Rate - Afr Amer 12 mL/min (>60); Glucose 219 mg/dL (74-106); Potassium 4.5 mmol/L (3.5-5.1); Sodium Level 135 mmol/L (136-145)
[2021-11-16 08:43] VITALS: BMI 25.1
--- NOTE | 2021-11-17 11:05 | PCM.HP.BLA ---
History and Physical Date of Admission: 11/17/21 Chief Complaint: check fistula Show Card Letterer Required: No Is patient in pain?: No Allergies lisinopril Allergy (Verified 11/08/21 14:28) Anaphylaxisolmesartan [From Benicar] Allergy (Verified 11/08/21 14:28) AnaphylaxisSulfa (Sulfonamide Antibiotics) Allergy (Verified 11/08/21 14:28) Rashadhesive tape Adverse Reaction (Verified 11/08/21 14:28) Rashlatex Adverse Reaction (Verified 11/08/21 14:28) Rashmetoprolol [From Toprol XL] Adverse Reaction (Verified 11/08/21 14:28) Rash Medications alpha lipoic acid 100 mg PO DAILY 09/19/20 [History Confirmed 11/08/21] aspirin 81 mg PO DAILY@0800 09/19/20 [History Confirmed 11/08/21] cyanocobalamin (vitamin B-12) 1,000 mcg PO DAILY 09/19/20 [History Confirmed 11/08/21] geriatric boplxzga-aaxu-omse 1 each PO DAILY 09/19/20 [History Confirmed 11/08/21] levothyroxine 300 mcg PO DAILY 09/19/20 [History Confirmed 11/08/21] omega-3 fatty acids-fish oil 1 each PO DAILY 09/19/20 [History Confirmed 11/08/21] acetaminophen [Tylenol] 650 mg PO Q6H PRN PRN #0 tab 10/01/20 [Rx Confirmed 11/08/21] metolazone 5 mg PO BID #0 tab 10/01/20 [Rx Confirmed 11/08/21] linagliptin 5 mg tablet 5 mg PO DAILY 11/25/20 [History Confirmed 11/08/21] vit A 7,160 unit-vit C 113 mg-vit E 100 tyjw-wqmf-oqlwko tablet 1 tab PO DAILY 11/25/20 [History Confirmed 11/08/21] diltiazem HCl 120 mg PO DAILY 12/19/20 [History Confirmed 11/08/21] multivitamin 1 tab PO DAILY 12/19/20 [History Confirmed 11/08/21] zolpidem [Ambien] 5 mg PO QHS PRN 12/19/20 [History Confirmed 11/08/21] furosemide 80 mg PO DAILY 12/23/20 [History Confirmed 11/08/21] B complex-vitamin C-folic acid [Nephro-Drea] 1 tab PO DAILY 09/19/21 [History Confirmed 11/08/21] amlodipine 10 mg PO DAILY 09/19/21 [History Confirmed 11/08/21] ascorbic acid (vitamin C) 500 mg PO DAILY 09/19/21 [History Confirmed 11/08/21] hydrocodone-acetaminophen 1 tab PO Q4H PRN 3 Days #10 tab 09/19/21 [Rx Confirmed 11/08/21] potassium chloride 20 meq PO DAILY 09/19/21 [History Confirmed 11/08/21] Is last menstrual period known: No Post menopausal: Yes Patient : No PFSH Medical History? Anemia Diabetes Diabetes mellitus type 2 in obese Dietary restriction ESRD (end stage renal disease) on dialysis History of edema History of renal disease Hyperlipidemia Hypertension Hypothyroidism Insomnia Non-smoker Secondary hyperparathyroidism Thyroid disease Surgical History? History of arteriovenostomy for renal dialysis (~12/2020) S/P cataract extraction S/P D&C (status post dilation and curettage) S/P dialysis catheter insertion S/P hysterectomy with oophorectomy Family History? Father Diabetes HypertensionMother Hypertension Social History? household members:? spouse Smoking Status:? Never smoker alcohol intake:? never substance use type:? does not use HPI HPI HPI: BRENT , is a 70 F who presents to the office today for surgical consultation regarding arteriovenous medialis associated issues.? I have most recently seen her June 07, 2021 when in the office I removed tunneled hemodialysis catheters.? Previously April 21 I performed a left upper extremity fistulogram for a radiocephalic AV fistula and did a 4 x 2 Powerflex angioplasty of the anastomotic area and then a 5 x 80 EverCross angioplasty of the proximal portion of the fistula and also a 5 x 2 cutting balloon angioplasty of the proximal left forearm AV fistula.? She has had a previous fistulogram and she is also had sidebranch ligation.? At her most recent office visit with me her fistula was running well.? She is now being referred as there are concerns about diminished flow She had been doing well with a larger size needles now they have had a decrease to smaller needles.? She however is generally pleased with the amount of clearance that she is getting. ROS General General: Yes weight change; No appetite, fatigue, colon cancer, breast cancer or weakness HEENT HEENT: Yes eye injury and eye surgery; No difficulty swallowing, swollen glands or hoarseness Endo Endocrine: Yes thyroid disease and diabetes mellitus; No thyroid cancer, Hair loss, heat intolerance or cold intolerance Skin Skin: No rash or changing moles Breast Breast: No left breast lump, right breast lump, nipple discharge, breast pain, abnormal mammogram, abnormal US or breast enlargement Musc Musculoskeletal: No back problems, arthritis, rheumatoid arthritis, gout or joint pain Cardio Cardiovascular: Yes high blood pressure; No murmur, pacemaker, heart disease, atrial fibrillation, heart attack, heart stent, palpitations, shortness of breat with exertion or chest pain Psych Psychiatric: No depression, anxiety or hearing voices Resp Respiratory: No shortness of breath, No sleep apnea, No cough, No COPD, No asthma, No emphysema and No wheezing Gastro Gastrointestinal: No abdominal pain, No nausea or vomiting, No diarrhea, No constipation, No blood in stool, No acid reflux, No hemorrhoids, No ulcers, No gallbladder problem and No black,tarry stools Gaurang Hematologic: Yes blood thinners, No blood disorders, No bleeding, Yes anemia and No blood clots Neuro Neurologic: No system reviewed and no additional complaints, except as documented, No as per HPI, No abnormal gait, No abnormal hearing, No abnormal movements, No abnormal speech, No behavioral changes, No burning sensations, No confusion, No convulsions, No disequilibrium, No dizziness, No localized weakness, No frequent falls, No headache(s), No lack of coordination, No loss of vision, No memory loss, No numbness, No other visual disturbances, No radicular pain, No restless legs, No sensory deficit, No syncope, No tingling, No tremor(s), No weakness and No other Exam Const General: cooperative, comfortable and no acute distress Nutritional Appearance: average body habitus Orientation: alert and awake [facility] Head: normal to inspection Chest Chest palpation & inspection: normal inspection of the chest Resp Effort & Inspection: normal respiratory effort Cardio Rate: regular rate Rhythm: regular rhythm GI Palpation: soft and no hepatosplenomegaly Skin General: no rashes or lesions noted Neuro General: patient alert and patient awake Extrem Other: Left forearm radial to cephalic arteriovenous fistula slightly more proximally placed in the forearm with a pulse and thrill and bruit.? Inspection however reveals that the proximal portion of the fistula appears diminutive in size.? This would be consistent with her history of previous fistulogram and previous treatment with a 4 x 2 Powerflex angioplasty and a 5 x 80 mm EverCross angioplasty and a 5 x 20 mm cutting balloon angioplasty.? Psych Appearance: grossly normal Assessment and Plan Assessment and Plan (1) Problem with dialysis access: ?Status:?Acute ?Qualifiers: ?Encounter type:?initial encounter? Qualified Code(s):?T82.898A - Other specified complication of vascular prosthetic devices, implants and grafts, initial encounter ?Plan - Dr. Jace Palacio MD: I recommended the patient a left forearm fistulogram accessing retrograde with flow closer to the antecubital space.? I anticipating that there is proximal fistula venous stenosis.? Previously we needed to use a 5 x 2 cutting balloon.? This may be required again.? We will consider whether we additionally use a drug-coated balloon.? She is on a aspirin daily.? She is aware of the technique, benefit, risk and alternatives.? We will schedule and proceed with her care.? I appreciate the ongoing opportunity of assisting with her surgical care. Jace Palacio M.D., F.A.C.S. I have re-examined the patient. There are no clinical changes since date of exam. Jace Palacio M.D., F.A.C.S.
--- NOTE | 2021-11-17 12:12 | OP.PCM_ITS ---
Problems Associated Problem List Diagnoses (1) Problem with dialysis access: Report of Operation Date of Procedure: 11/17/21 Pre-Operative Diagnosis: Problem with left forearm radiocephalic arteriovenous hemodialysis access Post-Operative Diagnosis: High-grade proximal fistula venous stenosis Surgery/Procedure Performed:: Left upper extremity fistulogram with 5 x 2 cutting balloon angioplasty and 6 x 6 Lutonix drug-coated balloon angioplasty Description of Surgical Findings:: Timeout informed consent was obtained. 70-year-old female was taken to the special procedures lab placed on the table. She received 50 mcg of fentanyl and 1 mg Versed is intravenous sedation. The left upper extremity was sterilely prepped and draped. Ultrasound was used to identify the cephalic vein closer to the antecubital space. Under ultrasound guidance 2% lidocaine was instilled as a local anesthetic. Throughout the procedure a total of 2 cc was used. Under ultrasound guidance a micropuncture needle was inserted retrograde with flow. Micropuncture wire. 6 Kinyarwanda short sheath dilator was inserted. Using an 035 angled Glidewire and a 4 Kinyarwanda glide cath access was gained to the radial art morgan proximal to the anastomosis. Using Isovue contrast a fistulogram was obtained. This demonstrated moderate stenosis at the anastomosis and then an area of about 3 to 4 cm long of high-grade venous stenosis. The patient received 5000 units of heparin intravenously. A SV 5 wire was placed. A 5 x 2 cutting balloon was placed and multiple insufflations were performed at the proximal fistula involving the arterial anastomosis and adjacent to the anastomosis. After approximately the 6 insufflation the balloon failed. There was improvement but lack of complete resolution. This was similar to previous treatment so I elected to place a drug coated balloon. A placed a 6 x 6 the Lutonix drug-coated balloon so as to cover the area of treatment of the radial artery and proximal fistula. That was insufflated to 12 enrrique of pressure. Completion views demonstrated notable improvement particularly in the venous stenosis. There is still felt to be at least 20 to 30% anastomotic stenosis. The fistulogram was completed for the left upper extremity. The sheath was removed and a U suture 4-0 nylon was placed. The fistula had resumption of excellent pulse thrill and bruit Left upper extremity fistulogram demonstrates a forearm radiocephalic arteriovenous hemodialysis fistula. There is anastomotic stricturing and proximal fistula venous stenosis over at least 3 cm. Subsequent to the Cutting Balloon angioplasty and drug-coated balloon angioplasty there is now notable improvement particularly in the venous portion of the fistula. There is 20 to 30% residual stenosis at the anastomosis. There is good cephalic vein outflow of the forearm and good cephalic and basilic vein outflow of the upper arm and good central venous outflow Specimens none. Drains none. Blood loss minimal Jace Palacio M.D., F.A.C.S. Surgeon: Jace Palacio Type of Anesthesia: IV Sedation and Local
== END 2021-11-17 13:10 | disposition home or self-care (01) ==
PROVIDERS: PCP Family Medicine; Referring Provider Surgery; Visit Provider Surgery
DX: T82.858A Stenosis of other vascular prosthetic devices, implants and grafts, initial encounter (principal); Z99.2 Dependence on renal dialysis; E11.22 Type 2 diabetes mellitus with diabetic chronic kidney disease; N18.6 End stage renal disease; I12.0 Hypertensive chronic kidney disease with stage 5 chronic kidney disease or end stage renal disease; X58.XXXA Exposure to other specified factors, initial encounter; E03.9 Hypothyroidism, unspecified; E78.5 Hyperlipidemia, unspecified; E66.9 Obesity, unspecified; Z68.25 Body mass index [BMI] 25.0-25.9, adult; Z79.82 Long term (current) use of aspirin; Z79.84 Long term (current) use of oral hypoglycemic drugs; Z79.899 Other long term (current) drug therapy
CPT/HCPCS: 36415; 36902; 76937; 80053; 85027; 99152; 99153; C1725; Q9967; C1769

== ENCOUNTER → 2022-02-19 | Outpatient (CLI) | payer MEDICARE, SELFPAY ==
[2022-02-19 10:44] LABS: ALB/GLOB Ratio 1.3 RATIO (0.9-2.4); AST(SGOT) 10 U/L (15-37); Alanine Aminotransfer ALT/SGPT 20 U/L (13-56); Albumin, Serum 3.8 g/dL (3.2-5.0); Alkaline Phosphatase 120 U/L (45-117); Anion Gap 8 (5-15); BUN 20 mg/dL (7-18); BUN/Creat Ratio 20.4 RATIO (10-20); Calcium,Total 9.4 mg/dL (8.5-10.1); Chloride 104 mmol/L (98-107); Creatinine, Serum 0.98 mg/dL (0.55-1.02); EST Glomerular Filtration Rate 60 mL/min (>60); Est Glom Filt Rate - Afr Amer 72 mL/min (>60); Globulin 2.9 g/dL (2.2-4.2); Glucose 82 mg/dL (74-106); Magnesium 1.9 mg/dL (1.6-2.6); Phosphorus 2.9 mg/dL (2.5-4.9); Potassium 3.9 mmol/L (3.5-5.1); Protein, Total 6.7 g/dL (6.4-8.2); Sodium Level 139 mmol/L (136-145)
== END | disposition home or self-care (01) ==
LOC: LABSPEC 09:56
PROVIDERS: PCP Family Medicine
DX: Z94.0 Kidney transplant status (principal)
CPT/HCPCS: 80053; 83735; 84100

== ENCOUNTER → 2022-07-11 | Outpatient (CLI) | payer MEDICARE, SELFPAY ==
[2022-07-11] MEDS: Pentamidine Isethionate 300 MG, Water For Injection,Sterile 6 ML INHALATION (14:07)
== END | disposition home or self-care (01) ==
PROVIDERS: PCP Family Medicine
DX: R06.09 Other forms of dyspnea (principal)
CPT/HCPCS: 94642

== ENCOUNTER → 2022-08-08 | Outpatient (CLI) | payer MEDICARE, SELFPAY | END | disposition home or self-care (01) | LOC: PSN 13:08 | PROVIDERS: PCP Family Medicine | DX: J98.01 Acute bronchospasm (principal) | CPT/HCPCS: 94642 ==

== ENCOUNTER 2022-09-01 18:44 | Emergency (ER) | payer MEDICARE, SELFPAY ==
[2022-09-01 18:46] VITALS: BP 173/64; PULSE 90; RESP 14; TEMP 37.2; O2SAT 100; BMI 30.4
[2022-09-01 18:55] VITALS: BP 149/65; PULSE 84; PULSE 86; RESP 18; TEMP 36.8; O2SAT 99
--- NOTE | 2022-09-01 19:04 | EDS_ITS ---
HPI History of Present Illness Chief Complaint: Wound Detail of Chief Complaint: Wound to right fourth toe Informant: patient Narrative Narrative: Patient presents emergency department with concern of a wound to her right fourth toe. Patient states that it started swelling and bothering her maybe a week and a half ago. Today she noticed that it started to bleed and the tip started to turn black. There are some purulent drainage from it. She is a diabetic. She had a kidney transplant 8 months ago. She sees podiatry Dr. Chase but has not talked to them regarding this issue. She denies fevers or chills or sweats. [facility] Medical History (Updated 09/01/22 @ 20:[address] Abbie Saini, ) Anemia Diabetes Diabetes mellitus type 2 in obese Dietary restriction ESRD (end stage renal disease) on dialysis History of edema History of renal disease Hyperlipidemia Hypertension Hypothyroidism Insomnia Non-smoker Secondary hyperparathyroidism Thyroid disease Home Medications alpha lipoic acid 100 mg capsule 100 mg PO DAILY 09/19/20 [History Last Taken Unknown] aspirin 81 mg chewable tablet 81 mg PO DAILY@0800 09/19/20 [History Last Taken Unknown] cyanocobalamin (vitamin B-12) 1,000 mcg capsule 1,000 mcg PO DAILY 09/19/20 [History Last Taken Unknown] geriatric jyqbfrgy-nhyq-dncs 1 each PO DAILY 09/19/20 [History Last Taken Unknown] levothyroxine 150 mcg tablet 300 mcg PO DAILY 09/19/20 [History Last Taken 12/23/20] omega-3 fatty acids-fish oil 684 mg-1,200 mg capsule,delayed release 1 each PO DAILY 09/19/20 [History Last Taken Unknown] acetaminophen 325 mg tablet (Tylenol) 650 mg PO Q6H PRN PRN Pain Score 1-10/Temp > 100.7 F #0 tabs 10/01/20 [Rx Last Taken Unknown] metolazone 5 mg tablet 5 mg PO BID #0 tabs 10/01/20 [Rx Last Taken Unknown] linagliptin 5 mg tablet (Tradjenta) 5 mg PO DAILY 11/25/20 [History Last Taken Unknown] vit A 7,160 unit-vit C 113 mg-vit E 100 cbpa-uvnw-jhgwjq tablet (EyeProtect) 1 tab PO DAILY 11/25/20 [History Last Taken Unknown] diltiazem HCl 120 mg tablet,extended release 24 hr 120 mg PO DAILY 12/19/20 [History Last Taken 11/17/21] multivitamin 1 tab PO DAILY 12/19/20 [History Last Taken Unknown] zolpidem 5 mg tablet (Ambien) 5 mg PO QHS PRN Sleep 12/19/20 [History Last Taken Unknown] furosemide 80 mg tablet 80 mg PO DAILY 12/23/20 [History Last Taken Unknown] amlodipine 5 mg tablet 10 mg PO DAILY 09/19/21 [History Last Taken Unknown] ascorbic acid (vitamin C) 500 mg capsule 500 mg PO DAILY 09/19/21 [History Last Taken Unknown] hydrocodone-acetaminophen 5-325mg 5mg-325mg 1 tab PO Q4H PRN pain 3 days #10 tabs 09/19/21 [Rx Last Taken Unknown] potassium chloride 10 mEq capsule,extended release 20 meq PO DAILY 09/19/21 [History Last Taken Unknown] vitamin B complex-vitamin C-folic acid 0.8 mg tablet (Nephro-Drea) 1 tab PO DAILY 09/19/21 [History Last Taken Unknown] cephalexin 500 mg capsule 500 mg PO Q6 #40 CAPSULES 09/01/22 [Rx Last Taken U nknown] Allergy/AdvReac Type Severity Reaction Status Date / Time lisinopril Allergy Anaphylaxis Verified 09/01/22 18:51 olmesartan [From Benicar] Allergy Anaphylaxis Verified 09/01/22 18:51 Sulfa (Sulfonamide Allergy Rash Verified 09/01/22 18:51 Antibiotics) adhesive tape AdvReac Rash Verified 09/01/22 18:51 latex AdvReac Rash Verified 09/01/22 18:51 metoprolol [From Toprol XL] AdvReac Rash Verified 09/01/22 18:51 Family History Father Diabetes Hypertension Mother Hypertension Surgical History (Updated 09/01/22 @ 18:51 by Yolanda Gilmore) History of arteriovenostomy for renal dialysis (~12/2020) Kidney transplant recipient S/P cataract extraction S/P D&C (status post dilation and curettage) S/P dialysis catheter insertion S/P hysterectomy with oophorectomy Social History household members: spouse Smoking Status: Never smoker alcohol intake: never substance use type: does not use ROS ROS ED Review of Systems ROS Unobtainable: other Constitutional Constitutional ED: Reports lethargy; Denies chills, fever(s), sweats or weight loss Eyes Eyes: Denies blurry vision, change in vision or diplopia ENT ENT ED: Denies rhinorrhea or sore throat Cardiovascular Cardiovascular: Reports chest pain and racing heartbeat; Denies orthopnea Respiratory/Chest Respiratory/Chest: Reports dyspnea and dyspnea on exertion; Denies cough, orthopnea or sputum Gastrointestinal Gastrointestinal: Denies abdominal pain, diarrhea, nausea or vomiting Genitourinary Genitourinary ED: Denies dysuria, hematuria or urinary frequency Musculoskeletal Musculoskeletal: Reports other Details: Right foot-evaluation of the fourth toe does reveal soft tissue swelling with erythema to the proximal portion of the toe. Patient has several open areas that drain small amount of purulent debris. No eschar noted. ; Denies arthralgias, back pain, myalgias or neck pain Integumentary Denies abscess, Abrasions or rash Neurologic Neurologic: Denies headache(s) or weakness Psychiatric Psychiatric: Denies anxiety, depression or suicidal thoughts Endocrine Endocrinology: Denies polydipsia, polyphagia or polyuria Hematologic/Lymphatic Hematologic/Lymphatic: Denies easy bleeding, easy bruising or lymphadenopathy Allergic/Immunologic Allergic/Immunologic ED: Denies mouth swelling, tongue swelling or urticaria EXAM Physical Exam Const Vital Signs: 09/01/22 18:46 09/01/22 18:55 09/01/22 18:55 Temperature 99 F 98.2 F 98.2 F Temperature Source Temporal Oral Oral Pulse Rate 90 86 84 Respiratory Rate 14 18 18 Blood Pressure 173/64 H 149/65 H 149/65 H Blood Pressure Mean 100 93 93 Pulse Ox 100 99 99 Oxygen Delivery Method Room Air Room Air Room Air 09/01/22 19:58 Temperature 98.2 F Temperature Source Oral Pulse Rate 86 Respiratory Rate 18 Blood Pressure 143/51 H Blood Pressure Mean 81 Pulse Ox 97 Oxygen Delivery Method Room Air MDM MDM MDM Narrative Medical decision making narrative: Patient presents with a wound to her right fourth toe concern for infection. She denies trauma. Patient will have x-rays of the toe and wound cultures obtained. X-ray of the toes showed no fractures or bony abnormalities consistent with osteomyelitis. There was some soft tissue swelling around the fourth toe. 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 I will start patient on Keflex. I suspect patient may have had a blood blister there and I am concerned about possible cellulitis. Patient does not appear ill. I do not feel she requires admission or further work-up at this time. Patient will have a clean dressing applied and she is advised to follow- up with Dr. Chase. Radiography Diagnostic Testing: Clinical Impression(s) from Imaging Studies Toe X-Ray 09/01/22 19:30 IMPRESSION: Diffuse soft tissue swelling around the fourth digit. Electronically Signed: Andrade Akers MD at 20:10 EDT , Three-view x-rays of right toes obtained interpreted by myself as no acute fractures. No evidence of osteomyelitis. There was diffuse soft tissue swelling around the fourth toe. Radiology in agreement. Discharge Plan Triage Chief Complaint: Wound ED Provider: Abbie Saini Dx/Rx/DC Orders Clinical Impression: Cellulitis of fourth toe, right Instructions: Cellulitis Dc Prescriptions: New cephalexin [cephalexin] 500 mg capsule 500 mg PO Q6 Qty: 40 0RF No Action Tradjenta 5 mg tablet 5 mg PO DAILY EyeProtect 7,160-113-100 jjzs-xj-hcfo tablet 1 tab PO DAILY aspirin 81 MG tablet,chewable 81 mg PO DAILY@0800 levothyroxine 150 MCG tablet 300 mcg PO DAILY geriatric pkmpjaip-ziwt-ykdu 1 EACH tablet 1 each PO DAILY alpha lipoic acid 100 MG capsule 100 mg PO DAILY omega-3 fatty acids-fish oil 1 EACH capsule,delayed release(DR/EC) 1 each PO DAILY cyanocobalamin (vitamin B-12) 1,000 MCG capsule 1,000 mcg PO DAILY acetaminophen [Tylenol] 325 mg Tablet 650 mg PO Q6H PRN PRN (Reason: Pain Score 1-10/Temp > 100.7 F) Qty: 0 0RF metolazone 5 mg Tablet 5 mg PO BID Qty: 0 0RF Label Comments: ONLY TAKES IN AFTERNOON NON-DIALYSIS DAYS 1 KOFI DAILY ON , , , OTHER DAYS BID Rx Instructions: am and at bedtime not in am on dialysis days multivitamin Tablet 1 tab PO DAILY diltiazem HCl 120 mg Tablet Extended Release 24 Hr 120 mg PO DAILY Label Comments: ,, Rx Instructions: dialysis days zolpidem [Ambien] 5 mg Tablet 5 mg PO QHS PRN (Reason: Sleep) furosemide 80 mg tablet 80 mg PO DAILY Label Comments: ON [place], [place], [place], FR NON-DYALYSIS DAYS Rx Instructions: nondialysis days only potassium chloride 10 mEq Capsule, Extended Release 20 meq PO DAILY amlodipine 5 mg tablet 10 mg PO DAILY Label Comments: Take 1 tablet by mouth once a day as directed in the morning Nephro-Drea 0.8 mg Tablet 1 tab PO DAILY ascorbic acid (vitamin C) 500 mg capsule 500 mg PO DAILY Label Comments: Take 1 capsule by mouth every morning as directed hydrocodone-acetaminophen 5-325 mg tablet 1 tab PO Q4H PRN (Reason: pain) 3 Days Qty: 10 0RF Primary Care Provider: Weston Zhu Referrals: Glenn Chase DPM [Med Staff - Active Staff] - 3-5 Days Weston Zhu MD [Primary Care Provider] - Disposition Disposition: Home, Self Care
--- NOTE | 2022-09-01 19:30 | RAD_ITS ---
EXAM: XR RIGHT TOES, 2 OR MORE VIEWS CLINICAL INDICATION: pain, swelling TECHNIQUE: Frontal, lateral and oblique views of the toes of the right foot. This report was created using [email or web address] report generation technology. COMPARISON: None. FINDINGS: BONES/JOINTS: Unremarkable. No acute fracture. No dislocation. SOFT TISSUES: Diffuse soft tissue swelling around the fourth digit. No radiopaque foreign body. VASCULATURE: Vascular calcifications. RAD/Toe(s) Min 2 Views IMPRESSION: Diffuse soft tissue swelling around the fourth digit. Electronically Signed: Andrade Akers MD at 20:10 EDT ,
[2022-09-01 19:58] VITALS: BP 143/51; PULSE 86; RESP 18; TEMP 36.8; O2SAT 97
[2022-09-01 20:43] VITALS: BP 141/110; PULSE 79; RESP 18; TEMP 36.8; O2SAT 95
[2022-09-01] MEDS: Cephalexin 250 MG Capsule 500 MG PO (20:52)
== END 2022-09-01 21:11 | disposition home or self-care (01) ==
PROVIDERS: Emergency Provider Emergency Medicine; PCP Family Medicine; Visit Provider Emergency Medicine
DX: L03.031 Cellulitis of right toe (principal); N18.6 End stage renal disease; I12.0 Hypertensive chronic kidney disease with stage 5 chronic kidney disease or end stage renal disease; E03.9 Hypothyroidism, unspecified; Z79.82 Long term (current) use of aspirin; Z79.899 Other long term (current) drug therapy; Z94.0 Kidney transplant status
CPT/HCPCS: 73660; 87070; 87077; 87186; 87205; 99283

== ENCOUNTER → 2022-09-05 | Outpatient (CLI) | payer MEDICARE, SELFPAY ==
[2022-09-05] MEDS: Pentamidine Isethionate 300 MG, Water For Injection,Sterile 6 ML INHALATION (13:23)
== END | disposition home or self-care (01) ==
PROVIDERS: PCP Family Medicine
DX: J98.01 Acute bronchospasm (principal)
CPT/HCPCS: 94642

== ENCOUNTER → 2022-10-03 | Outpatient (CLI) | payer MEDICARE, SELFPAY ==
[2022-10-03] MEDS: Pentamidine Isethionate 300 MG, Water For Injection,Sterile 6 ML INHALATION (13:21)
== END | disposition home or self-care (01) ==
LOC: PSN 12:59
PROVIDERS: PCP Family Medicine
DX: J98.01 Acute bronchospasm (principal)
CPT/HCPCS: 94642

== ENCOUNTER → 2022-11-07 | Outpatient (CLI) | payer MEDICARE, SELFPAY ==
[2022-11-07] MEDS: Pentamidine Isethionate 300 MG, Water For Injection,Sterile 6 ML INHALATION (13:28)
== END | disposition home or self-care (01) ==
LOC: PSN 13:09
PROVIDERS: PCP Family Medicine; Referring Provider Urology; Visit Provider Urology
DX: J98.01 Acute bronchospasm (principal)
CPT/HCPCS: 94642